=== PATIENT | female | born 1945 | race Caucasian/White ===

== ENCOUNTER 2017-12-20 17:18 | Emergency (ER) | payer OTHER, SELFPAY ==
[2017-12-20 17:28] VITALS: BP 96/78; PULSE 60; RESP 16; O2SAT 96
--- NOTE | 2017-12-20 17:34 | ED.WOUNDLAC ---
HPI - Wound/Laceration <Juliann Atkins PA-C - Last Filed: 12/20/17 21:54> General Chief Complaint: Wound/Laceration Stated Complaint: cut off tip of index finger left hand Time Seen by Provider: 12/20/17 17:34 Source: patient Mode of arrival: ambulatory Limitations: no limitations History of Present Illness HPI narrative: This 72-year-old right-handed female was chopping some herbs at home when she cut off a piece of skin and nail on her left pointer finger with a knife. She states that she does not think it is cut very deeply, and actually states a little piece of skin, but can't get it to stop bleeding. She started Pradaxa on Friday and thinks due to this. She denies any weakness or paresthesia in the finger. She denies any other injuries or complaints. She thinks at least 5 years since her last tetanus vaccine Related Data Home Medications Medication Instructions Recorded Confirmed atenolol 50 mg PO BID #0 09/28/12 12/20/17 hydrochlorothiazide 25 mg PO QDAY #0 09/28/12 12/20/17 atorvastatin 10 mg PO DAILY 12/20/17 12/20/17 calcium carbonate-vitamin D3 1,000 mg PO DAILY 12/20/17 12/20/17 dabigatran etexilate [Pradaxa] 150 mg PO BID 12/20/17 12/20/17 flecainide 100 mg PO Q12H 12/20/17 12/20/17 levothyroxine 50 mcg PO DAILY 12/20/17 12/20/17 losartan 25 mg PO DAILY 12/20/17 12/20/17 multivitamin 1 cap PO QAM 12/20/17 12/20/17 omega 4-jyk-efj-fish oil [Fish Oil] 4,000 mg PO DAILY 12/20/17 12/20/17 vitamin B complex 1 cap PO DAILY 12/20/17 12/20/17 Allergies Allergy/AdvReac Type Severity Reaction Status Date / Time vancomycin [VANCOMYCIN] Allergy Mild HIVES Verified 12/20/17 17:35 levofloxacin [From LEVAQUIN] Allergy Unknown TORN Verified 12/20/17 17:35 ACHILLES Review of Systems <Juliann Atkins PA-C - Last Filed: 12/20/17 21:54> Review of Systems All systems reviewed & are unremarkable except as noted in HPI and below Exam <BRIGETTE Cordoba Last Filed: 12/20/17 21:54> Initial Vital Signs Initial Vital Signs: Vital Signs Pulse Rate 60 12/20/17 17:28 Respiratory Rate 16 12/20/17 17:28 Blood Pressure 96/78 12/20/17 17:28 Pulse Oximetry 96 12/20/17 17:28 GENERAL APPEARANCE: Patient sitting comfortably, in no distress. LUNGS: Clear to auscultation bilaterally. HEART: Rate and rhythm regular without murmur, normal S1 and S2, no S3 or S4. DERMATOLOGIC: Left lateral border of the pointer finger there is a nail and skin avulsion. The lateral 1/4 of the nail is avulsed along with a piece of skin about 4 mm in diameter. This is freely bleeding. No deep tissue or bone visible. Skin fragment is very superficial. Surgifoam and direct pressure applied and bleeding stopped MUSCULOSKELETAL: Left pointer finger full active range of motion, strength is intact against resistance NEUROVASCULAR: Left pointer finger tip is warm and pink, sensation grossly intact <DO Myla Aguilera Last Filed: 12/21/17 00:53> Initial Vital Signs Initial Vital Signs: Vital Signs Pulse Rate 60 12/20/17 17:28 Respiratory Rate 16 12/20/17 17:28 Blood Pressure 96/78 12/20/17 17:28 Pulse Oximetry 96 12/20/17 17:28 Course <Juliann Atkins PA-C - Last Filed: 12/20/17 21:54> Hospital Course: Wound was cleaned. Bleeding was controlled with surgifoam and pressure. Bulky protective dressing applied Orders Ordered: Discontinued Medications Diphtheria/Tetanus/Acell Pertussis (Adacel) 0.5 ml IM .ONCE ONE Stop: 12/20/17 17:52 Last Admin: 12/20/17 18:07 Dose: 0.5 ml Vital Signs - 8 hr 12/20/17 17:28 12/20/17 17:35 12/20/17 19:03 Temperature 97.5 F L Pulse Rate 60 60 99 H Respiratory Rate 16 15 18 Blood Pressure 164/77 H 149/79 H Blood Pressure [Left Arm] 96/78 Pulse Oximetry 96 96 97 <Jayesh [place], DO - Last Filed: 12/21/17 00:53> Orders Ordered: Discontinued Medications Diphtheria/Tetanus/Acell Pertussis (Adacel) 0.5 ml IM .ONCE ONE Stop: 12/20/17 17:52 Last Admin: 12/20/17 18:07 Dose: 0.5 ml Vital Signs - 8 hr 12/20/17 17:28 12/20/17 17:35 12/20/17 19:03 Temperature 97.5 F L Pulse Rate 60 60 99 H Respiratory Rate 16 15 18 Blood Pressure 164/77 H 149/79 H Blood Pressure [Left Arm] 96/78 Pulse Oximetry 96 96 97 Discharge Plan Departure Patient Disposition: Home, Self-Care Clinical Impression: Avulsion of skin of finger Discharge Date/Time: 12/20/17 19:03 Interventions: ED Discharge Assessment Last Done: 12/20/17 19:03 Instructions: DI for Avulsion Laceration (Not Requiring Sutures), DI for Nail Avulsion Injury Activity Restrictions/Additional Instructions: Monitor for signs of infection and return or see your PCP if any. Keep this area protected, clean and bandaged to help keep it from bleeding and to help with pain. Take [id number] Tylenol as needed. As this wound heals, you can use a experimental box tester dressing or Band-Aid but you should protect it until the skin heals over. Prescriptions: No Action atenolol 50 MG tablet 50 mg PO BID Qty: 0 RF: 0 hydrochlorothiazide 25 MG tablet 25 mg PO QDAY Qty: 0 RF: 0 omega 0-rdq-yro-fish oil [Fish Oil] 1,000 mg (120 mg-180 mg) Capsule 4,000 mg PO DAILY RF: 0 atorvastatin 10 mg Tablet 10 mg PO DAILY RF: 0 levothyroxine 50 mcg Tablet 50 mcg PO DAILY RF: 0 flecainide 100 mg Tablet 100 mg PO Q12H RF: 0 vitamin B complex Capsule 1 cap PO DAILY RF: 0 dabigatran etexilate [Pradaxa] 150 mg Capsule 150 mg PO BID RF: 0 calcium carbonate-vitamin D3 1,000 mg(2,500 mg)-800 unit Tablet 1,000 mg PO DAILY RF: 0 losartan 25 mg Tablet 25 mg PO DAILY RF: 0 multivitamin Capsule 1 cap PO QAM RF: 0 Referrals: Sharon Lin PA-C [Primary Care Provider] - <Jayesh Hernandez DO - Last Filed: 12/21/17 00:53> Cosign ED Attending Julissaature Attestation: I was immediately available in the department for consultation. Documentation has been reviewed. I agree with assessment and plan.
[2017-12-20 17:35] VITALS: BP 164/77; PULSE 60; RESP 15; TEMP 36.4; O2SAT 96; BMI 27.1
--- NOTE | 2017-12-20 17:57 | ED_ITS ---
HPI - Wound/Laceration <Juliann Atkins PA-C - Last Filed: 12/20/17 21:54> General Chief Complaint: Wound/Laceration Stated Complaint: cut off tip of index finger left hand Time Seen by Provider: 12/20/17 17:34 Source: patient Mode of arrival: ambulatory Limitations: no limitations History of Present Illness HPI narrative: This 72-year-old right-handed female was chopping some herbs at home when she cut off a piece of skin and nail on her left pointer finger with a knife. She states that she does not think it is cut very deeply, and actually states a little piece of skin, but can't get it to stop bleeding. She started Pradaxa on Friday and thinks due to this. She denies any weakness or paresthesia in the finger. She denies any other injuries or complaints. She thinks at least 5 years since her last tetanus vaccine Related Data Home Medications Medication Instructions Recorded Confirmed atenolol 50 mg PO BID #0 09/28/12 12/20/17 hydrochlorothiazide 25 mg PO QDAY #0 09/28/12 12/20/17 atorvastatin 10 mg PO DAILY 12/20/17 12/20/17 calcium carbonate-vitamin D3 1,000 mg PO DAILY 12/20/17 12/20/17 dabigatran etexilate [Pradaxa] 150 mg PO BID 12/20/17 12/20/17 flecainide 100 mg PO Q12H 12/20/17 12/20/17 levothyroxine 50 mcg PO DAILY 12/20/17 12/20/17 losartan 25 mg PO DAILY 12/20/17 12/20/17 multivitamin 1 cap PO QAM 12/20/17 12/20/17 omega 2-ilk-xeo-fish oil [Fish Oil] 4,000 mg PO DAILY 12/20/17 12/20/17 vitamin B complex 1 cap PO DAILY 12/20/17 12/20/17 Allergies Allergy/AdvReac Type Severity Reaction Status Date / Time vancomycin [VANCOMYCIN] Allergy Mild HIVES Verified 12/20/17 17:35 levofloxacin [From LEVAQUIN] Allergy Unknown TORN Verified 12/20/17 17:35 ACHILLES Review of Systems <Juliann Atkins PA-C - Last Filed: 12/20/17 21:54> Review of Systems All systems reviewed & are unremarkable except as noted in HPI and below Exam <BRIGETTE Cordoba Last Filed: 12/20/17 21:54> Initial Vital Signs Initial Vital Signs: Vital Signs Pulse Rate 60 12/20/17 17:28 Respiratory Rate 16 12/20/17 17:28 Blood Pressure 96/78 12/20/17 17:28 Pulse Oximetry 96 12/20/17 17:28 GENERAL APPEARANCE: Patient sitting comfortably, in no distress. LUNGS: Clear to auscultation bilaterally. HEART: Rate and rhythm regular without murmur, normal S1 and S2, no S3 or S4. DERMATOLOGIC: Left lateral border of the pointer finger there is a nail and skin avulsion. The lateral 1/4 of the nail is avulsed along with a piece of skin about 4 mm in diameter. This is freely bleeding. No deep tissue or bone visible. Skin fragment is very superficial. Surgifoam and direct pressure applied and bleeding stopped MUSCULOSKELETAL: Left pointer finger full active range of motion, strength is intact against resistance NEUROVASCULAR: Left pointer finger tip is warm and pink, sensation grossly intact <DO Myla Aguilera Last Filed: 12/21/17 00:53> Initial Vital Signs Initial Vital Signs: Vital Signs Pulse Rate 60 12/20/17 17:28 Respiratory Rate 16 12/20/17 17:28 Blood Pressure 96/78 12/20/17 17:28 Pulse Oximetry 96 12/20/17 17:28 Course <Juliann Atkins PA-C - Last Filed: 12/20/17 21:54> Hospital Course: Wound was cleaned. Bleeding was controlled with surgifoam and pressure. Bulky protective dressing applied Orders Ordered: Discontinued Medications Diphtheria/Tetanus/Acell Pertussis (Adacel) 0.5 ml IM .ONCE ONE Stop: 12/20/17 17:52 Last Admin: 12/20/17 18:07 Dose: 0.5 ml Vital Signs - 8 hr 12/20/17 17:28 12/20/17 17:35 12/20/17 19:03 Temperature 97.5 F L Pulse Rate 60 60 99 H Respiratory Rate 16 15 18 Blood Pressure 164/77 H 149/79 H Blood Pressure [Left Arm] 96/78 Pulse Oximetry 96 96 97 <Jayesh [place], DO - Last Filed: 12/21/17 00:53> Orders Ordered: Discontinued Medications Diphtheria/Tetanus/Acell Pertussis (Adacel) 0.5 ml IM .ONCE ONE Stop: 12/20/17 17:52 Last Admin: 12/20/17 18:07 Dose: 0.5 ml Vital Signs - 8 hr 12/20/17 17:28 12/20/17 17:35 12/20/17 19:03 Temperature 97.5 F L Pulse Rate 60 60 99 H Respiratory Rate 16 15 18 Blood Pressure 164/77 H 149/79 H Blood Pressure [Left Arm] 96/78 Pulse Oximetry 96 96 97 Discharge Plan Departure Patient Disposition: Home, Self-Care Clinical Impression: Avulsion of skin of finger Discharge Date/Time: 12/20/17 19:03 Interventions: ED Discharge Assessment Last Done: 12/20/17 19:03 Instructions: DI for Avulsion Laceration (Not Requiring Sutures), DI for Nail Avulsion Injury Activity Restrictions/Additional Instructions: Monitor for signs of infection and return or see your PCP if any. Keep this area protected, clean and bandaged to help keep it from bleeding and to help with pain. Take [id number] Tylenol as needed. As this wound heals, you can use a vending machine technician dressing or Band-Aid but you should protect it until the skin heals over. Prescriptions: No Action atenolol 50 MG tablet 50 mg PO BID Qty: 0 RF: 0 hydrochlorothiazide 25 MG tablet 25 mg PO QDAY Qty: 0 RF: 0 omega 2-eug-mwr-fish oil [Fish Oil] 1,000 mg (120 mg-180 mg) Capsule 4,000 mg PO DAILY RF: 0 atorvastatin 10 mg Tablet 10 mg PO DAILY RF: 0 levothyroxine 50 mcg Tablet 50 mcg PO DAILY RF: 0 flecainide 100 mg Tablet 100 mg PO Q12H RF: 0 vitamin B complex Capsule 1 cap PO DAILY RF: 0 dabigatran etexilate [Pradaxa] 150 mg Capsule 150 mg PO BID RF: 0 calcium carbonate-vitamin D3 1,000 mg(2,500 mg)-800 unit Tablet 1,000 mg PO DAILY RF: 0 losartan 25 mg Tablet 25 mg PO DAILY RF: 0 multivitamin Capsule 1 cap PO QAM RF: 0 Referrals: Sharon Lin PA-C [Primary Care Provider] - <Jayesh Hernandez DO - Last Filed: 12/21/17 00:53> Cosign ED Attending Julissaature Attestation: I was immediately available in the department for consultation. Documentation has been reviewed. I agree with assessment and plan.
[2017-12-20] MEDS: TET,DIPH,PERTUSS(ACELL),VAC/PF 0.5 ML SYRINGE IM (18:07)
[2017-12-20 19:03] VITALS: BP 149/79; PULSE 99; RESP 18; O2SAT 97
== END 2017-12-20 19:03 | disposition home or self-care (01) ==
PROVIDERS: Emergency Provider Internal Medicine; Family Provider Physician Assistant; PCP Physician Assistant
DX: S68.121A Partial traumatic metacarpophalangeal amputation of left index finger, initial encounter (principal); W26.0XXA Contact with knife, initial encounter
CPT/HCPCS: 90471; 99283; 90715

== ENCOUNTER 2018-01-16 03:22 | Emergency (ER) | payer OTHER, SELFPAY ==
[2018-01-16] VITALS (13 sets, daily range): BP systolic 109–129; BP diastolic 49–84; PULSE 59–61; RESP 12–20; TEMP 37–37.2; O2SAT 91–97; BMI 27.1
--- NOTE | 2018-01-16 04:00 | DI.CT.S_ITS ---
PROCEDURE: CT ANGIO CHEST PE PROTOCOL INDICATIONS: Chest pain radiating to back, hypoxia. Recent cardiac ablation TECHNIQUE: After the administration of intravenous contrast, 2 mm thick sections acquired from the pulmonary apices to the posterior costophrenic angles. 3-dimensional maximum intensity projection (MIP) coronal and sagittal reformats were then acquired through the thorax. For radiation dose reduction, the following was used: automated exposure control, adjustment of mA and/or kV according to patient size. COMPARISON: [facility], CT, CT ANGIO CHEST, 01/07/2018, 9:58. FINDINGS: Image quality: Excellent. Pulmonary arteries: Pulmonary arteries are normal in size, and demonstrate no intraluminal filling defects to suggest central pulmonary embolism. Lungs and pleura: Lungs are clear. Small lung nodules are unchanged. No pleural effusions or pneumothorax. Central and peripheral airways are patent. Mediastinum: Heart size is normal, without pericardial effusion. No mediastinal or hilar adenopathy. Thoracic aorta is normal in caliber and enhancement. Mild concentric thickening of the distal esophagus. Bones and chest wall: No suspicious bony lesions. Ribs and thoracic spine appear intact throughout. There is a 1.6 cm low-density nodule in the right thyroid. No axillary or supraclavicular adenopathy. Abdomen: Visualized upper abdominal solid organs appear normal in the early arterial phase of enhancement. IMPRESSION: 1. No evidence for central pulmonary embolism. Prominence of the pulmonary outflow tract could be secondary to pulmonary hypertension. 2. Mild concentric thickening of the distal esophagus may be secondary to gastroesophageal reflux. 3. Low density nodule in the right thyroid lobe. 4. Small lung nodules are unchanged. No significant discrepancy with the case therapist radiology preliminary report. Dictated by: Selina Bland M.D. on 01/16/2018 at 7:27 Approved by: Selina Bland M.D. on 01/16/2018 at 7:32
[2018-01-16 04:12] LABS: Add Manual Diff / Slide Review NO; Basophils Percent Auto 0.2 % (0-2); Eosinophils Percent Auto 0.3 % (2-4); Hematocrit 37.3 % (36-46); Hemoglobin 12.7 g/dL (12.0-16.0); Lymphocytes Percent Auto 10.6 % (25-40); Mean Corpuscular Hemoglobin 31.4 PG (26-34); Mean Corpuscular Volume 92.5 fL (80-100); Monocytes Percent Auto 11.7 % (3-14); Neutrophils Absolute Auto 5800 /uL (3000-5900); Neutrophils Percent Auto 77.2 % (50-75); Platelet Count 130 X10^3/uL (150-400); Red Blood Cell Count 4.04 X10^6/uL (4.0-5.2); White Blood Cell Count 7.5 X10^3/uL (4.5-11.0)
--- NOTE | 2018-01-16 04:12 | ED.CHESTPAIN ---
HPI - Chest Pain <Jayesh HernandezDO federico - Last Filed: 01/16/18 19:17> General Chief Complaint: Chest Pain Stated Complaint: CHEST PAIN,WORRIED ABOUT BLOOD CLOT Time Seen by Provider: 01/16/18 03:26 Source: patient and family Mode of arrival: ambulatory Limitations: no limitations History of Present Illness HPI narrative: Patient presents to the emergency department with her and a chief complaint of anterior chest pain with radiation to her back that started yesterday afternoon and has progressively worsened. She has associated shortness of breath. She states her pain is reproducible with a deep breath. She denies any difficulty swallowing. She is not dizzy nor weak or lightheaded and denies fever or chills. She was just discharged from [facility] yesterday after having an ablation and switching at the hardware of her pacemaker. The wires were left in place but the generator was changed. Patient called the [place] nursing hotline and was encouraged to present to the emergency department for evaluation. She has been on Pradaxa for the past month MD complaint: chest pain Onset (ago): hour(s) Duration: constant Onset: during rest Pain location: substernal Severity: moderate Quality: sharp Pain radiation: back Relieving factors: nothing Exacerbating factors: inspiration and movement Context: recent surgery Associated symptoms: dyspnea Treatments prior to arrival chest pain: none Related Data Home Medications Medication Instructions Recorded Confirmed atenolol 50 mg PO BID #0 09/28/12 01/16/18 hydrochlorothiazide 25 mg PO QDAY #0 09/28/12 01/16/18 atorvastatin 10 mg PO DAILY 12/20/17 01/16/18 calcium carbonate-vitamin D3 1,000 mg PO DAILY 12/20/17 01/16/18 dabigatran etexilate [Pradaxa] 150 mg PO BID 12/20/17 01/16/18 flecainide 100 mg PO Q12H 12/20/17 01/16/18 levothyroxine 50 mcg PO DAILY 12/20/17 01/16/18 losartan 25 mg PO DAILY 12/20/17 01/16/18 multivitamin 1 cap PO QAM 12/20/17 01/16/18 omega 5-azv-sdk-fish oil [Fish Oil] 4,000 mg PO DAILY 12/20/17 01/16/18 vitamin B complex 1 cap PO DAILY 12/20/17 01/16/18 Allergies Allergy/AdvReac Type Severity Reaction Status Date / Time vancomycin [VANCOMYCIN] Allergy Mild HIVES Verified 01/16/18 03:35 levofloxacin [From LEVAQUIN] Allergy Unknown TORN Verified 01/16/18 03:35 ACHILLES Review of Systems <Jayesh Hernandez DO - Last Filed: 01/16/18 19:17> Review of Systems All systems reviewed & are unremarkable except as noted in HPI and below Constitutional Denies chills, Denies fever(s), Denies lethargy and Denies weakness Eyes Denies change in vision, Denies eye discharge, Denies irritation and Denies loss of vision ENT Ears, Nose, Mouth, and Throat: Denies change in voice, Denies neck pain and Denies sore throat Cardiovascular Reports chest pain, Denies irregular heart rhythm, Denies lightheadedness, Denies palpitations, Reports dyspnea, Denies dyspnea on exertion and Denies orthopnea Respiratory Denies cough, Reports dyspnea, Denies dyspnea on exertion and Denies wheezing Gastrointestinal Gastrointestinal: Denies abdominal pain, Denies change in bowel habits, Denies diarrhea, Denies nausea and Denies vomiting Genitourinary Denies hematuria, Denies flank pain, Denies urinary incontinence and Denies urinary urgency Musculoskeletal Denies neck pain Integumentary/Breasts Denies pruritus, Denies erythema, Denies rash and Denies wounds Neurologic Denies confusion, Denies loss of vision and Denies weakness Psychiatric Denies anxiety, Denies confusion, Denies depression, Denies homicidal ideation and Denies suicidal ideation Endocrine Denies palpitations Hematologic/Lymphatic Denies easy bruising Allergic/Immunologic Denies wheezing Exam <Jayesh Hernandez DO - Last Filed: 01/16/18 19:17> Narrative Exam Narrative: Pleasant 72-year-old female in mild distress, although resting comfortably Initial Vital Signs Initial Vital Signs: Vital Signs Temperature 99 F 01/16/18 03:30 Pulse Rate 61 01/16/18 03:30 Respiratory Rate 15 01/16/18 03:30 Blood Pressure 129/62 H 01/16/18 03:30 Pulse Oximetry 93 01/16/18 03:30 Const General: cooperative, well developed and in distress Nutritional Appearance: well nourished Orientation: alert, awake, oriented x3 and not confused HENFL Head: normocephalic and atraumatic Ears: external ears normal and TM's normal bilaterally Nose: external nose normal and No nasal discharge Face and sinus: sinuses nontender, face symmetric, no sinus tenderness and No dry mucous membranes Mouth: oral mucosae normal and moist mucous membranes Teeth and gingiva: dentition normal Throat: tonsils normal and uvula midline Eyes General: appearance normal, both eyes and all related structures Eyelids: eyelids normal Conjunctivae: conjunctivae normal Sclera: sclerae normal Pupils: PERRL EOM: EOM intact bilaterally Chest Other: Pacemaker pocket appears to be healing well, incision clean, dry and intact Resp Effort & Inspection: normal respiratory effort, able to speak in complete sentences, no respiratory distress and no use of accessory muscles Auscultation: clear to auscultation bilaterally, no rales, no rhonchi and no wheezes Cardio Rate: regular rate Rhythm: regular rhythm Heart Sounds: no click, no gallops, no murmurs and no rubs Pulses: normal peripheral pulses Back/Spine/Pelvis Back: No CVA tenderness Cervical Spine: cervical ROM normal and No pain with cervical ROM Thoracic/Lumbar Spine: thoracic and lumbar spine normal to inspection Skin General: no rashes or lesions noted, No jaundice and No petechiae Neuro General: alert, oriented x3, gait normal and no focal motor deficits Speech: speech normal <Erma Kwok DO - Last Filed: 01/16/18 15:34> Initial Vital Signs Initial Vital Signs: Vital Signs Temperature 99 F 01/16/18 03:30 Pulse Rate 61 01/16/18 03:30 Respiratory Rate 15 01/16/18 03:30 Blood Pressure 129/62 H 01/16/18 03:30 Pulse Oximetry 93 01/16/18 03:30 Course <DO Myla Aguilera Last Filed: 01/16/18 19:17> Orders Ordered: Discontinued Medications Sodium Chloride (Normal Saline 0.9%) 1,000 mls @ 150 mls/hr IV CONT PAM Last Infusion: 01/16/18 13:12 Dose: 0 mls/hr Admin: 01/16/18 04:39 Dose: 150 mls/hr Methylprednisolone (Solu-Medrol 125 Mg Vial) 125 mg IV NOW ONE Stop: 01/16/18 08:31 Last Admin: 06/29/18 08:49 Dose: 125 mg Pantoprazole Sodium (Protonix) 40 mg IV NOW ONE Stop: 01/16/18 08:31 Last Admin: 01/16/18 08:50 Dose: 40 mg Consultations Consultation #1: call to senior professional services consultant cardiology, Dr. Quintero, whom requests patient be transferred to [facility] for observation and stabilization. Admission to Hospitalist, cardiology to consult Time: 05:14 Consultation #2: No beds at [facility]. Call back to Dr. Quintero whom suggests we keep patient in ED and attempt to contact Dr. Ochoa once he comes on shift this morning at 7-8. Time: 05:34 Vital Signs - 8 hr 01/16/18 11:39 01/16/18 12:37 01/16/18 14:23 Temperature Pulse Rate 60 60 60 Respiratory Rate 14 18 16 Blood Pressure [Right Arm] 113/54 L 110/51 L 112/52 L Pulse Oximetry 91 92 92 01/16/18 14:28 01/16/18 15:08 Temperature 98.6 F Pulse Rate 60 Respiratory Rate 17 Blood Pressure [Right Arm] 109/52 L Pulse Oximetry 94 <Erma Kowk DO - Last Filed: 01/16/18 15:34> Orders Ordered: Discontinued Medications Sodium Chloride (Normal Saline 0.9%) 1,000 mls @ 150 mls/hr IV CONT PAM Last Infusion: 01/16/18 13:12 Dose: 0 mls/hr Admin: 01/16/18 04:39 Dose: 150 mls/hr Methylprednisolone (Solu-Medrol 125 Mg Vial) 125 mg IV NOW ONE Stop: 01/16/18 08:31 Last Admin: 01/16/18 08:49 Dose: 125 mg Pantoprazole Sodium (Protonix) 40 mg IV NOW ONE Stop: 01/16/18 08:31 Last Admin: 01/16/18 08:50 Dose: 40 mg Reevaluation(s) Reevaluation #2: Dr. Ochoa has been updated on patient's symptoms and test results. Concern for potential esophageal injury. Agrees with transferring for monitoring along with PPIs and steroids Time: 08:18 Consultations Consultation #1: Dr. Romero hospitalist at [facility] has happily accepted patient Vital Signs - 8 hr 01/16/18 11:39 01/16/18 12:37 01/16/18 14:23 Temperature Pulse Rate 60 60 60 Respiratory Rate 14 18 16 Blood Pressure [Right Arm] 113/54 L 110/51 L 112/52 L Pulse Oximetry 91 92 92 01/16/18 14:28 01/16/18 15:08 Temperature 98.6 F Pulse Rate 60 Respiratory Rate 17 Blood Pressure [Right Arm] 109/52 L Pulse Oximetry 94 MDM - Chest Pain <Jayesh Hernandez DO - Last Filed: 01/16/18 19:17> Differential Diagnosis Likely pneumothorax, stable angina, unstable angina pectoris, atypical chest pain, st elevation myocardial infarction, costochondritis and chest pain Medical Records Data Attestation: I reviewed the patient's medical records. Lab Data Result diagrams: 01/16/18 03:50 01/16/18 03:50 Lab Results 01/16/18 01/16/18 Range/Units 03:50 03:50 WBC 7.5 (4.5-11.0) X10^3/uL RBC 4.04 (4.0-5.2) X10^6/uL Hgb 12.7 (12.0-16.0) g/dL Hct 37.3 (36-46) % MCV 92.5 (80-100) fL MCH 31.4 (26-34) PG MCHC 34.0 (30-36) % RDW 13.0 (11.6-14.8) % Plt Count 130 L (150-400) X10^3/uL Neut % (Auto) 77.2 H (50-75) % Lymph % (Auto) 10.6 L (25-40) % [place] % (Auto) 11.7 (3-14) % Eos % (Auto) 0.3 L (2-4) % Baso % (Auto) 0.2 (0-2) % Neut # (Auto) 5800 (0348-7061) /uL Sodium 138 (137-145) mmol/L Potassium 4.2 (3.4-5.1) mmol/L Chloride 100 (98-107) mmol/L Carbon Dioxide 31 (22-32) mmol/L BUN 16 (7-17) mg/dL Creatinine 0.80 (0.52-1.04) mg/dL Estimated GFR > 60.0 (>60) mL/min BUN/Creatinine Ratio 20.0 (6-22) Glucose 123 H (80-110) mg/dL Calcium 9.0 (8.4-10.2) mg/dL Total Bilirubin 1.6 H (0.2-1.3) mg/dL AST 32 (14-36) IU/L ALT 21 (9-52) IU/L Alkaline Phosphatase 47 (38-126) U/L Total Creatine Kinase 105 (30-135) U/L Troponin I 0.345 H* (0.01-0.034) ng/mL Total Protein 6.6 (6.3-8.2) g/dL Albumin 3.6 (3.5-5.0) g/dL Globulin 3.0 (1.7-4.1) g/dL Albumin/Globulin Ratio 1.2 (1.0-2.8) Lipase 128 (23-300) U/L ECG Data Attestation: I personally reviewed and interpreted this ECG as follows: Prior ECG tracings: not available for review Interpretation: Paced rhythm at 60, no signs of ectopy or ischemia Pacemaker function: normal pacer function <Erma Kwok DO - Last Filed: 01/16/18 15:34> Lab Data Lab Results 01/16/18 01/16/18 Range/Units 03:50 03:50 WBC 7.5 (4.5-11.0) X10^3/uL RBC 4.04 (4.0-5.2) X10^6/uL Hgb 12.7 (12.0-16.0) g/dL Hct 37.3 (36-46) % MCV 92.5 (80-100) fL MCH 31.4 (26-34) PG MCHC 34.0 (30-36) % RDW 13.0 (11.6-14.8) % Plt Count 130 L (150-400) X10^3/uL Neut % (Auto) 77.2 H (50-75) % Lymph % (Auto) 10.6 L (25-40) % [place] % (Auto) 11.7 (3-14) % Eos % (Auto) 0.3 L (2-4) % Baso % (Auto) 0.2 (0-2) % Neut # (Auto) 5800 (3771-1536) /uL Sodium 138 (137-145) mmol/L Potassium 4.2 (3.4-5.1) mmol/L Chloride 100 (98-107) mmol/L Carbon Dioxide 31 (22-32) mmol/L BUN 16 (7-17) mg/dL Creatinine 0.80 (0.52-1.04) mg/dL Estimated GFR > 60.0 (>60) mL/min BUN/Creatinine Ratio 20.0 (6-22) Glucose 123 H (80-110) mg/dL Calcium 9.0 (8.4-10.2) mg/dL Total Bilirubin 1.6 H (0.2-1.3) mg/dL AST 32 (14-36) IU/L ALT 21 (9-52) IU/L Alkaline Phosphatase 47 (38-126) U/L Total Creatine Kinase 105 (30-135) U/L Troponin I 0.345 H* (0.01-0.034) ng/mL Total Protein 6.6 (6.3-8.2) g/dL Albumin 3.6 (3.5-5.0) g/dL Globulin 3.0 (1.7-4.1) g/dL Albumin/Globulin Ratio 1.2 (1.0-2.8) Lipase 128 (23-300) U/L Discharge Plan Departure Patient Disposition: [facility] Clinical Impression: Pericardial pain, Chest pain Discharge Date/Time: 01/16/18 15:45 Interventions: ED Discharge Assessment Last Done: 01/16/18 14:52 Prescriptions: No Action atenolol 50 MG tablet 50 mg PO BID Qty: 0 RF: 0 hydrochlorothiazide 25 MG tablet 25 mg PO QDAY Qty: 0 RF: 0 omega 7-gre-oef-fish oil [Fish Oil] 1,000 mg (120 mg-180 mg) Capsule 4,000 mg PO DAILY RF: 0 atorvastatin 10 mg Tablet 10 mg PO DAILY RF: 0 levothyroxine 50 mcg Tablet 50 mcg PO DAILY RF: 0 flecainide 100 mg Tablet 100 mg PO Q12H RF: 0 vitamin B complex Capsule 1 cap PO DAILY RF: 0 dabigatran etexilate [Pradaxa] 150 mg Capsule 150 mg PO BID RF: 0 calcium carbonate-vitamin D3 1,000 mg(2,500 mg)-800 unit Tablet 1,000 mg PO DAILY RF: 0 losartan 25 mg Tablet 25 mg PO DAILY RF: 0 multivitamin Capsule 1 cap PO QAM RF: 0 <Erma Kwok, DO - Last Filed: 01/16/18 15:34> Sign Out Provider Sign Out Attestation: Patient signed out to me by Dr. Hernandez at shift change. Awaiting cardiology need to talk with Dr. Ochoa. [facility] has no beds at this time but still recommend transferring [facility]. I have seen evaluated patient myself she is resting comfortably does not need anything for pain. I have gone over CT result and blood work with her.
[2018-01-16 04:14] LABS: Alanine Aminotransferase 21 IU/L (9-52); Albumin 3.6 g/dL (3.5-5.0); Albumin Globulin Ratio 1.2 (1.0-2.8); Alkaline Phosphatase 47 U/L (38-126); Aspartate Aminotransferase 32 IU/L (14-36); Bilirubin Total 1.6 mg/dL (0.2-1.3); Blood Urea Nitrogen 16 mg/dL (7-17); Carbon Dioxide 31 mmol/L (22-32); Chloride 100 mmol/L (98-107); Creatine Kinase 105 U/L (30-135); Estimated Glomerular Filt Rate > 60.0 mL/min (>60); Glucose 123 mg/dL (80-110); HEMOLYSIS < 15 (0-50); Lipase 128 U/L (23-300); Potassium 4.2 mmol/L (3.4-5.1); Sodium 138 mmol/L (137-145); Total Protein 6.6 g/dL (6.3-8.2)
--- NOTE | 2018-01-16 04:17 | ED_ITS ---
HPI - Chest Pain <Jayesh HernandezDO federico - Last Filed: 01/16/18 19:17> General Chief Complaint: Chest Pain Stated Complaint: CHEST PAIN,WORRIED ABOUT BLOOD CLOT Time Seen by Provider: 01/16/18 03:26 Source: patient and family Mode of arrival: ambulatory Limitations: no limitations History of Present Illness HPI narrative: Patient presents to the emergency department with her and a chief complaint of anterior chest pain with radiation to her back that started yesterday afternoon and has progressively worsened. She has associated shortness of breath. She states her pain is reproducible with a deep breath. She denies any difficulty swallowing. She is not dizzy nor weak or lightheaded and denies fever or chills. She was just discharged from [facility] yesterday after having an ablation and switching at the hardware of her pacemaker. The wires were left in place but the generator was changed. Patient called the [place] nursing hotline and was encouraged to present to the emergency department for evaluation. She has been on Pradaxa for the past month MD complaint: chest pain Onset (ago): hour(s) Duration: constant Onset: during rest Pain location: substernal Severity: moderate Quality: sharp Pain radiation: back Relieving factors: nothing Exacerbating factors: inspiration and movement Context: recent surgery Associated symptoms: dyspnea Treatments prior to arrival chest pain: none Related Data Home Medications Medication Instructions Recorded Confirmed atenolol 50 mg PO BID #0 09/28/12 01/16/18 hydrochlorothiazide 25 mg PO QDAY #0 09/28/12 01/16/18 atorvastatin 10 mg PO DAILY 12/20/17 01/16/18 calcium carbonate-vitamin D3 1,000 mg PO DAILY 12/20/17 01/16/18 dabigatran etexilate [Pradaxa] 150 mg PO BID 12/20/17 01/16/18 flecainide 100 mg PO Q12H 12/20/17 01/16/18 levothyroxine 50 mcg PO DAILY 12/20/17 01/16/18 losartan 25 mg PO DAILY 12/20/17 01/16/18 multivitamin 1 cap PO QAM 12/20/17 01/16/18 omega 1-thw-req-fish oil [Fish Oil] 4,000 mg PO DAILY 12/20/17 01/16/18 vitamin B complex 1 cap PO DAILY 12/20/17 01/16/18 Allergies Allergy/AdvReac Type Severity Reaction Status Date / Time vancomycin [VANCOMYCIN] Allergy Mild HIVES Verified 01/16/18 03:35 levofloxacin [From LEVAQUIN] Allergy Unknown TORN Verified 01/16/18 03:35 ACHILLES Review of Systems <Jayesh Hernandez DO - Last Filed: 01/16/18 19:17> Review of Systems All systems reviewed & are unremarkable except as noted in HPI and below Constitutional Denies chills, Denies fever(s), Denies lethargy and Denies weakness Eyes Denies change in vision, Denies eye discharge, Denies irritation and Denies loss of vision ENT Ears, Nose, Mouth, and Throat: Denies change in voice, Denies neck pain and Denies sore throat Cardiovascular Reports chest pain, Denies irregular heart rhythm, Denies lightheadedness, Denies palpitations, Reports dyspnea, Denies dyspnea on exertion and Denies orthopnea Respiratory Denies cough, Reports dyspnea, Denies dyspnea on exertion and Denies wheezing Gastrointestinal Gastrointestinal: Denies abdominal pain, Denies change in bowel habits, Denies diarrhea, Denies nausea and Denies vomiting Genitourinary Denies hematuria, Denies flank pain, Denies urinary incontinence and Denies urinary urgency Musculoskeletal Denies neck pain Integumentary/Breasts Denies pruritus, Denies erythema, Denies rash and Denies wounds Neurologic Denies confusion, Denies loss of vision and Denies weakness Psychiatric Denies anxiety, Denies confusion, Denies depression, Denies homicidal ideation and Denies suicidal ideation Endocrine Denies palpitations Hematologic/Lymphatic Denies easy bruising Allergic/Immunologic Denies wheezing Exam <Jayesh Hernandez DO - Last Filed: 01/16/18 19:17> Narrative Exam Narrative: Pleasant 72-year-old female in mild distress, although resting comfortably Initial Vital Signs Initial Vital Signs: Vital Signs Temperature 99 F 01/16/18 03:30 Pulse Rate 61 01/16/18 03:30 Respiratory Rate 15 01/16/18 03:30 Blood Pressure 129/62 H 01/16/18 03:30 Pulse Oximetry 93 01/16/18 03:30 Const General: cooperative, well developed and in distress Nutritional Appearance: well nourished Orientation: alert, awake, oriented x3 and not confused HENLA Head: normocephalic and atraumatic Ears: external ears normal and TM's normal bilaterally Nose: external nose normal and No nasal discharge Face and sinus: sinuses nontender, face symmetric, no sinus tenderness and No dry mucous membranes Mouth: oral mucosae normal and moist mucous membranes Teeth and gingiva: dentition normal Throat: tonsils normal and uvula midline Eyes General: appearance normal, both eyes and all related structures Eyelids: eyelids normal Conjunctivae: conjunctivae normal Sclera: sclerae normal Pupils: PERRL EOM: EOM intact bilaterally Chest Other: Pacemaker pocket appears to be healing well, incision clean, dry and intact Resp Effort & Inspection: normal respiratory effort, able to speak in complete sentences, no respiratory distress and no use of accessory muscles Auscultation: clear to auscultation bilaterally, no rales, no rhonchi and no wheezes Cardio Rate: regular rate Rhythm: regular rhythm Heart Sounds: no click, no gallops, no murmurs and no rubs Pulses: normal peripheral pulses Back/Spine/Pelvis Back: No CVA tenderness Cervical Spine: cervical ROM normal and No pain with cervical ROM Thoracic/Lumbar Spine: thoracic and lumbar spine normal to inspection Skin General: no rashes or lesions noted, No jaundice and No petechiae Neuro General: alert, oriented x3, gait normal and no focal motor deficits Speech: speech normal <Erma Kwok DO - Last Filed: 01/16/18 15:34> Initial Vital Signs Initial Vital Signs: Vital Signs Temperature 99 F 01/16/18 03:30 Pulse Rate 61 01/16/18 03:30 Respiratory Rate 15 01/16/18 03:30 Blood Pressure 129/62 H 01/16/18 03:30 Pulse Oximetry 93 01/16/18 03:30 Course <DO Myla Aguilera Last Filed: 01/16/18 19:17> Orders Ordered: Discontinued Medications Sodium Chloride (Normal Saline 0.9%) 1,000 mls @ 150 mls/hr IV CONT PAM Last Infusion: 01/16/18 13:12 Dose: 0 mls/hr Admin: 01/16/18 04:39 Dose: 150 mls/hr Methylprednisolone (Solu-Medrol 125 Mg Vial) 125 mg IV NOW ONE Stop: 01/16/18 08:31 Last Admin: 06/29/18 08:49 Dose: 125 mg Pantoprazole Sodium (Protonix) 40 mg IV NOW ONE Stop: 01/16/18 08:31 Last Admin: 01/16/18 08:50 Dose: 40 mg Consultations Consultation #1: call to health communications specialist cardiology, Dr. Quintero, whom requests patient be transferred to [facility] for observation and stabilization. Admission to Hospitalist, cardiology to consult Time: 05:14 Consultation #2: No beds at [facility]. Call back to Dr. Quintero whom suggests we keep patient in ED and attempt to contact Dr. Ochoa once he comes on shift this morning at 7-8. Time: 05:34 Vital Signs - 8 hr 01/16/18 11:39 01/16/18 12:37 01/16/18 14:23 Temperature Pulse Rate 60 60 60 Respiratory Rate 14 18 16 Blood Pressure [Right Arm] 113/54 L 110/51 L 112/52 L Pulse Oximetry 91 92 92 01/16/18 14:28 01/16/18 15:08 Temperature 98.6 F Pulse Rate 60 Respiratory Rate 17 Blood Pressure [Right Arm] 109/52 L Pulse Oximetry 94 <Erma Kwok DO - Last Filed: 01/16/18 15:34> Orders Ordered: Discontinued Medications Sodium Chloride (Normal Saline 0.9%) 1,000 mls @ 150 mls/hr IV CONT PAM Last Infusion: 01/16/18 13:12 Dose: 0 mls/hr Admin: 01/16/18 04:39 Dose: 150 mls/hr Methylprednisolone (Solu-Medrol 125 Mg Vial) 125 mg IV NOW ONE Stop: 01/16/18 08:31 Last Admin: 01/16/18 08:49 Dose: 125 mg Pantoprazole Sodium (Protonix) 40 mg IV NOW ONE Stop: 01/16/18 08:31 Last Admin: 01/16/18 08:50 Dose: 40 mg Reevaluation(s) Reevaluation #2: Dr. Ochoa has been updated on patient's symptoms and test results. Concern for potential esophageal injury. Agrees with transferring for monitoring along with PPIs and steroids Time: 08:18 Consultations Consultation #1: Dr. Romero hospitalist at [facility] has happily accepted patient Vital Signs - 8 hr 01/16/18 11:39 01/16/18 12:37 01/16/18 14:23 Temperature Pulse Rate 60 60 60 Respiratory Rate 14 18 16 Blood Pressure [Right Arm] 113/54 L 110/51 L 112/52 L Pulse Oximetry 91 92 92 01/16/18 14:28 01/16/18 15:08 Temperature 98.6 F Pulse Rate 60 Respiratory Rate 17 Blood Pressure [Right Arm] 109/52 L Pulse Oximetry 94 MDM - Chest Pain <Jayesh Hernandez DO - Last Filed: 01/16/18 19:17> Differential Diagnosis Likely pneumothorax, stable angina, unstable angina pectoris, atypical chest pain, st elevation myocardial infarction, costochondritis and chest pain Medical Records Data Attestation: I reviewed the patient's medical records. Lab Data Result diagrams: 01/16/18 03:50 01/16/18 03:50 Lab Results 01/16/18 01/16/18 Range/Units 03:50 03:50 WBC 7.5 (4.5-11.0) X10^3/uL RBC 4.04 (4.0-5.2) X10^6/uL Hgb 12.7 (12.0-16.0) g/dL Hct 37.3 (36-46) % MCV 92.5 (80-100) fL MCH 31.4 (26-34) PG MCHC 34.0 (30-36) % RDW 13.0 (11.6-14.8) % Plt Count 130 L (150-400) X10^3/uL Neut % (Auto) 77.2 H (50-75) % Lymph % (Auto) 10.6 L (25-40) % Lander % (Auto) 11.7 (3-14) % Eos % (Auto) 0.3 L (2-4) % Baso % (Auto) 0.2 (0-2) % Neut # (Auto) 5800 (1042-9523) /uL Sodium 138 (137-145) mmol/L Potassium 4.2 (3.4-5.1) mmol/L Chloride 100 (98-107) mmol/L Carbon Dioxide 31 (22-32) mmol/L BUN 16 (7-17) mg/dL Creatinine 0.80 (0.52-1.04) mg/dL Estimated GFR > 60.0 (>60) mL/min BUN/Creatinine Ratio 20.0 (6-22) Glucose 123 H (80-110) mg/dL Calcium 9.0 (8.4-10.2) mg/dL Total Bilirubin 1.6 H (0.2-1.3) mg/dL AST 32 (14-36) IU/L ALT 21 (9-52) IU/L Alkaline Phosphatase 47 (38-126) U/L Total Creatine Kinase 105 (30-135) U/L Troponin I 0.345 H* (0.01-0.034) ng/mL Total Protein 6.6 (6.3-8.2) g/dL Albumin 3.6 (3.5-5.0) g/dL Globulin 3.0 (1.7-4.1) g/dL Albumin/Globulin Ratio 1.2 (1.0-2.8) Lipase 128 (23-300) U/L ECG Data Attestation: I personally reviewed and interpreted this ECG as follows: Prior ECG tracings: not available for review Interpretation: Paced rhythm at 60, no signs of ectopy or ischemia Pacemaker function: normal pacer function <Erma Kwok DO - Last Filed: 01/16/18 15:34> Lab Data Lab Results 01/16/18 01/16/18 Range/Units 03:50 03:50 WBC 7.5 (4.5-11.0) X10^3/uL RBC 4.04 (4.0-5.2) X10^6/uL Hgb 12.7 (12.0-16.0) g/dL Hct 37.3 (36-46) % MCV 92.5 (80-100) fL MCH 31.4 (26-34) PG MCHC 34.0 (30-36) % RDW 13.0 (11.6-14.8) % Plt Count 130 L (150-400) X10^3/uL Neut % (Auto) 77.2 H (50-75) % Lymph % (Auto) 10.6 L (25-40) % Lander % (Auto) 11.7 (3-14) % Eos % (Auto) 0.3 L (2-4) % Baso % (Auto) 0.2 (0-2) % Neut # (Auto) 5800 (7050-9459) /uL Sodium 138 (137-145) mmol/L Potassium 4.2 (3.4-5.1) mmol/L Chloride 100 (98-107) mmol/L Carbon Dioxide 31 (22-32) mmol/L BUN 16 (7-17) mg/dL Creatinine 0.80 (0.52-1.04) mg/dL Estimated GFR > 60.0 (>60) mL/min BUN/Creatinine Ratio 20.0 (6-22) Glucose 123 H (80-110) mg/dL Calcium 9.0 (8.4-10.2) mg/dL Total Bilirubin 1.6 H (0.2-1.3) mg/dL AST 32 (14-36) IU/L ALT 21 (9-52) IU/L Alkaline Phosphatase 47 (38-126) U/L Total Creatine Kinase 105 (30-135) U/L Troponin I 0.345 H* (0.01-0.034) ng/mL Total Protein 6.6 (6.3-8.2) g/dL Albumin 3.6 (3.5-5.0) g/dL Globulin 3.0 (1.7-4.1) g/dL Albumin/Globulin Ratio 1.2 (1.0-2.8) Lipase 128 (23-300) U/L Discharge Plan Departure Patient Disposition: [facility] Clinical Impression: Pericardial pain, Chest pain Discharge Date/Time: 01/16/18 15:45 Interventions: ED Discharge Assessment Last Done: 01/16/18 14:52 Prescriptions: No Action atenolol 50 MG tablet 50 mg PO BID Qty: 0 RF: 0 hydrochlorothiazide 25 MG tablet 25 mg PO QDAY Qty: 0 RF: 0 omega 1-oov-blc-fish oil [Fish Oil] 1,000 mg (120 mg-180 mg) Capsule 4,000 mg PO DAILY RF: 0 atorvastatin 10 mg Tablet 10 mg PO DAILY RF: 0 levothyroxine 50 mcg Tablet 50 mcg PO DAILY RF: 0 flecainide 100 mg Tablet 100 mg PO Q12H RF: 0 vitamin B complex Capsule 1 cap PO DAILY RF: 0 dabigatran etexilate [Pradaxa] 150 mg Capsule 150 mg PO BID RF: 0 calcium carbonate-vitamin D3 1,000 mg(2,500 mg)-800 unit Tablet 1,000 mg PO DAILY RF: 0 losartan 25 mg Tablet 25 mg PO DAILY RF: 0 multivitamin Capsule 1 cap PO QAM RF: 0 <Erma Kwok, DO - Last Filed: 01/16/18 15:34> Sign Out Provider Sign Out Attestation: Patient signed out to me by Dr. Hernandez at shift change. Awaiting cardiology need to talk with Dr. Ochoa. [facility] has no beds at this time but still recommend transferring [facility]. I have seen evaluated patient myself she is resting comfortably does not need anything for pain. I have gone over CT result and blood work with her.
[2018-01-16] MEDS: SODIUM CHLORIDE 0.9% 1,000 ML 150 ML IV (04:39)
[2018-01-16 04:47] LABS: Troponin I 0.345 ng/mL (0.01-0.034)
[2018-01-16] MEDS: methylPREDNISolone 125 MG/2 ML VIAL IV (08:49)
[2018-01-16] MEDS: PANTOPRAZOLE 40 MG VIAL IV (08:50)
== END 2018-01-16 15:45 | disposition short-term general hospital (02) ==
PROVIDERS: Emergency Medicine; Emergency Provider Emergency Medicine; Family Provider Physician Assistant; PCP Physician Assistant
DX: R07.89 Other chest pain (principal)
CPT/HCPCS: 36591; 71275; 80053; 81003; 82550; 82553; 83690; 84484; 85025; 93005; 96361; 96374; 96375; 99285; C9113; J2930; Q9967

== ENCOUNTER → 2018-01-19 08:08 | Outpatient (CLI) | payer OTHER, SELFPAY ==
--- NOTE | 2018-01-19 | DI.US.S_ITS ---
PROCEDURE: US THYROID INDICATIONS: DISORDER TECHNIQUE: Real-time scanning was performed of the thyroid gland, with image documentation. COMPARISON: None. FINDINGS: Right: A large thyroid nodule occupies much of the right thyroid lobe which overall measures 1.8 x 2.1 x 6.2 cm, with the nodule measuring 1.7 x 2.1 x 2.9 cm. Left: Overall the gland measures 1.2 x 0.8 x 3.9 cm, and as was seen on the right the thyroid glandular tissue is heterogeneous bilaterally. Isthmus: 2.0 mm thickness. IMPRESSION: Moderately heterogeneous thyroid glandular echotexture bilaterally, with superimposed on the right thyroid nodule measuring up to 2.9 x 2.1 x 1.7 cm. Dictated by: Jamey Andres M.D. on 01/19/2018 at 11:14 Approved by: Jamey Andres M.D. on 01/19/2018 at 11:16
== END ==
PROVIDERS: Family Provider Physician Assistant; PCP Physician Assistant; Visit Provider Physician Assistant
DX: E04.1 Nontoxic single thyroid nodule (principal)
CPT/HCPCS: 76536

== ENCOUNTER → 2018-01-29 12:07 | Outpatient (CLI) | payer OTHER, SELFPAY ==
--- NOTE | 2018-01-29 | DI.US.S_ITS ---
PROCEDURE: US FINE NEEDLE ASPIRATION INDICATIONS: RIGHT THYROID NODULE TECHNIQUE: The indications, alternatives, benefits, risks, and complications of the procedure were explained to the patient. Written informed consent was obtained and placed in the chart. The area of interest was examined sonographically and a site was chosen for ultrasound guided percutaneous sampling. The skin was prepared and draped in the usual fashion, and anesthetized with 1% lidocaine infiltrated from the skin down to the lesion. Multiple passes were then performed, with contents emptied into an appropriate pathology specimen container. A bandage was applied to the area of access at completion of the study. COMPARISON: None. FINDINGS: Location(s) of lesion(s) sampled: Large nodule right lobe of thyroid [place]: 25 gauge hypodermic needles. Number of passes: 6 with 25 gauge initially thus syringe aspiration with a 22 gauge needle; repeat FNA with 5 of the 25 gauge needles and one 22 gauge Medications: 1% lidocaine for local anaesthesia. Complications: None. IMPRESSION: Successful ultrasound-guided right lobe of thyroid nodule fine needle aspiration, with cytology results pending. Dictated by: Douglas Valerio M.D. on 01/29/2018 at 14:17 Approved by: Douglas Valerio M.D. on 01/29/2018 at 14:20
--- NOTE | 2018-01-29 | PATH_ITS ---
Note [facility] Accession Number: [id number] TESTS RESULT FLAG UNITS REF RANGE LAB Clinician Provided Cytology Information No. of containers..01 ThinPrep Vial No. of containers..02 Previously Prepared Cytology Slide RIGHT THYROID NODULE DIAGNOSIS: 02 RIGHT THYROID NODULE NEGATIVE FOR MALIGNANT CELLS. SPECIMEN CONSISTS OF BENIGN FOLLICULAR CELLS, COLLOID, AND BLOOD. THIS PATTERN IS CONSISTENT WITH A BENIGN FOLLICULAR NODULE. Pathologist ICD10: 02 E04.1 02 Leda Fuentes MD, Pathologist NPI- [id number] Rikki Olivas, Sales Designer ([facility]) 01 30 CC, PINK, CLEAR RECEIVED: 11 ALCOHOL FIXED AND 11 QUICK STAINED SLIDES. /VDU FLAG LEGEND: L-Low Normal,H-High Normal,LL-Alert Low,HH-Alert High <-Panic Low,>-Panic High,A-Abnormal,AA-Critical Abnormal Performed at: 01 =Z [facility] [address], [place] [address] Dominik Ho MD, 02 [facility] [address] [place] [id number] Noé Rivera MD, A duplicate report has been generated due to demographic updates. Performed at: 01 [facility] [address], [place], [place] [id number] MD Dominik Ho MD Phone: [phone]
== END ==
PROVIDERS: Family Provider Physician Assistant; PCP Physician Assistant; Visit Provider Physician Assistant
DX: E04.1 Nontoxic single thyroid nodule (principal)
CPT/HCPCS: 10022; 76942

== ENCOUNTER 2018-05-13 07:59 | Day surgery (SDC) | payer OTHER, SELFPAY ==
--- NOTE | 2018-05-13 | PATH_ITS ---
[facility] Accession Number: [id number] . 01 Material submitted: . ANTRAL BIOPSY . 02 Diagnosis: Antrum, Biopsy: Gastric oxyntic mucosa with no diagnostic abnormality. No evidence of Helicobacter organisms on H/E stain. Negative for intestinal metaplasia, dysplasia or malignancy. MRV/05/14/2018 . 02 Electronically signed: . Colton Oshea MD, PhD, Pathologist NPI- [id number] . 01 Gross description: . Received one formalin-filled container labeled with the patient's name and labeled antral. The specimen consists of a 0.2 cm portion of tissue, entirely submitted in one cassette. ([id number]) /FRR . 02 Pathologist provided ICD-10: R10.13 . 02 CPT . 661653 Performed at: 01 [facility] [address] [id number] MD Dominik Ho MD Phone: [phone] Performed at: 02 [facility] [address] [place] [id number] MD Noé Rivera MD Phone: [phone]
[2018-05-13 08:20] VITALS: BP 164/95; PULSE 79; RESP 16; TEMP 36.2; O2SAT 95; BMI 27.8
[2018-05-13] MEDS: SODIUM CHLORIDE 0.9% 1,000 ML 42 ML IV (08:31)
--- NOTE | 2018-05-13 08:44 | PM.HP.1 ---
History of Present Illness Date Patient Seen: 05/13/18 Time Patient Seen: 08:44 Chief complaint: [id number] Narrative: Abnormal CT showing possible thickened distal esophagus. No other symptoms Patient History Family & Social History Social History: household members spouse Tobacco & Substance use: Smoking Status Never smoker alcohol intake frequency 0-2 drinks per day Substance Use Type does not use Meds Home Medications Medication Instructions Recorded Confirmed Type atenolol 75 mg PO BID #0 09/28/12 05/13/18 History hydrochlorothiazide 25 mg PO QDAY #0 09/28/12 05/13/18 History atorvastatin 10 mg PO DAILY 12/20/17 05/13/18 History calcium carbonate-vitamin D3 1,000 mg PO DAILY 12/20/17 01/16/18 History flecainide 100 mg PO Q12H 12/20/17 05/13/18 History levothyroxine 50 mcg PO DAILY 12/20/17 05/13/18 History losartan 25 mg PO DAILY 12/20/17 05/13/18 History multivitamin 1 cap PO QAM 12/20/17 01/16/18 History omega 9-fuc-hti-fish oil [Fish Oil] 4,000 mg PO DAILY 12/20/17 01/16/18 History vitamin B complex 1 cap PO DAILY 12/20/17 01/16/18 History Allergies Allergy/AdvReac Type Severity Reaction Status Date / Time vancomycin [VANCOMYCIN] Allergy Mild HIVES Verified 05/13/18 08:32 levofloxacin [From LEVAQUIN] Allergy Unknown weakness Verified 05/13/18 08:32 in achilles Exam Vital Signs (past 8 hours): - 05/13/18 08:20 Temperature 97.2 F L Pulse Rate 79 Respiratory Rate 16 Blood Pressure 164/95 H Pulse Oximetry 95 Oxygen Delivery Method Room Air Narrative Exam Narrative: Oropharynx free of lesions Chest clear to auscultation percussion Cardiac exam reveals no S3 or murmur Assessment & Plan Plan: Assessment/Plan Narrative: Assessment: Abnormal distal esophagus on CT scan rule out neoplasia. Plan: EGD to rule out abnormality.
[2018-05-13] MEDS: MIDAZOLAM 5 MG/5 ML VIAL IV (09:39)
[2018-05-13] MEDS: fentaNYL 250 MCG/5 ML INJ IV (09:40)
[2018-05-13 09:41] VITALS: BP 121/75; PULSE 62; RESP 11; TEMP 36.6; O2SAT 94
[2018-05-13 09:46] VITALS: BP 119/78; PULSE 61; RESP 13; O2SAT 94
[2018-05-13 09:49] VITALS: BP 123/78; PULSE 60; RESP 12; TEMP 36.6; O2SAT 95
--- NOTE | 2018-05-13 09:49 | PM.OP.ENDO ---
Operative Date/Time/Diagnoses Date of procedure: 05/13/18 Time of procedure: 09:50 Pre-op diagnosis: See indication and findings Post-op diagnosis: same Procedure & Clinicians Study performed: EGD Same procedure as scheduled: Yes Indications: CT scan done for other reason showing possible thickening in the distal esophagus. Rule out neoplasia Surgeon: Petra Gillette Procedure Notes Procedure in detail: After informed consent was obtained the patient was placed in left lateral decubitus position. The video upper scope was placed into the oropharynx. With the patient's help it was swallowed into the esophagus. The esophagus, stomach, duodenum were carefully examined. On withdrawal retroflexed view the GE junction was performed. The scope was removed. The patient tolerated the procedure well. Blood loss none Complications none Sedation: Fentanyl 100 mcg, Versed 3 mg IV titration Total sedation time 8 min Findings 1. Completely normal esophagus with photographs taken the distal esophagus. No evidence of inflammation or neoplasia. This included a retroflexed view of the GE junction 2. Moderately severe antral and pre-pyloric gastritis with some adherent blood congestion and erythema in a few erosions. Biopsies taken to rule out Helicobacter 3. Normal duodenal bulb and sweep Patient will be no follow-up for her falsely positive CT scan. I would only treat her gastric findings if she has symptoms.
[2018-05-13 10:18] VITALS: BP 134/83; PULSE 64; RESP 16; TEMP 36.8; O2SAT 95
== END 2018-05-13 10:21 | disposition home or self-care (01) ==
PROVIDERS: Family Provider Physician Assistant; PCP Physician Assistant; Visit Provider Internal Medicine Gastroenterology
PROC: 0DJ08ZZ Inspection of Upper Intestinal Tract, Via Natural or Artificial Opening Endoscopic (ICD-10-PCS; CPT 43235; principal; 2018-05-13 09:00)
DX: K29.70 Gastritis, unspecified, without bleeding (principal); I48.91 Unspecified atrial fibrillation; Z95.0 Presence of cardiac pacemaker; E78.5 Hyperlipidemia, unspecified; I10 Essential (primary) hypertension
CPT/HCPCS: 43239; J2250; J3010

== ENCOUNTER → 2018-08-12 11:37 | Outpatient (CLI) | payer OTHER, SELFPAY | PROVIDERS: Family Provider Physician Assistant; PCP Physician Assistant; Visit Provider Physician Assistant | DX: Z12.31 Encounter for screening mammogram for malignant neoplasm of breast (principal); Z53.9 Procedure and treatment not carried out, unspecified reason ==

== ENCOUNTER → 2018-09-22 11:02 | Outpatient (CLI) | payer OTHER, SELFPAY ==
--- NOTE | 2018-09-22 | DI.MG.S_ITS ---
BILATERAL DIGITAL SCREENING MAMMOGRAM 3D/2D WITH CAD: 09/22/2018 CLINICAL: Routine screening. Family history of breast cancer. Comparison is made to exams dated: 06/23/2017 mammogram, 06/10/2016 mammogram, and 05/10/2015 mammogram - [facility]ed [facility]. The tissue of both breasts is heterogeneously dense. This may lower the sensitivity of mammography. Current study was also evaluated with a Computer Aided Detection (CAD) system. There are benign vascular calcifications in both breasts. Radiopaque metallic leads project over the left axilla, most consistent with pacemaker leads that obscure underlying axillary anatomy. No significant masses, calcifications, or other findings are seen in either breast. There has been no significant interval change. IMPRESSION: There is no mammographic evidence of malignancy. A 1 year screening mammogram is recommended. This exam was interpreted at Station ID: [id number]. NOTE: For mammograms, a report in lay terms will be sent to the patient. Approximately 15% of breast malignancies will not be visualized mammographically. In the management of a palpable breast mass, a negative mammogram must not discourage biopsy of a clinically suspicious lesion. Electronically Signed By: Javier Shaikh M.D. ecl/:09/22/2018 17:50:52 letter sent: Normal Exam ACR BI-RADS Category 2: Benign Finding(s) 3342F
== END ==
PROVIDERS: Family Provider Physician Assistant; PCP Physician Assistant; Visit Provider Physician Assistant
DX: Z12.31 Encounter for screening mammogram for malignant neoplasm of breast (principal); Z80.3 Family history of malignant neoplasm of breast
CPT/HCPCS: 77063; 77067

== ENCOUNTER → 2018-11-30 16:42 | Outpatient (CLI) | payer OTHER, SELFPAY ==
[2018-11-30 17:41] LABS: Add Manual Diff / Slide Review NO; Basophils Absolute Auto 0 /uL (0-100); Basophils Percent Auto 0.8 % (0-2); Eosinophils Absolute Auto 100 /uL (0-450); Eosinophils Percent Auto 1.1 % (2-4); Hematocrit 40.3 % (36-46); Hemoglobin 13.3 g/dL (12.0-16.0); Lymphocytes Absolute Auto 1600 /uL (1100-4500); Lymphocytes Percent Auto 34.4 % (25-40); Mean Corpuscular HGB Conc 33.1 % (30-36); Mean Corpuscular Hemoglobin 30.6 PG (26-34); Mean Corpuscular Volume 92.3 fL (80-100); Monocytes Absolute Auto 400 /uL (0-900); Monocytes Percent Auto 9.2 % (3-14); Neutrophils Absolute Auto 2600 /uL (1500-7000); Neutrophils Percent Auto 54.5 % (50-75); Platelet Count 144 X10^3/uL (150-400); Red Blood Cell Count 4.37 X10^6/uL (4.0-5.2); Red Cell Distribution Width 13.3 % (11.6-14.8); White Blood Cell Count 4.7 X10^3/uL (4.5-11.0)
[2018-11-30 17:54] LABS: Alanine Aminotransferase 22 IU/L (9-52); Albumin 4.2 g/dL (3.5-5.0); Albumin Globulin Ratio 1.6 (1.0-2.8); Alkaline Phosphatase 69 U/L (38-126); Aspartate Aminotransferase 30 IU/L (14-36); BUN Creatinine Ratio 25.6 (6-22); Blood Urea Nitrogen 23 mg/dL (7-17); Calcium 9.7 mg/dL (8.4-10.2); Carbon Dioxide 30 mmol/L (22-32); Chloride 97 mmol/L (98-107); Estimated Glomerular Filt Rate > 60.0 mL/min (>60); Globulin 2.7 g/dL (1.7-4.1); Glucose 86 mg/dL (80-110); HEMOLYSIS < 15 (0-50); Potassium 4.8 mmol/L (3.4-5.1); Sodium 137 mmol/L (137-145); Total Protein 6.9 g/dL (6.3-8.2)
[2018-11-30 18:23] LABS: Thyroid Stimulating Hormone 2.92 uIU/mL (0.47-4.68)
== END ==
PROVIDERS: Family Provider Physician Assistant; PCP Physician Assistant; Visit Provider Physician Assistant
DX: E78.2 Mixed hyperlipidemia (principal); E03.9 Hypothyroidism, unspecified; I10 Essential (primary) hypertension
CPT/HCPCS: 36415; 80053; 84443; 85025

== ENCOUNTER → 2018-12-10 10:06 | Outpatient (CLI) | payer OTHER, SELFPAY ==
--- NOTE | 2018-12-10 | DI.US.S_ITS ---
PROCEDURE: US THYROID INDICATIONS: NONTOXIC SINGLE THYROID NODULE TECHNIQUE: Real-time scanning was performed of the thyroid gland, with image documentation. COMPARISON: [facility], [place], US FINE NEEDLE ASPIRATION, 01/29/2018, 12:57. [facility], US, US THYROID, 01/19/2018, 8:14. FINDINGS: Right: Thyroid lobe measures 5.4 x 2.2 x 2.2 cm, and is homogeneous in echotexture. Left: Thyroid lobe measures 3.6 x 1.2 x 1.1 cm, and is homogenous in echotexture. Isthmus: 3.4 mm thick. Nodule number: 1 Location: Right mid Size: Similar to minimally increased in size at 3.1 x 2.0 x 2.5 cm. Composition: Predominantly solid Echogenicity: Isoechoic Shape: wider than tall. Margins: Smooth Echogenic foci: None Total points: 3 ACR TI-RADS category: Mildly suspicious IMPRESSION: 1. Dominant right thyroid nodule appears similar to slightly increased in size compared to the prior study although this may be due to differences in technique. Recommend continued sonographic followup in 6 months or consider a repeat fine needle aspiration if clinically indicated. ACR TI-RADS definitions and recommendations: TI-RADS 1 (benign): 0 points. FNA not needed. TI-RADS 2 (not suspicious): 2 points. FNA not needed. TI-RADS 3 (mildly suspicious): 3 points. * FNA if 2.5 cm or larger, follow up if 1.5 cm or larger (at 1, 3, and 5 years). TI-RADS 4 (moderately suspicious): 4-6 points. * FNA if 1.5 cm or larger, follow up if 1 cm or larger (at 1, 2, 3, and 5 years). TI-RADS 5 (highly suspicious): 7 points or more. * FNA if 1 cm or larger, follow up if 0.5 cm or larger (every year for 5 years). Dictated by: Josue Copeland [facility] Interpreted: Dominik Muse MD on 12/10/2018 at 11:00 Approved by: Dominik Muse M.D. on 12/11/2018 at 15:11
== END ==
PROVIDERS: Family Provider Physician Assistant; PCP Physician Assistant; Visit Provider Student in an Organized Health Care Education/Training Program
DX: E04.1 Nontoxic single thyroid nodule (principal)
CPT/HCPCS: 76536

== ENCOUNTER 2018-12-24 08:31 | Day surgery (SDC) | payer OTHER, SELFPAY ==
[2018-12-24] MEDS: PROPARACAINE 0.5% OPHTH SOL 2 DROPS EYE-OP (09:03)
[2018-12-24 09:04] VITALS: BP 128/80; PULSE 84; RESP 16; TEMP 36.8; O2SAT 95; BMI 27.3
[2018-12-24] MEDS: CATARACT EYE COMPOUND (10 DROPS/SYRINGE) 3 DROPS EYE-OP (09:05)
--- NOTE | 2018-12-24 09:30 | PM.PREOP ---
Pre-operative Note Interval Note History & Physical reviewed/Exam performed by Physician: Yes Changes to H&P: No
[2018-12-24] MEDS: CHONDROIDTIN/SOD HYALURONATE 1.05 ML SYRINGE INTRAOCULA (10:06)
[2018-12-24] MEDS: BALANCED SALT IRRIG SOLN NO.2 15 ML IRR (10:06)
[2018-12-24] MEDS: MOXIFLOXACIN OPHTH DROPS 3 ML BOTTLE 2 DROPS INJ (10:07)
[2018-12-24] MEDS: TETRACAINE 0.5% OPHTH DROPS 4 ML 2 DROPS EYE-OP (10:07)
[2018-12-24] MEDS: PHENYLEPHRINE/LIDOCAINE VIAL (OR) 0.2 ML EYE-OP (10:07)
[2018-12-24] MEDS: BALANCED SALT IRRIG SOLN NO.2 500 ML, EPINEPHrine 1 MG IRR (10:08)
[2018-12-24] MEDS: LIDOCAINE 2% INJ SDV 0.5 ML TOP (10:09)
--- NOTE | 2018-12-24 10:27 | P.OP_ITS ---
Procedure & Clinicians Procedure: Cataract extraction with intraocular lens implant, right Same procedure as scheduled: Yes Indications: Visually significant age related nuclear sclerosis, right Surgeon: Michael Tobias Click Yes if Unassisted: Yes Anesthesia Type: MAC +/- Operative Notes Procedure in detail: The patient was brought to the operating suite. The correct patient, surgical site and lens were confirmed. 0.5 % tetracaine drops were placed in the right eye. The patient was prepped and draped in the typical st erile manner. A lid speculum was placed in the eye. 2% lidocaine was placed on the eye. A paracentesis port was created with a side-port blade. 0.1 mL of 1% preservative free lidocaine with phenylephrine was injected into the anterior chamber. Viscoelastic was injected into the anterior chamber. A 2.6mm keratome was used to create a clear corneal temporal incision. Cystotome and Utrata forceps were used to create a continuous curvilinear capsulorrhexis. Balanced salt solution was used to hydrodissect the nucleus. Phacoemulsification was used to remove the lens. The capsular bag was inflated with viscoelastic. A Suarez ZBOO +11.5D lens was inserted into the capsule. Viscoelastic was removed and the wound hydrated. The wound was found to be leak free and the eye was assessed to be at normal physiologic pressure. 0.1mL Vigamox was injected into the anterior chamber. The lid speculum was removed and the patient left the operating room in excellent condition. Complications: none Condition: stable Disposition: same day surgery
[2018-12-24 10:31] VITALS: BP 132/76; PULSE 59; RESP 15; TEMP 36.3; O2SAT 98
== END 2018-12-24 10:55 ==
LOC: OR 08:35
PROVIDERS: PCP Physician Assistant; Visit Provider Ophthalmology
PROC: (CPT 66984; principal; 2018-12-24 09:45)
DX: H25.11 Age-related nuclear cataract, right eye (principal); Z95.0 Presence of cardiac pacemaker; I10 Essential (primary) hypertension
CPT/HCPCS: 66984; J0171; J2250; J3010

== ENCOUNTER 2019-01-07 12:15 | Day surgery (SDC) | payer OTHER, SELFPAY ==
[2019-01-07 13:10] VITALS: BP 139/78; PULSE 79; RESP 15; TEMP 36.6; O2SAT 98
[2019-01-07 13:29] VITALS: BMI 27.3
--- NOTE | 2019-01-07 13:41 | PM.PREOP ---
Pre-operative Note Interval Note History & Physical reviewed/Exam performed by Physician: Yes Changes to H&P: No
[2019-01-07] MEDS: PROPARACAINE 0.5% OPHTH SOL 2 DROPS EYE-OP (13:46)
[2019-01-07] MEDS: CATARACT EYE COMPOUND (10 DROPS/SYRINGE) 3 DROPS EYE-OP (13:47)
[2019-01-07] MEDS: CHONDROIDTIN/SOD HYALURONATE 1.05 ML SYRINGE INTRAOCULA (14:31)
[2019-01-07] MEDS: PHENYLEPHRINE/LIDOCAINE VIAL (OR) 0.2 ML EYE-OP (14:31)
[2019-01-07] MEDS: MOXIFLOXACIN OPHTH DROPS 3 ML BOTTLE 2 DROPS INJ (14:31)
[2019-01-07] MEDS: BALANCED SALT IRRIG SOLN NO.2 15 ML IRR (14:31)
[2019-01-07] MEDS: TETRACAINE 0.5% OPHTH DROPS 4 ML 2 DROPS EYE-OP (14:32)
[2019-01-07] MEDS: BALANCED SALT IRRIG SOLN NO.2 500 ML, EPINEPHrine 1 MG IRR (14:32)
--- NOTE | 2019-01-07 14:47 | PM.OP.1 ---
Operative Date/Time/Diagnoses Pre-op diagnosis: Cataract left eye Post-op diagnosis: same Procedure & Clinicians Procedure: cataract extraction with intraocular lens implant, left Same procedure as scheduled: Yes Indications: Visually significant age related nuclear sclerosis, left Surgeon: Michael Tobias Click Yes if Unassisted: Yes Anesthesia Type: MAC +/- Operative Notes Procedure in detail: The patient was brought to the operating suite. The correct patient, surgical site and lens were confirmed. 0.5 % tetracaine drops were placed in the left eye. The patient was prepped and draped in the typical sterile manner. A lid speculum was placed in the eye. 2% lidocaine with phenylephrine was placed on the eye. A paracentesis port was created with a side-port blade. 0.1 mL of 1% preservative free lidocaine was injected into the anterior chamber. Viscoelastic was injected into the anterior chamber. A 2.6mm keratome was used to create a clear corneal temporal incision. Cystotome and Utrata forceps were used to create a continuous curvilinear capsulorrhexis. Balanced salt solution was used to hydrodissect the nucleus. Phacoemulsification was used to remove the lens. The capsular bag was inflated with viscoelastic. A Suarez ZBOO +12.0D lens was inserted into the capsule. Viscoelastic was removed and the wound hydrated. The wound was found to be leak free and the eye was assessed to be at normal physiologic pressure. 0.1mL Vigamox was injected into the anterior chamber. The lid speculum was removed and the patient left the operating room in excellent condition. Complications: none Condition: stable Disposition: same day surgery
[2019-01-07 14:56] VITALS: BP 131/78; PULSE 62; RESP 15; TEMP 36.1; O2SAT 99
== END 2019-01-07 15:10 ==
LOC: OR 12:17
PROVIDERS: PCP Physician Assistant; Visit Provider Ophthalmology
PROC: (CPT 66984; principal; 2019-01-07 13:30)
DX: H25.12 Age-related nuclear cataract, left eye (principal); I10 Essential (primary) hypertension; Z95.0 Presence of cardiac pacemaker
CPT/HCPCS: 66984; J0171; J2250; J3010

== ENCOUNTER → 2019-06-30 13:12 | Outpatient (CLI) | payer OTHER, SELFPAY ==
--- NOTE | 2019-06-30 | DI.US.S_ITS ---
PROCEDURE: US THYROID INDICATIONS: nontoxic single thyroid nodule TECHNIQUE: Real-time scanning was performed of the thyroid gland, with image documentation. COMPARISON: [facility], [place], US THYROID, 12/10/2018, 10:21. FINDINGS: Right: Thyroid lobe measures 5.8 x 2.0 x 2.5 cm, and is homogeneous in echotexture. Left: Thyroid lobe measures 4.0 x 1.2 x 1.0 cm, and is homogenous in echotexture. Isthmus: 2.0 mm thick. Nodule number: 1 Location: Right mid Size: Unchanged 2.1 x 1.9 x 2.6 cm. Composition: Solid Echogenicity: Isoechoic Shape: wider than tall. Margins: Smooth Echogenic foci: None Total points: 3 ACR TI-RADS category: Highly suspicious IMPRESSION: Stable right thyroid nodule. Recommend continued followup ultrasound as detailed below. ACR TI-RADS definitions and recommendations: TI-RADS 1 (benign): 0 points. FNA not needed. TI-RADS 2 (not suspicious): 2 points. FNA not needed. TI-RADS 3 (mildly suspicious): 3 points. * FNA if 2.5 cm or larger, follow up if 1.5 cm or larger (at 1, 3, and 5 years). TI-RADS 4 (moderately suspicious): 4-6 points. * FNA if 1.5 cm or larger, follow up if 1 cm or larger (at 1, 2, 3, and 5 years). TI-RADS 5 (highly suspicious): 7 points or more. * FNA if 1 cm or larger, follow up if 0.5 cm or larger (every year for 5 years). Dictated by: Josue Copeland [facility] Interpreted: Carlota Devlin MD on 06/30/2019 at 15:06 Approved by: Carlota Devlin MD, PhD on 06/30/2019 at 16:35
== END ==
PROVIDERS: PCP Physician Assistant; Visit Provider Physician Assistant
DX: E04.1 Nontoxic single thyroid nodule (principal)
CPT/HCPCS: 76536

== ENCOUNTER → 2019-07-26 14:35 | Outpatient (ROUT) | payer OTHER, SELFPAY ==
[2019-07-26 14:59] LABS: Add Manual Diff / Slide Review NO; Basophils Absolute Auto 100 /uL (0-100); Basophils Percent Auto 1.1 % (0-2); Eosinophils Absolute Auto 100 /uL (0-450); Hematocrit 41.5 % (36-46); Hemoglobin 14.1 g/dL (12.0-16.0); Lymphocytes Absolute Auto 1500 /uL (1100-4500); Mean Corpuscular HGB Conc 33.9 % (30-36); Mean Corpuscular Hemoglobin 31.1 PG (26-34); Mean Corpuscular Volume 91.6 fL (80-100); Monocytes Absolute Auto 400 /uL (0-900); Monocytes Percent Auto 7.9 % (3-14); Neutrophils Absolute Auto 3600 /uL (1500-7000); Platelet Count 162 X10^3/uL (150-400); Red Blood Cell Count 4.53 X10^6/uL (4.0-5.2); Red Cell Distribution Width 13.3 % (11.6-14.8); White Blood Cell Count 5.7 X10^3/uL (4.5-11.0)
[2019-07-26 15:25] LABS: Alanine Aminotransferase 17 IU/L (<35); Albumin 4.1 g/dL (3.5-5.0); Albumin Globulin Ratio 1.6 (1.0-2.8); Alkaline Phosphatase 64 U/L (38-126); Aspartate Aminotransferase 31 IU/L (14-36); Bilirubin Total 1.5 mg/dL (0.2-1.3); Blood Urea Nitrogen 28 mg/dL (7-17); Calcium 9.4 mg/dL (8.4-10.2); Carbon Dioxide 31 mmol/L (22-32); Chloride 100 mmol/L (98-107); Cholesterol 139 mg/dL (140-199); Estimated Glomerular Filt Rate > 60.0 mL/min (>60); Globulin 2.5 g/dL (1.7-4.1); Glucose 87 mg/dL (80-110); HDL Cholesterol 69 mg/dL (40-60); HEMOLYSIS < 15 (0-50); LDL Cholesterol Calculated 60 mg/dL (<100); Potassium 4.1 mmol/L (3.4-5.1); Sodium 138 mmol/L (137-145); Total Protein 6.6 g/dL (6.3-8.2); Triglycerides 50 mg/dL (35-150)
[2019-07-26 16:01] LABS: TSH w/ Reflex to FT4 1.47 uIU/mL (0.47-4.68)
== END ==
PROVIDERS: PCP Physician Assistant; Visit Provider Physician Assistant
DX: I10 Essential (primary) hypertension (principal); I48.91 Unspecified atrial fibrillation; E03.9 Hypothyroidism, unspecified; E04.1 Nontoxic single thyroid nodule; E78.2 Mixed hyperlipidemia
CPT/HCPCS: 80053; 80061; 83735; 84443; 85025

== ENCOUNTER → 2019-12-06 14:30 | Outpatient (CLI) | payer OTHER, SELFPAY ==
--- NOTE | 2019-12-06 | DI.MG.S_ITS ---
BILATERAL DIGITAL SCREENING MAMMOGRAM 3D/2D WITH CAD: 12/06/2019 CLINICAL: Routine screening. Family history of breast cancer. Comparison is made to exams dated: 06/23/2017 mammogram, 06/10/2016 mammogram, and 05/10/2015 mammogram - [facility]. The tissue of both breasts is heterogeneously dense. This may lower the sensitivity of mammography. Current study was also evaluated with a Computer Aided Detection (CAD) system. There are benign vascular calcifications in both breasts. No significant masses, calcifications, or other findings are seen in either breast. There has been no significant interval change. IMPRESSION: There is no mammographic evidence of malignancy. A 1 year screening mammogram is recommended. This exam was interpreted at Station ID: [id number]. NOTE: For mammograms, a report in lay terms will be sent to the patient. Approximately 15% of breast malignancies will not be visualized mammographically. In the management of a palpable breast mass, a negative mammogram must not discourage biopsy of a clinically suspicious lesion. Electronically Signed By: Bahman vuong/derrek:12/06/2019 15:13:43 letter sent: Normal Exam ACR BI-RADS Category 2: Benign Finding(s) 3342F
== END ==
PROVIDERS: PCP Physician Assistant; Referring Provider Physician Assistant; Visit Provider Physician Assistant
DX: Z12.31 Encounter for screening mammogram for malignant neoplasm of breast (principal); Z80.3 Family history of malignant neoplasm of breast
CPT/HCPCS: 77063; 77067

== ENCOUNTER → 2020-03-17 14:07 | Outpatient (CLI) | payer OTHER, SELFPAY | PROVIDERS: PCP Student in an Organized Health Care Education/Training Program; Referring Provider Student in an Organized Health Care Education/Training Program; Visit Provider Student in an Organized Health Care Education/Training Program | DX: Z13.820 Encounter for screening for osteoporosis (principal); Z78.0 Asymptomatic menopausal state; E03.9 Hypothyroidism, unspecified; Z90.722 Acquired absence of ovaries, bilateral; Z91.89 Other specified personal risk factors, not elsewhere classified | CPT/HCPCS: 77080 ==

== ENCOUNTER → 2020-04-19 10:53 | Outpatient (CLI) | payer OTHER, SELFPAY ==
[2020-04-19 12:25] LABS: Free T3, Triiodothyronine Free 3.29 pg/mL (2.77-5.27); Free T4, Direct Thyroxine 0.97 ng/dL (0.78-2.19)
[2020-04-19 12:39] LABS: Thyroid Stimulating Hormone 3.13 uIU/mL (0.47-4.68)
== END ==
PROVIDERS: PCP Student in an Organized Health Care Education/Training Program; Referring Provider Student in an Organized Health Care Education/Training Program; Visit Provider Student in an Organized Health Care Education/Training Program
DX: E03.9 Hypothyroidism, unspecified (principal)
CPT/HCPCS: 36415; 84439; 84443; 84481

== ENCOUNTER → 2020-10-20 08:29 | Outpatient (CLI) | payer OTHER, SELFPAY ==
[2020-10-20 09:04] LABS: INR 2.9 (0.9-1.3); Prothrombin Time 32.9 SECONDS (10.1-12.7)
[2020-10-20 09:45] LABS: Alanine Aminotransferase 18 IU/L (<35); Albumin Globulin Ratio 1.6 (1.0-2.8); Alkaline Phosphatase 60 U/L (38-126); Aspartate Aminotransferase 32 IU/L (14-36); BUN Creatinine Ratio 25.7 (6-22); Bilirubin Total 1.1 mg/dL (0.2-1.3); Blood Urea Nitrogen 19 mg/dL (7-17); Calcium 9.5 mg/dL (8.4-10.2); Carbon Dioxide 35 mmol/L (22-32); Chloride 99 mmol/L (98-107); Estimated Glomerular Filt Rate > 60.0 mL/min (>60); Globulin 2.5 g/dL (1.7-4.1); Glucose 88 mg/dL (80-110); HEMOLYSIS < 15 (0-50); Potassium 4.7 mmol/L (3.4-5.1); Sodium 136 mmol/L (137-145); Total Protein 6.5 g/dL (6.3-8.2)
== END ==
PROVIDERS: PCP Student in an Organized Health Care Education/Training Program; Referring Provider Internal Medicine Cardiovascular Disease; Visit Provider Internal Medicine Cardiovascular Disease
DX: I48.0 Paroxysmal atrial fibrillation (principal); I48.91 Unspecified atrial fibrillation
CPT/HCPCS: 36415; 80053; 85610

== ENCOUNTER → 2020-10-30 13:38 | Outpatient (CLI) | payer OTHER, SELFPAY ==
--- NOTE | 2020-10-30 13:39 | DI.RAD.S_ITS ---
PROCEDURE: XR HIP W PEL IF DONE RT 2V INDICATIONS: Right hip pain TECHNIQUE: AP pelvis with lateral view(s) of the right hip(s). COMPARISON: [facility], CR, XR PELVIS W LATERAL HIP LT, 11/24/2015, 17:12. FINDINGS: Bones: No fracture. Moderate bilateral hip joint degeneration, which appears progressed bilaterally since 11/24/15. Scattered degenerative subchondral sclerosis and spurring. Bilateral sacroiliac joint spurring and sclerosis. Soft tissues: Dystrophic calcifications seen at both greater trochanters in keeping with calcific tendinitis. IMPRESSION: Interval progression in bilateral hip joint degeneration Lumbar spondylosis and facet arthropathy Dictated by: Karan Cobos M.D. on 10/30/2020 at 14:26 Approved by: Karan Cobos M.D. on 10/30/2020 at 14:29
== END ==
PROVIDERS: PCP Student in an Organized Health Care Education/Training Program; Referring Provider Student in an Organized Health Care Education/Training Program; Visit Provider Student in an Organized Health Care Education/Training Program
DX: M25.551 Pain in right hip (principal); M16.0 Bilateral primary osteoarthritis of hip; M47.816 Spondylosis without myelopathy or radiculopathy, lumbar region; G89.29 Other chronic pain
CPT/HCPCS: 73502

== ENCOUNTER → 2020-12-08 11:32 | Outpatient (CLI) | payer OTHER, SELFPAY ==
--- NOTE | 2020-12-08 | DI.MG.S_ITS ---
BILATERAL DIGITAL SCREENING MAMMOGRAM 3D/2D WITH CAD: 12/08/2020 CLINICAL: Routine screening. Family history of breast cancer. Comparison is made to exams dated: 12/06/2019 mammogram, 09/22/2018 mammogram, and 06/23/2017 mammogram - [facility]. The tissue of both breasts is heterogeneously dense. This may lower the sensitivity of mammography. Current study was also evaluated with a Computer Aided Detection (CAD) system. There are benign vascular calcifications in both breasts. No significant masses, calcifications, or other findings are seen in either breast. There has been no significant interval change. IMPRESSION: BENIGN There is no mammographic evidence of malignancy. A 1 year screening mammogram is recommended. This exam was interpreted at Station ID: [id number]. NOTE: For mammograms, a report in lay terms will be sent to the patient. Approximately 15% of breast malignancies will not be visualized mammographically. In the management of a palpable breast mass, a negative mammogram must not discourage biopsy of a clinically suspicious lesion. Electronically Signed By: Nayan Lambert acr/penrad:12/08/2020 14:39:46 letter sent: Normal Exam ACR BI-RADS Category 2: Benign Finding(s) 3342F
== END ==
PROVIDERS: Family Provider Student in an Organized Health Care Education/Training Program; PCP Student in an Organized Health Care Education/Training Program; Referring Provider Student in an Organized Health Care Education/Training Program; Visit Provider Student in an Organized Health Care Education/Training Program
DX: Z12.31 Encounter for screening mammogram for malignant neoplasm of breast (principal); Z80.3 Family history of malignant neoplasm of breast
CPT/HCPCS: 77063; 77067

== ENCOUNTER 2021-01-19 08:15 | Outpatient (RCR) | payer OTHER, SELFPAY ==
--- NOTE | 2020-12-13 15:57 | PT.OIE ---
Current Diagnoses Bilateral primary osteoarthritis of hip (12/13/20) Past Medical History (Last Updated 12/05/20 @ 09:20 by Julio Lacy RN) Anticoagulated on warfarin Atrial fibrillation HTN (hypertension) Hyperlipidemia Hypothyroidism Pacemaker Past Surgical History (Last Reviewed 01/16/18 @ 04:14 by Jayesh Hernandez DO) S/P ablation of atrial fibrillation Visit Care Team Role Provider Type Kelton George MD Attending Provider Physician Family Provider Primary Care Provider Referring Provider Specialty: Internal Medicine Address: [address] [place] [address], [facility] [address], [place], [facility] Email: [email or web address] Physical Therapy Initial Evaluation PT-OP-A Visit Information Start: 12/05/20 14:30 Freq: Status: Active Protocol: Document 12/13/20 14:29 MB (Rec: 12/13/20 14:54 MB [id number]) Out-Patient Physical Therapy Visit Information Visit Information Visit Type Initial Evaluation Visit Note Medicare, [employer] [facility] Visit Start Time 14:29 Visit Stop Time 15:14 Total Visit Minutes 45 Visit Number 1 Evaluation Information Evaluation Date 12/13/20 PT-OP-B Current Condition Start: 12/05/20 14:30 Freq: Status: Active Protocol: Document 12/13/20 14:29 MB (Rec: 12/13/20 14:54 MB [id number]) Current Condition History of Current Condition Onset Date Several years Current Complaints Progressive right hip pain History of Current Condition Pt reports gradual onset of right hip pain. She reports she has a history of arthritis . In the past, about five years ago, she was told she needed a shot but they never followed up with her so she never got it. Going up stairs is a problem. Her pain is getting worse and it is in the groin. She has lumbar stenosis. Pt reports she has been caring for her daughter who has progressive MS. She just moved to a care facility. She has some grief with this move. Pt states that she has had a lot of stress d/t this situation and has not been taking care of herself as she would like. She has not been on her trike in two years. She misses cycling. She had B TKR and PT in 2009 and 2012 went very well. PMH: hay fever, HBP and on medication, a-fib and pt on medication, pacemaker, bruises easily from blood thinner ( Warfarin), she was just put on Meloxicam for arthritis and it is helpful. From the lumbar spinal stenosis, pt reports occ tingling in her right thigh. Pt has 16 steps at home and one rail. Pt has an endless pool that needs a new liner. Pt reports pain is 3/10 anterolateral right hip, 5/10 right groin pain, 4/10 right SI area. Treatment Goals Patient/Caregiver Goals To improve daily activities such as coming down the steps Get back on her trike PT-OP-C Subjective Start: 12/05/20 14:30 Freq: Status: Active Protocol: Document 12/13/20 14:29 MB (Rec: 12/13/20 15:47 MB [id number]) OP-PT Subjective Patient Comments Patient Comments See history of current condition Patient Reported Progress Worse PT-OP-G Mobility & Gait Start: 12/05/20 14:30 Freq: Status: Active Protocol: Document 12/13/20 14:29 MB (Rec: 12/13/20 15:57 MB [id number]) OP Gait Assessment Gait Gait Assistance Required: Independent Distance (Feet) 30 Able to Maintain Weight Bearing Status Yes During Gait Assistive Devices Assistive Device None Orthotic/Prosthetic Devices or Brace: No Gait Deviations General Gait Pattern Antalgic,Decreased Stride Length,Flexed Trunk,Lateral Trunk Lean,Wide Based Gait Factors Limiting Gait Function Factors Limiting Gait Function Decreased Activity Tolerance, Decreased Strength,Limited Range of Motion,Pain,Poor Balance Comments Gait Comments Gait with shoes donned: increased Trendelenburg gait, increased left arm swing, decreased step-length and foot clearance, wide CARMELITA, slow and increased effort with gait PT-OP-J Posture/Palpation/Skin Start: 12/05/20 14:30 Freq: Status: Active Protocol: Document 12/13/20 14:29 MB (Rec: 12/13/20 15:57 MB [id number]) Posture Evaluation Comments Posture Comments Without shoes donned: Dowager' s hump, decreased thoracic kyphosis and lumbar lordosis, right shoulder is elevated and rounded compared to the left, left sternum protruded, right iliac crest higher than the left, valgus B knees with thigh approximation, overpronation left foot. PT-OP-K Range of Motion Start: 12/05/20 14:30 Freq: Status: Active Protocol: Document 12/13/20 14:29 MB (Rec: 12/13/20 15:57 MB [id number]) Hip Goniometric Range of Motion Hip ROM Limitations Comments PROM B hips: right hip neutral IR, left hip neutral IR, ER 20 deg left, ER 30 deg right Positive B Scour, more pain on the right PT-OP-M Strength Start: 12/05/20 14:30 Freq: Status: Active Protocol: Document 12/13/20 14:29 MB (Rec: 12/13/20 15:57 MB [id number]) Hip Strength Hip Manual Muscle Testing Leg Flexion (L2) 3+ Fair+ Abduction 3- Fair- Adduction 3+ Fair+ Right Abduction 2 Poor Adduction 2+ Poor+ Comments Hip flexion not MMT d/t pain with lifting leg Knee Strength Knee Manual Muscle Testing Left Flexion (S2) 4 Good Extension (L3) 5 Normal Right Flexion (S2) 4 Good Extension (L3) 4 Good Ankle/Foot Strength Ankle and Foot Manual Muscle Testing Left Dorsiflexion (L4) 5 Normal Right Dorsiflexion (L4) 5 Normal Toe Strength Toe Manual Muscle Testing Left Great Toe Extension 5 Normal Right Great Toe Extension 5 Normal PT-OP-Q Treatments Start: 12/05/20 14:30 Freq: Status: Active Protocol: Document 12/13/20 14:29 MB (Rec: 12/13/20 15:47 MB [id number]) Self-Care/Home Management Treatment Education Other Education Heavy encouragement for pt to get her endless pool back in operation, ed that stair training will not be a good strengthening exercise going forward given degeneration and pain, ed in PT concerns about recumbent positioning of her trike given hip impingement position in setting of degenerative hip changes PT-OP-T Assessment and Plan Start: 12/05/20 14:30 Freq: Status: Active Protocol: Document 12/13/20 14:29 MB (Rec: 12/13/20 15:41 MB [id number]) Physical Therapy Assessment Rehab Potential Rehabilitation Potential Fair Evaluation Complexity Number of Personal Factors/Comorbidities 1-2 Number of Body Systems Impaired 1-2 Clinical Presentation at Evaluation Evolving Impairments Impairments Activity Tolerance,Balance, Functional Activities, Functional Mobility,Gait,Pain, Posture,ROM,Sensation,Soft Tissue Mobility,Strength, Transfers Other Impairments Personal factors include grief of daughter with MS just moved to care facility d/t LOC requirements, with progressive ankylosing spondylitis, pt's own multijoint degenerative changes. Body systems affected include musculoskeletal and neuromuscular. Her clinical presentation is evolving. Other Concerns Fall Risk Yes Goals 4 Slip Operator Goal (LTG) Pt will perform WNLs on a standardized balance test to decrease fall risk by 02/12/21. LTG Duration 8 weeks 3 Chcf Goal (LTG) Pt will present with improved B hip flexion and abduction strength to at least 4/5 to improve transfers and gait by 02/12/21. LTG Duration 8 weeks 2 Slip Operator Goal (LTG) Pt will perform progressive HEP with I including flexibility, strengthening, pool execises and balance exercises to improve strength and pain by 02/12/21. LTG Duration 8 weeks 1 Impairment LEF score 43/80, 57.99% impairment Slip Operator Goal (LTG) Pt will present with an improved LEF score to reflect no more than 40% impairment to improve quality of life and mobility by 02/12/21. LTG Duration 8 weeks Assessment Summary Assessment Pt is a 75 y/o female presenting with antalgic gait, postural changes, pelvic obliquities, hip and knee weakness, positive B Scour Test with more pain on the right and decreased passive ER and IR B hips in setting of progressive degenerative changes of her spine and hips. Pt states that the doctor told her that PT may buy her several months before THR. She will benefit from PT to improve flexibility, core strength, balance, and LE strengthening as tolerated. She has an endless pool that is not currently working and PT encourages her to look into getting this going again. Her progressive degenerative spinal and hip changes and pain are barriers. Physical Therapy Plan Frequency and Duration Frequency of Treatment 2x/wk and adjust Duration of Treatment 8 weeks Plan of Care Start Date 12/13/20 Plan of Care End Date 02/12/21 Therapeutic Interventions Therapeutic Interventions Aquatic Therapy,Balance Training,Canalithic Repositioning,Coordination Training,Gait Training,Home Exercise Program,Joint Mobilizations,Manual Therapy, Neuromuscular Re-education, Orthotic/Prosthetic Management ,Patient/Caregiver Education, Self-Care/Home Management, Sensory Integration,Soft Tissue Mobilization,Taping, Therapeutic Exercises Modalities Cold Pack/Ice Massage,Hot Packs Next Visit Focus/Plan Next Note Type Treatment Note Next Visit Plan Initiate upright bike vs recumbent to ed pt on posture, initiate flexibility exercises, pelvic realignment exercises, abdominal drawing in
--- NOTE | 2020-12-13 15:57 | PT.OPPOC ---
Physical, Occupational & Speech Therapy At [facility] Current Diagnoses Bilateral primary osteoarthritis of hip (12/13/20) Visit Care Team Role Provider Type Kelton George MD Attending Provider Physician Family Provider Primary Care Provider Referring Provider Specialty: Internal Medicine Address: [address] [place] [address], [address], [address] Email: [email or web address] Plan Of Care PT-OP-T Assessment and Plan Start: 12/05/20 14:30 Freq: Status: Active Protocol: Document 12/13/20 14:29 MB (Rec: 12/13/20 15:41 MB [id number]) Physical Therapy Assessment Rehab Potential Rehabilitation Potential Fair Evaluation Complexity Number of Personal Factors/Comorbidities 1-2 Number of Body Systems Impaired 1-2 Clinical Presentation at Evaluation Evolving Impairments Impairments Activity Tolerance,Balance, Functional Activities, Functional Mobility,Gait,Pain, Posture,ROM,Sensation,Soft Tissue Mobility,Strength, Transfers Other Impairments Personal factors include grief of daughter with MS just moved to care facility d/t LOC requirements, with progressive ankylosing spondylitis, pt's own multijoint degenerative changes. Body systems affected include musculoskeletal and neuromuscular. Her clinical presentation is evolving. Other Concerns Fall Risk Yes Goals 4 Stone Driller Helper Goal (LTG) Pt will perform WNLs on a standardized balance test to decrease fall risk by 02/12/21. LTG Duration 8 weeks 3 Stone Driller Helper Goal (LTG) Pt will present with improved B hip flexion and abduction strength to at least 4/5 to improve transfers and gait by 02/12/21. LTG Duration 8 weeks 2 Care Home Goal (LTG) Pt will perform progressive HEP with I including flexibility, strengthening, pool execises and balance exercises to improve strength and pain by 02/12/21. LTG Duration 8 weeks 1 Impairment LEF score 43/80, 57.99% impairment Stone Driller Helper Goal (LTG) Pt will present with an improved LEF score to reflect no more than 40% impairment to improve quality of life and mobility by 02/12/21. LTG Duration 8 weeks Assessment Summary Assessment Pt is a 75 y/o female presenting with antalgic gait, postural changes, pelvic obliquities, hip and knee weakness, positive B Scour Test with more pain on the right and decreased passive ER and IR B hips in setting of progressive degenerative changes of her spine and hips. Pt states that the doctor told her that PT may buy her several months before THR. She will benefit from PT to improve flexibility, core strength, balance, and LE strengthening as tolerated. She has an endless pool that is not currently working and PT encourages her to look into getting this going again. Her progressive degenerative spinal and hip changes and pain are barriers. Physical Therapy Plan Frequency and Duration Frequency of Treatment 2x/wk and adjust Duration of Treatment 8 weeks Plan of Care Start Date 12/13/20 Plan of Care End Date 02/12/21 Therapeutic Interventions Therapeutic Interventions Aquatic Therapy,Balance Training,Canalithic Repositioning,Coordination Training,Gait Training,Home Exercise Program,Joint Mobilizations,Manual Therapy, Neuromuscular Re-education, Orthotic/Prosthetic Management ,Patient/Caregiver Education, Self-Care/Home Management, Sensory Integration,Soft Tissue Mobilization,Taping, Therapeutic Exercises Modalities Cold Pack/Ice Massage,Hot Packs Next Visit Focus/Plan Next Note Type Treatment Note Next Visit Plan Initiate upright bike vs recumbent to ed pt on posture, initiate flexibility exercises, pelvic realignment exercises, abdominal drawing in Plan of Care Dates Plan of Care Start Date 12/13/20 Plan of Care End Date 02/12/21 Electronically Signed by: Carmen Ferreira PT 12/13/20 [id number] Please Sign and Return: I have reviewed this Plan of Care and certify that the skilled therapy services above are required to meet the patient?s needs. Physician Signature Date Printed Name and Credentials Clinical Instructor Signature Printed Name and Credentials
--- NOTE | 2020-12-15 13:43 | PT.OTN ---
Current Diagnoses Bilateral primary osteoarthritis of hip (12/15/20) Physical Therapy Treatment Note PT-OP-A Visit Information Start: 12/05/20 14:30 Freq: Status: Active Protocol: Document 12/15/20 13:00 MB (Rec: 12/15/20 13:43 MB [id number]) Out-Patient Physical Therapy Visit Information Visit Information Visit Type Treatment Note Visit Note [facility] Start Time 13:00 Visit Stop Time 13:40 Total Visit Minutes 40 Visit Number 2 PT-OP-B Current Condition Start: 12/05/20 14:30 Freq: Status: Active Protocol: Document 12/13/20 14:29 MB (Rec: 12/13/20 14:54 MB [id number]) Current Condition History of Current Condition Onset Date Several years Current Complaints Progressive right hip pain History of Current Condition Pt reports gradual onset of right hip pain. She reports she has a history of arthritis . In the past, about five years ago, she was told she needed a shot but they never followed up with her so she never got it. Going up stairs is a problem. Her pain is getting worse and it is in the groin. She has lumbar stenosis. Pt reports she has been caring for her daughter who has progressive MS. She just moved to a care facility. She has some grief with this move. Pt states that she has had a lot of stress d/t this situation and has not been taking care of herself as she would like. She has not been on her trike in two years. She misses cycling. She had B TKR and PT in 2009 and 2012 went very well. PMH: hay fever, HBP and on medication, a-fib and pt on medication, pacemaker, bruises easily from blood thinner ( Warfarin), she was just put on Meloxicam for arthritis and it is helpful. From the lumbar spinal stenosis, pt reports occ tingling in her right thigh. Pt has 16 steps at home and one rail. Pt has an endless pool that needs a new liner. Pt reports pain is 3/10 anterolateral right hip, 5/10 right groin pain, 4/10 right SI area. Treatment Goals Patient/Caregiver Goals To improve daily activities such as coming down the steps Get back on her trike PT-OP-C Subjective Start: 12/05/20 14:30 Freq: Status: Active Protocol: Document 12/15/20 13:00 MB (Rec: 12/15/20 13:43 MB [id number]) OP-PT Subjective Patient Comments Patient Comments Pt states that she does not think that she felt sore after evaluation. PT-OP-G Mobility & Gait Start: 12/05/20 14:30 Freq: Status: Active Protocol: Document 12/13/20 14:29 MB (Rec: 12/13/20 15:57 MB [id number]) OP Gait Assessment Gait Gait Assistance Required: Independent Distance (Feet) 30 Able to Maintain Weight Bearing Status Yes During Gait Assistive Devices Assistive Device None Orthotic/Prosthetic Devices or Brace: No Gait Deviations General Gait Pattern Antalgic,Decreased Stride Length,Flexed Trunk,Lateral Trunk Lean,Wide Based Gait Factors Limiting Gait Function Factors Limiting Gait Function Decreased Activity Tolerance, Decreased Strength,Limited Range of Motion,Pain,Poor Balance Comments Gait Comments Gait with shoes donned: increased Trendelenburg gait, increased left arm swing, decreased step-length and foot clearance, wide CARMELITA, slow and increased effort with gait PT-OP-J Posture/Palpation/Skin Start: 12/05/20 14:30 Freq: Status: Active Protocol: Document 12/13/20 14:29 MB (Rec: 12/13/20 15:57 MB [id number]) Posture Evaluation Comments Posture Comments Without shoes donned: Dowager' s hump, decreased thoracic kyphosis and lumbar lordosis, right shoulder is elevated and rounded compared to the left, left sternum protruded, right iliac crest higher than the left, valgus B knees with thigh approximation, overpronation left foot. PT-OP-K Range of Motion Start: 12/05/20 14:30 Freq: Status: Active Protocol: Document 12/13/20 14:29 MB (Rec: 12/13/20 15:57 MB [id number]) Hip Goniometric Range of Motion Hip ROM Limitations Comments PROM B hips: right hip neutral IR, left hip neutral IR, ER 20 deg left, ER 30 deg right Positive B Scour, more pain on the right PT-OP-M Strength Start: 12/05/20 14:30 Freq: Status: Active Protocol: Document 12/13/20 14:29 MB (Rec: 12/13/20 15:57 MB [id number]) Hip Strength Hip Manual Muscle Testing Leg Flexion (L2) 3+ Fair+ Abduction 3- Fair- Adduction 3+ Fair+ Right Abduction 2 Poor Adduction 2+ Poor+ Comments Hip flexion not MMT d/t pain with lifting leg Knee Strength Knee Manual Muscle Testing Left Flexion (S2) 4 Good Extension (L3) 5 Normal Right Flexion (S2) 4 Good Extension (L3) 4 Good Ankle/Foot Strength Ankle and Foot Manual Muscle Testing Left Dorsiflexion (L4) 5 Normal Right Dorsiflexion (L4) 5 Normal Toe Strength Toe Manual Muscle Testing Left Great Toe Extension 5 Normal Right Great Toe Extension 5 Normal PT-OP-Q Treatments Start: 12/05/20 14:30 Freq: Status: Active Protocol: Document 12/15/20 13:00 MB (Rec: 12/15/20 13:43 MB [id number]) Cardio Equipment Bicycle (Upright) Duration (Minutes) 5 Resistance 6 Seat Position 9 Therapeutic Exercises Supine Exercises Hamstring stretch Side bilateral Comments Opposite leg straight, straighten leg and then AP x20 sec Taiwo stretch Side bilateral Comments Abdominal drawing in and pelvic tilt first, hold 20-30 sec Abdominal drawing in Comments Pelvic tilt and flattening spine Pelvic realignment exercises Side bilateral Comments 5 rep, 3 sec hold all exercises Manual Therapy Treatment Other Other Manual Treatments Pt supine with head and legs supported: B hip flexor and rectus femoris STM and positional release PT-OP-T Assessment and Plan Start: 12/05/20 14:30 Freq: Status: Active Protocol: Document 12/15/20 13:00 MB (Rec: 12/15/20 13:43 MB [id number]) Physical Therapy Assessment Rehab Potential Rehabilitation Potential Fair Evaluation Complexity Number of Personal Factors/Comorbidities 1-2 Number of Body Systems Impaired 1-2 Clinical Presentation at Evaluation Evolving Impairments Impairments Activity Tolerance,Balance, Functional Activities, Functional Mobility,Gait,Pain, Posture,ROM,Sensation,Soft Tissue Mobility,Strength, Transfers Other Impairments Personal factors include grief of daughter with MS just moved to care facility d/t LOC requirements, with progressive ankylosing spondylitis, pt's own multijoint degenerative changes. Body systems affected include musculoskeletal and neuromuscular. Her clinical presentation is evolving. Other Concerns Fall Risk Yes Goals 4 Feeder Catcher Goal (LTG) Pt will perform WNLs on a standardized balance test to decrease fall risk by 02/12/21. LTG Duration 8 weeks 3 Feeder Catcher Goal (LTG) Pt will present with improved B hip flexion and abduction strength to at least 4/5 to improve transfers and gait by 02/12/21. LTG Duration 8 weeks 2 Feeder Catcher Goal (LTG) Pt will perform progressive HEP with I including flexibility, strengthening, pool execises and balance exercises to improve strength and pain by 02/12/21. LTG Duration 8 weeks 1 Impairment LEF score 43/80, 57.99% impairment Feeder Catcher Goal (LTG) Pt will present with an improved LEF score to reflect no more than 40% impairment to improve quality of life and mobility by 02/12/21. LTG Duration 8 weeks Assessment Summary Assessment Pt states that her pacemaker does not respond with riding on stationary bike and that it has to have vibration. She taps over her pacemaker on the bike with her left hand. She states she cannot swim because of this. Her is in favor of paying someone to help get their endless pool. Initiated flexibility training and pelvic realignment today. Con't progression. Physical Therapy Plan Frequency and Duration Frequency of Treatment 2x/wk and adjust Duration of Treatment 8 weeks Plan of Care Start Date 12/13/20 Plan of Care End Date 02/12/21 Therapeutic Interventions Therapeutic Interventions Aquatic Therapy,Balance Training,Canalithic Repositioning,Coordination Training,Gait Training,Home Exercise Program,Joint Mobilizations,Manual Therapy, Neuromuscular Re-education, Orthotic/Prosthetic Management ,Patient/Caregiver Education, Self-Care/Home Management, Sensory Integration,Soft Tissue Mobilization,Taping, Therapeutic Exercises Modalities Cold Pack/Ice Massage,Hot Packs Next Visit Focus/Plan Next Note Type Treatment Note Next Visit Plan Initiate core progression, try hip rotator stretch vs self- massage with racquet ball, hip strengthening in hook lying
--- NOTE | 2020-12-20 16:51 | PT.OTN ---
Current Diagnoses Bilateral primary osteoarthritis of hip (12/20/20) Physical Therapy Treatment Note PT-OP-A Visit Information Start: 12/05/20 14:30 Freq: Status: Active Protocol: Document 12/20/20 15:59 AW (Rec: 12/20/20 16:49 AW [id number]) Out-Patient Physical Therapy Visit Information Visit Information Visit Type Treatment Note Visit Note [facility] Medical Visit Start Time 16:00 Visit Stop Time 16:44 Total Visit Minutes 44 Visit Number 3 Evaluation Information Evaluation Date 12/13/20 PT-OP-B Current Condition Start: 12/05/20 14:30 Freq: Status: Active Protocol: Document 12/13/20 14:29 MB (Rec: 12/13/20 14:54 MB [id number]) Current Condition History of Current Condition Onset Date Several years Current Complaints Progressive right hip pain History of Current Condition Pt reports gradual onset of right hip pain. She reports she has a history of arthritis . In the past, about five years ago, she was told she needed a shot but they never followed up with her so she never got it. Going up stairs is a problem. Her pain is getting worse and it is in the groin. She has lumbar stenosis. Pt reports she has been caring for her daughter who has progressive MS. She just moved to a care facility. She has some grief with this move. Pt states that she has had a lot of stress d/t this situation and has not been taking care of herself as she would like. She has not been on her trike in two years. She misses cycling. She had B TKR and PT in 2009 and 2012 went very well. PMH: hay fever, HBP and on medication, a-fib and pt on medication, pacemaker, bruises easily from blood thinner ( Warfarin), she was just put on Meloxicam for arthritis and it is helpful. From the lumbar spinal stenosis, pt reports occ tingling in her right thigh. Pt has 16 steps at home and one rail. Pt has an endless pool that needs a new liner. Pt reports pain is 3/10 anterolateral right hip, 5/10 right groin pain, 4/10 right SI area. Treatment Goals Patient/Caregiver Goals To improve daily activities such as coming down the steps Get back on her trike PT-OP-C Subjective Start: 12/05/20 14:30 Freq: Status: Active Protocol: Document 12/20/20 15:59 AW (Rec: 12/20/20 16:49 AW [id number]) OP-PT Subjective Patient Comments Patient Comments Pt has been doing her HEP and appreciates having the pictures and description for reference. PT-OP-G Mobility & Gait Start: 12/05/20 14:30 Freq: Status: Active Protocol: Document 12/13/20 14:29 MB (Rec: 12/13/20 15:57 MB [id number]) OP Gait Assessment Gait Gait Assistance Required: Independent Distance (Feet) 30 Able to Maintain Weight Bearing Status Yes During Gait Assistive Devices Assistive Device None Orthotic/Prosthetic Devices or Brace: No Gait Deviations General Gait Pattern Antalgic,Decreased Stride Length,Flexed Trunk,Lateral Trunk Lean,Wide Based Gait Factors Limiting Gait Function Factors Limiting Gait Function Decreased Activity Tolerance, Decreased Strength,Limited Range of Motion,Pain,Poor Balance Comments Gait Comments Gait with shoes donned: increased Trendelenburg gait, increased left arm swing, decreased step-length and foot clearance, wide CARMELITA, slow and increased effort with gait PT-OP-J Posture/Palpation/Skin Start: 12/05/20 14:30 Freq: Status: Active Protocol: Document 12/13/20 14:29 MB (Rec: 12/13/20 15:57 MB [id number]) Posture Evaluation Comments Posture Comments Without shoes donned: Dowager' s hump, decreased thoracic kyphosis and lumbar lordosis, right shoulder is elevated and rounded compared to the left, left sternum protruded, right iliac crest higher than the left, valgus B knees with thigh approximation, overpronation left foot. PT-OP-K Range of Motion Start: 12/05/20 14:30 Freq: Status: Active Protocol: Document 12/13/20 14:29 MB (Rec: 12/13/20 15:57 MB [id number]) Hip Goniometric Range of Motion Hip ROM Limitations Comments PROM B hips: right hip neutral IR, left hip neutral IR, ER 20 deg left, ER 30 deg right Positive B Scour, more pain on the right PT-OP-M Strength Start: 12/05/20 14:30 Freq: Status: Active Protocol: Document 12/13/20 14:29 MB (Rec: 12/13/20 15:57 MB [id number]) Hip Strength Hip Manual Muscle Testing Leg Flexion (L2) 3+ Fair+ Abduction 3- Fair- Adduction 3+ Fair+ Right Abduction 2 Poor Adduction 2+ Poor+ Comments Hip flexion not MMT d/t pain with lifting leg Knee Strength Knee Manual Muscle Testing Left Flexion (S2) 4 Good Extension (L3) 5 Normal Right Flexion (S2) 4 Good Extension (L3) 4 Good Ankle/Foot Strength Ankle and Foot Manual Muscle Testing Left Dorsiflexion (L4) 5 Normal Right Dorsiflexion (L4) 5 Normal Toe Strength Toe Manual Muscle Testing Left Great Toe Extension 5 Normal Right Great Toe Extension 5 Normal PT-OP-Q Treatments Start: 12/05/20 14:30 Freq: Status: Active Protocol: Document 12/20/20 15:59 AW (Rec: 12/20/20 16:49 AW [id number]) Cardio Equipment Bicycle (Upright) Duration (Minutes) 5 Resistance 6 Seat Position 9 Therapeutic Exercises Supine Exercises bridge Supine Exercise Name bridge Equipment Used ball btwn knees for alignment Reps/Minutes 10 x 2 supine clamshell Supine Exercise Name supine clamshell Side bilateral Equipment Used yellow loop band Reps/Minutes 10 x 2 Hamstring stretch Side bilateral Comments Opposite leg straight, straighten leg and then AP x20 sec Taiwo stretch Side bilateral Comments Abdominal drawing in and pelvic tilt first, hold 20-30 sec Abdominal drawing in Reps/Minutes 6 min Comments progressed to supine september PT-OP-T Assessment and Plan Start: 12/05/20 14:30 Freq: Status: Active Protocol: Document 12/20/20 15:59 AW (Rec: 12/20/20 16:49 AW [id number]) Physical Therapy Assessment Rehab Potential Rehabilitation Potential Fair Evaluation Complexity Number of Personal Factors/Comorbidities 1-2 Number of Body Systems Impaired 1-2 Clinical Presentation at Evaluation Evolving Impairments Impairments Activity Tolerance,Balance, Functional Activities, Functional Mobility,Gait,Pain, Posture,ROM,Sensation,Soft Tissue Mobility,Strength, Transfers Other Impairments Personal factors include grief of daughter with MS just moved to care facility d/t LOC requirements, with progressive ankylosing spondylitis, pt's own multijoint degenerative changes. Body systems affected include musculoskeletal and neuromuscular. Her clinical presentation is evolving. Other Concerns Fall Risk Yes Goals 4 Nursing Home Goal (LTG) Pt will perform WNLs on a standardized balance test to decrease fall risk by 02/12/21. LTG Duration 8 weeks 3 Nursing Home Goal (LTG) Pt will present with improved B hip flexion and abduction strength to at least 4/5 to improve transfers and gait by 02/12/21. LTG Duration 8 weeks 2 Nursing Home Goal (LTG) Pt will perform progressive HEP with I including flexibility, strengthening, pool execises and balance exercises to improve strength and pain by 02/12/21. LTG Duration 8 weeks 1 Impairment LEF score 43/80, 57.99% impairment Centerless Grinder Tender Goal (LTG) Pt will present with an improved LEF score to reflect no more than 40% impairment to improve quality of life and mobility by 02/12/21. LTG Duration 8 weeks Assessment Summary Assessment Reviewed HEP with pt for independent performance at home. Progressed supported spine core activation and hip strengthening with pt tolerating all well. No changes to HEP this visit. Physical Therapy Plan Frequency and Duration Frequency of Treatment 2x/wk and adjust Duration of Treatment 8 weeks Plan of Care Start Date 12/13/20 Plan of Care End Date 02/12/21 Therapeutic Interventions Therapeutic Interventions Aquatic Therapy,Balance Training,Canalithic Repositioning,Coordination Training,Gait Training,Home Exercise Program,Joint Mobilizations,Manual Therapy, Neuromuscular Re-education, Orthotic/Prosthetic Management ,Patient/Caregiver Education, Self-Care/Home Management, Sensory Integration,Soft Tissue Mobilization,Taping, Therapeutic Exercises Modalities Cold Pack/Ice Massage,Hot Packs Next Visit Focus/Plan Next Note Type Treatment Note Next Visit Plan Progress core activation, try hip rotator stretch vs self- massage with racquet ball, hip strengthening in hook lying
--- NOTE | 2020-12-22 09:04 | PT.OTN ---
Current Diagnoses Bilateral primary osteoarthritis of hip (12/22/20) Physical Therapy Treatment Note PT-OP-A Visit Information Start: 12/05/20 14:30 Freq: Status: Active Protocol: Document 12/22/20 08:17 SP (Rec: 12/22/20 11:26 SP [id number]) Out-Patient Physical Therapy Visit Information Visit Information Visit Type Treatment [facility] Start Time 08:17 Visit Stop Time 09:04 Total Visit Minutes 47 Visit Number 4 Number of SEED SALES MANAGER Visits 1 Evaluation Information Evaluation Date 12/13/20 PT-OP-B Current Condition Start: 12/05/20 14:30 Freq: Status: Active Protocol: Document 12/13/20 14:29 MB (Rec: 12/13/20 14:54 MB [id number]) Current Condition History of Current Condition Onset Date Several years Current Complaints Progressive right hip pain History of Current Condition Pt reports gradual onset of right hip pain. She reports she has a history of arthritis . In the past, about five years ago, she was told she needed a shot but they never followed up with her so she never got it. Going up stairs is a problem. Her pain is getting worse and it is in the groin. She has lumbar stenosis. Pt reports she has been caring for her daughter who has progressive MS. She just moved to a care facility. She has some grief with this move. Pt states that she has had a lot of stress d/t this situation and has not been taking care of herself as she would like. She has not been on her trike in two years. She misses cycling. She had B TKR and PT in 2009 and 2012 went very well. PMH: hay fever, HBP and on medication, a-fib and pt on medication, pacemaker, bruises easily from blood thinner ( Warfarin), she was just put on Meloxicam for arthritis and it is helpful. From the lumbar spinal stenosis, pt reports occ tingling in her right thigh. Pt has 16 steps at home and one rail. Pt has an endless pool that needs a new liner. Pt reports pain is 3/10 anterolateral right hip, 5/10 right groin pain, 4/10 right SI area. Treatment Goals Patient/Caregiver Goals To improve daily activities such as coming down the steps Get back on her trike PT-OP-C Subjective Start: 12/05/20 14:30 Freq: Status: Active Protocol: Document 12/22/20 08:17 SP (Rec: 12/22/20 11:26 SP [id number]) OP-PT Subjective Patient Comments Patient Comments Pt stated pretty busy yesterday so didn't do her exercises but doing ok with them. Had a good work out and muscle tired after last tx, just weak. Pt stated had a rolling pin and tball 75 cm can use at home. PT-OP-G Mobility & Gait Start: 12/05/20 14:30 Freq: Status: Active Protocol: Document 12/13/20 14:29 MB (Rec: 12/13/20 15:57 MB [id number]) OP Gait Assessment Gait Gait Assistance Required: Independent Distance (Feet) 30 Able to Maintain Weight Bearing Status Yes During Gait Assistive Devices Assistive Device None Orthotic/Prosthetic Devices or Brace: No Gait Deviations General Gait Pattern Antalgic,Decreased Stride Length,Flexed Trunk,Lateral Trunk Lean,Wide Based Gait Factors Limiting Gait Function Factors Limiting Gait Function Decreased Activity Tolerance, Decreased Strength,Limited Range of Motion,Pain,Poor Balance Comments Gait Comments Gait with shoes donned: increased Trendelenburg gait, increased left arm swing, decreased step-length and foot clearance, wide CARMELITA, slow and increased effort with gait PT-OP-J Posture/Palpation/Skin Start: 12/05/20 14:30 Freq: Status: Active Protocol: Document 12/13/20 14:29 MB (Rec: 12/13/20 15:57 MB [id number]) Posture Evaluation Comments Posture Comments Without shoes donned: Dowager' s hump, decreased thoracic kyphosis and lumbar lordosis, right shoulder is elevated and rounded compared to the left, left sternum protruded, right iliac crest higher than the left, valgus B knees with thigh approximation, overpronation left foot. PT-OP-K Range of Motion Start: 12/05/20 14:30 Freq: Status: Active Protocol: Document 12/13/20 14:29 MB (Rec: 12/13/20 15:57 MB [id number]) Hip Goniometric Range of Motion Hip ROM Limitations Comments PROM B hips: right hip neutral IR, left hip neutral IR, ER 20 deg left, ER 30 deg right Positive B Scour, more pain on the right PT-OP-M Strength Start: 12/05/20 14:30 Freq: Status: Active Protocol: Document 12/13/20 14:29 MB (Rec: 12/13/20 15:57 MB [id number]) Hip Strength Hip Manual Muscle Testing Leg Flexion (L2) 3+ Fair+ Abduction 3- Fair- Adduction 3+ Fair+ Right Abduction 2 Poor Adduction 2+ Poor+ Comments Hip flexion not MMT d/t pain with lifting leg Knee Strength Knee Manual Muscle Testing Left Flexion (S2) 4 Good Extension (L3) 5 Normal Right Flexion (S2) 4 Good Extension (L3) 4 Good Ankle/Foot Strength Ankle and Foot Manual Muscle Testing Left Dorsiflexion (L4) 5 Normal Right Dorsiflexion (L4) 5 Normal Toe Strength Toe Manual Muscle Testing Left Great Toe Extension 5 Normal Right Great Toe Extension 5 Normal PT-OP-Q Treatments Start: 12/05/20 14:30 Freq: Status: Active Protocol: Document 12/22/20 08:17 SP (Rec: 12/22/20 11:26 SP [id number]) Cardio Equipment Bicycle (Upright) Duration (Minutes) 5 Resistance 6 Seat Position 9 Gym Equipment Therapeutic Ball stretching LEs Exercise Details HS(PT only) Ball Size/Color 75cm Body Position Sitting Reps/Duration 30 x3 B- contact chair for suppport Comments good response Trialed adductor and hip flexor but unsteady on ball to discontinued ball use for now Therapeutic Exercises Supine Exercises pirformis stretch Supine Exercise Name foot over opp LE and knee toward opp chest Side bilateral Reps/Minutes 10 each LE Comments stopped due to pinching discomfort anterior hip bridge Supine Exercise Name bridge- added to HEP Reps/Minutes 10 x 2, 2 sec hold Comments good quad, core, glut facilitation with PPT supine clamshell Supine Exercise Name supine clamshell- reviewed HEp Side bilateral Equipment Used yellow loop band Reps/Minutes 10 x 2 Comments cued TA facilitation and PPT awareness to decrease LS recruitment Hamstring stretch Supine Exercise Name Opposite leg straight grasp behind thigh, straighten leg and then AP Side bilateral Resistance reviewed HEP Reps/Minutes x20 sec Comments cued slow AP at resisted hip flex range Taiwo stretch Supine Exercise Name reviewed HEP Side bilateral Reps/Minutes x2 reps each Comments Abdominal drawing in and pelvic tilt first, hold 20-30 sec Abdominal drawing in Supine Exercise Name recheck supine september next tx ( progressed to 2 tx ago) Reps/Minutes 5 sec hold x10 Comments Pelvic tilt and flattening spine this tx Pelvic realignment exercises Supine Exercise Name recheck next tx- did not perform, states is at home Side bilateral Comments 5 rep, 3 sec hold all exercises Standing Exercises ball roll at wall Standing Exercise Name Glut, ES added to HEP Side bilateral Reps/Minutes 1 min total Comments good massage feedback more for back than gluts. quad stretch Standing Exercise Name foot propped up on raised table as performs own at home- assessed Side bilateral Equipment Used contact table balance safety Reps/Minutes 30 x2 Comments good quad stretch found to do on own Manual Therapy Treatment Soft Tissue Mobilization manual to L quad Mobilization Type Instrument Assisted,Myofascial Release,Strumming,Other Intensity/Depth Moderate Body Position Supine PT-OP-T Assessment and Plan Start: 12/05/20 14:30 Freq: Status: Active Protocol: Document 12/22/20 08:17 SP (Rec: 12/22/20 11:26 SP [id number]) Physical Therapy Assessment Goals 4 [facility] Goal (LTG) Pt will perform WNLs on a standardized balance test to decrease fall risk by 02/12/21. LTG Duration 8 weeks 3 Extension Work Instructor Goal (LTG) Pt will present with improved B hip flexion and abduction strength to at least 4/5 to improve transfers and gait by 02/12/21. LTG Duration 8 weeks 2 Extension Work Instructor Goal (LTG) Pt will perform progressive HEP with I including flexibility, strengthening, pool execises and balance exercises to improve strength and pain by 02/12/21. 12/22/20 HEP: stick roll quad/ HS/ calf, racquetball roll ES/ glut, stand quad stretch, bridge, pelvic realignement ex , TA draw, in / september, Taiwo stretch, HS stretch w/ AP, LTG Duration 8 weeks 1 Impairment LEF score 43/80, 57.99% impairment [facility] Goal (LTG) Pt will present with an improved LEF score to reflect no more than 40% impairment to improve quality of life and mobility by 02/12/21. LTG Duration 8 weeks Assessment Summary Assessment Reviewed HEP with pt for independent performance at home. Provided pt self STMs tools with rolling stick and racquetball at wall roll with good decrease tightness feedback with carryover better felt Taiwo stretch benefits post STMs. Assessed pt's reported standing good quad stretch she does on own with contact, stable, see hand out image for set up/ form scanned in. Pt has 75cm Tball upon assessment use at this time unstable and not getting stretch focus hoped so discontinued to later date. Continue to progress HEP strengthening in hooklying, has good response to ROM into hip ext directioning. Physical Therapy Plan Frequency and Duration Frequency of Treatment 2x/wk and adjust Duration of Treatment 8 weeks Plan of Care Start Date 12/13/20 Plan of Care End Date 02/12/21 Therapeutic Interventions Therapeutic Interventions Aquatic Therapy,Balance Training,Canalithic Repositioning,Coordination Training,Gait Training,Home Exercise Program,Joint Mobilizations,Manual Therapy, Neuromuscular Re-education, Orthotic/Prosthetic Management ,Patient/Caregiver Education, Self-Care/Home Management, Sensory Integration,Soft Tissue Mobilization,Taping, Therapeutic Exercises Modalities Cold Pack/Ice Massage,Hot Packs Next Visit Focus/Plan Next Note Type Treatment Note Next Visit Plan Progress core activation, try hip rotator stretch vs self- massage with racquet ball, hip strengthening in hook lying
--- NOTE | 2020-12-27 09:45 | PT.OTN ---
Current Diagnoses Bilateral primary osteoarthritis of hip (12/27/20) Physical Therapy Treatment Note PT-OP-A Visit Information Start: 12/05/20 14:30 Freq: Status: Active Protocol: Document 12/27/20 09:02 MB (Rec: 12/27/20 09:44 MB [id number]) Out-Patient Physical Therapy Visit Information Visit Information Visit Type Treatment Note Visit Note Medicare, [facility] Medical Visit Start Time 09:02 Visit Stop Time 09:45 Total Visit Minutes 43 Visit Number 5 PT-OP-B Current Condition Start: 12/05/20 14:30 Freq: Status: Active Protocol: Document 12/13/20 14:29 MB (Rec: 12/13/20 14:54 MB [id number]) Current Condition History of Current Condition Onset Date Several years Current Complaints Progressive right hip pain History of Current Condition Pt reports gradual onset of right hip pain. She reports she has a history of arthritis . In the past, about five years ago, she was told she needed a shot but they never followed up with her so she never got it. Going up stairs is a problem. Her pain is getting worse and it is in the groin. She has lumbar stenosis. Pt reports she has been caring for her daughter who has progressive MS. She just moved to a care facility. She has some grief with this move. Pt states that she has had a lot of stress d/t this situation and has not been taking care of herself as she would like. She has not been on her trike in two years. She misses cycling. She had B TKR and PT in 2009 and 2012 went very well. PMH: hay fever, HBP and on medication, a-fib and pt on medication, pacemaker, bruises easily from blood thinner ( Warfarin), she was just put on Meloxicam for arthritis and it is helpful. From the lumbar spinal stenosis, pt reports occ tingling in her right thigh. Pt has 16 steps at home and one rail. Pt has an endless pool that needs a new liner. Pt reports pain is 3/10 anterolateral right hip, 5/10 right groin pain, 4/10 right SI area. Treatment Goals Patient/Caregiver Goals To improve daily activities such as coming down the steps Get back on her trike PT-OP-C Subjective Start: 12/05/20 14:30 Freq: Status: Active Protocol: Document 12/27/20 09:02 MB (Rec: 12/27/20 09:44 MB [id number]) OP-PT Subjective Patient Comments Patient Comments Pt states that the rolling pin wasn't that helpful. The Taiwo stretch is painful. She states that they dropped the ball about the shot for my hip. The Meloxicam is helping a lot for the pain. She wonders if she should have the shot. They have not gotten the pool ready. The idea behind the shot would be to delay surgery 3-6 months. PT-OP-G Mobility & Gait Start: 12/05/20 14:30 Freq: Status: Active Protocol: Document 12/13/20 14:29 MB (Rec: 12/13/20 15:57 MB [id number]) OP Gait Assessment Gait Gait Assistance Required: Independent Distance (Feet) 30 Able to Maintain Weight Bearing Status Yes During Gait Assistive Devices Assistive Device None Orthotic/Prosthetic Devices or Brace: No Gait Deviations General Gait Pattern Antalgic,Decreased Stride Length,Flexed Trunk,Lateral Trunk Lean,Wide Based Gait Factors Limiting Gait Function Factors Limiting Gait Function Decreased Activity Tolerance, Decreased Strength,Limited Range of Motion,Pain,Poor Balance Comments Gait Comments Gait with shoes donned: increased Trendelenburg gait, increased left arm swing, decreased step-length and foot clearance, wide CARMELITA, slow and increased effort with gait PT-OP-J Posture/Palpation/Skin Start: 12/05/20 14:30 Freq: Status: Active Protocol: Document 12/13/20 14:29 MB (Rec: 12/13/20 15:57 MB [id number]) Posture Evaluation Comments Posture Comments Without shoes donned: Dowager' s hump, decreased thoracic kyphosis and lumbar lordosis, right shoulder is elevated and rounded compared to the left, left sternum protruded, right iliac crest higher than the left, valgus B knees with thigh approximation, overpronation left foot. PT-OP-K Range of Motion Start: 12/05/20 14:30 Freq: Status: Active Protocol: Document 12/13/20 14:29 MB (Rec: 12/13/20 15:57 MB [id number]) Hip Goniometric Range of Motion Hip ROM Limitations Comments PROM B hips: right hip neutral IR, left hip neutral IR, ER 20 deg left, ER 30 deg right Positive B Scour, more pain on the right PT-OP-M Strength Start: 12/05/20 14:30 Freq: Status: Active Protocol: Document 12/13/20 14:29 MB (Rec: 12/13/20 15:57 MB [id number]) Hip Strength Hip Manual Muscle Testing Leg Flexion (L2) 3+ Fair+ Abduction 3- Fair- Adduction 3+ Fair+ Right Abduction 2 Poor Adduction 2+ Poor+ Comments Hip flexion not MMT d/t pain with lifting leg Knee Strength Knee Manual Muscle Testing Left Flexion (S2) 4 Good Extension (L3) 5 Normal Right Flexion (S2) 4 Good Extension (L3) 4 Good Ankle/Foot Strength Ankle and Foot Manual Muscle Testing Left Dorsiflexion (L4) 5 Normal Right Dorsiflexion (L4) 5 Normal Toe Strength Toe Manual Muscle Testing Left Great Toe Extension 5 Normal Right Great Toe Extension 5 Normal PT-OP-Q Treatments Start: 12/05/20 14:30 Freq: Status: Active Protocol: Document 12/27/20 09:02 MB (Rec: 12/27/20 09:44 MB [id number]) Cardio Equipment Bicycle (Upright) Duration (Minutes) 10 Resistance 6 Seat Position 10 Other Seat might be better at 9 Therapeutic Exercises Supine Exercises 1 Supine Exercise Name Anterior hip stretch with leg straight Side bilateral Comments 5 reps, 3 sec hold all exercises supine clamshell Side bilateral Equipment Used Level 1 band Reps/Minutes 10 reps slowly Comments Pelvic tilt and core tight Hamstring stretch Side bilateral Comments 1 rep, 45 second hold, opposite leg straight Pelvic realignment exercises Side bilateral Comments 5 rep, 3 sec hold all exercises Other Exercises Exercise review Other Exercise Name Reviewed racquet ball massage options Comments Taiwo causes pain and anterior stretch with leg straight not helpful PT-OP-T Assessment and Plan Start: 12/05/20 14:30 Freq: Status: Active Protocol: Document 12/27/20 09:02 MB (Rec: 12/27/20 09:44 MB [id number]) Physical Therapy Assessment Rehab Potential Rehabilitation Potential Fair Evaluation Complexity Number of Personal Factors/Comorbidities 1-2 Number of Body Systems Impaired 1-2 Clinical Presentation at Evaluation Evolving Impairments Impairments Activity Tolerance,Balance, Functional Activities, Functional Mobility,Gait,Pain, Posture,ROM,Sensation,Soft Tissue Mobility,Strength, Transfers Other Impairments Personal factors include grief of daughter with MS just moved to care facility d/t LOC requirements, with progressive ankylosing spondylitis, pt's own multijoint degenerative changes. Body systems affected include musculoskeletal and neuromuscular. Her clinical presentation is evolving. Other Concerns Fall Risk Yes Goals 4 Intermediate Goal (LTG) Pt will perform WNLs on a standardized balance test to decrease fall risk by 02/12/21. LTG Duration 8 weeks 3 Intermediate Goal (LTG) Pt will present with improved B hip flexion and abduction strength to at least 4/5 to improve transfers and gait by 02/12/21. LTG Duration 8 weeks 2 Chef Manager Goal (LTG) Pt will perform progressive HEP with I including flexibility, strengthening, pool execises and balance exercises to improve strength and pain by 02/12/21. LTG Duration 8 weeks 1 Impairment LEF score 43/80, 57.99% impairment Chef Manager Goal (LTG) Pt will present with an improved LEF score to reflect no more than 40% impairment to improve quality of life and mobility by 02/12/21. LTG Duration 8 weeks Assessment Summary Assessment Reviewed exercises and added clam in supine with band for home today and provided handout. Reduced appointments to finish up in January 19. We know that pt needs to have a TATUM and she hopes to have this early fall. See plan below. Physical Therapy Plan Frequency and Duration Frequency of Treatment 2x/wk and adjust Duration of Treatment 8 weeks Plan of Care Start Date 12/13/20 Plan of Care End Date 02/12/21 Therapeutic Interventions Therapeutic Interventions Aquatic Therapy,Balance Training,Canalithic Repositioning,Coordination Training,Gait Training,Home Exercise Program,Joint Mobilizations,Manual Therapy, Neuromuscular Re-education, Orthotic/Prosthetic Management ,Patient/Caregiver Education, Self-Care/Home Management, Sensory Integration,Soft Tissue Mobilization,Taping, Therapeutic Exercises Modalities Cold Pack/Ice Massage,Hot Packs Next Visit Focus/Plan Next Note Type Treatment Note Next Visit Plan Consider bridge with band, consider trying standing hip exercises if they do not cause pain (hip abduction and extension with stepping), ongoing core progression in hook lying
--- NOTE | 2020-12-29 09:40 | PT.OTN ---
Current Diagnoses Bilateral primary osteoarthritis of hip (12/29/20) Physical Therapy Treatment Note PT-OP-A Visit Information Start: 12/05/20 14:30 Freq: Status: Active Protocol: Document 12/29/20 09:01 MB (Rec: 12/29/20 09:39 MB [id number]) Out-Patient Physical Therapy Visit Information Visit Information Visit Type Treatment Note Visit Note Medicare, [facility] Medical Visit Start Time 09:01 Visit Stop Time 09:39 Total Visit Minutes 38 Visit Number 6 PT-OP-B Current Condition Start: 12/05/20 14:30 Freq: Status: Active Protocol: Document 12/13/20 14:29 MB (Rec: 12/13/20 14:54 MB [id number]) Current Condition History of Current Condition Onset Date Several years Current Complaints Progressive right hip pain History of Current Condition Pt reports gradual onset of right hip pain. She reports she has a history of arthritis . In the past, about five years ago, she was told she needed a shot but they never followed up with her so she never got it. Going up stairs is a problem. Her pain is getting worse and it is in the groin. She has lumbar stenosis. Pt reports she has been caring for her daughter who has progressive MS. She just moved to a care facility. She has some grief with this move. Pt states that she has had a lot of stress d/t this situation and has not been taking care of herself as she would like. She has not been on her trike in two years. She misses cycling. She had B TKR and PT in 2009 and 2012 went very well. PMH: hay fever, HBP and on medication, a-fib and pt on medication, pacemaker, bruises easily from blood thinner ( Warfarin), she was just put on Meloxicam for arthritis and it is helpful. From the lumbar spinal stenosis, pt reports occ tingling in her right thigh. Pt has 16 steps at home and one rail. Pt has an endless pool that needs a new liner. Pt reports pain is 3/10 anterolateral right hip, 5/10 right groin pain, 4/10 right SI area. Treatment Goals Patient/Caregiver Goals To improve daily activities such as coming down the steps Get back on her trike PT-OP-C Subjective Start: 12/05/20 14:30 Freq: Status: Active Protocol: Document 12/29/20 09:01 MB (Rec: 12/29/20 09:39 MB [id number]) OP-PT Subjective Patient Comments Patient Comments Pt states that she is good. She gave the doctor's office a call. She is waiting for a call back. PT-OP-G Mobility & Gait Start: 12/05/20 14:30 Freq: Status: Active Protocol: Document 12/13/20 14:29 MB (Rec: 12/13/20 15:57 MB [id number]) OP Gait Assessment Gait Gait Assistance Required: Independent Distance (Feet) 30 Able to Maintain Weight Bearing Status Yes During Gait Assistive Devices Assistive Device None Orthotic/Prosthetic Devices or Brace: No Gait Deviations General Gait Pattern Antalgic,Decreased Stride Length,Flexed Trunk,Lateral Trunk Lean,Wide Based Gait Factors Limiting Gait Function Factors Limiting Gait Function Decreased Activity Tolerance, Decreased Strength,Limited Range of Motion,Pain,Poor Balance Comments Gait Comments Gait with shoes donned: increased Trendelenburg gait, increased left arm swing, decreased step-length and foot clearance, wide CARMELITA, slow and increased effort with gait PT-OP-J Posture/Palpation/Skin Start: 12/05/20 14:30 Freq: Status: Active Protocol: Document 12/13/20 14:29 MB (Rec: 12/13/20 15:57 MB [id number]) Posture Evaluation Comments Posture Comments Without shoes donned: Dowager' s hump, decreased thoracic kyphosis and lumbar lordosis, right shoulder is elevated and rounded compared to the left, left sternum protruded, right iliac crest higher than the left, valgus B knees with thigh approximation, overpronation left foot. PT-OP-K Range of Motion Start: 12/05/20 14:30 Freq: Status: Active Protocol: Document 12/13/20 14:29 MB (Rec: 12/13/20 15:57 MB [id number]) Hip Goniometric Range of Motion Hip ROM Limitations Comments PROM B hips: right hip neutral IR, left hip neutral IR, ER 20 deg left, ER 30 deg right Positive B Scour, more pain on the right PT-OP-M Strength Start: 12/05/20 14:30 Freq: Status: Active Protocol: Document 12/13/20 14:29 MB (Rec: 12/13/20 15:57 MB [id number]) Hip Strength Hip Manual Muscle Testing Leg Flexion (L2) 3+ Fair+ Abduction 3- Fair- Adduction 3+ Fair+ Right Abduction 2 Poor Adduction 2+ Poor+ Comments Hip flexion not MMT d/t pain with lifting leg Knee Strength Knee Manual Muscle Testing Left Flexion (S2) 4 Good Extension (L3) 5 Normal Right Flexion (S2) 4 Good Extension (L3) 4 Good Ankle/Foot Strength Ankle and Foot Manual Muscle Testing Left Dorsiflexion (L4) 5 Normal Right Dorsiflexion (L4) 5 Normal Toe Strength Toe Manual Muscle Testing Left Great Toe Extension 5 Normal Right Great Toe Extension 5 Normal PT-OP-Q Treatments Start: 12/05/20 14:30 Freq: Status: Active Protocol: Document 12/29/20 09:01 MB (Rec: 12/29/20 09:39 MB [id number]) Cardio Equipment Bicycle (Upright) Duration (Minutes) 10 Resistance 8 Seat Position 9 Therapeutic Exercises Supine Exercises Hip rotator stretch Side bilateral Comments Performs B today, 30 sec hold each Core progression Supine Exercise Name Abd drawing in, lumbar rotation, HS, knee fall out, mini march Side bilateral Comments 10 reps slowly bridge Equipment Used Level 1 band around knees Comments 1 rep hold as long as possible , up to 1 minute Hamstring stretch Side bilateral Comments 1 rep, 45 second hold, opposite leg straight PT-OP-T Assessment and Plan Start: 12/05/20 14:30 Freq: Status: Active Protocol: Document 12/29/20 09:01 MB (Rec: 12/29/20 09:39 MB [id number]) Physical Therapy Assessment Rehab Potential Rehabilitation Potential Fair Evaluation Complexity Number of Personal Factors/Comorbidities 1-2 Number of Body Systems Impaired 1-2 Clinical Presentation at Evaluation Evolving Impairments Impairments Activity Tolerance,Balance, Functional Activities, Functional Mobility,Gait,Pain, Posture,ROM,Sensation,Soft Tissue Mobility,Strength, Transfers Other Impairments Personal factors include grief of daughter with MS just moved to care facility d/t LOC requirements, with progressive ankylosing spondylitis, pt's own multijoint degenerative changes. Body systems affected include musculoskeletal and neuromuscular. Her clinical presentation is evolving. Other Concerns Fall Risk Yes Goals 4 Supervisor Calibration Goal (LTG) Pt will perform WNLs on a standardized balance test to decrease fall risk by 02/12/21. LTG Duration 8 weeks 3 Alf Goal (LTG) Pt will present with improved B hip flexion and abduction strength to at least 4/5 to improve transfers and gait by 02/12/21. LTG Duration 8 weeks 2 Alf Goal (LTG) Pt will perform progressive HEP with I including flexibility, strengthening, pool execises and balance exercises to improve strength and pain by 02/12/21. 12/29/20: Pt is performing hook lying hamstring stretch with AP, hook lying clam with band and bridge with band, core progression, racquet ball massage and rolling pin, standing quad stretch and pelvic realignmente exercises LTG Duration 8 weeks 1 Impairment LEF score 43/80, 57.99% impairment Supervisor Calibration Goal (LTG) Pt will present with an improved LEF score to reflect no more than 40% impairment to improve quality of life and mobility by 02/12/21. LTG Duration 8 weeks Assessment Summary Assessment Progressed bridge with band today and core progression. Will progress LE strengthening in standing and balance exercises in future treatments and monitor pain response. Lots of practice with core exercises today and pt performs well. Physical Therapy Plan Frequency and Duration Frequency of Treatment 2x/wk and adjust Duration of Treatment 8 weeks Plan of Care Start Date 12/13/20 Plan of Care End Date 02/12/21 Therapeutic Interventions Therapeutic Interventions Aquatic Therapy,Balance Training,Canalithic Repositioning,Coordination Training,Gait Training,Home Exercise Program,Joint Mobilizations,Manual Therapy, Neuromuscular Re-education, Orthotic/Prosthetic Management ,Patient/Caregiver Education, Self-Care/Home Management, Sensory Integration,Soft Tissue Mobilization,Taping, Therapeutic Exercises Modalities Cold Pack/Ice Massage,Hot Packs Next Visit Focus/Plan Next Note Type Treatment Note Next Visit Plan Consider trying standing hip exercises if they do not cause pain (hip abduction and extension with stepping), multifidi strengthening with band in door and heel raises
--- NOTE | 2021-01-04 09:00 | PT.OTN ---
Current Diagnoses Bilateral primary osteoarthritis of hip (01/04/21) Physical Therapy Treatment Note PT-OP-A Visit Information Start: 12/05/20 14:30 Freq: Status: Active Protocol: Document 01/04/21 08:20 SP (Rec: 01/04/21 12:04 SP [id number]) Out-Patient Physical Therapy Visit Information Visit Information Visit Type Treatment Note [facility] Start Time 08:20 Visit Stop Time 09:00 Total Visit Minutes 40 Visit Number 7 Number of BUSINESS UNIT DIRECTOR Visits 1 Evaluation Information Evaluation Date 12/13/20 PT-OP-B Current Condition Start: 12/05/20 14:30 Freq: Status: Active Protocol: Document 12/13/20 14:29 MB (Rec: 12/13/20 14:54 MB [id number]) Current Condition History of Current Condition Onset Date Several years Current Complaints Progressive right hip pain History of Current Condition Pt reports gradual onset of right hip pain. She reports she has a history of arthritis . In the past, about five years ago, she was told she needed a shot but they never followed up with her so she never got it. Going up stairs is a problem. Her pain is getting worse and it is in the groin. She has lumbar stenosis. Pt reports she has been caring for her daughter who has progressive MS. She just moved to a care facility. She has some grief with this move. Pt states that she has had a lot of stress d/t this situation and has not been taking care of herself as she would like. She has not been on her trike in two years. She misses cycling. She had B TKR and PT in 2009 and 2012 went very well. PMH: hay fever, HBP and on medication, a-fib and pt on medication, pacemaker, bruises easily from blood thinner ( Warfarin), she was just put on Meloxicam for arthritis and it is helpful. From the lumbar spinal stenosis, pt reports occ tingling in her right thigh. Pt has 16 steps at home and one rail. Pt has an endless pool that needs a new liner. Pt reports pain is 3/10 anterolateral right hip, 5/10 right groin pain, 4/10 right SI area. Treatment Goals Patient/Caregiver Goals To improve daily activities such as coming down the steps Get back on her trike PT-OP-C Subjective Start: 12/05/20 14:30 Freq: Status: Active Protocol: Document 01/04/21 08:20 SP (Rec: 01/04/21 12:04 SP [id number]) OP-PT Subjective Patient Comments Patient Comments Pt stated had to stop doing heel slides that was added last tx due to causing knee pain but did try couple of different times and made her feel worse. She also stated her thigh feels better with rolling stick but discontinued the stretch off the table to causing more tension discomfort. Pt stated her knees are worse on days that have higher atmospheric pressure when is rainy to nice day but not the reverse. PT-OP-G Mobility & Gait Start: 12/05/20 14:30 Freq: Status: Active Protocol: Document 12/13/20 14:29 MB (Rec: 12/13/20 15:57 MB [id number]) OP Gait Assessment Gait Gait Assistance Required: Independent Distance (Feet) 30 Able to Maintain Weight Bearing Status Yes During Gait Assistive Devices Assistive Device None Orthotic/Prosthetic Devices or Brace: No Gait Deviations General Gait Pattern Antalgic,Decreased Stride Length,Flexed Trunk,Lateral Trunk Lean,Wide Based Gait Factors Limiting Gait Function Factors Limiting Gait Function Decreased Activity Tolerance, Decreased Strength,Limited Range of Motion,Pain,Poor Balance Comments Gait Comments Gait with shoes donned: increased Trendelenburg gait, increased left arm swing, decreased step-length and foot clearance, wide CARMELITA, slow and increased effort with gait PT-OP-J Posture/Palpation/Skin Start: 12/05/20 14:30 Freq: Status: Active Protocol: Document 12/13/20 14:29 MB (Rec: 12/13/20 15:57 MB [id number]) Posture Evaluation Comments Posture Comments Without shoes donned: Dowager' s hump, decreased thoracic kyphosis and lumbar lordosis, right shoulder is elevated and rounded compared to the left, left sternum protruded, right iliac crest higher than the left, valgus B knees with thigh approximation, overpronation left foot. PT-OP-K Range of Motion Start: 12/05/20 14:30 Freq: Status: Active Protocol: Document 12/13/20 14:29 MB (Rec: 12/13/20 15:57 MB [id number]) Hip Goniometric Range of Motion Hip ROM Limitations Comments PROM B hips: right hip neutral IR, left hip neutral IR, ER 20 deg left, ER 30 deg right Positive B Scour, more pain on the right PT-OP-M Strength Start: 12/05/20 14:30 Freq: Status: Active Protocol: Document 12/13/20 14:29 MB (Rec: 12/13/20 15:57 MB [id number]) Hip Strength Hip Manual Muscle Testing Leg Flexion (L2) 3+ Fair+ Abduction 3- Fair- Adduction 3+ Fair+ Right Abduction 2 Poor Adduction 2+ Poor+ Comments Hip flexion not MMT d/t pain with lifting leg Knee Strength Knee Manual Muscle Testing Left Flexion (S2) 4 Good Extension (L3) 5 Normal Right Flexion (S2) 4 Good Extension (L3) 4 Good Ankle/Foot Strength Ankle and Foot Manual Muscle Testing Left Dorsiflexion (L4) 5 Normal Right Dorsiflexion (L4) 5 Normal Toe Strength Toe Manual Muscle Testing Left Great Toe Extension 5 Normal Right Great Toe Extension 5 Normal PT-OP-Q Treatments Start: 12/05/20 14:30 Freq: Status: Active Protocol: Document 01/04/21 08:20 SP (Rec: 01/04/21 12:04 SP [id number]) Cardio Equipment Bicycle (Upright) Duration (Minutes) 10 Resistance 8 Seat Position 9 Therapeutic Exercises Supine Exercises bridge Equipment Used Level 1 band around knees Reps/Minutes up to 1 min 40 sec at home yesterday Comments 1 reps hold as long as possible supine clamshell Side bilateral Equipment Used Level 1 band Reps/Minutes 10 reps slowly Comments Pelvic tilt and core tight Hamstring stretch Side bilateral Equipment Used strap Comments 1 rep, 45 second hold, opposite leg straight Abdominal drawing in Supine Exercise Name heel slide added last tx is causing pain so discontinuing. Standing Exercises hip abd, ext Standing Exercise Name stationary side and back step Side bilateral Reps/Minutes 5 reps- Comments Tall posture while wt shift over stance leg and opposite leg step out PT-OP-T Assessment and Plan Start: 12/05/20 14:30 Freq: Status: Active Protocol: Document 01/04/21 08:20 SP (Rec: 01/04/21 12:04 SP [id number]) Physical Therapy Assessment Goals 4 Game And Fish Protector Goal (LTG) Pt will perform WNLs on a standardized balance test to decrease fall risk by 02/12/21. LTG Duration 8 weeks 3 Care Home Goal (LTG) Pt will present with improved B hip flexion and abduction strength to at least 4/5 to improve transfers and gait by 02/12/21. LTG Duration 8 weeks 2 Care Home Goal (LTG) Pt will perform progressive HEP with I including flexibility, strengthening, pool execises and balance exercises to improve strength and pain by 02/12/21. 01/04/21: Pt is performing hook lying hamstring stretch with strap AP, hook lying clam with band and bridge with band, core progression, racquet ball massage and rolling pin, standing quad stretch and pelvic realignment exercises, side/ back stationary step outs (glut fac) LTG Duration 8 weeks 1 Impairment LEF score 43/80, 57.99% impairment Care Home Goal (LTG) Pt will present with an improved LEF score to reflect no more than 40% impairment to improve quality of life and mobility by 02/12/21. LTG Duration 8 weeks Assessment Summary Assessment Pt responded well to HEP review: increased bridge time 1 min 40 sec, resisted clamshell. Initiated standing glut facilitation stationary side better than back step today up to 5 reps, increased reps started to irritate knee pain improved with limiting reps to add to HEP. Pt understands mindful of reps and proper form with cues provided. Physical Therapy Plan Frequency and Duration Frequency of Treatment 2x/wk and adjust Duration of Treatment 8 weeks Plan of Care Start Date 12/13/20 Plan of Care End Date 02/12/21 Therapeutic Interventions Therapeutic Interventions Aquatic Therapy,Balance Training,Canalithic Repositioning,Coordination Training,Gait Training,Home Exercise Program,Joint Mobilizations,Manual Therapy, Neuromuscular Re-education, Orthotic/Prosthetic Management ,Patient/Caregiver Education, Self-Care/Home Management, Sensory Integration,Soft Tissue Mobilization,Taping, Therapeutic Exercises Modalities Cold Pack/Ice Massage,Hot Packs Next Visit Focus/Plan Next Note Type Treatment Note Next Visit Plan Assess response to initiated stationary side and back step outs in mirror 5 reps painfree (hip abduction and extension with stepping). Next tx initiate multifidi strengthening with band in door and heel raises
--- NOTE | 2021-01-08 09:10 | PT.OTN ---
Current Diagnoses Bilateral primary osteoarthritis of hip (01/08/21) Physical Therapy Treatment Note PT-OP-A Visit Information Start: 12/05/20 14:30 Freq: Status: Active Protocol: Document 01/08/21 08:17 SP (Rec: 01/08/21 09:20 SP [id number]) Out-Patient Physical Therapy Visit Information Visit Information Visit Type Treatment Note Visit Note Medicare, [employer] Pt tends to tap over L chest for vibration awareness for her pacemaker respond appropriately BP: 162/95 HR 65 bpm after side stepping (norm is 115/70 at rest)- take Losartin at night, did not take any meds yet this am. 3 min seated rest: BP 150/87 HR 62 End tx 121/81 HR 66. Visit Start Time 08:17 Visit Stop Time 09:10 Total Visit Minutes 53 Visit Number 8 Number of DESIGNER AND PATTERNMAKER Visits 2 Evaluation Information Evaluation Date 12/13/20 PT-OP-B Current Condition Start: 12/05/20 14:30 Freq: Status: Active Protocol: Document 12/13/20 14:29 MB (Rec: 12/13/20 14:54 MB [id number]) Current Condition History of Current Condition Onset Date Several years Current Complaints Progressive right hip pain History of Current Condition Pt reports gradual onset of right hip pain. She reports she has a history of arthritis . In the past, about five years ago, she was told she needed a shot but they never followed up with her so she never got it. Going up stairs is a problem. Her pain is getting worse and it is in the groin. She has lumbar stenosis. Pt reports she has been caring for her daughter who has progressive MS. She just moved to a care facility. She has some grief with this move. Pt states that she has had a lot of stress d/t this situation and has not been taking care of herself as she would like. She has not been on her trike in two years. She misses cycling. She had B TKR and PT in 2009 and 2012 went very well. PMH: hay fever, HBP and on medication, a-fib and pt on medication, pacemaker, bruises easily from blood thinner ( Warfarin), she was just put on Meloxicam for arthritis and it is helpful. From the lumbar spinal stenosis, pt reports occ tingling in her right thigh. Pt has 16 steps at home and one rail. Pt has an endless pool that needs a new liner. Pt reports pain is 3/10 anterolateral right hip, 5/10 right groin pain, 4/10 right SI area. Treatment Goals Patient/Caregiver Goals To improve daily activities such as coming down the steps Get back on her trike PT-OP-C Subjective Start: 12/05/20 14:30 Freq: Status: Active Protocol: Document 01/08/21 08:17 SP (Rec: 01/08/21 09:20 SP [id number]) OP-PT Subjective Patient Comments Patient Comments Pt stated was barely walking by the end of the day after last tx, very tired. Pt stated usually does her exercises later in the day to allow her to get things done and still work on strength. Pt states feels is waling alot straighter with better awareness with cues given. She said is compliant with HEP and able to watch herself in mirror stepping activities to continue proper form. Patient Reported Progress Improving PT-OP-G Mobility & Gait Start: 12/05/20 14:30 Freq: Status: Active Protocol: Document 12/13/20 14:29 MB (Rec: 12/13/20 15:57 MB [id number]) OP Gait Assessment Gait Gait Assistance Required: Independent Distance (Feet) 30 Able to Maintain Weight Bearing Status Yes During Gait Assistive Devices Assistive Device None Orthotic/Prosthetic Devices or Brace: No Gait Deviations General Gait Pattern Antalgic,Decreased Stride Length,Flexed Trunk,Lateral Trunk Lean,Wide Based Gait Factors Limiting Gait Function Factors Limiting Gait Function Decreased Activity Tolerance, Decreased Strength,Limited Range of Motion,Pain,Poor Balance Comments Gait Comments Gait with shoes donned: increased Trendelenburg gait, increased left arm swing, decreased step-length and foot clearance, wide CARMELITA, slow and increased effort with gait PT-OP-J Posture/Palpation/Skin Start: 12/05/20 14:30 Freq: Status: Active Protocol: Document 12/13/20 14:29 MB (Rec: 12/13/20 15:57 MB [id number]) Posture Evaluation Comments Posture Comments Without shoes donned: Dowager' s hump, decreased thoracic kyphosis and lumbar lordosis, right shoulder is elevated and rounded compared to the left, left sternum protruded, right iliac crest higher than the left, valgus B knees with thigh approximation, overpronation left foot. PT-OP-K Range of Motion Start: 12/05/20 14:30 Freq: Status: Active Protocol: Document 12/13/20 14:29 MB (Rec: 12/13/20 15:57 MB [id number]) Hip Goniometric Range of Motion Hip ROM Limitations Comments PROM B hips: right hip neutral IR, left hip neutral IR, ER 20 deg left, ER 30 deg right Positive B Scour, more pain on the right PT-OP-M Strength Start: 12/05/20 14:30 Freq: Status: Active Protocol: Document 12/13/20 14:29 MB (Rec: 12/13/20 15:57 MB [id number]) Hip Strength Hip Manual Muscle Testing Leg Flexion (L2) 3+ Fair+ Abduction 3- Fair- Adduction 3+ Fair+ Right Abduction 2 Poor Adduction 2+ Poor+ Comments Hip flexion not MMT d/t pain with lifting leg Knee Strength Knee Manual Muscle Testing Left Flexion (S2) 4 Good Extension (L3) 5 Normal Right Flexion (S2) 4 Good Extension (L3) 4 Good Ankle/Foot Strength Ankle and Foot Manual Muscle Testing Left Dorsiflexion (L4) 5 Normal Right Dorsiflexion (L4) 5 Normal Toe Strength Toe Manual Muscle Testing Left Great Toe Extension 5 Normal Right Great Toe Extension 5 Normal PT-OP-Q Treatments Start: 12/05/20 14:30 Freq: Status: Active Protocol: Document 01/08/21 08:17 SP (Rec: 01/08/21 09:20 SP [id number]) Cardio Equipment Bicycle (Upright) Duration (Minutes) 8 Resistance 8 Seat Position 9 Other 1.79 miles Therapeutic Exercises Supine Exercises bridge Equipment Used Level 2 band around knees Reps/Minutes 2 min Comments 1 reps hold as long as possible supine clamshell Side bilateral Equipment Used Level 1 band > #2 Reps/Minutes 10 reps slowly each direction Comments good core faciltation Sitting Exercises reverse clamshell Sitting Exercise Name added to HEP Side left Equipment Used pillow between knees Reps/Minutes x10 Comments slow range, trunk stabilization cues clamshell Sitting Exercise Name added to HEP Side left Equipment Used pillow between knees Reps/Minutes x10 Comments slow range, trunk stabilization cues Standing Exercises side stepping Standing Exercise Name forward, side stepping Side bilateral Resistance AROM Equipment Used rail contact Reps/Minutes 20 ft x2 laps side, 1 lap forward, Pain L hip back so DC this direction Comments cued tall posture, core and glut fac dec lat SB- better hip abd, ext Standing Exercise Name stationary side and back step Side bilateral Reps/Minutes 5 reps- each review Comments Tall posture while wt shift over stance leg and opposite leg step out PT-OP-T Assessment and Plan Start: 12/05/20 14:30 Freq: Status: Active Protocol: Document 01/08/21 08:17 SP (Rec: 01/08/21 09:20 SP [id number]) Physical Therapy Assessment Goals 4 Christmas Tree Farm Worker Goal (LTG) Pt will perform WNLs on a standardized balance test to decrease fall risk by 02/12/21. LTG Duration 8 weeks 3 [facility] Goal (LTG) Pt will present with improved B hip flexion and abduction strength to at least 4/5 to improve transfers and gait by 02/12/21. LTG Duration 8 weeks 2 [employer] Tree Farm Worker Goal (LTG) Pt will perform progressive HEP with I including flexibility, strengthening, pool execises and balance exercises to improve strength and pain by 02/12/21. 01/08/21: Pt is performing hook lying hamstring stretch with strap AP, hook lying clam with band and bridge holds w/ band , core progression, racquet ball massage and rolling pin, standing quad stretch and pelvic realignment exercises, side/ back stationary step outs (glut fac), lateral and forward travel stepping. LTG Duration 8 weeks 1 Impairment LEF score 43/80, 57.99% impairment [facility] Goal (LTG) Pt will present with an improved LEF score to reflect no more than 40% impairment to improve quality of life and mobility by 02/12/21. LTG Duration 8 weeks Assessment Summary Assessment Pt worked hard during tx, good glut and core facilitation and noted aerobic response during initiated travel stepping requiring stand rests each distance but unable travel back step due to not tolerate FWB on LLE so DC this direction for now. Pt able to complete bridge hold 2 min w/ increase Tb loop around knees with report good work out. Pt tolerated added clam and reverse clam for HEP but only on L due to untolerated laying on L side to perform R in PT (stated plinths to hard but lays on L side at home to sleep so thinks will still perform at home if tolerated). Physical Therapy Plan Frequency and Duration Frequency of Treatment 2x/wk and adjust Duration of Treatment 8 weeks Plan of Care Start Date 12/13/20 Plan of Care End Date 02/12/21 Therapeutic Interventions Therapeutic Interventions Aquatic Therapy,Balance Training,Canalithic Repositioning,Coordination Training,Gait Training,Home Exercise Program,Joint Mobilizations,Manual Therapy, Neuromuscular Re-education, Orthotic/Prosthetic Management ,Patient/Caregiver Education, Self-Care/Home Management, Sensory Integration,Soft Tissue Mobilization,Taping, Therapeutic Exercises Modalities Cold Pack/Ice Massage,Hot Packs Next Visit Focus/Plan Next Note Type Treatment Note Next Visit Plan Assess response to stationary side/ back step outs, travel side and forward stepping, supine HEP review increase Tb #2 and initiated clam/ reverse clamshell last tx. Next tx initiate multifidi strengthening with band in door and heel raises
--- NOTE | 2021-01-15 10:27 | PT.OTN ---
Current Diagnoses Bilateral primary osteoarthritis of hip (01/15/21) Physical Therapy Treatment Note PT-OP-A Visit Information Start: 12/05/20 14:30 Freq: Status: Active Protocol: Document 01/15/21 09:48 MB (Rec: 01/15/21 10:27 MB [id number]) Out-Patient Physical Therapy Visit Information Visit Information Visit Type Treatment Note [facility] Start Time 09:48 Visit Stop Time 10:26 Total Visit Minutes 38 Visit Number 9 Number of GEAR AND SPLINE GRINDER Visits 0 PT-OP-B Current Condition Start: 12/05/20 14:30 Freq: Status: Active Protocol: Document 12/13/20 14:29 MB (Rec: 12/13/20 14:54 MB [id number]) Current Condition History of Current Condition Onset Date Several years Current Complaints Progressive right hip pain History of Current Condition Pt reports gradual onset of right hip pain. She reports she has a history of arthritis . In the past, about five years ago, she was told she needed a shot but they never followed up with her so she never got it. Going up stairs is a problem. Her pain is getting worse and it is in the groin. She has lumbar stenosis. Pt reports she has been caring for her daughter who has progressive MS. She just moved to a care facility. She has some grief with this move. Pt states that she has had a lot of stress d/t this situation and has not been taking care of herself as she would like. She has not been on her trike in two years. She misses cycling. She had B TKR and PT in 2009 and 2012 went very well. PMH: hay fever, HBP and on medication, a-fib and pt on medication, pacemaker, bruises easily from blood thinner ( Warfarin), she was just put on Meloxicam for arthritis and it is helpful. From the lumbar spinal stenosis, pt reports occ tingling in her right thigh. Pt has 16 steps at home and one rail. Pt has an endless pool that needs a new liner. Pt reports pain is 3/10 anterolateral right hip, 5/10 right groin pain, 4/10 right SI area. Treatment Goals Patient/Caregiver Goals To improve daily activities such as coming down the steps Get back on her trike PT-OP-C Subjective Start: 12/05/20 14:30 Freq: Status: Active Protocol: Document 01/15/21 09:48 MB (Rec: 01/15/21 10:27 MB [id number]) OP-PT Subjective Patient Comments Patient Comments Pt states that if she thinks about it and concentrates, she can get rid of most of the waddle with her hip. She got PCP, leadership recruiter and dentist approval for right THR. She is anticipating mid-March after the [place] bike ride. PT-OP-G Mobility & Gait Start: 12/05/20 14:30 Freq: Status: Active Protocol: Document 12/13/20 14:29 MB (Rec: 12/13/20 15:57 MB [id number]) OP Gait Assessment Gait Gait Assistance Required: Independent Distance (Feet) 30 Able to Maintain Weight Bearing Status Yes During Gait Assistive Devices Assistive Device None Orthotic/Prosthetic Devices or Brace: No Gait Deviations General Gait Pattern Antalgic,Decreased Stride Length,Flexed Trunk,Lateral Trunk Lean,Wide Based Gait Factors Limiting Gait Function Factors Limiting Gait Function Decreased Activity Tolerance, Decreased Strength,Limited Range of Motion,Pain,Poor Balance Comments Gait Comments Gait with shoes donned: increased Trendelenburg gait, increased left arm swing, decreased step-length and foot clearance, wide CARMELITA, slow and increased effort with gait PT-OP-J Posture/Palpation/Skin Start: 12/05/20 14:30 Freq: Status: Active Protocol: Document 12/13/20 14:29 MB (Rec: 12/13/20 15:57 MB [id number]) Posture Evaluation Comments Posture Comments Without shoes donned: Dowager' s hump, decreased thoracic kyphosis and lumbar lordosis, right shoulder is elevated and rounded compared to the left, left sternum protruded, right iliac crest higher than the left, valgus B knees with thigh approximation, overpronation left foot. PT-OP-K Range of Motion Start: 12/05/20 14:30 Freq: Status: Active Protocol: Document 12/13/20 14:29 MB (Rec: 12/13/20 15:57 MB [id number]) Hip Goniometric Range of Motion Hip ROM Limitations Comments PROM B hips: right hip neutral IR, left hip neutral IR, ER 20 deg left, ER 30 deg right Positive B Scour, more pain on the right PT-OP-M Strength Start: 12/05/20 14:30 Freq: Status: Active Protocol: Document 12/13/20 14:29 MB (Rec: 12/13/20 15:57 MB [id number]) Hip Strength Hip Manual Muscle Testing Leg Flexion (L2) 3+ Fair+ Abduction 3- Fair- Adduction 3+ Fair+ Right Abduction 2 Poor Adduction 2+ Poor+ Comments Hip flexion not MMT d/t pain with lifting leg Knee Strength Knee Manual Muscle Testing Left Flexion (S2) 4 Good Extension (L3) 5 Normal Right Flexion (S2) 4 Good Extension (L3) 4 Good Ankle/Foot Strength Ankle and Foot Manual Muscle Testing Left Dorsiflexion (L4) 5 Normal Right Dorsiflexion (L4) 5 Normal Toe Strength Toe Manual Muscle Testing Left Great Toe Extension 5 Normal Right Great Toe Extension 5 Normal PT-OP-Q Treatments Start: 12/05/20 14:30 Freq: Status: Active Protocol: Document 01/15/21 09:48 MB (Rec: 01/15/21 10:27 MB [id number]) Cardio Equipment Bicycle (Upright) Duration (Minutes) 10 Resistance 7 Seat Position 9 Therapeutic Exercises Sitting Exercises 1 Sitting Exercise Name LAQ with resistance with AP Side bilateral Equipment Used Level 1 band around ankles Comments 5 reps, alternating, APx10 each hold Standing Exercises Multifidi engaged, heel raises Side bilateral Equipment Used Level 1 band at side Comments Engage core and multifidi and slow heel raises PT-OP-T Assessment and Plan Start: 12/05/20 14:30 Freq: Status: Active Protocol: Document 01/15/21 09:48 MB (Rec: 01/15/21 10:27 MB [id number]) Physical Therapy Assessment Goals 4 Inspector Raw Quartz Goal (LTG) Pt will perform WNLs on a standardized balance test to decrease fall risk by 02/12/21. LTG Duration 8 weeks 3 Halfway Goal (LTG) Pt will present with improved B hip flexion and abduction strength to at least 4/5 to improve transfers and gait by 02/12/21. LTG Duration 8 weeks 2 Inspector Raw Quartz Goal (LTG) Pt will perform progressive HEP with I including flexibility, strengthening, pool execises and balance exercises to improve strength and pain by 02/12/21. 01/08/21: Pt is performing hook lying hamstring stretch with strap AP, hook lying clam with band and bridge holds w/ band , core progression, racquet ball massage and rolling pin, standing quad stretch and pelvic realignment exercises, side/ back stationary step outs (glut fac), lateral and forward travel stepping. LTG Duration 8 weeks 1 Impairment LEF score 43/80, 57.99% impairment Inspector [employer]z Goal (LTG) Pt will present with an improved LEF score to reflect no more than 40% impairment to improve quality of life and mobility by 02/12/21. LTG Duration 8 weeks Assessment Summary Assessment Revised HEP today, removed some exercises and added LAQ with band and heel raises for balance. Anticipate d/c next treatment date. Physical Therapy Plan Frequency and Duration Frequency of Treatment 2x/wk and adjust Duration of Treatment 8 weeks Plan of Care Start Date 12/13/20 Plan of Care End Date 02/12/21 Therapeutic Interventions Therapeutic Interventions Aquatic Therapy,Balance Training,Canalithic Repositioning,Coordination Training,Gait Training,Home Exercise Program,Joint Mobilizations,Manual Therapy, Neuromuscular Re-education, Orthotic/Prosthetic Management ,Patient/Caregiver Education, Self-Care/Home Management, Sensory Integration,Soft Tissue Mobilization,Taping, Therapeutic Exercises Modalities Cold Pack/Ice Massage,Hot Packs Next Visit Focus/Plan Next Note Type Discharge Summary
--- NOTE | 2021-01-19 08:48 | PT.OTN ---
Current Diagnoses Bilateral primary osteoarthritis of hip (01/19/21) Physical Therapy Treatment Note PT-OP-A Visit Information Start: 12/05/20 14:30 Freq: Status: Active Protocol: Document 01/19/21 08:12 MB (Rec: 01/19/21 08:48 MB [id number]) Out-Patient Physical Therapy Visit Information Visit Information Visit Type Treatment Note Visit [facility] Start Time 08:12 Visit Stop Time 08:42 Total Visit Minutes 30 Visit Number 10 PT-OP-B Current Condition Start: 12/05/20 14:30 Freq: Status: Active Protocol: Document 12/13/20 14:29 MB (Rec: 12/13/20 14:54 MB [id number]) Current Condition History of Current Condition Onset Date Several years Current Complaints Progressive right hip pain History of Current Condition Pt reports gradual onset of right hip pain. She reports she has a history of arthritis . In the past, about five years ago, she was told she needed a shot but they never followed up with her so she never got it. Going up stairs is a problem. Her pain is getting worse and it is in the groin. She has lumbar stenosis. Pt reports she has been caring for her daughter who has progressive MS. She just moved to a care facility. She has some grief with this move. Pt states that she has had a lot of stress d/t this situation and has not been taking care of herself as she would like. She has not been on her trike in two years. She misses cycling. She had B TKR and PT in 2009 and 2012 went very well. PMH: hay fever, HBP and on medication, a-fib and pt on medication, pacemaker, bruises easily from blood thinner ( Warfarin), she was just put on Meloxicam for arthritis and it is helpful. From the lumbar spinal stenosis, pt reports occ tingling in her right thigh. Pt has 16 steps at home and one rail. Pt has an endless pool that needs a new liner. Pt reports pain is 3/10 anterolateral right hip, 5/10 right groin pain, 4/10 right SI area. Treatment Goals Patient/Caregiver Goals To improve daily activities such as coming down the steps Get back on her trike PT-OP-C Subjective Start: 12/05/20 14:30 Freq: Status: Active Protocol: Document 01/19/21 08:12 MB (Rec: 01/19/21 08:48 MB [id number]) OP-PT Subjective Patient Comments Patient Comments Pt scheduled surgery April 03. Her pre-op is in February . She feels like she got what she needed from PT. PT-OP-G Mobility & Gait Start: 12/05/20 14:30 Freq: Status: Active Protocol: Document 12/13/20 14:29 MB (Rec: 12/13/20 15:57 MB [id number]) OP Gait Assessment Gait Gait Assistance Required: Independent Distance (Feet) 30 Able to Maintain Weight Bearing Status Yes During Gait Assistive Devices Assistive Device None Orthotic/Prosthetic Devices or Brace: No Gait Deviations General Gait Pattern Antalgic,Decreased Stride Length,Flexed Trunk,Lateral Trunk Lean,Wide Based Gait Factors Limiting Gait Function Factors Limiting Gait Function Decreased Activity Tolerance, Decreased Strength,Limited Range of Motion,Pain,Poor Balance Comments Gait Comments Gait with shoes donned: increased Trendelenburg gait, increased left arm swing, decreased step-length and foot clearance, wide CARMELITA, slow and increased effort with gait PT-OP-J Posture/Palpation/Skin Start: 12/05/20 14:30 Freq: Status: Active Protocol: Document 12/13/20 14:29 MB (Rec: 12/13/20 15:57 MB [id number]) Posture Evaluation Comments Posture Comments Without shoes donned: Dowager' s hump, decreased thoracic kyphosis and lumbar lordosis, right shoulder is elevated and rounded compared to the left, left sternum protruded, right iliac crest higher than the left, valgus B knees with thigh approximation, overpronation left foot. PT-OP-K Range of Motion Start: 12/05/20 14:30 Freq: Status: Active Protocol: Document 12/13/20 14:29 MB (Rec: 12/13/20 15:57 MB [id number]) Hip Goniometric Range of Motion Hip ROM Limitations Comments PROM B hips: right hip neutral IR, left hip neutral IR, ER 20 deg left, ER 30 deg right Positive B Scour, more pain on the right PT-OP-M Strength Start: 12/05/20 14:30 Freq: Status: Active Protocol: Document 12/13/20 14:29 MB (Rec: 12/13/20 15:57 MB [id number]) Hip Strength Hip Manual Muscle Testing Leg Flexion (L2) 3+ Fair+ Abduction 3- Fair- Adduction 3+ Fair+ Right Abduction 2 Poor Adduction 2+ Poor+ Comments Hip flexion not MMT d/t pain with lifting leg Knee Strength Knee Manual Muscle Testing Left Flexion (S2) 4 Good Extension (L3) 5 Normal Right Flexion (S2) 4 Good Extension (L3) 4 Good Ankle/Foot Strength Ankle and Foot Manual Muscle Testing Left Dorsiflexion (L4) 5 Normal Right Dorsiflexion (L4) 5 Normal Toe Strength Toe Manual Muscle Testing Left Great Toe Extension 5 Normal Right Great Toe Extension 5 Normal PT-OP-Q Treatments Start: 12/05/20 14:30 Freq: Status: Active Protocol: Document 01/19/21 08:12 MB (Rec: 01/19/21 08:48 MB [id number]) Cardio Equipment Bicycle (Upright) Duration (Minutes) 15 Resistance 7 Seat Position 9 Therapeutic Exercises Other Exercises Tandem standing in corner Comments Added for HEP after pt performs twice in corner Exercise review Comments Performed this today in preparation for d/c PT-OP-T Assessment and Plan Start: 12/05/20 14:30 Freq: Status: Active Protocol: Document 01/19/21 08:12 MB (Rec: 01/19/21 08:48 MB [id number]) Physical Therapy Assessment Goals 4 Mcfp Goal (LTG) Pt will perform WNLs on a standardized balance test to decrease fall risk by 02/12/21. 01/19/21: Romberg EO at least 30 sec, Romberg EC, pt self- limits, trouble B tandem and pt has LOB and PT provides for HEP LTG Duration Progressing 3 Dot Compliance Manager Goal (LTG) Pt will present with improved B hip flexion and abduction strength to at least 4/5 to improve transfers and gait by 02/12/21. 01/19/21: Pt had discomfort after MMT on eval and since we know she needs THR, will defer MMT today LTG Duration Deferred re-testing 2 Dot Compliance Manager Goal (LTG) Pt will perform progressive HEP with I including flexibility, strengthening, pool execises and balance exercises to improve strength and pain by 02/12/21. 01/19/21: Pt is performing hook lying hamstring stretch with strap AP, hook lying clam with band and bridge holds w/ band , core progression, racquet ball massage and rolling pin, standing quad stretch and pelvic realignment exercises, heel raises with multifidi engagement, LAQ with weight, tandem standing in corner LTG Duration Met 1 Impairment LEF score 43/80, 57.99% impairment Dot Compliance Manager Goal (LTG) Pt will present with an improved LEF score to reflect no more than 40% impairment to improve quality of life and mobility by 02/12/21. 01/19/21: LEF score reflects 50% impairment in setting of hip OA and scheduled THR LTG Duration 8 weeks Assessment Summary Assessment Pt has met HEP goal since starting PT. Her LEF score has improved a small amount in setting of needing TATUM. She con't with balance impairment and added a balance exercise for home today. Deferred MMT d /t it caused her discomfort on the evaluation. Will d/c PT. Pt to have surgery in March and plan to con't PT after that time.
== END 2021-01-19 09:58 ==
LOC: PHYS 08:15
PROVIDERS: Family Provider Student in an Organized Health Care Education/Training Program; PCP Student in an Organized Health Care Education/Training Program; Referring Provider Student in an Organized Health Care Education/Training Program; Visit Provider Student in an Organized Health Care Education/Training Program
DX: M16.0 Bilateral primary osteoarthritis of hip (principal)
CPT/HCPCS: 97110; 97140; 97161; 97535

== ENCOUNTER → 2021-01-31 09:43 | Outpatient (CLI) | payer OTHER, SELFPAY ==
[2021-01-31 10:25] LABS: INR 2.8 (0.9-1.3); Prothrombin Time 32.5 SECONDS (10.1-12.7)
== END ==
PROVIDERS: Family Provider Student in an Organized Health Care Education/Training Program; PCP Student in an Organized Health Care Education/Training Program; Referring Provider Student in an Organized Health Care Education/Training Program; Visit Provider Student in an Organized Health Care Education/Training Program
DX: I48.91 Unspecified atrial fibrillation (principal)
CPT/HCPCS: 36415; 85610

== ENCOUNTER → 2021-04-11 08:11 | Outpatient (CLI) | payer OTHER, SELFPAY ==
[2021-04-11 08:49] LABS: COVID19 -Nasal RAPID POSITIVE (Negative)
== END ==
PROVIDERS: Family Provider Student in an Organized Health Care Education/Training Program; PCP Student in an Organized Health Care Education/Training Program; Visit Provider Physician Assistant
DX: U07.1 COVID-19 (principal)
CPT/HCPCS: 87635

== ENCOUNTER → 2021-04-20 08:58 | Outpatient (CLI) | payer OTHER, SELFPAY ==
[2021-04-20 10:12] LABS: INR 3.3 (0.9-1.3); Prothrombin Time 38.6 SECONDS (10.1-12.7)
[2021-04-20 10:27] LABS: BUN Creatinine Ratio 27.9 (6-22); Blood Urea Nitrogen 19 mg/dL (7-17); Carbon Dioxide 34 mmol/L (22-32); Chloride 99 mmol/L (98-107); Estimated Glomerular Filt Rate > 60.0 mL/min (>60); Glucose 88 mg/dL (80-110); HEMOLYSIS < 15 (0-50); Sodium 138 mmol/L (137-145)
== END ==
PROVIDERS: Family Provider Student in an Organized Health Care Education/Training Program; PCP Student in an Organized Health Care Education/Training Program; Referring Provider Physician Assistant; Visit Provider Physician Assistant
DX: I48.0 Paroxysmal atrial fibrillation (principal); Z79.01 Long term (current) use of anticoagulants
CPT/HCPCS: 36415; 80048; 85610

== ENCOUNTER → 2021-05-30 10:29 | Outpatient (CLI) | payer OTHER, SELFPAY ==
--- NOTE | 2021-05-30 10:30 | DI.US.S_ITS ---
PROCEDURE: US THYROID INDICATIONS: NODULE TECHNIQUE: Real-time scanning was performed of the thyroid gland, with image documentation. COMPARISON: [facility], US, US THYROID, 06/30/2019, 13:41. FINDINGS: Right: Thyroid lobe measures 6.3 x 2.5 x 2.9 cm, and is homogeneous in echotexture. Left: Thyroid lobe measures 3.9 x 1.0 x 0.8 cm, and is homogenous in echotexture. Isthmus: 2 mm thick. Nodule number: 1 Location: Right mid thyroid lobe Size: 5.7 x 2.5 x 2.9 cm. (previously 3.1 x 1.9 x 2.6 cm) Composition: Predominantly solid Echogenicity: Isoechoic Shape: wider than tall. Margins: Smooth Echogenic foci: None Total points: 3 ACR TI-RADS category: TI-RADS 3 (mildly suspicious) IMPRESSION: 1. Interval enlargement of TI-RADS 3 nodule in the mid right thyroid lobe now measuring up to 5.7 cm in size versus 3.1 cm previously. This nodule was previously sampled under fine-needle aspiration. Given its moderate increase in size, consider repeat fine-needle aspiration versus continued imaging surveillance. ACR TI-RADS definitions and recommendations: TI-RADS 1 (benign): 0 points. FNA not needed. TI-RADS 2 (not suspicious): 2 points. FNA not needed. TI-RADS 3 (mildly suspicious): 3 points. * FNA if 2.5 cm or larger, follow up if 1.5 cm or larger (at 1, 3, and 5 years). TI-RADS 4 (moderately suspicious): 4-6 points. * FNA if 1.5 cm or larger, follow up if 1 cm or larger (at 1, 2, 3, and 5 years). TI-RADS 5 (highly suspicious): 7 points or more. * FNA if 1 cm or larger, follow up if 0.5 cm or larger (every year for 5 years). Dictated by: Bahman Olivera M.D. on 05/30/2021 at 11:53 Approved by: Bahman Olivera M.D. on 05/30/2021 at 12:04
== END ==
PROVIDERS: Family Provider Student in an Organized Health Care Education/Training Program; PCP Student in an Organized Health Care Education/Training Program; Referring Provider Student in an Organized Health Care Education/Training Program; Visit Provider Student in an Organized Health Care Education/Training Program
DX: E04.1 Nontoxic single thyroid nodule
CPT/HCPCS: 76536

== ENCOUNTER 2021-06-21 12:25 | Emergency (ER) | payer OTHER, SELFPAY ==
[2021-06-21 12:28] VITALS: BP 188/81; PULSE 78; RESP 14; TEMP 36.7; O2SAT 98; BMI 26.0
--- NOTE | 2021-06-21 15:40 | ED.EXTPRO ---
HPI - Extremity Problem General Chief complaint: Extremity Problem,Nontraumatic Stated complaint: Pain in Rt Thigh, R/O DVT Time Seen by Provider: 06/21/21 15:40 Source: patient Mode of arrival: Ambulatory Limitations: no limitations History of Present Illness HPI Narrative: This is a 75-year-old female with no recent trauma that has right outer thigh pain. Patient states she was adjusting a chandelier and had cause some pain in her right posterior hip when doing this and states she has had pain on her lateral outer thigh for the past several days. She states that she is tender when she pushes on the outside it does not really hurt on the inner leg. She has not had swelling that she has seen, no redness, warmth or skin changes. She does have a history of back issues and does have intermittent tingling down her legs but has not had any new changes. The pain does not radiate all the way down her leg. No other new GI or urinary symptoms. She is on warfarin. Patient has not had any warmth or other skin changes. She did take Tylenol which was helpful. She has been alternating EEG he denies which is also been helpful. She finds it is much worse if she lies on that side or when she brings it over. And trying to bend her legs makes it more painful. Related Data Home Medications Medication Instructions Recorded Confirmed hydrochlorothiazide 25 mg tablet 25 mg PO QDAY #0 09/28/12 04/11/21 atorvastatin 10 mg tablet 10 mg PO DAILY 12/20/17 04/11/21 calcium carbonate-vitamin D3 1,000 1,000 mg PO DAILY 12/20/17 04/11/21 mg (2,500 mg)-800 unit tablet flecainide 100 mg tablet 100 mg PO Q12H 12/20/17 04/11/21 losartan 25 mg tablet 25 mg PO DAILY 12/20/17 04/11/21 multivitamin 1 cap PO QAM 12/20/17 04/11/21 omega 7-nxe-ylu-fish oil 1,000 mg 4,000 mg PO DAILY 12/20/17 04/11/21 (120 mg-180 mg) capsule (Fish Oil) vitamin B complex 1 cap PO DAILY 12/20/17 04/11/21 atenolol 50 mg tablet 50 mg PO BID #0 tab 03/07/20 04/11/21 meloxicam 7.5 mg tablet 7.5 mg PO DAILY 12/05/20 04/11/21 warfarin 4 mg tablet See Rx Instructions .ROUTE 05/29/21 06/11/21 .COMPLEX tab Allergies Allergy/AdvReac Type Severity Reaction Status Date / Time vancomycin [VANCOMYCIN] Allergy Mild HIVES Verified 06/21/21 12:33 levofloxacin [From LEVAQUIN] Allergy Unknown weakness Verified 06/21/21 12:33 in achilles Review of Systems Review of Systems ROS Unobtainable: All systems reviewed & are unremarkable except as noted in HPI and below Patient History Medical History Anticoagulated on warfarin Atrial fibrillation HTN (hypertension) Hyperlipidemia Hypothyroidism Pacemaker Surgical History S/P ablation of atrial fibrillation Social History household members: spouse Smoking Status: Never smoker Smoking Status: Never smoker alcohol intake frequency: holidays/special occasions only Substance Use Type: does not use Exam Narrative Exam Narrative: GENERAL: Alert and oriented x three, female in mild distress. HEENT: Head normocephalic, atraumatic, EOMI, pupils reactive, face symmetric, moist mucous membranes NECK: Supple, full range of motion CARDIOVASCULAR: Regular rate and rhythm without murmurs, rubs or gallops. RESPIRATORY: Breath sounds equal bilaterally, no wheezes rales or rhonchi. ABDOMEN: Soft, nontender. Normoactive bowel sounds all 4 quadrants. No guarding or rebound, rigidity, no mass BACK: No cervical, thoracic or lumbar vertebral point tenderness. Muscle strength is 5/5 in lower extremities, DTRs are 2/4 and lower extremities. Dorsalis pedis and tibialis pulses are 2+ and lower extremities. Sensation is intact in the lower extremities. EXTREMITIES: Normal range of motion, no clubbing or edema. Neurovascularly intact. I am able to produce discomfort with palpation of the lateral thigh but there is no warmth, erythema or skin changes appreciated. She is nontender on the inner thigh. NEUROLOGICAL: Cranial nerves II through XII grossly intact. Moving all extremities SKIN: Warm, dry, no petechiae, no rashes or lesions. Initial Vital Signs Initial Vital Signs: Vital Signs Temperature 98.1 F 12/02/21 12:28 Pulse Rate 78 06/21/21 12:28 Respiratory Rate 14 06/21/21 12:28 Blood Pressure 188/81 H 06/21/21 12:28 Pulse Oximetry 98 06/21/21 12:28 Course Orders Ordered: ED Orders 06/21/21 15:49 XR hip w pel if done RT 2V Stat Vital Signs Vital signs: Vital Signs - 8 hr 06/21/21 12:28 06/21/21 17:09 Temperature 98.1 F Pulse Rate 78 68 Respiratory Rate 14 18 Blood Pressure 188/81 H 153/77 H Pulse Oximetry 98 99 MDM - Extremity (Nontraumatic) Imaging Data Extremity x-ray #1: Radiologist's Impression: Launch?Image [address] [address] XRay Report Signed Patient: Fay Rodríguez MR#: [id number] : 1945 Acct:[id number] Age/Sex: 75 / F Date of Service: 06/21/21 Loc: ED Accession Number: [id number] ?? Procedure: XR hip w pel if done RT 2V Ordering Provider: Angelita Galicia D.O. PROCEDURE:? XR HIP W PEL IF DONE RT 2V ? INDICATIONS:? right thigh/hip pain ? TECHNIQUE:? AP pelvis with lateral view(s) of the right hip(s).? ? COMPARISON:? [facility], , XR HIP W PEL IF DONE RT 2V, 10/30/2020, 13:40. ? FINDINGS:? ? Bones:? No fractures or dislocations.? Pelvic ring appears intact.? No suspicious bony lesions.? ? There is moderate to severe superior joint space narrowing seen of the right hip, with associated remodeling changes with subchondral sclerosis and osteophyte formation.? Moderate degenerative change is seen of the contralateral left hip. ? Age-appropriate lower lumbar spine degenerative changes are noted. Note is made of osteitis pubis, which is not considered to be frankly abnormal in a woman of this age.? ? Soft tissues:? The visualized bowel gas pattern is normal.? No suspicious soft tissue calcifications.? ? ? IMPRESSION:? No acute fracture is seen by plain film.? ? Moderate to severe right hip and moderate left hip degenerative change. ? Dictated by: Tommie Kraus M.D. on 06/21/2021 at 15:12 ? ? Approved by: Tommie Kraus M.D. on 06/21/2021 at 15:13?? [facility] Narrative Medical decision making narrative: This is a 75-year-old female comes in with right thigh pain. She states she was sent to rule out DVT but after discussion my suspicion for this is quite low. She has lateral outer thigh pain which was also hurting earlier in her buttock after adjusting as she had earlier earlier in the week. She has pain with movement. She does not have swelling, erythema or other changes that make me suspicious for DVT. We did x-ray her hip and pelvis and there is degenerative changes at the joint but no other clear changes. Patient does not have any signs of infection or other changes to the skin over the thigh and is localized to 1 side. This may be radiculopathy versus other cause and watchful waiting. Patient has been taking Tylenol which has been improving her pain and she may continue this. Discharge Plan Departure Patient Disposition: Home Clinical Impression: Degenerative joint disease of right hip Instructions: DI for Leg Pain Activity Restrictions/Additional Instructions: Follow-up with your physician for recheck. Your imaging today shows some degenerative hip changes but no other clear changes. You may continue with Tylenol up to 1000 mg every 8 hours as needed for pain. Please return for fevers, new or worsening pain, swelling, redness, skin changes, new numbness, tingling or weakness or other new or concerning symptoms. Prescriptions: No Action hydrochlorothiazide 25 MG tablet 25 mg PO QDAY Qty: 0 0RF atenolol 50 mg tablet 50 mg PO BID Qty: 0 0RF meloxicam 7.5 mg tablet 7.5 mg PO DAILY 0RF warfarin 4 mg tablet See Rx Instructions .ROUTE .COMPLEX 0RF Dose Instruction: TAKE 1 TABLET DAILY Rx Instructions: Take 2mg Friday, Friday and Friday and 4mg all other days, or as directed. omega 5-hva-bgl-fish oil [Fish Oil] 1,000 mg (120 mg-180 mg) Capsule 4,000 mg PO DAILY 0RF Label Comments: pt states she takes 4 per day atorvastatin 10 mg Tablet 10 mg PO DAILY 0RF flecainide 100 mg Tablet 100 mg PO Q12H 0RF Label Comments: 100mg in AM and 150mg PM vitamin B complex Capsule 1 cap PO DAILY 0RF calcium carbonate-vitamin D3 1,000 mg(2,500 mg)-800 unit Tablet 1,000 mg PO DAILY 0RF losartan 25 mg Tablet 25 mg PO DAILY 0RF multivitamin Capsule 1 cap PO QAM 0RF Referrals: Kelton George MD [Primary Care Provider] -
--- NOTE | 2021-06-21 15:49 | DI.RAD.S_ITS ---
PROCEDURE: XR HIP W PEL IF DONE RT 2V INDICATIONS: right thigh/hip pain TECHNIQUE: AP pelvis with lateral view(s) of the right hip(s). COMPARISON: [facility], , XR HIP W PEL IF DONE RT 2V, 10/30/2020, 13:40. FINDINGS: Bones: No fractures or dislocations. Pelvic ring appears intact. No suspicious bony lesions. There is moderate to severe superior joint space narrowing seen of the right hip, with associated remodeling changes with subchondral sclerosis and osteophyte formation. Moderate degenerative change is seen of the contralateral left hip. Age-appropriate lower lumbar spine degenerative changes are noted. Note is made of osteitis pubis, which is not considered to be frankly abnormal in a woman of this age. Soft tissues: The visualized bowel gas pattern is normal. No suspicious soft tissue calcifications. IMPRESSION: No acute fracture is seen by plain film. Moderate to severe right hip and moderate left hip degenerative change. Dictated by: Tommie Kraus M.D. on 06/21/2021 at 15:12 Approved by: Tommie Kraus M.D. on 06/21/2021 at 15:13
[2021-06-21 17:09] VITALS: BP 153/77; PULSE 68; RESP 18; O2SAT 99
== END 2021-06-21 17:09 | disposition home or self-care (01) ==
PROVIDERS: Emergency Provider Emergency Medicine; Family Provider Student in an Organized Health Care Education/Training Program; PCP Student in an Organized Health Care Education/Training Program
DX: M16.11 Unilateral primary osteoarthritis, right hip (principal); Z79.01 Long term (current) use of anticoagulants
CPT/HCPCS: 73502; 99283

== ENCOUNTER → 2021-06-28 15:36 | Outpatient (CLI) | payer OTHER, SELFPAY ==
--- NOTE | 2021-06-28 15:37 | DI.CT.S_ITS ---
PROCEDURE: CT LE RT WO CON INDICATIONS: Thigh pain, expanding hematoma TECHNIQUE: Noncontrast 3 mm axial sections acquired of the right thigh, with coronal and sagittal reformats. COMPARISON: [facility], CR, XR HIP W PEL IF DONE RT 2V, 06/21/2021, 15:44. FINDINGS: Image quality: Excellent. Bones: Moderate right hip joint osteoarthritis is seen. No hip fracture or dislocation. No evidence of avascular necrosis of femoral head. Osteoarthritic changes also seen in symphysis pubis. No fracture or dislocation is seen in right femur. Patient is status post right total knee arthroplasty. No evidence of gross hardware loosening or failure. No suspicious intraosseous lesion. Soft tissues: There is small to moderate right hip joint effusion, no calcified intra-articular loose body. Nonspecific subcutaneous fat stranding in posterior medial right upper thigh soft tissue is seen without discrete soft tissue mass or drainable fluid collection. A few scattered calcifications are noted in this region. Nonspecific mild subcutaneous fat stranding along lateral aspect of right hip and right thigh soft tissue is seen with ill-defined elongated fluid collection involving superficial portion of right vastus lateralis muscle and measures up to 1.5 x 2.5 x 13 cm in largest transverse, AP and craniocaudal dimensions series 7, image 70 and series 3, image 86. No other abnormal density is seen in right thigh muscle or soft tissue. IMPRESSION: 1. Elongated fluid collection involving/along lateral periphery of right vastus lateralis muscle and measures up to 1.5 x 2.6 x 13 cm in size concerning for deep soft tissue/intramuscular hematoma collection involving right vastus lateralis muscle. No other soft tissue mass or fluid collection is identified. 2. Nonspecific fat stranding involving subcutaneous soft tissue along lateral aspect of right thigh. Nonspecific fat stranding and fibrotic changes involving posterior medial right upper thigh near right perineum with multiple calcifications and likely represent prior soft tissue injury/infection. No discrete drainable abscess collection is noted. 3. Moderate right hip joint osteoarthritis. No fracture or dislocation. No evidence of avascular necrosis of femoral head. No suspicious bony lesion. Prior right total knee arthroplasty. Dictated by: Markus Mead M.D. on 06/28/2021 at 16:39 Approved by: Markus Mead M.D. on 06/28/2021 at 16:48
== END ==
PROVIDERS: Family Provider Student in an Organized Health Care Education/Training Program; PCP Student in an Organized Health Care Education/Training Program; Referring Provider Student in an Organized Health Care Education/Training Program; Visit Provider Student in an Organized Health Care Education/Training Program
DX: M16.11 Unilateral primary osteoarthritis, right hip (principal); M79.651 Pain in right thigh; S70.11XA Contusion of right thigh, initial encounter; W19.XXXA Unspecified fall, initial encounter; Z96.651 Presence of right artificial knee joint
CPT/HCPCS: 73700

== ENCOUNTER → 2021-06-29 14:42 | Outpatient (CLI) | payer OTHER, SELFPAY ==
[2021-06-29 15:10] LABS: INR 2.5 (0.9-1.3); Prothrombin Time 28.9 SECONDS (10.1-12.7)
== END ==
PROVIDERS: Internal Medicine; Family Provider Student in an Organized Health Care Education/Training Program; PCP Student in an Organized Health Care Education/Training Program; Referring Provider Student in an Organized Health Care Education/Training Program; Visit Provider Student in an Organized Health Care Education/Training Program
DX: Z79.01 Long term (current) use of anticoagulants (principal)
CPT/HCPCS: 36415; 85610

== ENCOUNTER → 2021-07-02 09:41 | Outpatient (CLI) | payer OTHER, SELFPAY ==
--- NOTE | 2021-07-02 | PATH_ITS ---
Note [facility] Accession Number: [id number] TESTS RESULT FLAG UNITS REF RANGE LAB Clinician Provided Cytology Information No. of containers..01 Other (Miscellaneous) No. of containers..08 Previously Prepared Cytology Slide Source: RIGHT THYROID NODULE DIAGNOSIS: RIGHT THYROID NODULE NEGATIVE FOR MALIGNANT CELLS. BETHESDA CATEGORY II - BENIGN. SPECIMEN CONSISTS OF BENIGN FOLLICULAR CELLS, HEMOSIDERIN-LADEN MACROPHAGES, COLLOID, AND BLOOD. THIS PATTERN IS CONSISTENT WITH A BENIGN FOLLICULAR NODULE. Pathologist ICD10: 02 E04.1 Signed out by: Colton Oshea MD, PhD, Pathologist NPI- [id number] Performed by: Rikki Olivas, Medication Assistant ([facility]) Gross description: 30 CC, BROWN, CLOUDY RECIEVED: IN CYTOLYT WITH 9 ALCOHOL FIXED AND 9 QUICK STAINED SLIDES ALSO 1 RNA VIAL WAS RECEIVED FOR FURTHER TESTING. /[facility] 07/03/2021 0739 Local FLAG LEGEND: L-Low Normal,H-High Normal,LL-Alert Low,HH-Alert High <-Panic Low,>-Panic High,A-Abnormal,AA-Critical Abnormal Performed at: 01 =Z [facility] [address] [place] [address], [place] [address] Dominik Ho MD, 02 [facility] [address] [place] [id number] Darlin Cunningham MD, Performed at: 01 [facility] [address], [place], [place] [id number] MD Dominik Ho MD Phone: [phone]
--- NOTE | 2021-07-02 09:41 | DI.US.S_ITS ---
PROCEDURE: US FINE NEEDLE ASPIRATION INDICATIONS: Thyroid Nodule has increased in size TECHNIQUE: The indications, alternatives, benefits, risks, and complications of the procedure were explained to the patient. Written informed consent was obtained and placed in the chart. The thyroid region was examined sonographically and a site was chosen for ultrasound guided percutaneous sampling. The skin was prepared and draped in the usual fashion, and anesthetized with 1% lidocaine infiltrated from the skin down to the thyroid gland. Multiple passes were then performed, with contents emptied into an appropriate pathology specimen container. A bandage was applied to the area of access at completion of the study. COMPARISON: [facility], US, US THYROID, 05/30/2021, 10:37. FINDINGS: Location(s) of lesion(s) sampled: Right thyroid nodule [place]: 25 gauge hypodermic needles. Number of passes: 8 Medications: 1% lidocaine for local anaesthesia. Complications: None. IMPRESSION: Successful ultrasound-guided thyroid nodule fine needle aspiration, with cytology results pending. Please see chart below for management recommendations based on cytology results. [facility] ReportingRecommendationsNon-diagnostic* Repeat US-guided FNA, with on-site cytology evaluation if possible. * Repeated non-diagnostic nodules without high suspicion US features: close observation vs surgical consult. * Consider surgery if nodule has high suspicion US features, grows >20% in 2 dimensions on followup, or patient has clinical risk factors for malignancy. Benign* If nodule has high suspicion US features: repeat US and FNA within 12 months. * If nodule has low to intermediate suspicion US features: repeat US at 12-24 months. If nodule grows (20% increase in at least 2 dimensions, with minimal increase of 2 mm or >50% change in volume), or development of new suspicious US features, then repeat FNA or continue followup. * If nodule has very low suspicion US features: followup US at >24 months. Atypia of undetermined significance, follicular lesion of undetermined significanceRepeat FNA, molecular testing, followup US, or surgical consult.Follicular neoplasm, suspicious for follicular neoplasmSurgical consult; also consider molecular testing. Suspicious for malignancySurgical consult.MalignantSurgical consult. Dictated by: Carlota Devlin MD, PhD on 07/02/2021 at 12:05 Approved by: Carlota Devlin MD, PhD on 07/02/2021 at 12:05
== END ==
PROVIDERS: Family Provider Student in an Organized Health Care Education/Training Program; PCP Student in an Organized Health Care Education/Training Program; Referring Provider Student in an Organized Health Care Education/Training Program; Visit Provider Student in an Organized Health Care Education/Training Program
DX: E04.1 Nontoxic single thyroid nodule (principal); E03.9 Hypothyroidism, unspecified
CPT/HCPCS: 10005

== ENCOUNTER → 2021-07-12 08:44 | Outpatient (CLI) | payer OTHER, SELFPAY ==
[2021-07-12 11:12] LABS: INR 2.4 (0.9-1.3)
== END ==
PROVIDERS: Family Provider Student in an Organized Health Care Education/Training Program; PCP Student in an Organized Health Care Education/Training Program; Referring Provider Family Medicine; Visit Provider Family Medicine
DX: Z79.01 Long term (current) use of anticoagulants (principal)
CPT/HCPCS: 36415; 85610

== ENCOUNTER → 2021-09-18 15:26 | Outpatient (CLI) | payer OTHER, SELFPAY ==
[2021-09-18 17:36] LABS: Add Manual Diff / Slide Review NO; Basophils Absolute Auto 100 /uL (0-100); Eosinophils Absolute Auto 100 /uL (0-450); Eosinophils Percent Auto 2.4 % (2-4); Hematocrit 37.6 % (36-46); Hemoglobin 12.6 g/dL (12.0-16.0); Lymphocytes Absolute Auto 900 /uL (1100-4500); Lymphocytes Percent Auto 17.9 % (25-40); Mean Corpuscular HGB Conc 33.4 % (30-36); Mean Corpuscular Hemoglobin 30.2 PG (26-34); Mean Corpuscular Volume 90.3 fL (80-100); Monocytes Absolute Auto 600 /uL (0-900); Monocytes Percent Auto 12.2 % (3-14); Neutrophils Absolute Auto 3300 /uL (1500-7000); Neutrophils Percent Auto 66.5 % (50-75); Platelet Count 184 X10^3/uL (150-400); Red Blood Cell Count 4.16 X10^6/uL (4.0-5.2); Red Cell Distribution Width 13.5 % (11.6-14.8)
[2021-09-19 11:23] LABS: Clostridium Difficile Tox PCR Negative for C. diff (Negative)
[2021-09-25 20:43] LABS: Calprotectin, Stool 55 ug/g (0-120)
== END ==
PROVIDERS: Family Provider Student in an Organized Health Care Education/Training Program; PCP Student in an Organized Health Care Education/Training Program; Referring Provider Surgery; Visit Provider Surgery
DX: R19.7 Diarrhea, unspecified (principal); E04.1 Nontoxic single thyroid nodule
CPT/HCPCS: 36415; 83993; 84443; 85025; 87045; 87177; 87493; 87899

== ENCOUNTER → 2021-10-30 09:01 | Outpatient (CLI) | payer OTHER, SELFPAY ==
[2021-10-30 09:25] LABS: COVID19 -Nasal RAPID Negative (Negative)
== END ==
PROVIDERS: Family Provider Student in an Organized Health Care Education/Training Program; PCP Student in an Organized Health Care Education/Training Program; Visit Provider Surgery
DX: Z01.812 Encounter for preprocedural laboratory examination (principal); Z20.822 Contact with and (suspected) exposure to COVID-19
CPT/HCPCS: 87635; C9803

== ENCOUNTER 2021-10-31 06:23 | Day surgery (SDC) | payer OTHER, SELFPAY ==
[2021-10-29 10:50] VITALS: BMI 25.7
[2021-10-31] VITALS (11 sets, daily range): BP systolic 112–158; BP diastolic 59–90; PULSE 69–76; RESP 9–21; TEMP 35.8–36.9; O2SAT 90–99; BMI 25.7
--- NOTE | 2021-10-31 | PATH_ITS ---
[facility] Accession Number: [id number] . 01 Material submitted: . thyroid gland - RIGHT THYROID LOBE . 02 Diagnosis: Right Thyroid Lobe, Right Hemithyroidectomy: Follicular adenoma, 1.3 cm. Neoplasm approximates the anterior and posterior margins. No evidence of malignancy. [facility] 11/05/2021 1420 Local . 02 Comment: As part of routine quality control head, Dr. 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 . 02 Electronically signed: . Colton Oshea MD, PhD, Pathologist NPI- [id number] . 01 Gross description: . The specimen is received in formalin, labeled right thyroid lobe, and consists of a single thyroid lobe measuring 4.8 x 2.5 x 2.2 cm, and a ragged red-brown tissue fragment measuring 1.7 x 1.0 x 0.7 cm. The thyroid lobe is received without orientation, and inked as follows: anterior surface is inked green, posterior surface is inked black, and separate tissue fragment is entirely inked blue. The superior and inferior poles are arbitrarily assigned. There is a white-montemayor ill-defined lesion measuring 1.0 x 0.7 x 0.5 cm, involving the superior pole of the thyroid lobe. The lesion is 0.3 cm from the posterior and anterior margins. There is a cyst involving the inferior thyroid lobe, measuring 0.5 cm in its greatest dimension, with hemorrhagic contents and a smooth inner lining. The remaining cut surfaces of the thyroid are pale montemayor to hemorrhagic and friable. Sectioning the separate tissue fragment reveals a single nodule measuring 1.3 x 0.5 x 0.4 cm, which grossly abuts the external surface. the nodule consists of red-brown rubbery material. The specimen is representatively submitted as follows: . A1-A2: Ill-define lesion, entirely submitted. A3: Cyst involving inferior thyroid lobe, entirely submitted. A4: Rep of mid portion. A5: Separate tissue fragment, serially sectioned and entirely submitted. ([id number]) /[facility] 11/02/2021 1854 Local . 02 Pathologist provided ICD-10: E04.1, D34 . 02 CPT . 733462 Specimen Comment: A courtesy copy of this report has been sent to [phone] Performed at: 01 [facility] [address] [place] [id number] MD Dominik Ho MD Phone: [phone] Performed at: 02 [facility] [address] [place] [id number] MD Darlin Cunningham MD Phone: [phone]
[2021-10-31] MEDS: LACTATED RINGERS 1,000 ML 100 ML IV ×2 (07:15→09:16)
--- NOTE | 2021-10-31 07:18 | SUR.PREOP ---
10/31/21 -Patient has pacemaker, rep here at bedside to reprogram.
--- NOTE | 2021-10-31 08:06 | PM.PREOP ---
Pre-operative Note Interval Note History & Physical reviewed/Exam performed by Physician: Yes Changes to H&P: No
[2021-10-31] MEDS: CEFAZOLIN 2 GM/20 ML SYRINGE IV (08:30)
--- NOTE | 2021-10-31 08:44 | SUR.OPER ---
Supine on padded OR bed, head on pillow, arms padded and tucked at sides, legs uncrossed, safety belt at thigh, tape over blanket over lower legs .
[2021-10-31] MEDS: BUPIVACAINE 0.25% (PF) VIAL 30 ML INJ (08:52)
--- NOTE | 2021-10-31 10:37 | PM.OP.1 ---
Operative Date/Time/Diagnoses Date of procedure: 10/31/21 Time of procedure: 10:37 Pre-op diagnosis: Right thyroid nodule Post-op diagnosis: same Procedure & Clinicians Procedure: Right thyroid lobectomy Same procedure as scheduled: Yes Indications: 76-year-old woman with an enlarging right thyroid nodule. Biopsy demonstrates benign pathology however the nodule has significantly increased in size over time interval and patient requests surgical excision Surgeon: Dylan Dolan Anesthesia Type: General Operative Notes Findings: Enlarged right thyroid nodule. Superior and inferior right parathyroids identified and the right recurrent largyngeal nerve. Specimen(s): other (right thryoid ) Estimated Blood Loss (mL): 20 Procedure in detail: Patient was brought to the operating room and placed supine on the table. Bilateral lower extremity compression devices were applied. General anesthesia was induced and she was intubated with an endotracheal tube. 2 g of Ancef were infused prior to skin incision. A shoulder roll was placed to extend the neck. She was prepped and draped in sterile fashion. Time-out was performed. A 4 cm collar incision 2 fingerbreadths above the sternal notch was made in the natural skin crease of the neck. The subcutaneous tissue was divided as well as the platysma using electrocautery. Subplatysmal flaps were developed in all directions. The midline raphe between the strap muscles was opened vertically along the direction of its fibers. The right thyroid lobe was very prominent. The superior pole of the thyroid was approached first. The superior pole vessels were divided between silk suture doublely ligated on the stay side. Next the inferior pole was approached and the strap muscles were carefully dissected away from the thyroid using bipolar electrocautery.. The thyroid was then mobilized medial this provided exposure of the recurrent laryngeal nerve running in the tracheoesophageal groove. The superior and inferior parathyroid glands were identified and protected. The middle thyroid vein was ligated and divided. The thyroid lobe was then dissected off of the trachea in its entirety and passed off the field as specimen. The field was copiously irrigated with water and hemostasis was achieved. A Valsalva was provided and there was no evidence of hemorrhage. The right thyroid bed was then dressed with Surgicel. Strap muscles were reapproximated using 3 0 Vicryl and the platysma with 4 0 vicryl. The skin was closed with a running 4-0 Monocryl suture followed by the application of Dermabond and Steri-Strips. Patient tolerated the procedure well. She emerged from anesthesia was extubated and transferred to the postoperative care unit in stable condition. Complications: none Post-operative Condition: stable Disposition: same day surgery
[2021-10-31] MEDS: OXYCODONE/ACETAMINOPHEN 5/325 TABLET 1 TAB PO ×2 (10:42→11:41)
--- NOTE | 2021-10-31 11:12 | SUR.PHASEII ---
Assumed care of pt, neck incision c/d/i. VSS. call berger in reach. Pt's stated pain just tolerable, will check back when time for additional meds. Speech clear, strong, swallow intact.
--- NOTE | 2021-10-31 11:52 | SUR.PHASEII ---
Pt medicate with percocet, refused off of food, taking sips of water, denied nausea.
--- NOTE | 2021-10-31 12:16 | SUR.PHASEII ---
d/c instructions discussed with pt and over the phone, both voiced an understanding. Pt pain improving, states 10/28.
--- NOTE | 2021-10-31 13:21 | SUR.PHASEII ---
1310 pacemaker rep arrived, pacemaker reprogrammed, pt assisted to dress, ride called.
--- NOTE | 2021-10-31 13:31 | SUR.PHASEII ---
Pt left in stable condition.
== END 2021-10-31 13:21 | disposition home or self-care (01) ==
LOC: OR 06:26 → AC 06:27
PROVIDERS: Family Provider Student in an Organized Health Care Education/Training Program; PCP Student in an Organized Health Care Education/Training Program; Referring Provider Surgery; Visit Provider Surgery
PROC: (CPT 60220; principal; 2021-10-31 07:45)
DX: D34 Benign neoplasm of thyroid gland (principal); Z95.0 Presence of cardiac pacemaker; Z79.01 Long term (current) use of anticoagulants
CPT/HCPCS: 60220; 85610; J0690; J1100; J2250; J2405; J2704; J3010

== ENCOUNTER → 2021-12-10 13:11 | Outpatient (CLI) | payer OTHER, SELFPAY ==
--- NOTE | 2021-12-10 | DI.MG.S_ITS ---
BILATERAL DIGITAL SCREENING MAMMOGRAM 3D/2D WITH CAD: 12/10/2021 CLINICAL: Routine screening. Family history of breast cancer. Comparison is made to exams dated: 12/08/2020 mammogram, 12/06/2019 mammogram, and 09/22/2018 mammogram - [facility]. The tissue of both breasts is heterogeneously dense. This may lower the sensitivity of mammography. Current study was also evaluated with a Computer Aided Detection (CAD) system. There are benign vascular calcifications in both breasts. No significant masses, calcifications, or other findings are seen in either breast. There has been no significant interval change. IMPRESSION: BENIGN There is no mammographic evidence of malignancy. A 1 year screening mammogram is recommended. This exam was interpreted at Station ID: [id number]. NOTE: For mammograms, a report in lay terms will be sent to the patient. Approximately 15% of breast malignancies will not be visualized mammographically. In the management of a palpable breast mass, a negative mammogram must not discourage biopsy of a clinically suspicious lesion. Electronically Signed By: Maria Elena meneses/[email or web address]:12/10/2021 14:56:21 letter sent: Normal Exam ACR BI-RADS Category 2: Benign Finding(s) 3342F
== END ==
PROVIDERS: Family Provider Student in an Organized Health Care Education/Training Program; PCP Student in an Organized Health Care Education/Training Program; Referring Provider Student in an Organized Health Care Education/Training Program; Visit Provider Student in an Organized Health Care Education/Training Program
DX: Z12.31 Encounter for screening mammogram for malignant neoplasm of breast (principal); Z80.3 Family history of malignant neoplasm of breast
CPT/HCPCS: 77063; 77067

== ENCOUNTER → 2021-12-24 08:11 | Outpatient (CLI) | payer OTHER, SELFPAY ==
[2021-12-24 10:49] LABS: Free T4, Direct Thyroxine 1.12 ng/dL (0.78-2.19)
[2021-12-24 11:03] LABS: Thyroid Stimulating Hormone 8.23 uIU/mL (0.47-4.68)
== END ==
PROVIDERS: Family Provider Student in an Organized Health Care Education/Training Program; PCP Student in an Organized Health Care Education/Training Program; Referring Provider Student in an Organized Health Care Education/Training Program; Visit Provider Student in an Organized Health Care Education/Training Program
DX: E03.9 Hypothyroidism, unspecified (principal); E04.1 Nontoxic single thyroid nodule
CPT/HCPCS: 36415; 84439; 84443; 84481

== ENCOUNTER → 2022-03-08 07:44 | Outpatient (CLI) | payer OTHER, SELFPAY ==
[2022-03-08 08:15] LABS: Add Manual Diff / Slide Review NO; Basophils Absolute Auto 0 /uL (0-100); Basophils Percent Auto 1.1 % (0-2); Eosinophils Absolute Auto 100 /uL (0-450); Eosinophils Percent Auto 1.8 % (2-4); Hematocrit 40.3 % (36-46); Hemoglobin 13.8 g/dL (12.0-16.0); Lymphocytes Absolute Auto 1100 /uL (1100-4500); Lymphocytes Percent Auto 32.4 % (25-40); Mean Corpuscular HGB Conc 34.2 % (30-36); Mean Corpuscular Hemoglobin 31.4 PG (26-34); Mean Corpuscular Volume 91.7 fL (80-100); Monocytes Absolute Auto 300 /uL (0-900); Monocytes Percent Auto 10.1 % (3-14); Neutrophils Absolute Auto 1900 /uL (1500-7000); Neutrophils Percent Auto 54.6 % (50-75); Platelet Count 162 X10^3/uL (150-400); Red Blood Cell Count 4.39 X10^6/uL (4.0-5.2); Red Cell Distribution Width 13.9 % (11.6-14.8); White Blood Cell Count 3.4 X10^3/uL (4.5-11.0)
[2022-03-08 08:26] LABS: INR 2.4 (0.9-1.3); Prothrombin Time 27.4 SECONDS (10.1-12.7)
[2022-03-08 08:29] LABS: PTT Partial Thromboplastin Tim 48 SECONDS (26-36)
[2022-03-08 08:37] LABS: Appearance Urine UA CLEAR; Bilirubin Urine UA NEGATIVE (NEGATIVE); Color Urine UA YELLOW; Glucose Urine UA NEGATIVE (Negative); Ketones Urine UA NEGATIVE (NEGATIVE); Leukocyte Esterase Urine UA 1+ (NEGATIVE); Nitrite Urine UA NEGATIVE (Negative); Occult Blood Urine UA TRACE-LYSED (Negative); Protein Urine UA NEGATIVE (Negative); Urobilinogen Urine UA 0.2 E.U./dL (0.2)
[2022-03-08 08:40] LABS: pH Urine UA 7.5 (4.5-8.0)
[2022-03-08 08:44] LABS: Hemoglobin A1C% w Est Avg Glu 5.5 % (4.0-6.0)
[2022-03-08 09:33] LABS: Bacteria Urine Occasional (0-1); Culture Indicated Urine Cult Not Indicated; RBC Urine 0-1/HPF (0-5/HPF); Squamous Epithelial Cell Urine 0-1 /HPF (0-5/HPF); WBC Urine 0-1/HPF (0-5/HPF)
[2022-03-08 09:49] LABS: BUN Creatinine Ratio 23.5 (6-22); Blood Urea Nitrogen 20 mg/dL (7-17); Calcium 8.9 mg/dL (8.4-10.2); Carbon Dioxide 34 mmol/L (22-32); Chloride 99 mmol/L (98-107); Estimated Glomerular Filt Rate > 60 mL/min (>60); Glucose 82 mg/dL (80-110); HEMOLYSIS < 15 (0-50); Potassium 4.1 mmol/L (3.4-5.1); Sodium 137 mmol/L (137-145)
== END ==
PROVIDERS: Family Provider Student in an Organized Health Care Education/Training Program; PCP Student in an Organized Health Care Education/Training Program; Referring Provider Orthopaedic Surgery; Visit Provider Orthopaedic Surgery
DX: R73.9 Hyperglycemia, unspecified (principal); Z51.81 Encounter for therapeutic drug level monitoring; Z01.812 Encounter for preprocedural laboratory examination; N39.0 Urinary tract infection, site not specified
CPT/HCPCS: 36415; 80048; 81001; 83036; 85025; 85610; 85730

== ENCOUNTER → 2022-03-14 09:47 | Outpatient (CLI) | payer OTHER, SELFPAY | PROVIDERS: Family Provider Student in an Organized Health Care Education/Training Program; PCP Student in an Organized Health Care Education/Training Program; Referring Provider Student in an Organized Health Care Education/Training Program; Visit Provider Student in an Organized Health Care Education/Training Program | DX: Z13.820 Encounter for screening for osteoporosis; Z78.0 Asymptomatic menopausal state; Z92.23 Personal history of estrogen therapy; Z90.710 Acquired absence of both cervix and uterus | CPT/HCPCS: 77080 ==

== ENCOUNTER → 2022-04-08 10:00 | Outpatient (CLI) | payer OTHER, SELFPAY ==
[2022-04-08 11:44] LABS: COVID19 -Nasal RAPID Negative (Negative)
== END ==
PROVIDERS: Family Provider Student in an Organized Health Care Education/Training Program; PCP Student in an Organized Health Care Education/Training Program; Referring Provider Orthopaedic Surgery; Visit Provider Orthopaedic Surgery
DX: Z20.822 Contact with and (suspected) exposure to COVID-19 (principal)
CPT/HCPCS: 87635; C9803

== ENCOUNTER 2022-04-09 06:22 | Day surgery (SDC) | payer OTHER, SELFPAY ==
[2022-04-03 07:24] VITALS: BMI 24.5
[2022-04-09] VITALS (13 sets, daily range): BP systolic 104–160; BP diastolic 73–89; PULSE 60–126; RESP 11–25; TEMP 35.1–37.1; O2SAT 93–99; BMI 24.5
[2022-04-09] MEDS: LACTATED RINGERS 1,000 ML 42 ML IV ×2 (07:15→10:08)
[2022-04-09] MEDS: PREGABALIN 75 MG CAPSULE PO (07:20)
[2022-04-09] MEDS: CELECOXIB 200 MG CAPSULE PO (07:20)
[2022-04-09] MEDS: ACETAMINOPHEN 325 MG TABLET 975 MG PO (07:20)
--- NOTE | 2022-04-09 07:40 | PM.PREOP ---
Pre-operative Note COVID-19 COVID-19 status: Negative Interval Note History & Physical reviewed/Exam performed by Physician: Yes Changes to H&P: No
--- NOTE | 2022-04-09 07:41 | P.OP_ITS ---
Operative Date/Time/Diagnoses Date of procedure: 04/09/22 Time of procedure: 08:00 Pre-op diagnosis: right hip OA Post-op diagnosis: same Procedure & Clinicians Procedure: Right total hip arthroplasty anterior approach Same procedure as scheduled: Yes Indications: The patient has had progressively worsening right hip pain with radiographic c hanges consistent with arthritis. Non-operative management has failed and the patient has requested total hip replacement. The risks, benefits and alternatives to surgery were discussed with the patient prior to proceeding. Risks discussed included, but were not limited to, failure to relieve pain, leg length discrepancy, dislocation, stiffness, infection, nerve damage, deep venous thrombosis, pulmonary embolism, stroke, coma, heart attack, permanent paralysis and , as well as the potential need for eventual revision of the prosthetic. Surgeon: Jaimie Morales Intellectual Property Legal Assistant: Isidro Mandel Anesthesia Type: General and Spinal Operative Notes Findings: Severe right hip osteoarthritis, acceptable alignment, acceptable stability, soft acetabular Closure Type: primary Specimen(s): none sent Prosthetic devices, grafts, tissues, transplants, or devices: Morales and nephew redapt size 52 cup, neutral poly liner, two 6.5 mm screws, size 5 standard offset anthology, 36 x -3 Oxinium head Estimated Blood Loss (mL): 250 Blood products transfused: none Procedure in detail: The patient was brought to the operating room. Patient was carefully positioned in the supine position. Time-out was performed and antibiotics were given. Anesthesia was induced. She was positioned in the on the table in order to allow hyperextension of the hip. The right lower extremity was prepped and draped in a standard sterile fashion. An anterior right hip incision was made 1 f ingerbreadth lateral to the anterior superior iliac spine and extended distally towards the greater trochanter. Dissection was carried out through skin and subcutaneous tissues. Superficial hemostasis was achieved. The fascia over the tensor fascia mary was defined and incised with a knife. Two Allis clamps were used to grasp the fascia. Tensor fascia mary was retracted laterally. A gelpi retractor was placed. Dissection was carried out down along the neck. The circumflex vessels were carefully identified and cauterized with the Aqua Mantis. There was good visualization of the femoral neck. A Cobra was placed superior to the neck and the gluteus fibers were carefully stripped from that superior aspect of the capsule. A 2nd retractor was placed along the inferior aspect of the neck. The rectus insertion along the capsule was partially released. A 3rd retractor that was then gently placed over the rim of the acetabulum under the rectus. Capsule was carefully incised and released from the intertrochanteric line circumferentially superior to the mid sagittal line and inferiorly to the mid sagittal line until the lesser trochanter was palpable. A tag stitch was placed both in the superior and inferior limb of the capsular insertion. Along the acetabulum capsule was also released up to the mid sagittal 12:00 position. A portion of the labrum was resected. A saw was used to perform an osteotomy at the level of the intertrochanteric line and the junction of the superior femoral neck leaving approximately 1 finger breath of residual inferior neck above the lesser trochanter. A 2nd cut was made along the femoral neck at the base of the head and a napkin ring of neck was removed. Corkscrew was placed in the femoral head and the head was removed without difficulty. Retractors were then repositioned around the acetabulum. Residual labrum was resected and additional osteophytes were removed. A reamer that was 4 mm below the templated size was placed by hand in the acetabulum and it was reamed to centralize the acetabulum. It was then reamed up to 2 under the templated size and fluoroscopy was brought in to confirm the position of the reaming and depth of reaming. I reamed 1 under the anticipated size. A trial cup was placed and noted that it was appropriately sized and fluoroscopy confirmed position and depth. The component was open and inserted without di fficulty fluoroscopic imaging was used to confirm that the cup had been adequately seated and was well positioned. It was just a little over anteverted but it was felt to be acceptable. I stabilized it with a single screw and recheck the position with fluoroscopy. Neutral poly trial liner was placed. The cup was tested and noted to be stable. Attention was then directed to the femur. The femur was gently hyperextended additional capsular release was performed as needed in order to allow adequate visualization of the proximal femur with elevation of the femur. Patient was placed in a hyperextended slightly adducted position with maximum external rotation. Box osteotome was used to check for any residual neck as well as sclerotic bone along the trochanter. [place] pepper was placed in the femur. Additional broaching was performed. Canal finder was used to determine the alignment of the canal and position. Size 1 broach was placed. The canal was then appropriately broached up to the templated size as long as there was adequate stability of the broach and serial advancement of the broach without excessive impingement. Specific attention was directed at avoiding varus attempting to direct the distal aspect of the broach more anteriorly and avoiding excessive anteversion. Trial reduction showed acceptable range of motion, good stability, no posterior impingement, sabianist of leg length and appropriate lateral shuck. I also hyperflexed the hip and checked that there was no impingement anteriorly and there was good stability with flexion, adduction and internal rotation. I specifically checked extension and hyper extension as well as hyper extension in adduction. There was no evidence of impingement posteriorly. Cup was further stabilized with a 2nd screw. Final neutral poly was placed without difficulty. Marcaine and Exparel were injected. The stem was placed without difficulty. Repeat trial reduction and x-ray showed acceptable overall position, length, and no evidence of the femoral fracture. Final head was placed. Wound was meticulously irrigated with normal saline. The hip was reduced and additional Exparel and Marcaine were injected. The capsule was closed with interrupted nonabsorbable sutures. The fascia of the tensor was closed with interrupted and running Vicryl. No drain was placed. Any tensor fascia mary muscle that appeared to be contused or injured which was a minimal amount was carefully resected. Capsule around the tensor was injected with Exparel and Marcaine. The skin was closed with barbed stitches for the subcutaneous tissue and skin. We also used surgical glue. The wound was dressed sterilely. Brief Betadine soak was also used and was meticulously irrigated with normal saline. Patient was transferred to recovery room in satisfactory condition. Complications: none Post-operative Condition: stable Disposition: Acute Care Plan for aftercare: The patient will be maintained on a standard total hip replacement protocol with weight bearing as tolerated and anterior hip precautions. The patient will receive warfarin and sequential compression devices for DVT prophylaxis. The patient will be discharged home when safe for the home environment.
[2022-04-09] MEDS: CEFAZOLIN 2 GM/100 ML PREMIX 100 ML IV ×2 (08:00→16:35)
[2022-04-09] MEDS: TRANEXAMIC ACID 1,000 MG VIAL 1000 MG INJ ×2 (08:09→10:29)
--- NOTE | 2022-04-09 08:28 | SUR.OPER ---
Supine on padded [place] table with bilateral legs secured in padded positioning boots and suspended in positioning spars, operative leg in traction per surgeon. Head on one pillow. Arm on non-operative side secured on padded armboard <90 degrees abduction. Arm on operative side padded and resting across chest then secured with tape over sheet. Padded perineal post in place per surgeon.
[2022-04-09] MEDS: BUPIVACAINE 0.25% (PF) 60 ML, EPINEPHrine 0.3 MG INJ (08:35)
[2022-04-09] MEDS: BUPIVACAINE LIPOSOME 266 MG/20 ML VIAL INJ (08:36)
--- NOTE | 2022-04-09 10:42 | DI.RAD.S_ITS ---
PROCEDURE: XR HIP W PEL IF DONE RT 2V INDICATIONS: RIGHT ANTERIOR TOTAL INNER OP TECHNIQUE: 2 view(s) of the hip acquired. COMPARISON: [facility], , XR HIP W PEL IF DONE RT 2V, 06/21/2021, 15:44. FINDINGS: Four fluoroscopic images of the right hip demonstrate expected appearance of right total hip arthroplasty. IMPRESSION: Expected appearance of right total hip arthroplasty. Dictated by: Dejuan Rogers M.D. on 04/09/2022 at 11:01 Approved by: Dejuan Rogers M.D. on 04/09/2022 at 11:02
--- NOTE | 2022-04-09 11:13 | SUR.PHASEI ---
Patient to recovery s/p right hip repair in stable condition; drowsy but arousable; vss; xray taken; patient denies pain at this time.
[2022-04-09] MEDS: OXYCODONE IR 5 MG TABLET PO ×2 (11:20→12:31)
[2022-04-09] MEDS: ONDANSETRON 4 MG/2 ML INJ IV (11:21)
--- NOTE | 2022-04-09 11:30 | DI.RAD.S_ITS ---
PROCEDURE: XR HIP W PEL IF DONE RT 2V INDICATIONS: HIP ANTERIOR TOTAL TECHNIQUE: 2 views of the hip were acquired. COMPARISON: [facility], [place], XR HIP W PEL IF DONE RT 2V, 04/09/2022, 9:24. [facility], [place], XR HIP W PEL IF DONE RT 2V, 06/21/2021, 15:44. FINDINGS: Bones: Right hip arthroplasty appears to be in appropriate position. Moderate degenerative changes of the left hip. Soft tissues: Postoperative changes are present around the right hip. IMPRESSION: Postoperative appearance status post right hip arthroplasty. Dictated by: Ryan Merchant M.D. on 04/09/2022 at 11:54 Approved by: Ryan Merchant M.D. on 04/09/2022 at 11:55
--- NOTE | 2022-04-09 12:18 | PC.NURSE ---
Addendum entered by Lisa Figueroa R.N. 04/09/22 19:09: Pt is on tele. she is a paced. Addendum entered by Lisa Figueroa R.N. 04/09/22 12:50: Patient just given oxycodone and tylenol for complaints of discomfort. Original Note: Assess- Patient is alert and oriented x4, she had total hip anterior approach surgery. Dressing is aquacel and cdi. Patient had a spinal and has feeling to her r.leg but is unable to move it up. She is resting comfortably now.
[2022-04-09] MEDS: LACTATED RINGERS 1,000 ML 125 ML IV (12:30)
[2022-04-09] MEDS: ACETAMINOPHEN 325 MG TABLET 650 MG PO ×2 (12:31→17:25)
[2022-04-09 13:05] LABS: INR 1.1 (0.9-1.3); Prothrombin Time 12.9 SECONDS (10.1-12.7)
--- NOTE | 2022-04-09 14:10 | PT.IIE ---
Current Diagnoses Unilateral primary osteoarthritis, right hip (04/09/22) Surgery Performed Operation Date: 04/09/22 07:45 Actual Procedures p Total Hip Arthroplasty/Anterior Approach(Right) - Jaimie Morales MD Surgical History (Last Updated 04/01/22 @ 09:11 by Julita Naik, RN) History of hysterectomy (1975) History of knee replacement History of lobectomy of thyroid (10/31/21) History of surgery (1975) History of surgery (~1997) Hx of oophorectomy (2003) S/P ablation of atrial fibrillation Medical History (Last Updated 04/01/22 @ 09:14 by Julita Naik RN) Anesthesia complication Anticoagulated on warfarin Arthritis Atrial fibrillation COVID-19 (04/09/21) Easy bruisability Former smoker History of Mohs micrographic surgery for skin cancer (~07/2021) HTN (hypertension) Hyperlipidemia Hypothyroidism Pacemaker Physical Therapy Inpatient Evaluation/Re-Eval M1 PT/OT-IP Prior Functional Status Start: 04/09/22 15:19 Freq: NEEDED Status: Active Protocol: Document 04/09/22 14:10 AB (Rec: 04/09/22 15:31 AB [id number]) Medical Review Prior Functional Status Medical History Reviewed Yes Communication able to make needs known Mobility and Gait pt stated that she is independent with all mobilities and ambulation without AD Social History Household Members spouse Living Arrangements House Number of Floors (Floors) 3 or More Floors Number of Stairs To Enter/Railing? pt stays on main level of the house has 2 platform steps with L rail ascending Home Environment Standard Height Toilet,Walk in Shower Home Equipment Front Wheel Walker,Bedside Commode,Shower Seat with Backrest,Hand Held Shower,Grab Bars Near Toilet,Grab Bars In Shower Additional Social History Comment spouse Javier will assist pt at home pt has an adjustable bed at home M2 PT-IP Current Condition Start: 04/09/22 15:19 Freq: NEEDED Status: Active Protocol: Document 04/09/22 14:10 AB (Rec: 04/09/22 15:31 AB [id number]) Physical Therapy Current Condition Current Condition Evaluation Date 04/09/22 Treatment Diagnosis s/p R TATUM anterior approach; difficulty in walking Onset Date 04/09/22 M3 PT-IP Subjective Start: 04/09/22 15:19 Freq: NEEDED Status: Active Protocol: Document 04/09/22 14:10 AB (Rec: 04/09/22 15:31 AB [id number]) Subjective Physical Therapy Visit Type Type Initial Evaluation Visit Start Time 14:10 Visit Stop Time 15:10 Total Visit Minutes 60 Number of MIXING MACHINE TENDER CORK GASKET Visits 0 Physical Therapy Visit Comments Patient Comments agreeable to do PT Therapy Pain Assessment Pain When Pain Assessed At Rest Location Right Hip Intensity 3 Scale Used Numeric (0 - 10) Pain Management Techniques Apply Cold,Distraction, Modification of Treatment,Re- positioning,Timing of Activity with Medications M4 PT-IP Mobility and Gait Start: 04/09/22 15:19 Freq: NEEDED Status: Active Protocol: Document 04/09/22 14:10 AB (Rec: 04/09/22 15:31 [id number]) PT-Bed Mobility Assessment Supine to Sit Supine to Sit Standby Assistance Sit to Supine Sit to Supine Minimal Assistance,1 Person Assistance,Head of Bed Elevated PT-Transfer Assessment Sit to and From Stand Sit to and from Stand Minimal Assistance,1 Person Assistance,Use of Upper Extremities Equipment Transfer Assistive Device Gait Belt,Front Wheeled Walker Orthotic/Prosthetic Devices or Brace: No Comments Mobility Comments BP i supine: 118/79. spouse in room with pt. pt completed supine to sit SBA . able to sit on EOB SBA. Pt c/o buttock numbness. completed sit to stand min A and cues. ambulated in room using FWW ~ 20 ft min A. c/o dizziness towards the ends of ambulation and instructed to sit down on EOB. BP checked: 68/42. nurse made aware. assisted pt back to bed min A for sit to supine for RLE elevation to bed. BP in supine: 83/61. positioned pt in bed. BP checked after a few minutes: 111/66. call light and table placed within reach. informed pt and spouse regarding caregiver training and scheduled for tomorrow at 9 am. Gait Assessment Gait Gait Assistance Required: Minimum Assistance Distance (Feet) 20 Able to Maintain Weight Bearing Status Yes During Gait Assistive Devices Assistive Device Gait Belt,Front Wheeled Walker Orthotic/Prosthetic Devices or Brace: No Gait Deviations General Gait Pattern Antalgic,Decreased Stride Length,Decreased Feet Clearance Factors Limiting Gait Function Factors Limiting Gait Function Decreased Activity Tolerance, Decreased Strength,Limited Range of Motion,Pain,Poor Balance,Poor Safety Awareness PT-Balance Assessment Sitting Balance and Reactions Static Sitting Balance Ability Good Dynamic Sitting Balance Ability Fair Standing Balance and Reactions Static Standing Balance Ability Fair Dynamic Standing Balance Ability Fair Device Used FWW M5 PT-IP Objective Assessments Start: 04/09/22 15:19 Freq: NEEDED Status: Active Protocol: Document 04/09/22 14:10 AB (Rec: 04/09/22 15:31 AB [id number]) Orientation Orientation/Cognition Level of Alertness Alert Orientation Name,Place,Situation Safety Awareness Decreased Safety Awareness Memory Description Short Term Impaired Gross Range of Motion Lower Extremity ROM Assessment Within Functional Limits Strength Lower Extremity Strength Assessment Right Impaired Hip 3-/5 Knee 4-/5 Sensation Assessment Sensation Gross Sensation Right LE Impaired Sensation Description Numbness Comments Sensation Comments numbness on buttocks Muscle Tone Muscle Tone WNL Yes M6 PT-IP Treatment Start: 04/09/22 15:19 Freq: NEEDED Status: Active Protocol: Document 04/09/22 14:10 AB (Rec: 04/09/22 15:31 AB [id number]) Physical Therapy Treatment Education Education Provided Precautions,Weight Bearing Status,Post-Op Packet,Safety M7 PT-IP Assessment and Plan Start: 04/09/22 15:19 Freq: NEEDED Status: Active Protocol: Document 04/09/22 14:10 AB (Rec: 04/09/22 15:31 AB [id number]) PT Summary Assessment and Plan Potential Rehabilitation Potential Fair Status of Condition at Evaluation Evolving Summary Impairments Pain,ROM,Strength,Balance, Coordination,Sensation,Tone, Cognition,Bed Mobility, Transfers,Gait,Activity Tolerance Assessment Summary pt requiring min A with mobiltiy but unable to tolerate much activity with c/ o dizziness during ambulation and BP decreased to: 68/42. caregiver training set up for tomorrow at 9 am with spouse. will continue to assess progress. Goals Bed Mobility Goal Independent Transfer Goal Independent,Front Wheeled Walker Gait Goal Independent,Front Wheel Walker Gait Distance 250 Other Goals up/down 2 platform steps using FWW SBA Days to Meet Goals 5 Frequency of Treatment Frequency Of Treatment Twice a Day Treatment Plan Physical Therapy Treatment Plan Bed Mobility Training,Transfer Training,Gait Training, Therapeutic Exercise,Balance Retraining,Post Op Education, Discharge Planning,Hot or Cold Pack,Neuromuscular Re-ed, Coordination Retraining,Manual Therapy Other Recommendations and Next Treatment caregiver trainin04/10/22 @ [facility] 9 am Precautions Anterior Hip Precautions No Hip Extension,No Hip External Rotation Weight Bearing Status Weight Bearing Status Weight Bear as Tolerated Allowed Weight Bearing Amount (enter % RLE WBAT or #) (%) Recommendations To Nursing Amount of Assist Needed 1 Person Assist Discharge Recommendations PT Discharge Recommendations Home with Assistance, Outpatient PT Transportation Needs at Discharge Private Vehicle
--- NOTE | 2022-04-09 16:04 | PC.NURSE ---
Addendum entered by Julio Gotti R.N. 04/09/22 16:50: Dr. Morales returned phone call, this nurse spoke to her regarding what Rep. informed this nurse of. Dr. Morales is aware that per the [employer] Rep. patient requires no interventions at this time. Addendum entered by Julio Gotti R.N. 04/09/22 16:38: Call placed to Dr. Morales, no answer. Generic message to have her call back for update on patient. Also informed that Lisa RN will be here to 1900 and can take call if this nurse is unable too. Addendum entered by Julio Gotti R.N. 04/09/22 16:25: Andrew called hospitalist for a consult. Per hospitalist start/cont. tele monitoring and give Atenolol and Flecainide now. Original Note: Patient up working with PT, blood pressure dropped 68/42 heart rate elevated: 124. Dr. Morales doing rounds in room. This nurse discussed her vs fluctuations. Patient verbalizes concerns regarding pacemaker. Per Dr. Morales's verbal orders, this nurse is to call [employer] rep. and talked to them regarding if she needs it interrogated. Call placed to surgery regarding contact info for rep. Rep: Ramon Goddard phone: [phone]. This nurse called Ramon (the rep) discussed patient's current vs and what if a Interrogation is nec. Per the Rep. Ramon Interrogation is not necessary at this time. Mallorie's HR of 124 is her current heartrate, if ken's hear rate drops below base rate (set at 60), then at that time her pacer will activate to start pacing patient.
[2022-04-09] MEDS: atenoloL 50 MG TABLET PO (16:34)
[2022-04-09] MEDS: FLECAINIDE 100 MG TABLET 150 MG PO (16:34)
[2022-04-09] MEDS: WARFARIN 2 MG TABLET 4 MG PO (17:25)
[2022-04-09] MEDS: DOCUSATE 100 MG CAPSULE PO (21:06)
[2022-04-09] MEDS: FISH OIL 1,000 MG CAPSULE 1000 MG PO (21:06)
[2022-04-09] MEDS: MELATONIN 3 MG TABLET 6 MG PO (21:07)
[2022-04-09] MEDS: VALSARTAN 80 MG TABLET 40 MG PO (21:07)
[2022-04-09] MEDS: ATORVASTATIN 20 MG TABLET 10 MG PO (21:08)
--- NOTE | 2022-04-09 22:02 | P.CONS_ITS ---
History of Present Illness Consult details Date Patient Seen: 04/09/22 Time Patient Seen: 21:15 Chief complaint: right total hip Arthroplasty Reason for consult: Atrial fibrillation on a pacemaker Requesting provider: Jaimie Morales Narrative: Fay Rodríguez is a 76-year-old female with atrial fibrillation, tachycardia, paced and anticoagulated on warfarin is POD#1 right total hip arthroplasty by Dr. Morales. She has requested consultation with the hospitalist service for management of tachycardia and atrial fibrillation. Approximately 3 weeks ago she developed several runs of arrhythmias over 3 day. The 1st set included 2 runs lasting about 4 hours and then the following day she had another episode of atrial fibrillation that lasted for 2 hours. She saw Mika Henley p.a.-C working with Dr. Ochoa her applications instructor. At that time she was taking flecainide and had gotten down to taking 100 mg twice daily. She stated that she had been on as much as 300 mg a day and was symptomatic. She actually states that it sometimes made her atrial fibrillation worse. They increased her to 150 mg b.i.d. and then she had intermittent bouts of arrhythmia dizziness and fatigue and now currently only takes 100 mg in the morning and 150 mg at night. She states she has a normal resting heart rate of 60 had an ablation in 2018 and a thyroidectomy in October of this year. Her pacemaker was initially placed in 2015 and then replaced in 2018 when she had the ablation. She denies feeling lightheaded, shortness of breath, chest pain, dizziness, nausea vomiting, abdominal pain, dysuria diarrhea or constipation, or peripheral polyneuropathy. FH: Mother at age 80 of CHF and multiple myeloma. Father at age 86 of pulmonary interstitial fibrosis. She has a daughter with multiple sclerosis. Meds Home Medications and Allergies Home Medications Medication Instructions Recorded Confirmed Type calcium carbonate 1,000 mg-vitamin 1,000 mg PO DAILY 12/20/17 04/09/22 History D3 20 mcg (800 unit) tablet flecainide 100 mg tablet 150 mg PO BID 12/20/17 04/01/22 History multivitamin 1 cap PO QAM 12/20/17 04/09/22 History omega 1-ubl-xci-fish oil 1,000 mg 1,000 mg PO BID 12/20/17 04/01/22 History (120 mg-180 mg) capsule (Fish Oil) vitamin B complex 1 cap PO DAILY 12/20/17 04/09/22 History atenolol 50 mg tablet 50 mg PO BID #180 tabs 07/24/21 04/01/22 Rx atorvastatin 10 mg tablet 10 mg PO DAILY #90 tabs 07/24/21 04/09/22 Rx hydrochlorothiazide 25 mg tablet 25 mg PO QDAY #90 tabs 07/24/21 04/09/22 Rx warfarin 4 mg tablet See Rx Instructions .Route 10/24/21 04/09/22 Rx .COMPLEX #90 tabs acetaminophen 325 mg capsule 650 mg PO QID PRN pain #60 caps 10/31/21 04/01/22 Rx (Tylenol) melatonin 5 mg tablet 5 mg PO BEDTIME ##0 10/31/21 04/09/22 History valsartan 40 mg tablet 40 mg PO BEDTIME 10/31/21 04/01/22 History Allergies Allergy/AdvReac Type Severity Reaction Status Date / Time vancomycin [VANCOMYCIN] Allergy Mild HIVES Verified 04/09/22 06:41 levofloxacin [From LEVAQUIN] Allergy Unknown weakness, Verified 04/09/22 06:41 tearing in achilles Review of Systems Review of Systems ROS: Yes All systems reviewed with the patient and are negative except as otherwise documented Exam Vital Signs (past 8 hours): - 04/09/22 14:50 04/09/22 20:30 Temperature 95.6 F L 97.2 F L Pulse Rate 114 H 106 H Respiratory Rate 17 18 Blood Pressure 115/74 119/77 Pulse Oximetry 98 97 Oxygen Flow Rate 0 2 Oxygen Delivery Method Room Air Oxygen Flow Rate 2 Narrative Exam Narrative: Gen: Alert, oriented, well-developed 76 y.o. female, NAD, appears to be recovering well HEENT: normocephalic, atraumatic, conjunctiva clear, sclera non-icteric, oral mucosa pink and moist Neck: supple, full ROM, no JVD, trachea is midline Resp: Lungs CTA, non-labored breathing CV: Tachy, irregularly irregular, no murmur or rubs Abd: soft, non-tender, normoactive BTs Skin: no lesions or rashes, dry and intact Neuro: Alert and oriented X 4 w/no focal deficits. Speech clear and coherent. Extremities: moves all 4 extremities, is ambulatory, negative Rhonda?s sign Psyche: normal mood and affect. Objective Labs Labs: Laboratory Results - last 24 hr 04/09/22 12:30 PT 12.9 H INR 1.1 [facility] Medical History Anesthesia complication Anticoagulated on warfarin Arthritis Atrial fibrillation COVID-19 (04/09/21) Easy bruisability Former smoker History of Mohs micrographic surgery for skin cancer (~07/2021) HTN (hypertension) Hyperlipidemia Hypothyroidism Pacemaker Surgical History History of hysterectomy (1975) History of knee replacement History of lobectomy of thyroid (10/31/21) History of surgery (1975) History of surgery (~1997) Hx of oophorectomy (2003) S/P ablation of atrial fibrillation Family History Mother Congestive heart failure Multiple myeloma Father Pulmonary interstitial fibrosis Daughter Multiple sclerosis Social History household members: spouse Tobacco & Substance Use Smoking Status: Former smoker alcohol intake: current (1-2 drinks/month) Assessment & Plan Assessment & Plan narrative: Fay Rodríguez will be followed by the hospitalist service for further evaluation and management of atrial fibrillation with RVR. Atrial fibrillation with RVR in the setting of paced * Currently takes atenolol 50 mg p.o. b.i.d. and 1 consider switching over to metoprolol 50 mg p.o. b.i.d. for better rate control * Cardiac monitoring * She is written for flecainide 150 mg p.o. b.i.d. however she may only wish to take 100 mg in the morning * Recommend follow-up with her applications instructor when she is discharged * She may also be reacting to the effects of the longer-acting intra operative pain control which includes epinephrine and Bupivacaine Anticoagulation on warfarin, chronic * Her INR was 1.1 however it was purposely lowered in anticipation of surgery * Will need to discuss with Dr. Morales as to when she can resume warfarin Dyslipidemia, chronic * Continue home dose of atorvastatin 10 mg p.o. daily Essential hypertension, chronic * She is currently mildly hypotensive and we will hold her losartan and hydrochlorothiazide FEN: IV fluids: LR at 125 ml/hour, diet: heart healthy, labs: CBC, C/BMP, liver enzymes, Mag, PT/INR Code status: Full code as discussed with the patient who identifies her Javier as her surrogate and POA. [X] I have utilized all available immediate resources to obtain, update, or review of the patient's current medications VTE Deep Vein Thrombosis/Pulmonary Embolism Present on Admission: No MIPS - Admit I confirm the patient?s Advance Care Plan is present, Code status is documented, Surrogate decision maker is in patient?s record: Yes MIPS - DC The patient has current or prior documentation of left ventricular ejection fraction (LVEF) less than 40%, or moderate or severely depressed left susan tricular systolic function.: No COVID-19 COVID-19 status: Negative Result date/Date tested (Pos, Neg/Pending): 04/08/22 Time Spent With Patient Critical Care time: I spent a total of [] minutes of critical care time on this patient's care today; this time is exclusive of procedural time.
[2022-04-10] MEDS: CEFAZOLIN 2 GM/100 ML PREMIX 100 ML IV (00:09)
[2022-04-10] MEDS: ACETAMINOPHEN 325 MG TABLET 650 MG PO ×2 (00:09→05:49)
[2022-04-10 01:00] VITALS: BP 99/55; PULSE 67; RESP 18; TEMP 36.3; O2SAT 95
[2022-04-10 04:18] VITALS: BP 103/56; PULSE 62; RESP 18; TEMP 36.6; O2SAT 96
[2022-04-10 06:31] LABS: INR 1.1 (0.9-1.3); Prothrombin Time 12.5 SECONDS (10.1-12.7)
[2022-04-10 06:37] LABS: Add Manual Diff / Slide Review NO; Basophils Absolute Auto 0 /uL (0-100); Basophils Percent Auto 0.7 % (0-2); Eosinophils Absolute Auto 200 /uL (0-450); Eosinophils Percent Auto 2.7 % (2-4); Hematocrit 37.3 % (36-46); Hemoglobin 12.6 g/dL (12.0-16.0); Lymphocytes Absolute Auto 1400 /uL (1100-4500); Lymphocytes Percent Auto 24.5 % (25-40); Mean Corpuscular HGB Conc 33.7 % (30-36); Mean Corpuscular Hemoglobin 31.2 PG (26-34); Mean Corpuscular Volume 92.5 fL (80-100); Monocytes Absolute Auto 600 /uL (0-900); Monocytes Percent Auto 11.2 % (3-14); Neutrophils Absolute Auto 3400 /uL (1500-7000); Neutrophils Percent Auto 60.9 % (50-75); Platelet Count 150 X10^3/uL (150-400); Red Blood Cell Count 4.03 X10^6/uL (4.0-5.2); Red Cell Distribution Width 13.8 % (11.6-14.8); White Blood Cell Count 5.6 X10^3/uL (4.5-11.0)
[2022-04-10 06:46] LABS: BUN Creatinine Ratio 22.4 (6-22); Blood Urea Nitrogen 17 mg/dL (7-17); Calcium 8.2 mg/dL (8.4-10.2); Carbon Dioxide 30 mmol/L (22-32); Chloride 98 mmol/L (98-107); Estimated Glomerular Filt Rate > 60 mL/min (>60); Glucose 94 mg/dL (80-110); HEMOLYSIS < 15 (0-50); Magnesium 1.9 mg/dL (1.6-2.3); Potassium 4.3 mmol/L (3.4-5.1); Sodium 133 mmol/L (137-145)
[2022-04-10 07:45] VITALS: BP 108/61; PULSE 60; RESP 16; TEMP 36.4; O2SAT 96
--- NOTE | 2022-04-10 07:50 | P.DS_ITS ---
History of Present Illness History of Present Illness Date Patient Seen: 04/10/22 Time Patient Seen: 07:50 Chief complaint: Hip pain Narrative: Patient states her right hip pain is mild. Denies fever or chills. No nausea or vomiting. Patient states she worked with physical therapy walking in room she was a little lightheaded and rested the remainder of the night. She denies dizziness this morning. No shortness of breath or chest pain. Discharge Providers Provider Discharge Date: 04/10/22 Primary care physician: Kelton George MD Consults: 04/01/22 11:01 Consult to Anesthesiology Routine Comment: Consulting Provider: Anesthesiologist Reason for consultation: Surgeon requested re: Cardiac history 04/09/22 06:41 Consult to Anesthesiology Routine Comment: Consulting Provider: Anesthesiologist Reason for consultation: Regional block for post operative pain control 04/09/22 11:03 Consult to Discharge Planning Routine Comment: Consult to Physical Therapy Evaluate & Treat Comment: Physician Instructions: post op TATUM protocol Consult to Respiratory Therapy Evaluate & Treat Comment: Physician Instructions: Evaluate and treat 04/09/22 16:27 Consult to Hospitalist Service Routine Comment: Consulting Provider: Esvin Jennings Reason for consultation: Monitoring cardiac output. Pt pacing above pace maker. Discharge provider: Isidro Mandel PA-C Summary Hospital Course Discharge Diagnosis: Right hip osteoarthritis Atrial fibrillation with RVR in the setting of paced Anticoagulation on warfarin, chronic Dyslipidemia, chronic Essential hypertension, chronic Hospital Course: Right total hip arthroplasty anterior approach Same procedure as scheduled: Yes Indications: The patient has had progressively worsening right hip pain with radiographic changes consistent with arthritis. Non-operative management has failed and the patient has requested total hip replacement. The risks, benefits and alternatives to surgery were discussed with the patient prior to proceeding. Risks discussed included, but were not limited to, failure to relieve pain, leg length discrepancy, dislocation, stiffness, infection, nerve damage, deep venous thrombosis, pulmonary embolism, stroke, coma, heart attack, permanent paralysis and , as well as the potential need for eventual revision of the prosthetic. Surgeon: Jaimie Morales Boilermaker'S Assistant: Isidro Mandel Anesthesia Type: General and Spinal Operative Notes Findings: Severe right hip osteoarthritis, acceptable alignment, acceptable stability, soft acetabular Closure Type: primary Specimen(s): none sent Prosthetic devices, grafts, tissues, transplants, or devices: Morales and nephew redapt size 52 cup, neutral poly liner, two 6.5 mm screws, size 5 standard offset anthology, 36 x -3 Oxinium head Estimated Blood Loss (mL): 250 Blood products transfused: none Patient was admitted to the hospital for right total hip arthroplasty, anterior approach. Patient consented to the same. Patient taken to the operating room on April 09, 2022. Patient underwent right total hip arthroplasty, anterior approach. Dr. Cobos was asked to consult on 68-year-old female with atrial fibrillation, tachycardia, paste and anticoagulated on warfarin status post right total hip arthroplasty for management of tachycardia and A.Fib. Per Dr. Cobos 04/09/22: Atrial fibrillation with RVR in the setting of paced * Currently takes atenolol 50 mg p.o. b.i.d. and 1 consider switching over to metoprolol 50 mg p.o. b.i.d. for better rate control * Cardiac monitoring * She is written for flecainide 150 mg p.o. b.i.d. however she may only wish to take 100 mg in the morning * Recommend follow-up with her grain grader when she is discharged * She may also be reacting to the effects of the longer-acting intra operative pain control which includes epinephrine and Bupivacaine Patient is also hypotensive and her losartan and hydrochlorothiazide were held. Patient to mobilize with physical therapy this morning. Anterior hip precautions. Multimodal pain management. Patient will be discharged home after physical therapy this morning if safe for home environment. Patient is to follow-up with her grain grader as soon as possible once discharged for further management. Patient's is home to assist her. Exam Vital Signs (past 8 hours): - 04/10/22 01:00 04/10/22 04:18 Temperature 97.3 F L 97.8 F Pulse Rate 67 62 Respiratory Rate 18 18 Blood Pressure 99/55 L 103/56 L Pulse Oximetry 95 96 Oxygen Flow Rate 2 2 Oxygen Delivery Method Nasal Cannula Oxygen Flow Rate 2 Narrative Exam Narrative: 68-year-old female resting comfortably in bed no apparent distress. Right hip dressing is clean, dry and intact. Motor functions intact bilateral lower extremities. Sensation is intact bilateral lower extremities. Const General: cooperative and comfortable Nutritional Appearance: average body habitus HENHI Head: normal to inspection Chest Chest: normal inspection of the chest Resp Effort & Inspection: normal respiratory effort and able to speak in complete sentences Objective Labs Result Diagrams: 04/10/22 05:59 04/10/22 05:59 Labs: Laboratory Results - last 24 hr 04/09/22 04/10/22 04/10/22 12:30 05:59 05:59 WBC 5.6 RBC 4.03 Hgb 12.6 Hct 37.3 MCV 92.5 MCH 31.2 MCHC 33.7 RDW 13.8 Plt Count 150 Neut % (Auto) 60.9 Lymph % (Auto) 24.5 L Preston % (Auto) 11.2 Eos % (Auto) 2.7 Baso % (Auto) 0.7 Neut # (Auto) 3400 Lymph # (Auto) 1400 Preston # (Auto) 600 Eos # (Auto) 200 Baso # (Auto) 0 PT 12.9 H 12.5 INR 1.1 1.1 Sodium Potassium Chloride Carbon Dioxide BUN Creatinine Estimated GFR BUN/Creatinine Ratio Glucose Calcium Magnesium 04/10/22 05:59 WBC RBC Hgb Hct MCV MCH MCHC RDW Plt Count Neut % (Auto) Lymph % (Auto) Preston % (Auto) Eos % (Auto) Baso % (Auto) Neut # (Auto) Lymph # (Auto) Preston # (Auto) Eos # (Auto) Baso # (Auto) PT INR Sodium 133 L Potassium 4.3 Chloride 98 Carbon Dioxide 30 BUN 17 Creatinine 0.76 Estimated GFR > 60 BUN/Creatinine Ratio 22.4 H Glucose 94 Calcium 8.2 L Magnesium 1.9 PFSH Medical History Anesthesia complication Anticoagulated on warfarin Arthritis Atrial fibrillation COVID-19 (04/09/21) Easy bruisability Former smoker History of Mohs micrographic surgery for skin cancer (~07/2021) HTN (hypertension) Hyperlipidemia Hypothyroidism Pacemaker Surgical History History of hysterectomy (1975) History of knee replacement History of lobectomy of thyroid (10/31/21) History of surgery (1975) History of surgery (~1997) Hx of oophorectomy (2003) S/P ablation of atrial fibrillation Family History Mother Congestive heart failure Multiple myeloma Father Pulmonary interstitial fibrosis Daughter Multiple sclerosis Social History household members: spouse Smoking Status: Former smoker alcohol intake: current (1-2 drinks/month) Discharge Assessment & Plan Assessment and Plan Assessment: Stable status post right total hip arthroplasty, anterior approach, atrial fibrillation managed by internal medicine Plan of Treatment: Mobilize with physical therapy, weight-bearing as tolerated, anterior hip precautions Multimodal pain management Hospitalist recommended flecainide 150 mg p.o. b.i.d. however she may only wish to take her mg in the morning Follow-up with grain grader upon discharge Plan is to discharge home today after physical therapy if safe for home environment. Discharge Plan Discharge Plan Patient Disposition: Home Discharge orders & Medications Discharge Orders: Discharge (Order); Ordered 04/10/22 Ordered By: Isidro Mandel Prescriptions: New acetaminophen 325 mg Tablet 650 mg PO Q6HR Qty: 60 0RF warfarin 2 mg Tablet 4 mg PO SuTuTh@1700 Qty: 30 0RF warfarin 2 mg Tablet 2 mg PO MoWeFrSa@1700 Qty: 30 0RF docusate sodium 100 mg Capsule 100 mg PO BID Qty: 20 0RF oxycodone 5 mg Tablet 5 mg PO Q3HR PRN (Reason: Pain, Moderate (4-6)) Qty: 40 0RF Continued atenolol 50 mg tablet 50 mg PO BID Qty: 180 3RF atorvastatin 10 mg tablet 10 mg PO DAILY Qty: 90 3RF hydrochlorothiazide 25 mg tablet 25 mg PO QDAY Qty: 90 3RF omega 5-zya-zgp-fish oil [Fish Oil] 1,000 mg (120 mg-180 mg) Capsule 1,000 mg PO BID Label Comments: pt states she takes 4 per day flecainide 100 mg Tablet 150 mg PO BID Label Comments: 100mg in AM and 150mg PM vitamin B complex Capsule 1 cap PO DAILY calcium carbonate-vitamin D3 1,000 mg(2,500 mg)-800 unit Tablet 1,000 mg PO DAILY multivitamin Capsule 1 cap PO QAM valsartan 40 mg tablet 40 mg PO BEDTIME melatonin 5 mg Tablet 5 mg PO BEDTIME Qty: 0 Discontinued warfarin 4 mg tablet See Rx Instructions .ROUTE .COMPLEX Qty: 90 3RF Dose Instruction: TAKE 1 TABLET DAILY Rx Instructions: Take 4 mg , TH, Sun and 2 mg all other days, or as directed.INR 1.1 this a.m. acetaminophen [Tylenol] 325 mg capsule 650 mg PO QID PRN (Reason: pain) Qty: 60 0RF Follow up/Referrals: Kelton George MD [Primary Care Provider] - Mika Henley PA-C [Physician] - (RAD) Jaimie Morales MD [Physician] - (2 weeks) Diet/Activity/Treatments Diet: Diet as Tolerated Activity: Weight-bearing as tolerated, anterior hip precautions Cold/Heat Therapy: Apply ice to hip as needed Other treatments: Per Dr. Cobos 04/09/22: Atrial fibrillation with RVR in the setting of paced Currently takes atenolol 50 mg p.o. b.i.d. and 1 consider switching over to metoprolol 50 mg p.o. b.i.d. for better rate control She is written for flecainide 150 mg p.o. b.i.d. however she may only wish to take 100 mg in the morning Recommend follow-up with her grain grader when she is discharged Skin/Wound/Dressing Care Report to your healthcare provider any signs of infection, such as:: chills, fe sarah, increased pain, unusual drainage and unusual redness Dressing: Keep dressing clean and dry Visit Report/Discharge Packet Instructions: DI for Hip Replacement Stand Alone Forms: Surgery Discharge Discharge Data Primary Care Provider: Kelton George Attending Provider: Jaimie Morales
[2022-04-10] MEDS: DOCUSATE 100 MG CAPSULE PO (08:23)
[2022-04-10] MEDS: MULTIVITAMIN 1 TABLET 1 TAB PO (08:23)
[2022-04-10] MEDS: FISH OIL 1,000 MG CAPSULE 1000 MG PO (08:23)
[2022-04-10] MEDS: OXYCODONE IR 5 MG TABLET PO (08:23)
[2022-04-10] MEDS: polyethylene glycoL 3350 17 GM POWD.PACK PO (08:23)
[2022-04-10] MEDS: FLECAINIDE 100 MG TABLET 150 MG PO (08:26)
--- NOTE | 2022-04-10 08:48 | CM.DANOTE ---
Patient is a 76 yo female who was admitted on 04/09/22 for RTHA. Pt has [facility] for insurance and her PCP is Dr. Kelton George. EMR was reviewed. Per Ortho , pt tolerated procedure well and to work with PT. Per Ortho SIN, pt medically stable to d/c home later this morning and no identified barriers to discharge. Per PT, recommending safe d/c home with spouse assist and outpt PT and CG training set up for 0900 this morning with spouse prior to discharge today. Pt resides with spouse in [place] and is active and independent at baseline and DPOA is her supportive spouse Javier who plans to provide assist at d/c. Pt has been established with outpt PT and is comfortable with resuming these services after discharge. Pt and spouse do not anticipate any needs at d/c. Plan: Patient to d/c home today via spouse POV after final CG training at 0900 and outpt f/u with [facility]. DIOGENES Jimenez Discharge Planning/Care Management CM Discharge Assessment Start: 04/10/22 08:46 Freq: Status: Active Protocol: Document 04/10/22 08:47 BF (Rec: 04/10/22 08:48 BF [id number]) Discharge Planning Assessment Assigned Toe Laster DIOGENES Pfeiffer DPOA/Assigned Designee Name Spouse Javier Contact Information [phone] Advance Directives? Yes Advance Directives on File Yes History Provided By Patient,Medical Record Has Patient been admitted in last 30 No days? Prior Living Arrangements House Household Members spouse Type of transporation used prior to Drives own vehicle admit Independent with ADL's Yes Is patient alert and oriented? Yes Caregiver for Another No Community Services used prior to Physical Therapy admission: DME Already Rented / Owned FWW / Walker,Cane Patient/Family Preference OP PT Therapy Barriers to Discharge No Discharge Plan Home Community Services Physical Therapy Transportation Arrangement Spouse will be bedside at 0900 for CG training and transport Referrals Initiated None needed Review Status In Process Please Provide Date Initial DC 04/10/22 Assessment Was Performed Next Review Type Continued Stay Review Pre-Anesthesia Assessment Start: 04/01/22 08:27 Freq: Status: Active Protocol: Document 04/03/22 07:24 CAB (Rec: 04/01/22 09:45 CAB [id number]) Pre-Anesthesia Assessment Patient Information Reviewed Via Phone Assessment Assessment Completed With Patient Comment Labs/ECG @ [facility], COVID screen @ [facility] 04/08/22 Primary Care Provider Kelton George Medical Clearance Received Yes Seen Specialist in Last 12 Months Yes Specialist Seen Front Desk Host,Program Proposals Coordinator, Orthopedist Primary Language [place] Chin Strap Cutter Required No Height 182.88 cm Weight 82.1 kg Body Mass Index (BMI) 24.5 Hearing Ability Normal Visual Assist Glasses Dentition Type Teeth, Natural Present,Teeth, Missing Barriers to Learning None Hx Anesthesia Reactions Yes: General anesthesia makes me nauseous, nothing serious Hx Family Anesthesia Reaction No Hx Malignant Hyperthermia No Hx Blood Transfusions No Hx Blood Transfusion Reaction No Anesthesia Review Requested Yes: Surgeon requested re: Cardiac History Technical Sales Representative No alcohol intake current alcohol intake frequency holidays/special occasions only Smoking Status Former smoker Tobacco type cigarettes how long ago did patient quit smoking Quir 1962 Substance Use Type does not use Pain Present Pain Reported Musculoskeletal Symptoms Abnormal Gait,Back Pain, Difficulty Walking,Joint Pain History of Falling (Recent or History of Yes ) Patient is completely paralyzed or No completely immobile Mental Status Oriented to own ability Is patient on oxygen? No Does patient have CHRISTY/SOB No Hx Sleep Apnea No CPAP/BIPAP use not prescribed Currently Taking a Beta Rupesh Yes: Atenolol Can You Climb a Flight of Stairs Without No SOB Hx Chest Pain No Hx SOB No Hx Syncope or Dizziness No Anti-Coagulant Therapy Yes: Warfarin-pt advised to hold 5 days prior per Jennifer/[facility]IN sahu/Dr. Morales Has a Front Desk Host Yes Front Desk Host name Dr. Ochoa Cardiac Testing No Hx Pacemaker/ICD Yes Pacemaker Rep Required? No: Pacemaker form scanned and placed in surgery folder for dos Diet Type At Home Regular dysphagia No Urinary Catheter Present No Hx Urinary Self Catheterization No Diabetes No HgbA1C 5.5 Date 03/08/22 Patient No Lactating No Hx Drug Resistant Organism No Presence of External or Internal Medical Yes: pacemaker, total knee x 2 Devices Have you had any close contact with No someone diagnosed with COVID-19? Received a COVID vaccine? Yes: booster x 1 Received all doses? Yes Marital Status Lives With spouse Prior Living Arrangements House Number of Floors (Floors) 3 or More Floors Support System Spouse Does the Patient Have Assistance After Yes Surgery Patient Discharge Plan Description Return Home Comment Pt advised possible same day length of stay per surgeon office Feels Safe in Current Environment Yes Been Physically Hurt or Threatened By a No Person in Current Environment Do you have thoughts of harming yourself None or others? Are you currently considering suicide? No Do you have a plan to hurt yourself or No Plan others? Do You Have Any Spiritual Beliefs That No May Affect Your HC Choices? Do You Have Any Cultural Practices That No May Affect Your HC Choices? Who Can We Speak to About Patient's Care Family, friends Identifying Code for Release of Patient Declines to issue Information Health Care Proxy/Next of Kin Javier () Health Care Proxy Emergency Contact Name Javier () Emergency Contact Advance Directives? Yes Advance Directives on File Yes Power of Steel Tester Yes Power of Steel Tester Name Javier Rodríguez Power of Steel Tester PAC Instructions Do not shave/clip surgical site,Durable medical equipment ,Medications to take/avoid, Nasal antibiotic,No ETOH/ petroleum product on skin DOS, NPO,Post-op transportation,Pre -surgical wash,Sensory aids, Sturdy shoes/comfortable clothes,Do not bring valuables and remove jewelry
--- NOTE | 2022-04-10 09:36 | PT.IPTN ---
Current Diagnoses Unilateral primary osteoarthritis, right hip (04/09/22) Surgery Performed Operation Date: 04/09/22 07:45 Actual Procedures p Total Hip Arthroplasty/Anterior Approach(Right) - Jaimie Morales MD Physical Therapy Treatment Note M2 PT-IP Current Condition Start: 04/09/22 15:19 Freq: NEEDED Status: Discharge Protocol: Document 04/09/22 14:10 AB (Rec: 04/09/22 15:31 AB [id number]) Physical Therapy Current Condition Current Condition Evaluation Date 04/09/22 Treatment Diagnosis s/p R TATUM anterior approach; difficulty in walking Onset Date 04/09/22 M3 PT-IP Subjective Start: 04/09/22 15:19 Freq: NEEDED Status: Discharge Protocol: Document 04/10/22 09:03 KS (Rec: 04/10/22 11:43 KS [id number]) Subjective Physical Therapy Visit Type Type Treatment Note Visit Start Time 09:03 Visit Stop Time 09:36 Total Visit Minutes 33 Notes Pts present Number of UTILITY SYSTEM OPERATOR Visits 1 Physical Therapy Visit Comments Patient Comments agreeable to do PT Therapy Pain Assessment Pain When Pain Assessed During Mobility Pain Present Pain Present Pain Reported Location Right Hip Scale Used not quantified Pain Management Techniques Re-positioning,Timing of Activity with Medications M4 PT-IP Mobility and Gait Start: 04/09/22 15:19 Freq: NEEDED Status: Discharge Protocol: Document 04/10/22 09:03 KS (Rec: 04/10/22 11:43 KS [id number]) PT-Bed Mobility Assessment Supine to Sit Supine to Sit Standby Assistance Scooting Scooting to Edge of Bed Standby Assistance PT-Transfer Assessment Sit to and From Stand Sit to and from Stand Contact Guard Assistance,1 Person Assistance,Use of Upper Extremities Equipment Transfer Assistive Device Gait Belt,Front Wheeled Walker Orthotic/Prosthetic Devices or Brace: No Transfers Transfer Destination Bed Transfer Technique Stand Step Pivot Transfer Ability Level of Assist Contact Guard Assistance Comments Mobility Comments Pt in bed upon arrival and BP 123/65. SBA for sup<>sit and scooting EOB. Pts BP 126/69 sitting EOB. CGA for sit<> stand w/ FWW (demonstrated gait belt application to pts ). Pts JENIFFER 116/54, asymptomatic. Pt ambulated ~40 ft in room and then completed 2x platform steps w/ FWW CGA and cues for sequencing, she then ambulated additional 30 ft and remained standing for additional BP reading which was 108/43. Pt denied symptoms of low BP, left in bed w/ all needs in reach. RN aware of decreased BP. Gait Assessment Gait Gait Assistance Required: Standby Assistance,1 Person Assist Distance (Feet) 40 Able to Maintain Weight Bearing Status Yes During Gait Assistive Devices Assistive Device Gait Belt,Front Wheeled Walker Orthotic/Prosthetic Devices or Brace: No Gait Deviations General Gait Pattern Antalgic,Decreased Stride Length,Decreased Feet Clearance Factors Limiting Gait Function Factors Limiting Gait Function Decreased Activity Tolerance, Decreased Strength,Limited Range of Motion,Pain,Poor Balance,Poor Safety Awareness Comments Gait Comments Good use of FWW and able to maintain hip precautions. Stair Climbing Assessment Evaluation Level of Assist On Stairs Contact Guard Assistance,1 Person Assistance Devices Stair Climbing Assistive Devices Front Wheel Walker Technique/Endurance Stair Climbing Direction Ascend and Descend Stair Climbing Technique Step to Step Number of Steps Climbed 1 Stair Climbing Set # Repetitions (reps) 2 Comments Stair Climbing Comments Pt able to ascend/descend platform step w/ FWW CGA w/ cues for sequencing w/ step to pattern. Pt confirms she feels safe to perform at home. PT-Balance Assessment Sitting Balance and Reactions Static Sitting Balance Ability Good Dynamic Sitting Balance Ability Good Standing Balance and Reactions Static Standing Balance Ability Good Dynamic Standing Balance Ability Fair Device Used FWW M5 PT-IP Objective Assessments Start: 04/09/22 15:19 Freq: NEEDED Status: Discharge Protocol: Document 04/09/22 14:10 AB (Rec: 04/09/22 15:31 AB [id number]) Orientation Orientation/Cognition Level of Alertness Alert Orientation Name,Place,Situation Safety Awareness Decreased Safety Awareness Memory Description Short Term Impaired Gross Range of Motion Lower Extremity ROM Assessment Within Functional Limits Strength Lower Extremity Strength Assessment Right Impaired Hip 3-/5 Knee 4-/5 Sensation Assessment Sensation Gross Sensation Right LE Impaired Sensation Description Numbness Comments Sensation Comments numbness on buttocks Muscle Tone Muscle Tone WNL Yes M6 PT-IP Treatment Start: 04/09/22 15:19 Freq: NEEDED Status: Discharge Protocol: Document 04/10/22 09:03 KS (Rec: 04/10/22 11:43 KS [id number]) Physical Therapy Treatment Education Education Provided Precautions,Weight Bearing Status,Post-Op Packet,Safety M7 PT-IP Assessment and Plan Start: 04/09/22 15:19 Freq: NEEDED Status: Discharge Protocol: Document 04/10/22 09:03 KS (Rec: 04/10/22 11:43 KS [id number]) PT Summary Assessment and Plan Potential Rehabilitation Potential Good Summary Impairments Pain,ROM,Strength,Balance, Coordination,Sensation,Tone, Cognition,Bed Mobility, Transfers,Gait,Activity Tolerance Assessment Summary Pt SBA to CGA throughout treatment today. Able to perform bed mobility, transfers, ambulation, and stair training w/ FWW. Feels safe and capable of going home w/ assisting. BP still low, but pt asymptomatic , RN aware. Pt will benefit from OPPT to improve strength and stability. Goals Bed Mobility Goal Independent Transfer Goal Independent,Front Wheeled Walker Gait Goal Independent,Front Wheel Walker Gait Distance 250 Other Goals up/down 2 platform steps using FWW SBA Days to Meet Goals 5 Frequency of Treatment Frequency Of Treatment Twice a Day Treatment Plan Physical Therapy Treatment Plan Bed Mobility Training,Transfer Training,Gait Training, Therapeutic Exercise,Balance Retraining,Post Op Education, Discharge Planning,Hot or Cold Pack,Neuromuscular Re-ed, Coordination Retraining,Manual Therapy Precautions Anterior Hip Precautions No Hip Extension,No Hip External Rotation Weight Bearing Status Weight Bearing Status Weight Bear as Tolerated Allowed Weight Bearing Amount (enter % RLE WBAT or #) (%) Recommendations To Nursing Amount of Assist Needed 1 Person Assist Discharge Recommendations PT Discharge Recommendations Home with Assistance, Outpatient PT Transportation Needs at Discharge Private Vehicle
== END 2022-04-10 10:45 | disposition home or self-care (01) ==
LOC: OR 06:24 → AC 06:25
PROVIDERS: Anesthesiology; Nurse Practitioner Family; Family Provider Student in an Organized Health Care Education/Training Program; PCP Student in an Organized Health Care Education/Training Program; Referring Provider Orthopaedic Surgery; Visit Provider Orthopaedic Surgery
PROC: (CPT 27130; principal; 2022-04-09 07:45)
DX: M16.11 Unilateral primary osteoarthritis, right hip (principal); R00.0 Tachycardia, unspecified; I48.91 Unspecified atrial fibrillation; I10 Essential (primary) hypertension; E78.5 Hyperlipidemia, unspecified; Z95.0 Presence of cardiac pacemaker; Z79.01 Long term (current) use of anticoagulants
CPT/HCPCS: 27130; 36415; 73502; 76000; 80048; 83735; 85025; 85610; 93005; 93010; 97116; 97162; 97530; C1776; A9270; C9290; J0171; J0690; J1100; J2250; J2405; J2704; J3010

== ENCOUNTER → 2022-05-25 09:54 | Outpatient (CLI) | payer OTHER, SELFPAY ==
[2022-04-09 13:18] VITALS: BMI 24.5
[2022-05-25 11:15] LABS: Appearance Urine UA CLOUDY; Bilirubin Urine UA NEGATIVE (NEGATIVE); Color Urine UA YELLOW; Glucose Urine UA NEGATIVE (Negative); Ketones Urine UA NEGATIVE (NEGATIVE); Leukocyte Esterase Urine UA 2+ (NEGATIVE); Nitrite Urine UA POSITIVE (Negative); Occult Blood Urine UA 1+ (Negative); Protein Urine UA 1+ (Negative); Specific Gravity Urine UA 1.015 (1.000-1.035); Urobilinogen Urine UA 0.2 E.U./dL (0.2)
[2022-05-25 11:17] LABS: pH Urine UA 7.5 (4.5-8.0)
[2022-05-25 11:22] LABS: Bacteria Urine Many (>30); Culture Indicated Urine Specimen Cultured; RBC Urine 0-1/HPF (0-5/HPF); WBC Urine 30-100/HPF (0-5/HPF)
== END ==
PROVIDERS: Family Provider Student in an Organized Health Care Education/Training Program; PCP Student in an Organized Health Care Education/Training Program; Referring Provider Student in an Organized Health Care Education/Training Program; Visit Provider Student in an Organized Health Care Education/Training Program
DX: R30.0 Dysuria (principal)
CPT/HCPCS: 81001; 87077; 87086; 87186

== ENCOUNTER 2022-06-28 11:15 | Outpatient (RCR) | payer OTHER, SELFPAY ==
--- NOTE | 2022-03-29 18:38 | PT.OIE ---
Current Diagnoses Unilateral primary osteoarthritis, right hip (03/29/22) Past Medical History (Last Reviewed 10/31/21 @ 06:52 by Vesta Weinberg RN) Anesthesia complication Anticoagulated on warfarin Arthritis Atrial fibrillation COVID-19 (04/09/21) Easy bruisability Former smoker HTN (hypertension) Hyperlipidemia Hypothyroidism Pacemaker Past Surgical History (Last Reviewed 10/31/21 @ 06:52 by Vesta Weinberg RN) History of hysterectomy (1975) History of knee replacement History of surgery (1975) History of surgery (~1997) Hx of oophorectomy (2003) S/P ablation of atrial fibrillation Visit Care Team Role Provider Type Jennifer Braun PA-C Advanced Airport Operations Manager Specialty: Orthopedics Orthopedic Surgery Address: [address] [place] [address], [id number] Email: [email or web address] Kelton George MD Family Provider Physician Primary Care Provider Specialty: Internal Medicine Address: [address] [place] [address], [address], [place], [facility] Email: [email or web address] Jaimie Morales MD Attending Provider Physician Referring Provider Specialty: Orthopedics Orthopedic Surgery Address: [address] [place] [address], [id number] Email: [email or web address] Physical Therapy Initial Evaluation PT-OP-A Visit Information Start: 03/28/22 20:58 Freq: Status: Active Protocol: Document 03/29/22 09:46 LRN (Rec: 03/29/22 13:45 LRN [id number]) Out-Patient Physical Therapy Visit Information Visit Information Visit Type Initial Evaluation Visit Start Time 09:46 Visit Stop Time 10:28 Total Visit Minutes 42 Visit Number 1 Evaluation Information Evaluation Date 03/29/22 Precautions Precautions R anterior TATUM surgery-04/09/22 . 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 PT-OP-B Current Condition Start: 03/28/22 20:58 Freq: Status: Active Protocol: Document 03/29/22 09:46 LRN (Rec: 03/29/22 13:45 LRN [id number]) Current Condition History of Current Condition Onset Date 2 yrs ago Current Complaints R sided anterior hip/groin pain, sometimes on side & side w/standing. LBP History of Current Condition R hip pain has progressively worsened. Did PT last year and started using Meloxicam, went off Meloxicam and pain worsened. Pt did not bring her surgery packet of handouts from the referring physician' s office. Pt is scheduled to have an anterior R TATUM surgery 04/09/22. Gets into bed on L side. Prior Treatments and Tests Physical therapy in 2020 for R hip pain. Future Testing and Treatments Planned R Anterior TATUM surgery - @ . Treatment Goals Patient/Caregiver Goals Pt goal today prepare for surgery. Post surgery: walk without an aid with a normal gait, get in/out of car with mild pain ( 2/10), pt able to tolerate stationary ex bike activity. Learn postiions of comfort in bed. Prior Functional Status Baseline Function- ADL's Independent Baseline Function- Mobility Independent Baseline Function- Gait Independent gait without AD with a limp, excessive trunk sway. Baseline Function- Other Lives w/spouse who is able to help her. Sleeps in bed and turns in bed . Current Functional Impairments (Reported) Functional Limitations- ADL's R hip pain with gait. Personal Factors Other Personal Factors That May Effect Pt is 6' tall. Therapy/Recovery PT-OP-C Subjective Start: 03/28/22 20:58 Freq: Status: Active Protocol: Document 03/29/22 09:46 LRN (Rec: 03/29/22 13:45 LRN [id number]) Patient Questionnaires Lower Extremity Functional Scale LEFS Score 39 LEFS Impairment 40 to 59% Impaired (Score 32- 47) OP-PT Pain Assessment Pain Assessment Grid Paper Pain Assessment Grid Completed Yes Location Low back Pain Location Details Low back Intensity 3 Scale Used Numeric (0 - 10) Description Aching Description- Other On waking in morning usually Other Pain Aggravating Factors Standing too long Pain Alleviating Factors Medication Other Pain Alleviating Factors Med 1x/week R lateral Pain Location Details R lateral hip Intensity 4 Scale Used Numeric (0 - 10) Description Aching Description- Other Pain with walking or standing too long. Frequency Occasional Pain Aggravating Factors Activity Pain Alleviating Factors Medication Other Pain Alleviating Factors Med 1x/week R anterior hip Pain Location Details Anterior R hip/groin pain Intensity 4 Scale Used Numeric (0 - 10) Description Sharp,Shooting Description- Other Aches constant, sharp/shooting when turning or moving wrong. Frequency Constant Pain Alleviating Factors Medication Other Pain Alleviating Factors Med 1x/week PT-OP-G Mobility & Gait Start: 03/28/22 20:58 Freq: Status: Active Protocol: Document 03/29/22 09:46 LRN (Rec: 03/29/22 17:31 LRN [id number]) OP Mobility Evaluation Bed Mobility Rolling Independent Supine to and from Sit Independent Transfers Sit to Stand Independent OP Gait Assessment Gait Gait Assistance Required: Independent Distance (Feet) 50 Able to Maintain Weight Bearing Status Yes During Gait Assistive Devices Assistive Device None Gait Deviations General Gait Pattern Lateral Trunk Lean Factors Limiting Gait Function Factors Limiting Gait Function Pain Comments Gait Comments Pt brings in her seated FWW for fit, but did not require use of walker to ambulate. Pt 's FWW was not able to be adjusted for her height (too short). PT-OP-J Posture/Palpation/Skin Start: 03/28/22 20:58 Freq: Status: Active Protocol: Document 03/29/22 09:46 LRN (Rec: 03/29/22 13:45 LRN [id number]) Posture Evaluation Position Standing Head/C-Spine Posture Forward Head Shoulder Posture Neutral Arm Posture (L) Neutral,(R) Neutral Pelvis Posture Anteriorly Tilted Weight Distribution Balanced Hip Posture (L) Flexed,(R) Flexed PT-OP-K Range of Motion Start: 03/28/22 20:58 Freq: Status: Active Protocol: Document 03/29/22 09:46 LRN (Rec: 03/29/22 13:45 LRN [id number]) Hip Goniometric Range of Motion Hip Right Passive Hip ROM WFL No Testing Position Supine Flexion w/Knee Flexed 108 Straight Leg Raise 115 Abduction 18 Internal Rotation 15 External Rotation 30 Left Passive Testing Position Supine Flexion w/Knee Flexed 120 Straight Leg Raise 100 Abduction 25 Internal Rotation 10 External Rotation 60 PT-OP-M Strength Start: 03/28/22 20:58 Freq: Status: Active Protocol: Document 03/29/22 09:46 LRN (Rec: 03/29/22 13:45 LRN [id number]) Hip Strength Hip Manual Muscle Testing Right Flexion (L2) 1 Trace Abduction 2 Poor Left Flexion (L2) 2+ Poor+ Abduction 3+ Fair+ Knee Strength Knee Manual Muscle Testing Right Comments Generally 5/5 Left Comments Generally 5/5 PT-OP-Q Treatments Start: 03/28/22 20:58 Freq: Status: Active Protocol: Document 03/29/22 09:46 LRN (Rec: 03/29/22 13:45 LRN [id number]) Therapeutic Exercises Supine Exercises Sup<>Sit Supine Exercise Name Reviewed Sup<>Sit transfer from either direction, focus on precautions Heel slides Supine Exercise Name Heel slides - verbal review for HEP Side right Reps/Minutes performed throughout therapy QS/GS Supine Exercise Name Verbal Review of QS/GS for HEP Side right Ankle pumps Supine Exercise Name Ankle pump Side right Bridge' Supine Exercise Name Bridge Reps/Minutes x2 Hip AB Supine Exercise Name Active hip AB Side bilateral Reps/Minutes 2-5x Assitsted SLR Supine Exercise Name Assisted SLR Side right Equipment Used GB around R foot Reps/Minutes 2x Gait Training Gait Activity Stairs Description Verbal review of proper gait pattern on stairs post-op. Device Used Railing Treatment Focus RLE post-op Comments Post-op appropriate gait mechanics education for stair ambulation. Pt able to recall proper mechanics for stair ambulation (up with non-op side, down with op side) Gait with FWW Description Gait training w/FWW Device Used FWW Treatment Focus Posture Comments Pt was instructed to obtain a regular tall FWW that could be adjusted for proper height and more appropriate for gait training. Pt educated in proper set up for ambulatory assistive devices with I/S to adjust handle hgt to hip level vs wrist level. Post-op education of appropriate gait mechanics for level surfaces. Self-Care/Home Management Treatment Education Patient Education Joint Protection Other Education Educated & discussed anterior TATUM precautions, appropriate post-op transfers, pre-op strengthening exercises and handouts for post-op ex's and self care issued. PT-OP-T Assessment and Plan Start: 03/28/22 20:58 Freq: Status: Active Protocol: Document 03/29/22 09:46 LRN (Rec: 03/29/22 13:45 LRN [id number]) Physical Therapy Assessment Rehab Potential Rehabilitation Potential Good Evaluation Complexity Number of Personal Factors/Comorbidities 1-2 Number of Body Systems Impaired 4 or More Clinical Presentation at Evaluation Stable Impairments Impairments Activity Tolerance,Functional Mobility,Gait,Pain,ROM, Strength Goals Four Impairment Lacks appropriate self care HEP. Short Term Goal (STG) Pt will be educated with review of TATUM precautions and learn positions of comfort in bed. STG Duration 05/15/22 [employer] Goal (LTG) Pt will be independent with a self care HEP to progress R hip strengthening and functional ROM. LTG Duration 06/27/22 Three Impairment Decreased R hip strength and function Impairment R hip strength: Flex 1/5, AB 2/5; L hip strength: Flex 2+ /5, AB 3+/5. LEFS score 39, 40-59% impaired (score 32-47) Short Term Goal (STG) Pt will be able to walk without an assistive aid and a normal gait STG Duration 05/15/22 Custodial Goal (LTG) Pt will be able to tolerate stationary ex bike activity and improve function per LEFS score 63-79 (1-19% impaired). LTG Duration 06/27/22 Two Impairment Decreased R hip mobility Impairment Supine R hip PROM (in degs): Flex 108, AB 18, IR 15, ER 30 Supine L hip PROM (in deg's): Flex 120, AB 25, IR 10, ER 60 Short Term Goal (STG) Pt will be able to move independently in/out of bed. STG Duration 05/15/22 [employer] Goal (LTG) Pt will be able to get in/out of car with mild pain (2/10). LTG Duration 06/27/22 One Impairment Pt lacks knowledge of pre- and post-op R anterior TATUM care Short Term Goal (STG) Pt will be educated in anterior TATUM precautions, appropriate post-op transfers, proper set up for ambulatory assistive device, appropriate gait on level and stairs, pre- op strengthening exercises and handouts for post-op ex's and self care. 03/29/22: Pt educated in all areas as indicated above. STG Duration 03/29/22: MET GOAL. Assessment Summary Assessment Pt presents for a pre-op assessment for her R anterior TATUM surgery scheduled for 04/09; and training for post-op care. Pt comes without her care packet; therefore most of pt appointment was spent on pt education and training for post-op care. Pt did demonstrate the ability to ambulate independently with increase trunk sway and was independent in functional mobility for transfers. The pt was very receptive to information and training given . The FWW that she brought in for adjustment was not appropriate for her height; therefore the pt was instructed to obtain a simple FWW for tall height individuals. She was I/S in pre-op strengthening ex's and appeared to have a good understanding of post-op mvmt precautions and exercise. The pt demonstrated limited R hip mobility and very limited strength in her hips (R>L). Pt would greatly benefit from continued skilled outpatient PT upon d/c home with from hospital when deemed safe. Physical Therapy Plan Frequency and Duration Frequency of Treatment 2x/Week Plan of Care Start Date 03/29/22 Plan of Care End Date 06/27/22 Therapeutic Interventions Therapeutic Interventions Gait Training,Home Exercise Program,Manual Therapy, Neuromuscular Re-education, Patient/Caregiver Education, Self-Care/Home Management,Soft Tissue Mobilization,Taping, Therapeutic Activities, Therapeutic Exercises Modalities Cold Pack/Ice Massage,Electric Stimulation,Hot Packs Next Visit Focus/Plan Next Note Type Treatment Note Next Visit Plan R anterior TATUM rehabilitation. Pt to be Re-Evaluated post-op R anterior TATUM, and goals modified as needed.
--- NOTE | 2022-03-29 18:38 | PT.OPPOC ---
Physical, Occupational & Speech Therapy At [facility] Current Diagnoses Unilateral primary osteoarthritis, right hip (03/29/22) Visit Care Team Role Provider Type Jennifer Braun PA-C Advanced Heavy Equipment Technician Specialty: Orthopedics Orthopedic Surgery Address: [address] [place] [address], [address] Email: [email or web address] Kelton George MD Family Provider Physician Primary Care Provider Specialty: Internal Medicine Address: [address] [place] [address], [address], [place], [address] Email: [email or web address] Jaimie Morales MD Attending Provider Physician Referring Provider Specialty: Orthopedics Orthopedic Surgery Address: [address] [place] [address], [address] Email: [email or web address] Plan Of Care PT-OP-T Assessment and Plan Start: 03/28/22 20:58 Freq: Status: Active Protocol: Document 03/29/22 09:46 LRN (Rec: 03/29/22 13:45 LRN [id number]) Physical Therapy Assessment Rehab Potential Rehabilitation Potential Good Evaluation Complexity Number of Personal Factors/Comorbidities 1-2 Number of Body Systems Impaired 4 or More Clinical Presentation at Evaluation Stable Impairments Impairments Activity Tolerance,Functional Mobility,Gait,Pain,ROM, Strength Goals Four Impairment Lacks appropriate self care HEP. Short Term Goal (STG) Pt will be educated with review of TATUM precautions and learn positions of comfort in bed. STG Duration 05/15/22 [employer]urling Machine Operator Goal (LTG) Pt will be independent with a self care HEP to progress R hip strengthening and functional ROM. LTG Duration 06/27/22 Three Impairment Decreased R hip strength and function Impairment R hip strength: Flex 1/5, AB 2/5; L hip strength: Flex 2+ /5, AB 3+/5. LEFS score 39, 40-59% impaired (score 32-47) Short Term Goal (STG) Pt will be able to walk without an assistive aid and a normal gait STG Duration 05/15/22 Knurling Machine Operator Goal (LTG) Pt will be able to tolerate stationary ex bike activity and improve function per LEFS score 63-79 (1-19% impaired). LTG Duration 06/27/22 Two Impairment Decreased R hip mobility Impairment Supine R hip PROM (in degs): Flex 108, AB 18, IR 15, ER 30 Supine L hip PROM (in deg's): Flex 120, AB 25, IR 10, ER 60 Short Term Goal (STG) Pt will be able to move independently in/out of bed. STG Duration 05/15/22 Knurling Machine Operator Goal (LTG) Pt will be able to get in/out of car with mild pain (2/10). LTG Duration 06/27/22 One Impairment Pt lacks knowledge of pre- and post-op R anterior TATUM care Short Term Goal (STG) Pt will be educated in anterior TATUM precautions, appropriate post-op transfers, proper set up for ambulatory assistive device, appropriate gait on level and stairs, pre- op strengthening exercises and handouts for post-op ex's and self care. 03/29/22: Pt educated in all areas as indicated above. STG Duration 03/29/22: MET GOAL. Assessment Summary Assessment Pt presents for a pre-op assessment for her R anterior TATUM surgery scheduled for 04/09; and training for post-op care. Pt comes without her care packet; therefore most of pt appointment was spent on pt education and training for post-op care. Pt did demonstrate the ability to ambulate independently with increase trunk sway and was independent in functional mobility for transfers. The pt was very receptive to information and training given . The FWW that she brought in for adjustment was not appropriate for her height; therefore the pt was instructed to obtain a simple FWW for tall height individuals. She was I/S in pre-op strengthening ex's and appeared to have a good understanding of post-op mvmt precautions and exercise. The pt demonstrated limited R hip mobility and very limited strength in her hips (R>L). Pt would greatly benefit from continued skilled outpatient PT upon d/c home with from hospital when deemed safe. Physical Therapy Plan Frequency and Duration Frequency of Treatment 2x/Week Plan of Care Start Date 03/29/22 Plan of Care End Date 06/27/22 Therapeutic Interventions Therapeutic Interventions Gait Training,Home Exercise Program,Manual Therapy, Neuromuscular Re-education, Patient/Caregiver Education, Self-Care/Home Management,Soft Tissue Mobilization,Taping, Therapeutic Activities, Therapeutic Exercises Modalities Cold Pack/Ice Massage,Electric Stimulation,Hot Packs Next Visit Focus/Plan Next Note Type Treatment Note Next Visit Plan R anterior TATUM rehabilitation. Pt to be Re-Evaluated post-op R anterior TATUM, and goals modified as needed. Plan of Care Dates Plan of Care Start Date 03/29/22 Plan of Care End Date 06/27/22 Electronically Signed by: Thelma Pelletier, PT 03/29/22 3085 If you are in agreement with this Plan of Care, please return a signed and dated copy. I have reviewed this Plan of Care and certify that the skilled therapy services above are required to meet the patient?s needs. Physician Signature Date Printed Name and Credentials Clinical Instructor Signature Printed Name and Credentials
--- NOTE | 2022-04-25 11:18 | PT.OTN ---
Current Diagnoses Unilateral primary osteoarthritis, right hip (04/25/22) Muscle weakness (generalized) (04/25/22) Unsteadiness on feet (04/25/22) Other abnormalities of gait and mobility (04/25/22) Physical Therapy Treatment Note PT-OP-A Visit Information Start: 03/28/22 20:58 Freq: Status: Active Protocol: Document 04/25/22 10:37 SP (Rec: 04/25/22 11:33 SP [id number]) Out-Patient Physical Therapy Visit Information Visit Information Visit Type Treatment Note Visit Start Time 10:37 Visit Stop Time 11:18 Total Visit Minutes 41 Visit Number 3 Number of CORPORATE TRAVEL COUNSELOR Visits 1 Evaluation Information Evaluation Date 03/29/22 Precautions Precautions R anterior TATUM surgery-04/09/22 . 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 PT-OP-B Current Condition Start: 03/28/22 20:58 Freq: Status: Active Protocol: Document 04/22/22 13:51 LRN (Rec: 04/22/22 17:04 LRN [id number]) Current Condition History of Current Condition Onset Date 04/09/22 Current Complaints R hip pain s/p R anterior TATUM History of Current Condition Pt is 13 days S/P R Anterior TATUM. She reports spending one night in the hospital due to A. Fib and arrythmia problems. States she has had no cardiac problems since discharge to home. She has had occasional burning pain in the anterior quad and pain in lateral RLE that has mostly gone away (1-2x/day). States she saw the physician bilingual medical assistant 4 days ago and was told she had 2 precautions, not to hyperextend R leg and No falling. The pt attends with s/p packet with anterior TATUM precautions (no hip ext, AB, ER) and exercises. Prior Treatments and Tests Physical therapy in 2020 for R hip pain. Treatment Goals Patient/Caregiver Goals Post surgery goals: walk without an aid with a normal gait, get in/out of car with mild pain (2/10), pt able to tolerate stationary ex bike activity, learn positions of comfort in bed, be able to ambulate stairs in her home with use of railing. Prior Functional Status Baseline Function- ADL's Independent Baseline Function- Mobility Independent Baseline Function- Gait Independent gait without AD with a limp, excessive trunk sway. Baseline Function- Other Lives w/spouse who is able to help her. Sleeps in bed and turns in bed . Current Functional Impairments (Reported) Functional Limitations- ADL's R hip pain with gait, requires FWW. Functional Limitations- Mobility/Gait Step to gait Functional Limitations- Other Spouse assists when pt needs help. Personal Factors Other Personal Factors That May Effect Pt is 6' tall. Therapy/Recovery PT-OP-C Subjective Start: 03/28/22 20:58 Freq: Status: Active Protocol: Document 04/25/22 10:37 SP (Rec: 04/25/22 11:33 SP [id number]) OP-PT Subjective Patient Comments Patient Comments Pt reports is doing well with, not needing oxycodone. Compliant with post-op HEP. She performs her HEP 2x/day and only taking ibuprofen. PT-OP-G Mobility & Gait Start: 03/28/22 20:58 Freq: Status: Active Protocol: Document 04/22/22 13:51 LRN (Rec: 04/22/22 14:44 LRN [id number]) OP Mobility Evaluation Bed Mobility Supine to and from Sit Independent with use of strap OP Gait Assessment Gait Gait Assistance Required: Independent Distance (Feet) 100 Able to Maintain Weight Bearing Status Yes During Gait Assistive Devices Assistive Device Front Wheeled Walker Gait Deviations General Gait Pattern Antalgic,Step-to Gait Factors Limiting Gait Function Factors Limiting Gait Function Decreased Strength,Limited Range of Motion,Pain,Poor Balance Stair Climbing Evaluation Comments Stair Climbing Comments 2 steps in/out of house ( landing area at each step). Stairs inside home that she doesn't use. Lift chair going up stairs. Pt reports correct manner of going up/down stairs. PT-OP-J Posture/Palpation/Skin Start: 03/28/22 20:58 Freq: Status: Active Protocol: Document 04/22/22 13:51 LRN (Rec: 04/22/22 14:44 LRN [id number]) Palpation Assessment Location R hip Palpation Location R hip Palpation Findings Edema,Tenderness Palpation Details Bandage covering incision that the pt states is to be removed today. PT-OP-K Range of Motion Start: 03/28/22 20:58 Freq: Status: Active Protocol: Document 04/22/22 13:51 LRN (Rec: 04/22/22 14:44 LRN [id number]) Hip Goniometric Range of Motion Hip Left Active Hip ROM WFL Yes Testing Position Supine Flexion w/Knee Flexed 68 Right Active Hip ROM WFL No Testing Position Supine Flexion w/Knee Flexed 52 Knee Goniometric Range of Motion Knee Left Flexion Active (degrees) 132 Extension Active (degrees) 0 Right Flexion Active (degrees) 114 Extension Active (degrees) 0 PT-OP-M Strength Start: 03/28/22 20:58 Freq: Status: Active Protocol: Document 04/22/22 13:51 LRN (Rec: 04/22/22 14:44 LRN [id number]) Hip Strength Hip Manual Muscle Testing Right Flexion (L2) 2- Poor- Abduction 1 Trace Adduction 1 Trace External Rotation 1 Trace Internal Rotation 2- Poor- PT-OP-Q Treatments Start: 03/28/22 20:58 Freq: Status: Active Protocol: Document 04/25/22 10:37 SP (Rec: 04/25/22 11:33 SP [id number]) Therapeutic Exercises Supine Exercises Heel slides Supine Exercise Name Heel slides - good recall without HO Side right Reps/Minutes 10x 2 reps with rest between sets Comments cued slow pacing QS/GS Supine Exercise Name Verbal Review of QS/GS for HEP Side right Reps/Minutes 10 SH x 10 Ankle pumps Supine Exercise Name Ankle ABCs Side right Reps/Minutes 15x 2 Sitting Exercises LAQ Sitting Exercise Name added to HEP Side right Equipment Used mesh chair w/blue cushion Reps/Minutes 1 s pause x10 reps Comments good form, Heel slides Sitting Exercise Name Heel slides Side right Reps/Minutes 10x 3 Standing Exercises heel raises Standing Exercise Name added to HEP Resistance FWW support Reps/Minutes x10 Comments cued equal WB with support BUE on FWW needed for now, good form & painfree september Standing Exercise Name added to HEP Resistance FWW support Reps/Minutes x10 Comments cued equal WB with support BUE on FWW needed for now, good form & painfree Gait Training Gait Activity Gait with FWW Description Gait training w/ AD Device Used FWW Distance/Duration 80 ft w/ FWW, 170 ft with 4WW Treatment Focus Posture, proximity to 4WW Comments occasional cues for proximity to back legs 4WW, improved self corrections and pacing, good no R hip extension. Neuro Re-Education Treatment Balance Activities TUG Details baseline assessment 04/25 Surface carpet w/ FWW Reps/Duration 39 sec Comments good maintaining no R hip extension Self-Care/Home Management Treatment Education Patient Education Home Exercise Program Other Education Good recall to precautions and demonstration during gait fww and 4WW today. added LAQ, standing march and heel raises. PT-OP-T Assessment and Plan Start: 03/28/22 20:58 Freq: Status: Active Protocol: Document 04/25/22 10:37 SP (Rec: 04/25/22 11:33 SP [id number]) Physical Therapy Assessment Goals Five Impairment Decreased ability to ambulate stairs - able to do 2 steps Impairment Ambs 2 steps with walker. Short Term Goal (STG) Pt able to ambulate 4 steps x 2 with use of 2 railings with step to gait. STG Duration 05/21/22 Paper Novelty Maker Goal (LTG) Pt able to ambulate 4 steps x 3 with 1 railing (R side ascending, L side descending) with normal gait. LTG Duration 06/27/22 Four Impairment Lacks appropriate self care HEP. Short Term Goal (STG) Pt will be educated with review of TATUM precautions and learn positions of comfort in bed. 04/22/22: Reviewed TATUM precautions and discussed positions of comfort in bed. Pt is using adjustable bed. STG Duration 05/15/22 (04/22/22: MET GOAL) Paper Novelty Maker Goal (LTG) Pt will be independent with a self care HEP to progress R hip strengthening and functional ROM. 04/25/22: added LAQ, standing march and heel raises. LTG Duration 06/27/22 progressing 04/25/22 Three Impairment Decreased R hip strength and function Impairment R hip strength: Flex 1/5, AB 2/5; L hip strength: Flex 2+ /5, AB 3+/5. LEFS score 39, 40-59% impaired (score 32-47) Short Term Goal (STG) Pt will be able to walk without an assistive aid and a normal gait STG Duration 05/15/22 Shelter Goal (LTG) Pt will be able to tolerate stationary ex bike activity and improve function per LEFS score 63-79 (1-19% impaired). LTG Duration 06/27/22 Two Impairment Decreased R hip mobility Impairment Supine R hip PROM (in degs): Flex 108, AB 18, IR 15, ER 30 Supine L hip PROM (in deg's): Flex 120, AB 25, IR 10, ER 60 Short Term Goal (STG) Pt will be able to move independently in/out of bed. 04/22/22: Pt reports being able to move independently in/ out of bed with use of strap. STG Duration 05/15/22 (04/22/22: MET GOAL) Paper Novelty Maker Goal (LTG) Pt will be able to get in/out of car with mild pain (2/10). LTG Duration 06/27/22 One Impairment Pt lacks knowledge of pre- and post-op R anterior TATUM care Short Term Goal (STG) Pt will be educated in anterior TATUM precautions, appropriate post-op transfers, proper set up for ambulatory assistive device, appropriate gait on level and stairs, pre- op strengthening exercises and handouts for post-op ex's and self care. 03/29/22: Pt educated in all areas as indicated above. STG Duration 03/29/22: MET GOAL. Paper Novelty Maker Goal (LTG) Pt will be able to recall 3/3 R anterior TATUM precautions. 04/25/22: GOAL MET: pt good recall and demonstration to precautions anterior hip: no hip extension or ER. LTG Duration 04/26/22 GOAL MET 04/25/22 Progress Towards Goals Progress Towards Goals Progressing Toward Goals Progress Comments MET LT GOAL #1 recall 2/2 precautions for R anterior hip Assessment Summary Assessment Pt good recall and performance and able increase reps to post op ex 10 reps. Occasional cues proximity to 4WW during gait to allow use at home community was going to start, good maintaining no hip ext RLE. Good response to added LAQ, standing march and heel raises to HEP.
--- NOTE | 2022-04-30 16:47 | PT.OTN ---
Current Diagnoses Unilateral primary osteoarthritis, right hip (04/30/22) Muscle weakness (generalized) (04/30/22) Unsteadiness on feet (04/30/22) Other abnormalities of gait and mobility (04/30/22) Physical Therapy Treatment Note PT-OP-A Visit Information Start: 03/28/22 20:58 Freq: Status: Active Protocol: Document 04/30/22 13:48 LRN (Rec: 04/30/22 14:34 LRN [id number]) Out-Patient Physical Therapy Visit Information Visit Information Visit Type Treatment Note Visit Start Time 13:48 Visit Stop Time 14:28 Total Visit Minutes 40 Visit Number 4 Evaluation Information Evaluation Date 03/29/22 Precautions Precautions R anterior TATUM surgery-04/09/22 (no hip ext, AB, ER). 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 PT-OP-B Current Condition Start: 03/28/22 20:58 Freq: Status: Active Protocol: Document 04/22/22 13:51 LRN (Rec: 04/22/22 17:04 LRN [id number]) Current Condition History of Current Condition Onset Date 04/09/22 Current Complaints R hip pain s/p R anterior TATUM History of Current Condition Pt is 13 days S/P R Anterior TATUM. She reports spending one night in the hospital due to A. Fib and arrythmia problems. States she has had no cardiac problems since discharge to home. She has had occasional burning pain in the anterior quad and pain in lateral RLE that has mostly gone away (1-2x/day). States she saw the physician geriatric nursing assistant 4 days ago and was told she had 2 precautions, not to hyperextend R leg and No falling. The pt attends with s/p packet with anterior TATUM precautions (no hip ext, AB, ER) and exercises. Prior Treatments and Tests Physical therapy in 2020 for R hip pain. Treatment Goals Patient/Caregiver Goals Post surgery goals: walk without an aid with a normal gait, get in/out of car with mild pain (2/10), pt able to tolerate stationary ex bike activity, learn positions of comfort in bed, be able to ambulate stairs in her home with use of railing. Prior Functional Status Baseline Function- ADL's Independent Baseline Function- Mobility Independent Baseline Function- Gait Independent gait without AD with a limp, excessive trunk sway. Baseline Function- Other Lives w/spouse who is able to help her. Sleeps in bed and turns in bed . Current Functional Impairments (Reported) Functional Limitations- ADL's R hip pain with gait, requires FWW. Functional Limitations- Mobility/Gait Step to gait Functional Limitations- Other Spouse assists when pt needs help. Personal Factors Other Personal Factors That May Effect Pt is 6' tall. Therapy/Recovery PT-OP-C Subjective Start: 03/28/22 20:58 Freq: Status: Active Protocol: Document 04/30/22 13:48 LRN (Rec: 04/30/22 14:34 LRN [id number]) OP-PT Subjective Patient Comments Patient Comments Doing all the exercises. Having easier time getting in/ out of bed, not having to use leg lift strap all the time. Pain range is 0-4/10. Patient Questionnaires Lower Extremity Functional Scale LEFS Score 21 LEFS Impairment 60 to 79% Impaired (Score 17- 31) OP-PT Pain Assessment Pain Assessment Grid Paper Pain Assessment Grid Completed No Location R lateral Intensity 4 Scale Used Numeric (0 - 10) R anterior hip Intensity 4 Scale Used Numeric (0 - 10) PT-OP-G Mobility & Gait Start: 03/28/22 20:58 Freq: Status: Active Protocol: Document 04/22/22 13:51 LRN (Rec: 04/22/22 14:44 LRN [id number]) OP Mobility Evaluation Bed Mobility Supine to and from Sit Independent with use of strap OP Gait Assessment Gait Gait Assistance Required: Independent Distance (Feet) 100 Able to Maintain Weight Bearing Status Yes During Gait Assistive Devices Assistive Device Front Wheeled Walker Gait Deviations General Gait Pattern Antalgic,Step-to Gait Factors Limiting Gait Function Factors Limiting Gait Function Decreased Strength,Limited Range of Motion,Pain,Poor Balance Stair Climbing Evaluation Comments Stair Climbing Comments 2 steps in/out of house ( landing area at each step). Stairs inside home that she doesn't use. Lift chair going up stairs. Pt reports correct manner of going up/down stairs. PT-OP-J Posture/Palpation/Skin Start: 03/28/22 20:58 Freq: Status: Active Protocol: Document 04/22/22 13:51 LRN (Rec: 04/22/22 14:44 LRN [id number]) Palpation Assessment Location R hip Palpation Location R hip Palpation Findings Edema,Tenderness Palpation Details Bandage covering incision that the pt states is to be removed today. PT-OP-K Range of Motion Start: 03/28/22 20:58 Freq: Status: Active Protocol: Document 04/22/22 13:51 LRN (Rec: 04/22/22 14:44 LRN [id number]) Hip Goniometric Range of Motion Hip Left Active Hip ROM WFL Yes Testing Position Supine Flexion w/Knee Flexed 68 Right Active Hip ROM WFL No Testing Position Supine Flexion w/Knee Flexed 52 Knee Goniometric Range of Motion Knee Left Flexion Active (degrees) 132 Extension Active (degrees) 0 Right Flexion Active (degrees) 114 Extension Active (degrees) 0 PT-OP-M Strength Start: 03/28/22 20:58 Freq: Status: Active Protocol: Document 04/22/22 13:51 LRN (Rec: 04/22/22 14:44 LRN [id number]) Hip Strength Hip Manual Muscle Testing Right Flexion (L2) 2- Poor- Abduction 1 Trace Adduction 1 Trace External Rotation 1 Trace Internal Rotation 2- Poor- PT-OP-Q Treatments Start: 03/28/22 20:58 Freq: Status: Active Protocol: Document 04/30/22 13:48 LRN (Rec: 04/30/22 14:34 LRN [id number]) Therapeutic Exercises Supine Exercises Heel slides Supine Exercise Name Heel slides - good recall without HO Side right Reps/Minutes 10x 2 reps with rest between sets Comments cued slow pacing QS/GS Supine Exercise Name Verbal Review of QS/GS for HEP Side right Reps/Minutes 10 SH x 15 Hip AB Supine Exercise Name Assisted hip AB Side right Reps/Minutes 15x Sitting Exercises LAQ Sitting Exercise Name LAQ Side right Equipment Used mesh chair w/blue cushion Reps/Minutes 1 s pause x15 reps Comments good form Standing Exercises heel raises Standing Exercise Name added to HEP Resistance FWW support Reps/Minutes x20 Comments cued equal WB with support BUE on FWW needed for now, good form & painfree september Standing Exercise Name September correcting LE alignment Resistance FWW support Reps/Minutes x10 Comments cued equal WB with support BUE on FWW needed for now, good form & painfree Gait Training Gait Activity Stairs Description Stair ascend/descend Device Used 2 Railings Distance/Duration 4 steps x 3 Treatment Focus Step to gait Comments Pt reports 90% WBing RLE descending, 75-89% ascending. Gait with FWW Description Gait training w/ AD Device Used FWW Distance/Duration 100 ft x 2 w/ FWW Treatment Focus Posture, proximity to 4WW, WBing on RLE Comments occasional cues for proximity to back legs 4WW, improved self corrections and pacing, good no R hip extension. PT-OP-T Assessment and Plan Start: 03/28/22 20:58 Freq: Status: Active Protocol: Document 04/30/22 13:48 LRN (Rec: 04/30/22 14:34 LRN [id number]) Physical Therapy Assessment Goals Five Impairment Decreased ability to ambulate stairs - able to do 2 steps Impairment Ambs 2 steps with walker. Short Term Goal (STG) Pt able to ambulate 4 steps x 2 with use of 2 railings with step to gait. STG Duration 05/21/22 (04/30/22: MET GOAL) Visiting Housekeeper Goal (LTG) Pt able to ambulate 4 steps x 3 with 1 railing (R side ascending, L side descending) with normal gait. LTG Duration 06/27/22 Four Impairment Lacks appropriate self care HEP. Short Term Goal (STG) Pt will be educated with review of TATUM precautions and learn positions of comfort in bed. 04/22/22: Reviewed TATUM precautions and discussed positions of comfort in bed. Pt is using adjustable bed. STG Duration 05/15/22 (04/22/22: MET GOAL) Visiting Housekeeper Goal (LTG) Pt will be independent with a self care HEP to progress R hip strengthening and functional ROM. 04/25/22: added LAQ, standing march and heel raises. LTG Duration 06/27/22 progressing 04/25/22 Three Impairment Decreased R hip strength and function Impairment R hip strength: Flex 1/5, AB 2/5; L hip strength: Flex 2+ /5, AB 3+/5. LEFS score 39, 40-59% impaired (score 32-47) Short Term Goal (STG) Pt will be able to walk without an assistive aid and a normal gait STG Duration 05/15/22 Visiting Housekeeper Goal (LTG) Pt will be able to tolerate stationary ex bike activity and improve function per LEFS score 63-79 (1-19% impaired). LTG Duration 06/27/22 Two Impairment Decreased R hip mobility Impairment Supine R hip PROM (in degs): Flex 108, AB 18, IR 15, ER 30 Supine L hip PROM (in deg's): Flex 120, AB 25, IR 10, ER 60 Short Term Goal (STG) Pt will be able to move independently in/out of bed. 04/22/22: Pt reports being able to move independently in/ out of bed with use of strap. STG Duration 05/15/22 (04/22/22: MET GOAL) Visiting Housekeeper Goal (LTG) Pt will be able to get in/out of car with mild pain (2/10). LTG Duration 06/27/22 One Impairment Pt lacks knowledge of pre- and post-op R anterior TATUM care Short Term Goal (STG) Pt will be educated in anterior TATUM precautions, appropriate post-op transfers, proper set up for ambulatory assistive device, appropriate gait on level and stairs, pre- op strengthening exercises and handouts for post-op ex's and self care. 03/29/22: Pt educated in all areas as indicated above. STG Duration 03/29/22: MET GOAL. Visiting Housekeeper Goal (LTG) Pt will be able to recall 3/3 R anterior TATUM precautions. 04/25/22: GOAL MET: pt good recall and demonstration to precautions anterior hip: no hip extension or ER. LTG Duration 04/26/22 GOAL MET 04/25/22 Assessment Summary Assessment Pt improving in tolerance to gait. She is WBing in RLE ~75 -80% with gait and on stairs. LEFS is 21/80 indicating (60- 79% impaired). With gait she tends to hold her RLE in mild ER and she is not able to march with good alignment of R hip/knee/ankle complex. Pt is slowly progressing in her strength. Pt is limited in strengthening due to anterior TATUM precautions. Physical Therapy Plan Frequency and Duration Frequency of Treatment 2x/Week Plan of Care Start Date 03/29/22 Plan of Care End Date 06/27/22 Next Visit Focus/Plan Next Note Type Treatment Note Next Visit Plan POC: R anterior TATUM rehabilitation (see precautions). R hip strengthening, gait training with small steps to greatly limit hip extension. Aerobic conditioning when appropriate: Scifit or upright bike for R LE ROM.
--- NOTE | 2022-04-30 16:53 | PT-OP ANOTE ---
Per phone via Zora, triage nurse, requested pt be able to perform slight hip AB strengthening and softening of hip restrictions for therapy. Zora will leave a message for Dr. Jaimie Morales with written orders of any changes to her precautions.
--- NOTE | 2022-05-03 10:31 | PT.OTN ---
Current Diagnoses Unilateral primary osteoarthritis, right hip (05/03/22) Muscle weakness (generalized) (05/03/22) Unsteadiness on feet (05/03/22) Other abnormalities of gait and mobility (05/03/22) Physical Therapy Treatment Note PT-OP-A Visit Information Start: 03/28/22 20:58 Freq: Status: Active Protocol: Document 05/03/22 09:48 LRN (Rec: 05/03/22 10:30 LRN [id number]) Out-Patient Physical Therapy Visit Information Visit Information Visit Type Treatment Note Visit Note V.O. received from referring physician to allow gentle hip AB strengthening. Visit Start Time 09:48 Visit Stop Time 10:27 Total Visit Minutes 39 Visit Number 5 Evaluation Information Evaluation Date 03/29/22 Precautions Precautions R anterior TATUM surgery-04/09/22 (no hip ext, AB, ER). 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 PT-OP-B Current Condition Start: 03/28/22 20:58 Freq: Status: Active Protocol: Document 04/22/22 13:51 LRN (Rec: 04/22/22 17:04 LRN [id number]) Current Condition History of Current Condition Onset Date 04/09/22 Current Complaints R hip pain s/p R anterior TATUM History of Current Condition Pt is 13 days S/P R Anterior TATUM. She reports spending one night in the hospital due to A. Fib and arrythmia problems. States she has had no cardiac problems since discharge to home. She has had occasional burning pain in the anterior quad and pain in lateral RLE that has mostly gone away (1-2x/day). States she saw the physician sociology research assistant 4 days ago and was told she had 2 precautions, not to hyperextend R leg and No falling. The pt attends with s/p packet with anterior TATUM precautions (no hip ext, AB, ER) and exercises. Prior Treatments and Tests Physical therapy in 2020 for R hip pain. Treatment Goals Patient/Caregiver Goals Post surgery goals: walk without an aid with a normal gait, get in/out of car with mild pain (2/10), pt able to tolerate stationary ex bike activity, learn positions of comfort in bed, be able to ambulate stairs in her home with use of railing. Prior Functional Status Baseline Function- ADL's Independent Baseline Function- Mobility Independent Baseline Function- Gait Independent gait without AD with a limp, excessive trunk sway. Baseline Function- Other Lives w/spouse who is able to help her. Sleeps in bed and turns in bed . Current Functional Impairments (Reported) Functional Limitations- ADL's R hip pain with gait, requires FWW. Functional Limitations- Mobility/Gait Step to gait Functional Limitations- Other Spouse assists when pt needs help. Personal Factors Other Personal Factors That May Effect Pt is 6' tall. Therapy/Recovery PT-OP-C Subjective Start: 03/28/22 20:58 Freq: Status: Active Protocol: Document 05/03/22 09:48 LRN (Rec: 05/03/22 10:30 LRN [id number]) OP-PT Subjective Patient Comments Patient Comments A little sore because vacuuming and dusting. Last few nights has not been using the strap to get her RLE into bed (keeps knee bent). PT-OP-G Mobility & Gait Start: 03/28/22 20:58 Freq: Status: Active Protocol: Document 04/22/22 13:51 LRN (Rec: 04/22/22 14:44 LRN [id number]) OP Mobility Evaluation Bed Mobility Supine to and from Sit Independent with use of strap OP Gait Assessment Gait Gait Assistance Required: Independent Distance (Feet) 100 Able to Maintain Weight Bearing Status Yes During Gait Assistive Devices Assistive Device Front Wheeled Walker Gait Deviations General Gait Pattern Antalgic,Step-to Gait Factors Limiting Gait Function Factors Limiting Gait Function Decreased Strength,Limited Range of Motion,Pain,Poor Balance Stair Climbing Evaluation Comments Stair Climbing Comments 2 steps in/out of house ( landing area at each step). Stairs inside home that she doesn't use. Lift chair going up stairs. Pt reports correct manner of going up/down stairs. PT-OP-J Posture/Palpation/Skin Start: 03/28/22 20:58 Freq: Status: Active Protocol: Document 04/22/22 13:51 LRN (Rec: 04/22/22 14:44 LRN [id number]) Palpation Assessment Location R hip Palpation Location R hip Palpation Findings Edema,Tenderness Palpation Details Bandage covering incision that the pt states is to be removed today. PT-OP-K Range of Motion Start: 03/28/22 20:58 Freq: Status: Active Protocol: Document 04/22/22 13:51 LRN (Rec: 04/22/22 14:44 LRN [id number]) Hip Goniometric Range of Motion Hip Left Active Hip ROM WFL Yes Testing Position Supine Flexion w/Knee Flexed 68 Right Active Hip ROM WFL No Testing Position Supine Flexion w/Knee Flexed 52 Knee Goniometric Range of Motion Knee Left Flexion Active (degrees) 132 Extension Active (degrees) 0 Right Flexion Active (degrees) 114 Extension Active (degrees) 0 PT-OP-M Strength Start: 03/28/22 20:58 Freq: Status: Active Protocol: Document 04/22/22 13:51 LRN (Rec: 04/22/22 14:44 LRN [id number]) Hip Strength Hip Manual Muscle Testing Right Flexion (L2) 2- Poor- Abduction 1 Trace Adduction 1 Trace External Rotation 1 Trace Internal Rotation 2- Poor- PT-OP-Q Treatments Start: 03/28/22 20:58 Freq: Status: Active Protocol: Document 05/03/22 09:48 LRN (Rec: 05/03/22 10:30 LRN [id number]) Therapeutic Exercises Supine Exercises SAQ Supine Exercise Name SAQ over green bolster Side right Reps/Minutes 15x Heel slides Supine Exercise Name Heel slides - good recall without HO Side right Reps/Minutes 10x, 9x with rest between sets Comments cued slow pacing QS/GS Supine Exercise Name Verbal Review of QS/GS for HEP Side right Reps/Minutes 10 SH, 10x 2 alternating with hip AB Hip AB Supine Exercise Name Assisted hip AB Side right Reps/Minutes 10x 2 alternating with QS Comments Cuing to prevent pelvis from rotating. Sitting Exercises Knee flex Sitting Exercise Name Active knee flexion strengthening Side right Reps/Minutes 1 S pause, 10x 2, & 5x reps LAQ Sitting Exercise Name LAQ Side right Equipment Used mesh chair w/blue cushion Reps/Minutes 1 s pause, 10 x 2,& 5x reps Comments good form Standing Exercises Shallow squats Standing Exercise Name Very shallow squats in // bars Side bilateral Reps/Minutes 10x Comments Pt c/o Lateral RLE pain with squats; therefore limited reps . heel raises Standing Exercise Name added to HEP Resistance FWW support Reps/Minutes 30x Comments cued equal WB with support BUE on FWW needed for now, good form & painfree Gait Training Gait Activity Gait in // bars Description Gait in // bars Device Used // bars Level of Assistance v cuing Surface Level Distance/Duration 8' Treatment Focus No trunk lean, use of WBin LUE , gait without pain. PT-OP-T Assessment and Plan Start: 03/28/22 20:58 Freq: Status: Active Protocol: Document 05/03/22 09:48 LRN (Rec: 05/03/22 10:30 LRN [id number]) Physical Therapy Assessment Goals Five Impairment Decreased ability to ambulate stairs - able to do 2 steps Impairment Ambs 2 steps with walker. Short Term Goal (STG) Pt able to ambulate 4 steps x 2 with use of 2 railings with step to gait. STG Duration 05/21/22 (04/30/22: MET GOAL) Cobbler Mckay Goal (LTG) Pt able to ambulate 4 steps x 3 with 1 railing (R side ascending, L side descending) with normal gait. LTG Duration 06/27/22 Four Impairment Lacks appropriate self care HEP. Short Term Goal (STG) Pt will be educated with review of TATUM precautions and learn positions of comfort in bed. 04/22/22: Reviewed TATUM precautions and discussed positions of comfort in bed. Pt is using adjustable bed. STG Duration 05/15/22 (04/22/22: MET GOAL) Halfway Goal (LTG) Pt will be independent with a self care HEP to progress R hip strengthening and functional ROM. 04/25/22: added LAQ, standing march and heel raises. LTG Duration 06/27/22 progressing 04/25/22 Three Impairment Decreased R hip strength and function Impairment R hip strength: Flex 1/5, AB 2/5; L hip strength: Flex 2+ /5, AB 3+/5. LEFS score 39, 40-59% impaired (score 32-47) Short Term Goal (STG) Pt will be able to walk without an assistive aid and a normal gait STG Duration 05/15/22 Cobbler Mckay Goal (LTG) Pt will be able to tolerate stationary ex bike activity and improve function per LEFS score 63-79 (1-19% impaired). LTG Duration 06/27/22 Two Impairment Decreased R hip mobility Impairment Supine R hip PROM (in degs): Flex 108, AB 18, IR 15, ER 30 Supine L hip PROM (in deg's): Flex 120, AB 25, IR 10, ER 60 Short Term Goal (STG) Pt will be able to move independently in/out of bed. 04/22/22: Pt reports being able to move independently in/ out of bed with use of strap. STG Duration 05/15/22 (04/22/22: MET GOAL) Cobbler Mckay Goal (LTG) Pt will be able to get in/out of car with mild pain (2/10). LTG Duration 06/27/22 Assessment Summary Assessment V.O.'s allowing gentle hip AB strengthening RLE. Pt advancing well with ex's without complaints of pain. Pt able to move her RLE in/ out of bed without use of strap for most of the time, but has caused some inner thigh pain that was not palpable today. Physical Therapy Plan Frequency and Duration Frequency of Treatment 2x/Week Plan of Care Start Date 03/29/22 Plan of Care End Date 06/27/22 Next Visit Focus/Plan Next Note Type Treatment Note Next Visit Plan POC: R anterior TATUM rehabilitation (see precautions). R hip strengthening, gait training with small steps to greatly limit hip extension. Gait training. Aerobic conditioning when cleared: Scifit or upright bike for R LE ROM.
--- NOTE | 2022-05-07 10:30 | PT.OTN ---
Current Diagnoses Unilateral primary osteoarthritis, right hip (05/07/22) Muscle weakness (generalized) (05/07/22) Unsteadiness on feet (05/07/22) Other abnormalities of gait and mobility (05/07/22) Physical Therapy Treatment Note PT-OP-A Visit Information Start: 03/28/22 20:58 Freq: Status: Active Protocol: Document 05/07/22 09:50 SP (Rec: 05/07/22 10:32 SP [id number]) Out-Patient Physical Therapy Visit Information Visit Information Visit Type Treatment Note Visit Note V.O. received from referring physician to allow gentle hip AB strengthening. Visit Start Time 09:50 Visit Stop Time 10:30 Total Visit Minutes 40 Visit Number 6 Number of TELE MARKETING EXECUTIVE Visits 1 Evaluation Information Evaluation Date 03/29/22 Precautions Precautions R anterior TATUM surgery-04/09/22 (no hip ext, AB, ER). 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 PT-OP-B Current Condition Start: 03/28/22 20:58 Freq: Status: Active Protocol: Document 04/22/22 13:51 LRN (Rec: 04/22/22 17:04 LRN [id number]) Current Condition History of Current Condition Onset Date 04/09/22 Current Complaints R hip pain s/p R anterior TATUM History of Current Condition Pt is 13 days S/P R Anterior TATUM. She reports spending one night in the hospital due to A. Fib and arrythmia problems. States she has had no cardiac problems since discharge to home. She has had occasional burning pain in the anterior quad and pain in lateral RLE that has mostly gone away (1-2x/day). States she saw the physician retail loan originator assistant 4 days ago and was told she had 2 precautions, not to hyperextend R leg and No falling. The pt attends with s/p packet with anterior TATUM precautions (no hip ext, AB, ER) and exercises. Prior Treatments and Tests Physical therapy in 2020 for R hip pain. Treatment Goals Patient/Caregiver Goals Post surgery goals: walk without an aid with a normal gait, get in/out of car with mild pain (2/10), pt able to tolerate stationary ex bike activity, learn positions of comfort in bed, be able to ambulate stairs in her home with use of railing. Prior Functional Status Baseline Function- ADL's Independent Baseline Function- Mobility Independent Baseline Function- Gait Independent gait without AD with a limp, excessive trunk sway. Baseline Function- Other Lives w/spouse who is able to help her. Sleeps in bed and turns in bed . Current Functional Impairments (Reported) Functional Limitations- ADL's R hip pain with gait, requires FWW. Functional Limitations- Mobility/Gait Step to gait Functional Limitations- Other Spouse assists when pt needs help. Personal Factors Other Personal Factors That May Effect Pt is 6' tall. Therapy/Recovery PT-OP-C Subjective Start: 03/28/22 20:58 Freq: Status: Active Protocol: Document 05/07/22 09:50 SP (Rec: 05/07/22 10:32 SP [id number]) OP-PT Subjective Patient Comments Patient Comments Pt reported had trouble doing SAQ due to no foam roller, wanted suggestions how can do at home. PT-OP-G Mobility & Gait Start: 03/28/22 20:58 Freq: Status: Active Protocol: Document 04/22/22 13:51 LRN (Rec: 04/22/22 14:44 LRN [id number]) OP Mobility Evaluation Bed Mobility Supine to and from Sit Independent with use of strap OP Gait Assessment Gait Gait Assistance Required: Independent Distance (Feet) 100 Able to Maintain Weight Bearing Status Yes During Gait Assistive Devices Assistive Device Front Wheeled Walker Gait Deviations General Gait Pattern Antalgic,Step-to Gait Factors Limiting Gait Function Factors Limiting Gait Function Decreased Strength,Limited Range of Motion,Pain,Poor Balance Stair Climbing Evaluation Comments Stair Climbing Comments 2 steps in/out of house ( landing area at each step). Stairs inside home that she doesn't use. Lift chair going up stairs. Pt reports correct manner of going up/down stairs. PT-OP-J Posture/Palpation/Skin Start: 03/28/22 20:58 Freq: Status: Active Protocol: Document 04/22/22 13:51 LRN (Rec: 04/22/22 14:44 LRN [id number]) Palpation Assessment Location R hip Palpation Location R hip Palpation Findings Edema,Tenderness Palpation Details Bandage covering incision that the pt states is to be removed today. PT-OP-K Range of Motion Start: 03/28/22 20:58 Freq: Status: Active Protocol: Document 04/22/22 13:51 LRN (Rec: 04/22/22 14:44 LRN [id number]) Hip Goniometric Range of Motion Hip Left Active Hip ROM WFL Yes Testing Position Supine Flexion w/Knee Flexed 68 Right Active Hip ROM WFL No Testing Position Supine Flexion w/Knee Flexed 52 Knee Goniometric Range of Motion Knee Left Flexion Active (degrees) 132 Extension Active (degrees) 0 Right Flexion Active (degrees) 114 Extension Active (degrees) 0 PT-OP-M Strength Start: 03/28/22 20:58 Freq: Status: Active Protocol: Document 04/22/22 13:51 LRN (Rec: 04/22/22 14:44 LRN [id number]) Hip Strength Hip Manual Muscle Testing Right Flexion (L2) 2- Poor- Abduction 1 Trace Adduction 1 Trace External Rotation 1 Trace Internal Rotation 2- Poor- PT-OP-Q Treatments Start: 03/28/22 20:58 Freq: Status: Active Protocol: Document 05/07/22 09:50 SP (Rec: 05/07/22 10:32 SP [id number]) Gym Equipment Shuttle Recovery bilateral squat Details cued knees // alignment Resistance 50# really easy, 62# Shuttle Recovery Platform Stable Reps/Time 2x10 Therapeutic Exercises Supine Exercises SAQ Supine Exercise Name SAQ over blue foam roller Side right Reps/Minutes 5 sec hold x15 Comments good form, and TA stable pelvis Heel slides Supine Exercise Name Heel slides - good recall without HO Side right Reps/Minutes 10 x 3 with rest between sets Comments cued slow pacing Hip AB Supine Exercise Name Assisted hip AB Side right Reps/Minutes 10x 2 alternating with QS Comments good pelvic alignment. Sitting Exercises Knee flex Sitting Exercise Name Active knee flexion strengthening Side right Reps/Minutes 5 s hold x10 reps Comments good form post update change LAQ Sitting Exercise Name LAQ Side right Equipment Used black table 22 Reps/Minutes 5 s hold x10 reps Comments good form post update change Standing Exercises side stepping Standing Exercise Name added to HEP Resistance AROM Equipment Used rail Reps/Minutes 15 ft x3 laps Comments cued level pelvis, core, alignment over stance LE heel raises Standing Exercise Name reviewed HEP Resistance hands hover rail Equipment Used cued core fac for stability Reps/Minutes 30x Comments cued equal WB with support BUE on FWW needed for now, good form & painfree september Standing Exercise Name September correcting LE alignment Resistance FWW support (70-75% UE WB) Reps/Minutes x10 Comments cued equal WB with support BUE on FWW needed for now, good form & painfree Self-Care/Home Management Treatment Education Patient Education Home Exercise Program Other Education added side step rail support to HEP PT-OP-T Assessment and Plan Start: 03/28/22 20:58 Freq: Status: Active Protocol: Document 05/07/22 09:50 SP (Rec: 05/07/22 10:32 SP [id number]) Physical Therapy Assessment Goals Five Impairment Decreased ability to ambulate stairs - able to do 2 steps Impairment Ambs 2 steps with walker. Short Term Goal (STG) Pt able to ambulate 4 steps x 2 with use of 2 railings with step to gait. STG Duration 05/21/22 (04/30/22: MET GOAL) Lining Printer Goal (LTG) Pt able to ambulate 4 steps x 3 with 1 railing (R side ascending, L side descending) with normal gait. LTG Duration 06/27/22 Four Impairment Lacks appropriate self care HEP. Short Term Goal (STG) Pt will be educated with review of TATUM precautions and learn positions of comfort in bed. 04/22/22: Reviewed TATUM precautions and discussed positions of comfort in bed. Pt is using adjustable bed. STG Duration 05/15/22 (04/22/22: MET GOAL) Lining Printer Goal (LTG) Pt will be independent with a self care HEP to progress R hip strengthening and functional ROM. 04/25/22: added LAQ, standing march and heel raises. LTG Duration 06/27/22 progressing 04/25/22 Three Impairment Decreased R hip strength and function Impairment R hip strength: Flex 1/5, AB 2/5; L hip strength: Flex 2+ /5, AB 3+/5. LEFS score 39, 40-59% impaired (score 32-47) Short Term Goal (STG) Pt will be able to walk without an assistive aid and a normal gait STG Duration 05/15/22 Half-Way Goal (LTG) Pt will be able to tolerate stationary ex bike activity and improve function per LEFS score 63-79 (1-19% impaired). LTG Duration 06/27/22 Two Impairment Decreased R hip mobility Impairment Supine R hip PROM (in degs): Flex 108, AB 18, IR 15, ER 30 Supine L hip PROM (in deg's): Flex 120, AB 25, IR 10, ER 60 Short Term Goal (STG) Pt will be able to move independently in/out of bed. 04/22/22: Pt reports being able to move independently in/ out of bed with use of strap. STG Duration 05/15/22 (04/22/22: MET GOAL) Half-Way Goal (LTG) Pt will be able to get in/out of car with mild pain (2/10). LTG Duration 06/27/22 Assessment Summary Assessment Pt improved able to hold contraction during SAQ and LAQ today AROM. Improved core and hip abd facilitation with side stepping rail support, and heel raises without UE support few reps so added for HEP. Physical Therapy Plan Frequency and Duration Frequency of Treatment 2x/Week Plan of Care Start Date 03/29/22 Plan of Care End Date 06/27/22 Therapeutic Interventions Therapeutic Interventions Aquatic Therapy,Balance Training,Gait Training,Home Exercise Program,Manual Therapy,Neuromuscular Re- education,Patient/Caregiver Education,Self-Care/Home Management,Soft Tissue Mobilization,Taping, Therapeutic Activities, Therapeutic Exercises Modalities Cold Pack/Ice Massage,Hot Packs Next Visit Focus/Plan Next Note Type Treatment Note Next Visit Plan Recheck side step rail support . POC: R anterior TATUM rehabilitation (see precautions). R hip strengthening, gait training with small steps to greatly limit hip extension. Gait training. Aerobic conditioning when cleared: Scifit or upright bike for R LE ROM.
--- NOTE | 2022-05-13 10:40 | PT.OTN ---
Current Diagnoses Unilateral primary osteoarthritis, right hip (05/13/22) Muscle weakness (generalized) (05/13/22) Unsteadiness on feet (05/13/22) Other abnormalities of gait and mobility (05/13/22) Physical Therapy Treatment Note PT-OP-A Visit Information Start: 03/28/22 20:58 Freq: Status: Active Protocol: Document 05/13/22 09:45 NBM (Rec: 05/13/22 22:20 NBM [id number]) Out-Patient Physical Therapy Visit Information Visit Information Visit Type Treatment Note Visit Note V.O. received from referring physician to allow gentle hip AB strengthening. Visit Start Time 09:45 Visit Stop Time 10:30 Total Visit Minutes 45 Visit Number 7 Number of GAMING SURVEILLANCE OBSERVER Visits 2 Evaluation Information Evaluation Date 03/29/22 Precautions Precautions R anterior TATUM surgery-04/09/22 (no hip ext, AB, ER). PACEMAKER-2005 & replacement , atrial ablation 2017, [place] knee replacements (2009 & 2012), R ankle repair - 1975, controlled HBP w/meds. 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 PT-OP-B Current Condition Start: 03/28/22 20:58 Freq: Status: Active Protocol: Document 04/22/22 13:51 LRN (Rec: 04/22/22 17:04 LRN [id number]) Current Condition History of Current Condition Onset Date 04/09/22 Current Complaints R hip pain s/p R anterior TATUM History of Current Condition Pt is 13 days S/P R Anterior TATUM. She reports spending one night in the hospital due to A. Fib and arrythmia problems. States she has had no cardiac problems since discharge to home. She has had occasional burning pain in the anterior quad and pain in lateral RLE that has mostly gone away (1-2x/day). States she saw the physician sociology research assistant 4 days ago and was told she had 2 precautions, not to hyperextend R leg and No falling. The pt attends with s/p packet with anterior TATUM precautions (no hip ext, AB, ER) and exercises. Prior Treatments and Tests Physical therapy in 2020 for R hip pain. Treatment Goals Patient/Caregiver Goals Post surgery goals: walk without an aid with a normal gait, get in/out of car with mild pain (2/10), pt able to tolerate stationary ex bike activity, learn positions of comfort in bed, be able to ambulate stairs in her home with use of railing. Prior Functional Status Baseline Function- ADL's Independent Baseline Function- Mobility Independent Baseline Function- Gait Independent gait without AD with a limp, excessive trunk sway. Baseline Function- Other Lives w/spouse who is able to help her. Sleeps in bed and turns in bed . Current Functional Impairments (Reported) Functional Limitations- ADL's R hip pain with gait, requires FWW. Functional Limitations- Mobility/Gait Step to gait Functional Limitations- Other Spouse assists when pt needs help. Personal Factors Other Personal Factors That May Effect Pt is 6' tall. Therapy/Recovery PT-OP-C Subjective Start: 03/28/22 20:58 Freq: Status: Active Protocol: Document 05/13/22 09:45 NBM (Rec: 05/13/22 10:34 NBM [id number]) OP-PT Subjective Patient Comments Patient Comments Pt reports she thought her R hip discomfort would be less at this stage. She reports today - did not take pain medication today. She ices regularly at home. PT-OP-G Mobility & Gait Start: 03/28/22 20:58 Freq: Status: Active Protocol: Document 04/22/22 13:51 LRN (Rec: 04/22/22 14:44 LRN [id number]) OP Mobility Evaluation Bed Mobility Supine to and from Sit Independent with use of strap OP Gait Assessment Gait Gait Assistance Required: Independent Distance (Feet) 100 Able to Maintain Weight Bearing Status Yes During Gait Assistive Devices Assistive Device Front Wheeled Walker Gait Deviations General Gait Pattern Antalgic,Step-to Gait Factors Limiting Gait Function Factors Limiting Gait Function Decreased Strength,Limited Range of Motion,Pain,Poor Balance Stair Climbing Evaluation Comments Stair Climbing Comments 2 steps in/out of house ( landing area at each step). Stairs inside home that she doesn't use. Lift chair going up stairs. Pt reports correct manner of going up/down stairs. PT-OP-J Posture/Palpation/Skin Start: 03/28/22 20:58 Freq: Status: Active Protocol: Document 04/22/22 13:51 LRN (Rec: 04/22/22 14:44 LRN [id number]) Palpation Assessment Location R hip Palpation Location R hip Palpation Findings Edema,Tenderness Palpation Details Bandage covering incision that the pt states is to be removed today. PT-OP-K Range of Motion Start: 03/28/22 20:58 Freq: Status: Active Protocol: Document 04/22/22 13:51 LRN (Rec: 04/22/22 14:44 LRN [id number]) Hip Goniometric Range of Motion Hip Left Active Hip ROM WFL Yes Testing Position Supine Flexion w/Knee Flexed 68 Right Active Hip ROM WFL No Testing Position Supine Flexion w/Knee Flexed 52 Knee Goniometric Range of Motion Knee Left Flexion Active (degrees) 132 Extension Active (degrees) 0 Right Flexion Active (degrees) 114 Extension Active (degrees) 0 PT-OP-M Strength Start: 03/28/22 20:58 Freq: Status: Active Protocol: Document 04/22/22 13:51 LRN (Rec: 04/22/22 14:44 LRN [id number]) Hip Strength Hip Manual Muscle Testing Right Flexion (L2) 2- Poor- Abduction 1 Trace Adduction 1 Trace External Rotation 1 Trace Internal Rotation 2- Poor- PT-OP-Q Treatments Start: 03/28/22 20:58 Freq: Status: Active Protocol: Document 05/13/22 09:45 NBM (Rec: 05/13/22 10:34 NBM [id number]) Gym Equipment Shuttle Recovery unilater squat Details 37#>25# Reps/Time 2x10 ea, vc knee alignment bilateral squat Details cued knees // alignment Resistance 62#>50#>62# Shuttle Recovery Platform Stable Reps/Time 1x10 50#, 1x10 62#, vc knee alignment Therapeutic Exercises Supine Exercises Hip AB Supine Exercise Name Discussed - not performed today d/t time Sitting Exercises 4-way ankle Sitting Exercise Name PF/DF, EV/IV - added to HEP Side right Equipment Used Lvl2 Tb Comments pt self-corrected R hip ER x 1 Standing Exercises side stepping Side bilateral Resistance AROM Equipment Used rail Reps/Minutes 15 ft x3 laps Comments cued level pelvis, core, alignment over stance LE heel raises Resistance hands hover rail Equipment Used cued core fac for stability Reps/Minutes 2x15 Comments cued equal WB with support BUE on FWW needed for now, good form & painfree september Standing Exercise Name September correcting LE alignment Resistance FWW support (70-75% UE WB) Reps/Minutes x10 Comments cued equal WB with support BUE on FWW needed for now, good form & painfree Self-Care/Home Management Treatment Education Patient Education Home Exercise Program Other Education Added 4-way ankle strengthening to HEP - HO given. PT-OP-T Assessment and Plan Start: 03/28/22 20:58 Freq: Status: Active Protocol: Document 05/13/22 09:45 NB (Rec: 05/13/22 10:34 NB [id number]) Physical Therapy Assessment Rehab Potential Rehabilitation Potential Good Evaluation Complexity Number of Personal Factors/Comorbidities 1-2 Number of Body Systems Impaired 4 or More Clinical Presentation at Evaluation Evolving Impairments Impairments Activity Tolerance,Balance, Functional Mobility,Gait,Pain, ROM,Soft Tissue Mobility, Strength Goals Five Impairment Decreased ability to ambulate stairs - able to do 2 steps Impairment Ambs 2 steps with walker. Short Term Goal (STG) Pt able to ambulate 4 steps x 2 with use of 2 railings with step to gait. STG Duration 05/21/22 (04/30/22: MET GOAL) Bureau Director Goal (LTG) Pt able to ambulate 4 steps x 3 with 1 railing (R side ascending, L side descending) with normal gait. LTG Duration 06/27/22 Four Impairment Lacks appropriate self care HEP. Short Term Goal (STG) Pt will be educated with review of TATUM precautions and learn positions of comfort in bed. 04/22/22: Reviewed TATUM precautions and discussed positions of comfort in bed. Pt is using adjustable bed. STG Duration 05/15/22 (04/22/22: MET GOAL) Assisted Goal (LTG) Pt will be independent with a self care HEP to progress R hip strengthening and functional ROM. 04/25/22: added LAQ, standing march and heel raises. LTG Duration 06/27/22 progressing 04/25/22 Three Impairment Decreased R hip strength and function Impairment R hip strength: Flex 1/5, AB 2/5; L hip strength: Flex 2+ /5, AB 3+/5. LEFS score 39, 40-59% impaired (score 32-47) Short Term Goal (STG) Pt will be able to walk without an assistive aid and a normal gait STG Duration 05/15/22 Assisted Goal (LTG) Pt will be able to tolerate stationary ex bike activity and improve function per LEFS score 63-79 (1-19% impaired). LTG Duration 06/27/22 Two Impairment Decreased R hip mobility Impairment Supine R hip PROM (in degs): Flex 108, AB 18, IR 15, ER 30 Supine L hip PROM (in deg's): Flex 120, AB 25, IR 10, ER 60 Short Term Goal (STG) Pt will be able to move independently in/out of bed. 04/22/22: Pt reports being able to move independently in/ out of bed with use of strap. STG Duration 05/15/22 (04/22/22: MET GOAL) Bureau Director Goal (LTG) Pt will be able to get in/out of car with mild pain (2/10). LTG Duration 06/27/22 Progress Towards Goals Progress Towards Goals Progressing Toward Goals Progress Comments MET LT GOAL #1 recall 2/2 precautions for R anterior hip Assessment Summary Assessment Pt requires cues for knee alignment but self-awareness improves with repetition and cueing. Added 4-way ankle strengthening to HEP - HO given. Pt will ice at home and is encouraged to take pain medication prior to PT. Physical Therapy Plan Frequency and Duration Frequency of Treatment 2x/Week Plan of Care Start Date 03/29/22 Plan of Care End Date 06/27/22 Therapeutic Interventions Therapeutic Interventions Aquatic Therapy,Balance Training,Gait Training,Home Exercise Program,Manual Therapy,Neuromuscular Re- education,Patient/Caregiver Education,Self-Care/Home Management,Soft Tissue Mobilization,Taping, Therapeutic Activities, Therapeutic Exercises Modalities Cold Pack/Ice Massage,Hot Packs Next Visit Focus/Plan Next Note Type Treatment Note Next Visit Plan Review 4-way paul POC: R anterior TATUM rehabilitation (see precautions). R hip strengthening, gait training with small steps to greatly limit hip extension. Gait training. Aerobic conditioning when cleared: Scifit or upright bike for R LE ROM.
--- NOTE | 2022-05-16 17:11 | PT.OTN ---
Current Diagnoses Unilateral primary osteoarthritis, right hip (05/16/22) Muscle weakness (generalized) (05/16/22) Unsteadiness on feet (05/16/22) Other abnormalities of gait and mobility (05/16/22) Physical Therapy Treatment Note PT-OP-A Visit Information Start: 03/28/22 20:58 Freq: Status: Active Protocol: Document 05/16/22 09:55 LRN (Rec: 05/16/22 10:37 LRN [id number]) Out-Patient Physical Therapy Visit Information Visit Information Visit Type Treatment Note Visit Note Per pt MD cleared for walking w/o walker. Visit Start Time 09:55 Visit Stop Time 10:36 Total Visit Minutes 40 Visit Number 8 Evaluation Information Evaluation Date 03/29/22 Precautions Precautions R anterior TATUM surgery-04/09/22 (no hip ext, AB, ER). 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 PT-OP-B Current Condition Start: 03/28/22 20:58 Freq: Status: Active Protocol: Document 04/22/22 13:51 LRN (Rec: 04/22/22 17:04 LRN [id number]) Current Condition History of Current Condition Onset Date 04/09/22 Current Complaints R hip pain s/p R anterior TATUM History of Current Condition Pt is 13 days S/P R Anterior TATUM. She reports spending one night in the hospital due to A. Fib and arrythmia problems. States she has had no cardiac problems since discharge to home. She has had occasional burning pain in the anterior quad and pain in lateral RLE that has mostly gone away (1-2x/day). States she saw the physician internal medicine physician assistant 4 days ago and was told she had 2 precautions, not to hyperextend R leg and No falling. The pt attends with s/p packet with anterior TATUM precautions (no hip ext, AB, ER) and exercises. Prior Treatments and Tests Physical therapy in 2020 for R hip pain. Treatment Goals Patient/Caregiver Goals Post surgery goals: walk without an aid with a normal gait, get in/out of car with mild pain (2/10), pt able to tolerate stationary ex bike activity, learn positions of comfort in bed, be able to ambulate stairs in her home with use of railing. Prior Functional Status Baseline Function- ADL's Independent Baseline Function- Mobility Independent Baseline Function- Gait Independent gait without AD with a limp, excessive trunk sway. Baseline Function- Other Lives w/spouse who is able to help her. Sleeps in bed and turns in bed . Current Functional Impairments (Reported) Functional Limitations- ADL's R hip pain with gait, requires FWW. Functional Limitations- Mobility/Gait Step to gait Functional Limitations- Other Spouse assists when pt needs help. Personal Factors Other Personal Factors That May Effect Pt is 6' tall. Therapy/Recovery PT-OP-C Subjective Start: 03/28/22 20:58 Freq: Status: Active Protocol: Document 05/16/22 09:55 LRN (Rec: 05/16/22 10:37 LRN [id number]) OP-PT Subjective Patient Comments Patient Comments States she saw referring physician and was told she did not need to use walker, but to use cane. Has questions regarding last issued exercises and requests review. Achy R hip when putting weight on R LE, but took TONG before coming. PT-OP-G Mobility & Gait Start: 03/28/22 20:58 Freq: Status: Active Protocol: Document 04/22/22 13:51 LRN (Rec: 04/22/22 14:44 LRN [id number]) OP Mobility Evaluation Bed Mobility Supine to and from Sit Independent with use of strap OP Gait Assessment Gait Gait Assistance Required: Independent Distance (Feet) 100 Able to Maintain Weight Bearing Status Yes During Gait Assistive Devices Assistive Device Front Wheeled Walker Gait Deviations General Gait Pattern Antalgic,Step-to Gait Factors Limiting Gait Function Factors Limiting Gait Function Decreased Strength,Limited Range of Motion,Pain,Poor Balance Stair Climbing Evaluation Comments Stair Climbing Comments 2 steps in/out of house ( landing area at each step). Stairs inside home that she doesn't use. Lift chair going up stairs. Pt reports correct manner of going up/down stairs. PT-OP-J Posture/Palpation/Skin Start: 03/28/22 20:58 Freq: Status: Active Protocol: Document 04/22/22 13:51 LRN (Rec: 04/22/22 14:44 LRN [id number]) Palpation Assessment Location R hip Palpation Location R hip Palpation Findings Edema,Tenderness Palpation Details Bandage covering incision that the pt states is to be removed today. PT-OP-K Range of Motion Start: 03/28/22 20:58 Freq: Status: Active Protocol: Document 04/22/22 13:51 LRN (Rec: 04/22/22 14:44 LRN [id number]) Hip Goniometric Range of Motion Hip Left Active Hip ROM WFL Yes Testing Position Supine Flexion w/Knee Flexed 68 Right Active Hip ROM WFL No Testing Position Supine Flexion w/Knee Flexed 52 Knee Goniometric Range of Motion Knee Left Flexion Active (degrees) 132 Extension Active (degrees) 0 Right Flexion Active (degrees) 114 Extension Active (degrees) 0 PT-OP-M Strength Start: 03/28/22 20:58 Freq: Status: Active Protocol: Document 04/22/22 13:51 LRN (Rec: 04/22/22 14:44 LRN [id number]) Hip Strength Hip Manual Muscle Testing Right Flexion (L2) 2- Poor- Abduction 1 Trace Adduction 1 Trace External Rotation 1 Trace Internal Rotation 2- Poor- PT-OP-Q Treatments Start: 03/28/22 20:58 Freq: Status: Active Protocol: Document 05/16/22 09:55 LRN (Rec: 05/16/22 10:37 LRN [id number]) Therapeutic Exercises Supine Exercises Heel slides Supine Exercise Name Heel slide lifting leg Side right Equipment Used Assist given Reps/Minutes 10x Hip AB Supine Exercise Name Assisted hip AB Side bilateral Reps/Minutes 10x 2 alternating with QS Comments Cued slow mvmt for full tolerable range Assitsted SLR Supine Exercise Name Assisted SLR Side right Reps/Minutes 5x 4 Sitting Exercises Sit<>Stands Sitting Exercise Name Sit <> Stand Reps/Minutes 10x 4-way ankle Sitting Exercise Name PF/DF, EV/IV - added to HEP Side right Equipment Used Lv 2 TB Comments pt self-corrected R hip ER LAQ Sitting Exercise Name LAQ Side bilateral Equipment Used black table 22 Reps/Minutes 5 s hold x30 reps Comments good form post update change Standing Exercises side stepping Side bilateral Resistance AROM Equipment Used rail Reps/Minutes 15 ft x3 laps Comments cued level pelvis, core, alignment over stance LE Self-Care/Home Management Treatment Education Patient Education Home Exercise Program Activities Self-Care/Home Management Activities Issued HEP: TB 4 way ankle ex 's. Issue Lev 2 TB for HEP. PT-OP-T Assessment and Plan Start: 03/28/22 20:58 Freq: Status: Active Protocol: Document 05/16/22 09:55 LRN (Rec: 05/16/22 10:37 LRN [id number]) Physical Therapy Assessment Goals Five Impairment Decreased ability to ambulate stairs - able to do 2 steps Impairment Ambs 2 steps with walker. Short Term Goal (STG) Pt able to ambulate 4 steps x 2 with use of 2 railings with step to gait. STG Duration 05/21/22 (04/30/22: MET GOAL) Fpc Goal (LTG) Pt able to ambulate 4 steps x 3 with 1 railing (R side ascending, L side descending) with normal gait. LTG Duration 06/27/22 Four Impairment Lacks appropriate self care HEP. Short Term Goal (STG) Pt will be educated with review of TATUM precautions and learn positions of comfort in bed. 04/22/22: Reviewed TATUM precautions and discussed positions of comfort in bed. Pt is using adjustable bed. STG Duration 05/15/22 (04/22/22: MET GOAL) Button Sewer Goal (LTG) Pt will be independent with a self care HEP to progress R hip strengthening and functional ROM. 04/25/22: added LAQ, standing march and heel raises. LTG Duration 06/27/22 progressing 04/25/22 Three Impairment Decreased R hip strength and function Impairment R hip strength: Flex 1/5, AB 2/5; L hip strength: Flex 2+ /5, AB 3+/5. LEFS score 39, 40-59% impaired (score 32-47) Short Term Goal (STG) Pt will be able to walk without an assistive aid and a normal gait STG Duration 05/15/22 Button Sewer Goal (LTG) Pt will be able to tolerate stationary ex bike activity and improve function per LEFS score 63-79 (1-19% impaired). LTG Duration 06/27/22 Two Impairment Decreased R hip mobility Impairment Supine R hip PROM (in degs): Flex 108, AB 18, IR 15, ER 30 Supine L hip PROM (in deg's): Flex 120, AB 25, IR 10, ER 60 Short Term Goal (STG) Pt will be able to move independently in/out of bed. 04/22/22: Pt reports being able to move independently in/ out of bed with use of strap. STG Duration 05/15/22 (04/22/22: MET GOAL) Button Sewer Goal (LTG) Pt will be able to get in/out of car with mild pain (2/10). LTG Duration 06/27/22 Assessment Summary Assessment Pt did not recall ankle ex's but had better understanding after review, but further review needed. Pt is 5.5 weeks s/p anterior TATUM of R hip. Pt is slowly progressing. Poor abiity to lift RLE independently. Pt walking with long step lengths with use of walker and no complaints of pain. Physical Therapy Plan Frequency and Duration Frequency of Treatment 2x/Week Plan of Care Start Date 03/29/22 Plan of Care End Date 06/27/22 Next Visit Focus/Plan Next Note Type Treatment Note Next Visit Plan Review 4-way ankle ex's. POC: R anterior TATUM rehabilitation (see precautions). R hip strengthening, gait & stair strengthening/training. Gait training. Aerobic conditioning when cleared: Scifit or upright bike for R LE ROM.
--- NOTE | 2022-05-21 16:34 | PT.OTN ---
Current Diagnoses Unilateral primary osteoarthritis, right hip (05/21/22) Muscle weakness (generalized) (05/21/22) Unsteadiness on feet (05/21/22) Other abnormalities of gait and mobility (05/21/22) Physical Therapy Treatment Note PT-OP-A Visit Information Start: 03/28/22 20:58 Freq: Status: Active Protocol: Document 05/21/22 09:02 LRN (Rec: 05/21/22 09:49 LRN [id number]) Out-Patient Physical Therapy Visit Information Visit Information Visit Type Treatment Note Visit Start Time 09:03 Visit Stop Time 09:46 Total Visit Minutes 43 Visit Number 9 Evaluation Information Evaluation Date 03/29/22 Precautions Precautions R anterior TATUM surgery-04/09/22 (no hip ext, AB, ER). 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 PT-OP-B Current Condition Start: 03/28/22 20:58 Freq: Status: Active Protocol: Document 04/22/22 13:51 LRN (Rec: 04/22/22 17:04 LRN [id number]) Current Condition History of Current Condition Onset Date 04/09/22 Current Complaints R hip pain s/p R anterior TATUM History of Current Condition Pt is 13 days S/P R Anterior TATUM. She reports spending one night in the hospital due to A. Fib and arrythmia problems. States she has had no cardiac problems since discharge to home. She has had occasional burning pain in the anterior quad and pain in lateral RLE that has mostly gone away (1-2x/day). States she saw the physician assistant center manager 4 days ago and was told she had 2 precautions, not to hyperextend R leg and No falling. The pt attends with s/p packet with anterior TATUM precautions (no hip ext, AB, ER) and exercises. Prior Treatments and Tests Physical therapy in 2020 for R hip pain. Treatment Goals Patient/Caregiver Goals Post surgery goals: walk without an aid with a normal gait, get in/out of car with mild pain (2/10), pt able to tolerate stationary ex bike activity, learn positions of comfort in bed, be able to ambulate stairs in her home with use of railing. Prior Functional Status Baseline Function- ADL's Independent Baseline Function- Mobility Independent Baseline Function- Gait Independent gait without AD with a limp, excessive trunk sway. Baseline Function- Other Lives w/spouse who is able to help her. Sleeps in bed and turns in bed . Current Functional Impairments (Reported) Functional Limitations- ADL's R hip pain with gait, requires FWW. Functional Limitations- Mobility/Gait Step to gait Functional Limitations- Other Spouse assists when pt needs help. Personal Factors Other Personal Factors That May Effect Pt is 6' tall. Therapy/Recovery PT-OP-C Subjective Start: 03/28/22 20:58 Freq: Status: Active Protocol: Document 05/21/22 09:02 LRN (Rec: 05/21/22 09:49 LRN [id number]) OP-PT Subjective Patient Comments Patient Comments Doing 60' of sidestepping, and all ex's. Request review of HEP handouts. PT-OP-G Mobility & Gait Start: 03/28/22 20:58 Freq: Status: Active Protocol: Document 04/22/22 13:51 LRN (Rec: 04/22/22 14:44 LRN [id number]) OP Mobility Evaluation Bed Mobility Supine to and from Sit Independent with use of strap OP Gait Assessment Gait Gait Assistance Required: Independent Distance (Feet) 100 Able to Maintain Weight Bearing Status Yes During Gait Assistive Devices Assistive Device Front Wheeled Walker Gait Deviations General Gait Pattern Antalgic,Step-to Gait Factors Limiting Gait Function Factors Limiting Gait Function Decreased Strength,Limited Range of Motion,Pain,Poor Balance Stair Climbing Evaluation Comments Stair Climbing Comments 2 steps in/out of house ( landing area at each step). Stairs inside home that she doesn't use. Lift chair going up stairs. Pt reports correct manner of going up/down stairs. PT-OP-J Posture/Palpation/Skin Start: 03/28/22 20:58 Freq: Status: Active Protocol: Document 04/22/22 13:51 LRN (Rec: 04/22/22 14:44 LRN [id number]) Palpation Assessment Location R hip Palpation Location R hip Palpation Findings Edema,Tenderness Palpation Details Bandage covering incision that the pt states is to be removed today. PT-OP-K Range of Motion Start: 03/28/22 20:58 Freq: Status: Active Protocol: Document 04/22/22 13:51 LRN (Rec: 04/22/22 14:44 LRN [id number]) Hip Goniometric Range of Motion Hip Left Active Hip ROM WFL Yes Testing Position Supine Flexion w/Knee Flexed 68 Right Active Hip ROM WFL No Testing Position Supine Flexion w/Knee Flexed 52 Knee Goniometric Range of Motion Knee Left Flexion Active (degrees) 132 Extension Active (degrees) 0 Right Flexion Active (degrees) 114 Extension Active (degrees) 0 PT-OP-M Strength Start: 03/28/22 20:58 Freq: Status: Active Protocol: Document 04/22/22 13:51 LRN (Rec: 04/22/22 14:44 LRN [id number]) Hip Strength Hip Manual Muscle Testing Right Flexion (L2) 2- Poor- Abduction 1 Trace Adduction 1 Trace External Rotation 1 Trace Internal Rotation 2- Poor- PT-OP-Q Treatments Start: 03/28/22 20:58 Freq: Status: Active Protocol: Document 05/21/22 09:02 LRN (Rec: 05/21/22 09:49 LRN [id number]) Therapeutic Exercises Supine Exercises SAQ Supine Exercise Name SAQ Side right Equipment Used 1# Reps/Minutes 10x 3 Heel slides Supine Exercise Name Heel slide lifting leg Side right Reps/Minutes 10x 3 Hip AB Supine Exercise Name Assisted hip AB Side bilateral Reps/Minutes 10x 2 Comments Cued slow mvmt for full tolerable range Assitsted SLR Supine Exercise Name Assisted SLR Side right Reps/Minutes 10x Comments Discussed how pt could progress reps of ex at home Sitting Exercises Sit<>Stands Sitting Exercise Name Sit <> Stand Reps/Minutes 10x 4-way ankle Sitting Exercise Name PF/DF, EV/IV - HEP Side right Equipment Used Lv 2 TB Reps/Minutes 30x Comments pt self-corrected R hip ER for ankle EV Knee flex Sitting Exercise Name Active knee flexion strengthening Side right Reps/Minutes 5 s hold x10 reps Comments good form post update change Standing Exercises Shallow squats Standing Exercise Name Very shallow squats in // bars Side bilateral Reps/Minutes 20x Comments Cuing to keep from leaning back on R side and knee fwd heel raises Resistance hands hover rail Equipment Used cued core fac for stability Reps/Minutes 2x15 Comments cued equal WB with support BUE on FWW needed for now, good form & painfree september Standing Exercise Name September correcting LE alignment Resistance FWW support (70-75% UE WB) Reps/Minutes 30x Comments cued equal WB with support BUE on FWW needed for now, good form & painfree Self-Care/Home Management Treatment Education Patient Education Home Exercise Program Other Education Reviewed verbally all home ex' s and handouts. Activities Self-Care/Home Management Activities Pt noted on her current HEP to add: SLR and Sit<>Stands to program. PT-OP-T Assessment and Plan Start: 03/28/22 20:58 Freq: Status: Active Protocol: Document 05/21/22 09:02 LRN (Rec: 05/21/22 09:49 LRN [id number]) Physical Therapy Assessment Goals Five Impairment Decreased ability to ambulate stairs - able to do 2 steps Impairment Ambs 2 steps with walker. Short Term Goal (STG) Pt able to ambulate 4 steps x 2 with use of 2 railings with step to gait. STG Duration 05/21/22 (04/30/22: MET GOAL) Color Printer Operator Goal (LTG) Pt able to ambulate 4 steps x 3 with 1 railing (R side ascending, L side descending) with normal gait. LTG Duration 06/27/22 Four Impairment Lacks appropriate self care HEP. Short Term Goal (STG) Pt will be educated with review of TATUM precautions and learn positions of comfort in bed. 04/22/22: Reviewed TATUM precautions and discussed positions of comfort in bed. Pt is using adjustable bed. STG Duration 05/15/22 (04/22/22: MET GOAL) Half-Way Goal (LTG) Pt will be independent with a self care HEP to progress R hip strengthening and functional ROM. 04/25/22: added LAQ, standing march and heel raises. 05/21/22: HEP: Sit<>stands and SLR LTG Duration 06/27/22 progressing 04/25/22 Three Impairment Decreased R hip strength and function Impairment R hip strength: Flex 1/5, AB 2/5; L hip strength: Flex 2+ /5, AB 3+/5. LEFS score 39, 40-59% impaired (score 32-47) Short Term Goal (STG) Pt will be able to walk without an assistive aid and a normal gait STG Duration 05/15/22 Half-Way Goal (LTG) Pt will be able to tolerate stationary ex bike activity and improve function per LEFS score 63-79 (1-19% impaired). LTG Duration 06/27/22 Two Impairment Decreased R hip mobility Impairment Supine R hip PROM (in degs): Flex 108, AB 18, IR 15, ER 30 Supine L hip PROM (in deg's): Flex 120, AB 25, IR 10, ER 60 Short Term Goal (STG) Pt will be able to move independently in/out of bed. 04/22/22: Pt reports being able to move independently in/ out of bed with use of strap. STG Duration 05/15/22 (04/22/22: MET GOAL) Color Printer Operator Goal (LTG) Pt will be able to get in/out of car with mild pain (2/10). 05/21/22: Pt moves RLE independently in/out of car with discomfort. LTG Duration 06/27/22 (05/21/22: Progressing) Assessment Summary Assessment Quads weak, reqs use of hands for sit<>stand. Pt moves quickly and needs cuing to slow down mvmt with exercises. Pt shows good understanding of ankle ex's with minimal cuing needed. Marching, pt is not stable enough to do without UE support and posture changes occur due to hip weakness (leans back w/hip flex). Physical Therapy Plan Frequency and Duration Frequency of Treatment 2x/Week Plan of Care Start Date 03/29/22 Plan of Care End Date 06/27/22 Next Visit Focus/Plan Next Note Type Progress Note Next Visit Plan POC: R anterior TATUM rehabilitation (see precautions). R hip strengthening, gait & stair strengthening/training, add Shuttle recovery. Gait training, assess step lengths. Aerobic conditioning when cleared: Scifit or upright bike for R LE ROM/ strengthening.
--- NOTE | 2022-05-23 16:33 | PT.OTN ---
Current Diagnoses Unilateral primary osteoarthritis, right hip (05/23/22) Muscle weakness (generalized) (05/23/22) Unsteadiness on feet (05/23/22) Other abnormalities of gait and mobility (05/23/22) Physical Therapy Treatment Note PT-OP-A Visit Information Start: 03/28/22 20:58 Freq: Status: Active Protocol: Document 05/23/22 09:51 LRN (Rec: 05/23/22 10:35 LRN [id number]) Out-Patient Physical Therapy Visit Information Visit Information Visit Type Progress Note Visit Start Time 09:51 Visit Stop Time 10:33 Total Visit Minutes 43 Visit Number 10 Evaluation Information Evaluation Date 03/29/22 Precautions Precautions R anterior TATUM surgery-04/09/22 (no hip ext, AB, ER). 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 PT-OP-B Current Condition Start: 03/28/22 20:58 Freq: Status: Active Protocol: Document 04/22/22 13:51 LRN (Rec: 04/22/22 17:04 LRN [id number]) Current Condition History of Current Condition Onset Date 04/09/22 Current Complaints R hip pain s/p R anterior TATUM History of Current Condition Pt is 13 days S/P R Anterior TATUM. She reports spending one night in the hospital due to A. Fib and arrythmia problems. States she has had no cardiac problems since discharge to home. She has had occasional burning pain in the anterior quad and pain in lateral RLE that has mostly gone away (1-2x/day). States she saw the physician account assistant 4 days ago and was told she had 2 precautions, not to hyperextend R leg and No falling. The pt attends with s/p packet with anterior TATUM precautions (no hip ext, AB, ER) and exercises. Prior Treatments and Tests Physical therapy in 2020 for R hip pain. Treatment Goals Patient/Caregiver Goals Post surgery goals: walk without an aid with a normal gait, get in/out of car with mild pain (2/10), pt able to tolerate stationary ex bike activity, learn positions of comfort in bed, be able to ambulate stairs in her home with use of railing. Prior Functional Status Baseline Function- ADL's Independent Baseline Function- Mobility Independent Baseline Function- Gait Independent gait without AD with a limp, excessive trunk sway. Baseline Function- Other Lives w/spouse who is able to help her. Sleeps in bed and turns in bed . Current Functional Impairments (Reported) Functional Limitations- ADL's R hip pain with gait, requires FWW. Functional Limitations- Mobility/Gait Step to gait Functional Limitations- Other Spouse assists when pt needs help. Personal Factors Other Personal Factors That May Effect Pt is 6' tall. Therapy/Recovery PT-OP-C Subjective Start: 03/28/22 20:58 Freq: Status: Active Protocol: Document 05/23/22 09:51 LRN (Rec: 05/23/22 10:35 LRN [id number]) OP-PT Subjective Patient Comments Patient Comments Achy pain with use of Scifit that she states is achy like walking. Pt states she hasn't been able to do her ex's because she was helping her DA into her assisted living situation. PT-OP-G Mobility & Gait Start: 03/28/22 20:58 Freq: Status: Active Protocol: Document 04/22/22 13:51 LRN (Rec: 04/22/22 14:44 LRN [id number]) OP Mobility Evaluation Bed Mobility Supine to and from Sit Independent with use of strap OP Gait Assessment Gait Gait Assistance Required: Independent Distance (Feet) 100 Able to Maintain Weight Bearing Status Yes During Gait Assistive Devices Assistive Device Front Wheeled Walker Gait Deviations General Gait Pattern Antalgic,Step-to Gait Factors Limiting Gait Function Factors Limiting Gait Function Decreased Strength,Limited Range of Motion,Pain,Poor Balance Stair Climbing Evaluation Comments Stair Climbing Comments 2 steps in/out of house ( landing area at each step). Stairs inside home that she doesn't use. Lift chair going up stairs. Pt reports correct manner of going up/down stairs. PT-OP-J Posture/Palpation/Skin Start: 03/28/22 20:58 Freq: Status: Active Protocol: Document 04/22/22 13:51 LRN (Rec: 04/22/22 14:44 LRN [id number]) Palpation Assessment Location R hip Palpation Location R hip Palpation Findings Edema,Tenderness Palpation Details Bandage covering incision that the pt states is to be removed today. PT-OP-K Range of Motion Start: 03/28/22 20:58 Freq: Status: Active Protocol: Document 05/23/22 09:51 LRN (Rec: 05/23/22 10:35 LRN [id number]) Hip Goniometric Range of Motion Hip Left Active Hip ROM WFL Yes Testing Position Supine Flexion w/Knee Flexed 68 Straight Leg Raise 50 Abduction 15 Right Active Hip ROM WFL No Testing Position Supine Flexion w/Knee Flexed 104 Straight Leg Raise 33 Abduction 9 Right Passive Hip ROM WFL No Testing Position Supine Flexion w/Knee Flexed 114 Straight Leg Raise 95 Abduction 15 Internal Rotation 25 External Rotation 50 Left Passive Testing Position Supine Flexion w/Knee Flexed 120 Straight Leg Raise 100 Abduction 25 Internal Rotation 10 External Rotation 60 PT-OP-M Strength Start: 03/28/22 20:58 Freq: Status: Active Protocol: Document 04/22/22 13:51 LRN (Rec: 04/22/22 14:44 LRN [id number]) Hip Strength Hip Manual Muscle Testing Right Flexion (L2) 2- Poor- Abduction 1 Trace Adduction 1 Trace External Rotation 1 Trace Internal Rotation 2- Poor- PT-OP-Q Treatments Start: 03/28/22 20:58 Freq: Status: Active Protocol: Document 05/23/22 09:51 LRN (Rec: 05/23/22 10:35 LRN [id number]) Therapeutic Exercises Supine Exercises Hip ROM Supine Exercise Name AROM/PROM Side bilateral Comments AROM & PROM taken Sitting Exercises Knee flex Sitting Exercise Name Active knee flexion strengthening Side right Equipment Used lev 2 TB Reps/Minutes 10x 3 Comments cuing toes fwd Standing Exercises Step ups Standing Exercise Name Step ups Side bilateral Equipment Used 6 step, 2 railings Reps/Minutes 10x each side september Standing Exercise Name September correcting upper body alignment Resistance railing for UE support Reps/Minutes 30x Comments cued equal WB with support BUE , good form & painfree Gait Training Gait Activity Gait w/SPC Description Correction of L trunk lean w/ wgt shift onto LLE Device Used SPC, Mirrors Level of Assistance Much v cuing Surface Level Distance/Duration 23' Treatment Focus Proper Upper body positioning Comments Much visual and v feed back needed with pt slowing gait to correct. PT-OP-T Assessment and Plan Start: 03/28/22 20:58 Freq: Status: Active Protocol: Document 05/23/22 09:51 LRN (Rec: 05/23/22 10:35 LRN [id number]) Physical Therapy Assessment Rehab Potential Rehabilitation Potential Good Evaluation Complexity Number of Personal Factors/Comorbidities 1-2 Number of Body Systems Impaired 4 or More Clinical Presentation at Evaluation Evolving Impairments Impairments Activity Tolerance,Balance, Functional Mobility,Gait,Pain, ROM,Soft Tissue Mobility, Strength Goals Five Impairment Decreased ability to ambulate stairs - able to do 2 steps Impairment Ambs 2 steps with walker. Short Term Goal (STG) Pt able to ambulate 4 steps x 2 with use of 2 railings with step to gait. STG Duration 05/21/22 (04/30/22: MET GOAL) Longterm Goal (LTG) Pt able to ambulate 4 steps x 3 with 1 railing (R side ascending, L side descending) with normal gait. 05/23/22: Pt ascends/descends stairs x 1, with step over step gait using 2 railings for UE assist. LTG Duration 06/27/22 progresssing . Four Impairment Lacks appropriate self care HEP. Short Term Goal (STG) Pt will be educated with review of TATUM precautions and learn positions of comfort in bed. 04/22/22: Reviewed TATUM precautions and discussed positions of comfort in bed. Pt is using adjustable bed. STG Duration 05/15/22 (04/22/22: MET GOAL) Home Theater Installer Goal (LTG) Pt will be independent with a self care HEP to progress R hip strengthening and functional ROM. 04/25/22: added LAQ, standing march and heel raises. 05/21/22: HEP: Sit<>stands and SLR LTG Duration 06/27/22 progressing 04/25/22 Three Impairment Decreased R hip strength and function Impairment R hip strength: Flex 1/5, AB 2/5; L hip strength: Flex 2+ /5, AB 3+/5. LEFS score 39, 40-59% impaired (score 32-47) Short Term Goal (STG) Pt will be able to walk without an assistive aid and a normal gait. 05/23/22: Gait training with pt able to demonstrate a normal gait while concentrating on correcting gait. STG Duration 05/15/22 progressing . Longterm Goal (LTG) Pt will be able to tolerate stationary ex bike activity and improve function per LEFS score 63-79 (1-19% impaired). 05/23/22: Pt tolerated 4' on recumbent stepper. LTG Duration 06/27/22 progressing Two Impairment Decreased R hip mobility Impairment Supine R hip PROM (in degs): Flex 108, AB 18, IR 15, ER 30 Supine L hip PROM (in deg's): Flex 120, AB 25, IR 10, ER 60 Short Term Goal (STG) Pt will be able to move independently in/out of bed. 04/22/22: Pt reports being able to move independently in/ out of bed with use of strap. STG Duration 05/15/22 (04/22/22: MET GOAL) Home Theater Installer Goal (LTG) Pt will be able to get in/out of car with mild pain (2/10). 05/21/22: Pt moves RLE independently in/out of car with discomfort. LTG Duration 06/27/22 (05/21/22: Progressing) Assessment Summary Assessment Pt is 6 weeks s/p anterior R TATUM. Pt is improving in ROM mobility as demonstrated by increased active and passive R hip mobility (except in hip precaution movements). She is slowly progressing in her strength and is able to lift her leg into bed independently but has difficulty performing SLR. Overall she has weakness of her hip muscles that has been limited due to pain. After gait training she demonstrated much improved gait mechanics with a SPC, but without concentration went back to her habitual trunk sidebending gait. The pt will benefit from continue skilled physical therapy to work towards achieving the above stated goals. Physical Therapy Plan Frequency and Duration Frequency of Treatment 2x/Week Plan of Care Start Date 03/29/22 Plan of Care End Date 06/27/22 Therapeutic Interventions Therapeutic Interventions Aquatic Therapy,Balance Training,Gait Training,Home Exercise Program,Manual Therapy,Neuromuscular Re- education,Patient/Caregiver Education,Self-Care/Home Management,Soft Tissue Mobilization,Taping, Therapeutic Activities, Therapeutic Exercises Modalities Cold Pack/Ice Massage,Hot Packs Next Visit Focus/Plan Next Note Type Treatment Note Next Visit Plan POC: R anterior TATUM rehabilitation (see precautions). Add Shuttle recovery. R hip strengthening for normal gait without AD, gait & stair strengthening/training for normal gait. Gait training: assess step lengths. Aerobic conditioning when cleared: Scifit or upright bike for R LE ROM/ strengthening.
--- NOTE | 2022-05-28 10:30 | PT.OTN ---
Current Diagnoses Unilateral primary osteoarthritis, right hip (05/28/22) Muscle weakness (generalized) (05/28/22) Unsteadiness on feet (05/28/22) Other abnormalities of gait and mobility (05/28/22) Physical Therapy Treatment Note PT-OP-A Visit Information Start: 03/28/22 20:58 Freq: Status: Active Protocol: Document 05/28/22 09:48 SP (Rec: 05/28/22 10:32 SP [id number]) Out-Patient Physical Therapy Visit Information Visit Information Visit Type Treatment Note Visit Start Time 09:48 Visit Stop Time 10:30 Total Visit Minutes 42 Visit Number 11 Number of MOTORMAN/WOMAN Visits 1 Evaluation Information Evaluation Date 03/29/22 Precautions Precautions R anterior TATUM surgery-04/09/22 (no hip ext, AB, ER). 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 PT-OP-B Current Condition Start: 03/28/22 20:58 Freq: Status: Active Protocol: Document 04/22/22 13:51 LRN (Rec: 04/22/22 17:04 LRN [id number]) Current Condition History of Current Condition Onset Date 04/09/22 Current Complaints R hip pain s/p R anterior TATUM History of Current Condition Pt is 13 days S/P R Anterior TATUM. She reports spending one night in the hospital due to A. Fib and arrythmia problems. States she has had no cardiac problems since discharge to home. She has had occasional burning pain in the anterior quad and pain in lateral RLE that has mostly gone away (1-2x/day). States she saw the physician assistant research scientist 4 days ago and was told she had 2 precautions, not to hyperextend R leg and No falling. The pt attends with s/p packet with anterior TATUM precautions (no hip ext, AB, ER) and exercises. Prior Treatments and Tests Physical therapy in 2020 for R hip pain. Treatment Goals Patient/Caregiver Goals Post surgery goals: walk without an aid with a normal gait, get in/out of car with mild pain (2/10), pt able to tolerate stationary ex bike activity, learn positions of comfort in bed, be able to ambulate stairs in her home with use of railing. Prior Functional Status Baseline Function- ADL's Independent Baseline Function- Mobility Independent Baseline Function- Gait Independent gait without AD with a limp, excessive trunk sway. Baseline Function- Other Lives w/spouse who is able to help her. Sleeps in bed and turns in bed . Current Functional Impairments (Reported) Functional Limitations- ADL's R hip pain with gait, requires FWW. Functional Limitations- Mobility/Gait Step to gait Functional Limitations- Other Spouse assists when pt needs help. Personal Factors Other Personal Factors That May Effect Pt is 6' tall. Therapy/Recovery PT-OP-C Subjective Start: 03/28/22 20:58 Freq: Status: Active Protocol: Document 05/28/22 09:48 SP (Rec: 05/28/22 10:32 SP [id number]) OP-PT Subjective Patient Comments Patient Comments Pt is 7 weeks R s/p anterior TATUM today. Pt states saw ortho 2 weeks ago and please with progress making and suggested DC walker and has weaned off but still uses for long distancess. She has follow up end of Nov. Pt reports tired but feels good work effort with PT. Pt reported had pain R hip with step ups at home so hasn't done much on own. PT-OP-G Mobility & Gait Start: 03/28/22 20:58 Freq: Status: Active Protocol: Document 04/22/22 13:51 LRN (Rec: 04/22/22 14:44 LRN [id number]) OP Mobility Evaluation Bed Mobility Supine to and from Sit Independent with use of strap OP Gait Assessment Gait Gait Assistance Required: Independent Distance (Feet) 100 Able to Maintain Weight Bearing Status Yes During Gait Assistive Devices Assistive Device Front Wheeled Walker Gait Deviations General Gait Pattern Antalgic,Step-to Gait Factors Limiting Gait Function Factors Limiting Gait Function Decreased Strength,Limited Range of Motion,Pain,Poor Balance Stair Climbing Evaluation Comments Stair Climbing Comments 2 steps in/out of house ( landing area at each step). Stairs inside home that she doesn't use. Lift chair going up stairs. Pt reports correct manner of going up/down stairs. PT-OP-J Posture/Palpation/Skin Start: 03/28/22 20:58 Freq: Status: Active Protocol: Document 04/22/22 13:51 LRN (Rec: 04/22/22 14:44 LRN [id number]) Palpation Assessment Location R hip Palpation Location R hip Palpation Findings Edema,Tenderness Palpation Details Bandage covering incision that the pt states is to be removed today. PT-OP-K Range of Motion Start: 03/28/22 20:58 Freq: Status: Active Protocol: Document 05/23/22 09:51 LRN (Rec: 05/23/22 10:35 LRN [id number]) Hip Goniometric Range of Motion Hip Left Active Hip ROM WFL Yes Testing Position Supine Flexion w/Knee Flexed 68 Straight Leg Raise 50 Abduction 15 Right Active Hip ROM WFL No Testing Position Supine Flexion w/Knee Flexed 104 Straight Leg Raise 33 Abduction 9 Right Passive Hip ROM WFL No Testing Position Supine Flexion w/Knee Flexed 114 Straight Leg Raise 95 Abduction 15 Internal Rotation 25 External Rotation 50 Left Passive Testing Position Supine Flexion w/Knee Flexed 120 Straight Leg Raise 100 Abduction 25 Internal Rotation 10 External Rotation 60 PT-OP-M Strength Start: 03/28/22 20:58 Freq: Status: Active Protocol: Document 04/22/22 13:51 LRN (Rec: 04/22/22 14:44 LRN [id number]) Hip Strength Hip Manual Muscle Testing Right Flexion (L2) 2- Poor- Abduction 1 Trace Adduction 1 Trace External Rotation 1 Trace Internal Rotation 2- Poor- PT-OP-Q Treatments Start: 03/28/22 20:58 Freq: Status: Active Protocol: Document 05/28/22 09:48 SP (Rec: 05/28/22 10:32 SP [id number]) Cardio Equipment Recumbent Bicycle Duration (Minutes) 8 Resistance 5>4 last minute due to tiring Seat Position 13 Other 58 RPMs, 2.65 miles, increase breath rate with mask Therapeutic Exercises Sitting Exercises self STMs Sitting Exercise Name added for home Side bilateral Resistance R>L Equipment Used rolling pin to quad, ITB Reps/Minutes 3 min total Comments good feedback HS stretch Sitting Exercise Name post recumbent bike home recovery before stair mgt Side bilateral Reps/Minutes 20 sec Comments cued scoot front seat, hip hinge 90-110 deg, cautious no stress R hip Gait Training Gait Activity Stairs Description Stair ascend/descend Device Used R HR and LUE using SPC, single RHR Level of Assistance SBA Distance/Duration 28 stairs receiprocal gait, 16 stair RHR only Treatment Focus receiprocal stepping, quad fac , stability, patterning SPC Comments Pt reports 80-90%% WBing RLE descending w/ 10-20% LUE WB on rail, 70-80 % through RUE in HR and LUE on SPC ascending vs 50% WB on RLE while using 50% RUE WB on HR. Self-Care/Home Management Treatment Education Patient Education Home Exercise Program Other Education added seated stretching/STMs quad/ HS R>L. PT-OP-T Assessment and Plan Start: 03/28/22 20:58 Freq: Status: Active Protocol: Document 05/28/22 09:48 SP (Rec: 05/28/22 10:32 SP [id number]) Physical Therapy Assessment Goals Five Impairment Decreased ability to ambulate stairs - able to do 2 steps Impairment Ambs 2 steps with walker. Short Term Goal (STG) Pt able to ambulate 4 steps x 2 with use of 2 railings with step to gait. STG Duration 05/21/22 (04/30/22: MET GOAL) Residential Goal (LTG) Pt able to ambulate 4 steps x 3 with 1 railing (R side ascending, L side descending) with normal gait. 05/23/22: Pt ascends/descends stairs x 1, with step over step gait using 2 railings for UE assist. LTG Duration 06/27/22 progresssing . Four Impairment Lacks appropriate self care HEP. Short Term Goal (STG) Pt will be educated with review of TATUM precautions and learn positions of comfort in bed. 04/22/22: Reviewed TATUM precautions and discussed positions of comfort in bed. Pt is using adjustable bed. STG Duration 05/15/22 (04/22/22: MET GOAL) Alignment Technician Goal (LTG) Pt will be independent with a self care HEP to progress R hip strengthening and functional ROM. 04/25/22: added LAQ, standing march and heel raises. 05/21/22: HEP: Sit<>stands and SLR LTG Duration 06/27/22 progressing 04/25/22 Three Impairment Decreased R hip strength and function Impairment R hip strength: Flex 1/5, AB 2/5; L hip strength: Flex 2+ /5, AB 3+/5. LEFS score 39, 40-59% impaired (score 32-47) Short Term Goal (STG) Pt will be able to walk without an assistive aid and a normal gait. 05/23/22: Gait training with pt able to demonstrate a normal gait while concentrating on correcting gait. STG Duration 05/15/22 progressing . Alignment Technician Goal (LTG) Pt will be able to tolerate stationary ex bike activity and improve function per LEFS score 63-79 (1-19% impaired). 05/23/22: Pt tolerated 4' on recumbent stepper. 05/28/22: tolerated recumbent bike 8 min at level 5 resistance min then reduced level 4 due to tiring LTG Duration 06/27/22 progressing Two Impairment Decreased R hip mobility Impairment Supine R hip PROM (in degs): Flex 108, AB 18, IR 15, ER 30 Supine L hip PROM (in deg's): Flex 120, AB 25, IR 10, ER 60 Short Term Goal (STG) Pt will be able to move independently in/out of bed. 04/22/22: Pt reports being able to move independently in/ out of bed with use of strap. STG Duration 05/15/22 (04/22/22: MET GOAL) Residential Goal (LTG) Pt will be able to get in/out of car with mild pain (2/10). 05/21/22: Pt moves RLE independently in/out of car with discomfort. 05/28/22: GOAL MET: Pt reports no pain lifting RLE in/out car with no pain. LTG Duration 06/27/22 (05/28/22: GOAL MET) Assessment Summary Assessment Pt requested tx time spent for stair mgt for safety go down to basement to use stationary recumbent bike. Pt safe use R HR and SPC in LUE able to perform receiprocal stepping this tx demonstrating more steps than has at home for allowance carryover at home. Discussed recover time after bike and before ascending stairs to first floor, suggested self stretching/STMs so added to HEP (no HOs requested/given). Pt stated can't do supine HEP downstairs due to no bed/table and unableto get on floor yet and thought the stretching was helpful post aerobic/ROM R hip for self mobility this tx progression. Physical Therapy Plan Frequency and Duration Frequency of Treatment 2x/Week Plan of Care Start Date 03/29/22 Plan of Care End Date 06/27/22 Therapeutic Interventions Therapeutic Interventions Aquatic Therapy,Balance Training,Gait Training,Home Exercise Program,Manual Therapy,Neuromuscular Re- education,Patient/Caregiver Education,Self-Care/Home Management,Soft Tissue Mobilization,Taping, Therapeutic Activities, Therapeutic Exercises Modalities Cold Pack/Ice Massage,Hot Packs Next Visit Focus/Plan Next Note Type Treatment Note Next Visit Plan Continue warm up recumbent bike. add shuttle recovery POC : R anterior TATUM rehabilitation (see precautions). R hip strengthening for normal gait without AD, gait & stair strengthening/training for normal gait. Gait training: assess step lengths. Aerobic conditioning when cleared: Scifit or upright bike for R LE ROM/ strengthening.
[2022-05-30 09:46] VITALS: BP 125/85; BP 157/84; PULSE 63; PULSE 66
--- NOTE | 2022-05-30 17:04 | PT.OTN ---
Current Diagnoses Unilateral primary osteoarthritis, right hip (05/30/22) Muscle weakness (generalized) (05/30/22) Unsteadiness on feet (05/30/22) Other abnormalities of gait and mobility (05/30/22) Physical Therapy Treatment Note PT-OP-A Visit Information Start: 03/28/22 20:58 Freq: Status: Active Protocol: Document 05/30/22 09:46 LRN (Rec: 05/30/22 10:31 LRN [id number]) Out-Patient Physical Therapy Visit Information Visit Information Visit Type Treatment Note Visit Start Time 09:46 Visit Stop Time 10:26 Total Visit Minutes 40 Visit Number 12 Evaluation Information Evaluation Date 03/29/22 Precautions Precautions R anterior TATUM surgery-04/09/22 (no hip ext, AB, ER). 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 PT-OP-B Current Condition Start: 03/28/22 20:58 Freq: Status: Active Protocol: Document 04/22/22 13:51 LRN (Rec: 04/22/22 17:04 LRN [id number]) Current Condition History of Current Condition Onset Date 04/09/22 Current Complaints R hip pain s/p R anterior TATUM History of Current Condition Pt is 13 days S/P R Anterior TATUM. She reports spending one night in the hospital due to A. Fib and arrythmia problems. States she has had no cardiac problems since discharge to home. She has had occasional burning pain in the anterior quad and pain in lateral RLE that has mostly gone away (1-2x/day). States she saw the physician secretary administrative assistant 4 days ago and was told she had 2 precautions, not to hyperextend R leg and No falling. The pt attends with s/p packet with anterior TATUM precautions (no hip ext, AB, ER) and exercises. Prior Treatments and Tests Physical therapy in 2020 for R hip pain. Treatment Goals Patient/Caregiver Goals Post surgery goals: walk without an aid with a normal gait, get in/out of car with mild pain (2/10), pt able to tolerate stationary ex bike activity, learn positions of comfort in bed, be able to ambulate stairs in her home with use of railing. Prior Functional Status Baseline Function- ADL's Independent Baseline Function- Mobility Independent Baseline Function- Gait Independent gait without AD with a limp, excessive trunk sway. Baseline Function- Other Lives w/spouse who is able to help her. Sleeps in bed and turns in bed . Current Functional Impairments (Reported) Functional Limitations- ADL's R hip pain with gait, requires FWW. Functional Limitations- Mobility/Gait Step to gait Functional Limitations- Other Spouse assists when pt needs help. Personal Factors Other Personal Factors That May Effect Pt is 6' tall. Therapy/Recovery PT-OP-C Subjective Start: 03/28/22 20:58 Freq: Status: Active Protocol: Document 05/30/22 09:46 LRN (Rec: 05/30/22 10:31 LRN [id number]) OP-PT Subjective Patient Comments Patient Comments States having trouble doing hip AB and lifting RLE. On antibiotic for UTI. PT-OP-G Mobility & Gait Start: 03/28/22 20:58 Freq: Status: Active Protocol: Document 04/22/22 13:51 LRN (Rec: 04/22/22 14:44 LRN [id number]) OP Mobility Evaluation Bed Mobility Supine to and from Sit Independent with use of strap OP Gait Assessment Gait Gait Assistance Required: Independent Distance (Feet) 100 Able to Maintain Weight Bearing Status Yes During Gait Assistive Devices Assistive Device Front Wheeled Walker Gait Deviations General Gait Pattern Antalgic,Step-to Gait Factors Limiting Gait Function Factors Limiting Gait Function Decreased Strength,Limited Range of Motion,Pain,Poor Balance Stair Climbing Evaluation Comments Stair Climbing Comments 2 steps in/out of house ( landing area at each step). Stairs inside home that she doesn't use. Lift chair going up stairs. Pt reports correct manner of going up/down stairs. PT-OP-H Neuro Start: 03/28/22 20:58 Freq: Status: Active Protocol: Document 05/30/22 09:46 LRN (Rec: 05/30/22 16:58 LRN [id number]) Vital Signs Pulse Rest @ End of Therapy Pulse at Rest (bpm) 63 Short rest after Recumbent Bike Pulse With Activity (bpm) 66 Pulse Assessment Method Pulse Ox/Monitor Blood Pressure Rest @ End of Therapy Blood Pressure (90/60-120/80 mmHg) 125/85 H Blood Pressure Source Automatic Cuff Short rest after Recumbent Bike Blood Pressure (90/60-120/80 mmHg) 157/84 H Blood Pressure Source Automatic Cuff PT-OP-J Posture/Palpation/Skin Start: 03/28/22 20:58 Freq: Status: Active Protocol: Document 04/22/22 13:51 LRN (Rec: 04/22/22 14:44 LRN [id number]) Palpation Assessment Location R hip Palpation Location R hip Palpation Findings Edema,Tenderness Palpation Details Bandage covering incision that the pt states is to be removed today. PT-OP-K Range of Motion Start: 03/28/22 20:58 Freq: Status: Active Protocol: Document 05/23/22 09:51 LRN (Rec: 05/23/22 10:35 LRN [id number]) Hip Goniometric Range of Motion Hip Left Active Hip ROM WFL Yes Testing Position Supine Flexion w/Knee Flexed 68 Straight Leg Raise 50 Abduction 15 Right Active Hip ROM WFL No Testing Position Supine Flexion w/Knee Flexed 104 Straight Leg Raise 33 Abduction 9 Right Passive Hip ROM WFL No Testing Position Supine Flexion w/Knee Flexed 114 Straight Leg Raise 95 Abduction 15 Internal Rotation 25 External Rotation 50 Left Passive Testing Position Supine Flexion w/Knee Flexed 120 Straight Leg Raise 100 Abduction 25 Internal Rotation 10 External Rotation 60 PT-OP-M Strength Start: 03/28/22 20:58 Freq: Status: Active Protocol: Document 04/22/22 13:51 LRN (Rec: 04/22/22 14:44 LRN [id number]) Hip Strength Hip Manual Muscle Testing Right Flexion (L2) 2- Poor- Abduction 1 Trace Adduction 1 Trace External Rotation 1 Trace Internal Rotation 2- Poor- PT-OP-Q Treatments Start: 03/28/22 20:58 Freq: Status: Active Protocol: Document 05/30/22 09:46 LRN (Rec: 05/30/22 10:31 LRN [id number]) Cardio Equipment Recumbent Bicycle Duration (Minutes) 9 Resistance 4 Seat Position 13 Other Pt mildly SOB at end of treatment Therapeutic Exercises Sitting Exercises Heel slide>Hip Flex Sitting Exercise Name Heel slide>Hip Flex w/self asst for hip flex Side right Reps/Minutes 10x 4 Comments Rests between ex Standing Exercises march Standing Exercise Name Marching, back and forth & then on 1 side Side bilateral Resistance railing for UE support Reps/Minutes 10x 2 each type Comments Cued no trunk side sway and for ECC control of leg. Rests btn sets Gait Training Gait Activity Gait w/SPC Description Correction of L trunk lean w/ wgt shift onto LLE Device Used SPC Level of Assistance Much v cuing Surface Level Distance/Duration 20x 2' Treatment Focus Proper Upper body positioning Comments V cuing needed with pt slowing gait to correct. PT-OP-T Assessment and Plan Start: 03/28/22 20:58 Freq: Status: Active Protocol: Document 05/30/22 09:46 LRN (Rec: 05/30/22 10:31 LRN [id number]) Physical Therapy Assessment Goals Five Impairment Decreased ability to ambulate stairs - able to do 2 steps Impairment Ambs 2 steps with walker. Short Term Goal (STG) Pt able to ambulate 4 steps x 2 with use of 2 railings with step to gait. STG Duration 05/21/22 (04/30/22: MET GOAL) Assisted Goal (LTG) Pt able to ambulate 4 steps x 3 with 1 railing (R side ascending, L side descending) with normal gait. 05/23/22: Pt ascends/descends stairs x 1, with step over step gait using 2 railings for UE assist. LTG Duration 06/27/22 progresssing . Four Impairment Lacks appropriate self care HEP. Short Term Goal (STG) Pt will be educated with review of TATUM precautions and learn positions of comfort in bed. 04/22/22: Reviewed TATUM precautions and discussed positions of comfort in bed. Pt is using adjustable bed. STG Duration 05/15/22 (04/22/22: MET GOAL) Assisted Goal (LTG) Pt will be independent with a self care HEP to progress R hip strengthening and functional ROM. 04/25/22: added LAQ, standing march and heel raises. 05/21/22: HEP: Sit<>stands and SLR LTG Duration 06/27/22 progressing 04/25/22 Three Impairment Decreased R hip strength and function Impairment R hip strength: Flex 1/5, AB 2/5; L hip strength: Flex 2+ /5, AB 3+/5. LEFS score 39, 40-59% impaired (score 32-47) Short Term Goal (STG) Pt will be able to walk without an assistive aid and a normal gait. 05/23/22: Gait training with pt able to demonstrate a normal gait while concentrating on correcting gait. STG Duration 05/15/22 progressing . Food Selector Goal (LTG) Pt will be able to tolerate stationary ex bike activity and improve function per LEFS score 63-79 (1-19% impaired). 05/23/22: Pt tolerated 4' on recumbent stepper. 05/28/22: tolerated recumbent bike 8 min at level 5 resistance min then reduced level 4 due to tiring LTG Duration 06/27/22 progressing Two Impairment Decreased R hip mobility Impairment Supine R hip PROM (in degs): Flex 108, AB 18, IR 15, ER 30 Supine L hip PROM (in deg's): Flex 120, AB 25, IR 10, ER 60 Short Term Goal (STG) Pt will be able to move independently in/out of bed. 04/22/22: Pt reports being able to move independently in/ out of bed with use of strap. STG Duration 05/15/22 (04/22/22: MET GOAL) Food Selector Goal (LTG) Pt will be able to get in/out of car with mild pain (2/10). 05/21/22: Pt moves RLE independently in/out of car with discomfort. 05/28/22: GOAL MET: Pt reports no pain lifting RLE in/out car with no pain. LTG Duration 06/27/22 (05/28/22: GOAL MET) Assessment Summary Assessment Pt is 7 wks s/p anter R TATUM. Pt was noticeable more SOB with exer. Pt pacemaker increases when she sways with trunk. After Recumbent bike with short rest BP 157/84, HR 66. Pt was SOB throughout ex and needed many rests between ex's. Ending Vitals after short rest: BP 125/75, HR 63 . Pt was working 20 bpm above resting systolic pressure; therefore pt was noticeably more SOB with ex. Pt needs cuing to work within PES of 11 -12. Physical Therapy Plan Frequency and Duration Frequency of Treatment 2x/Week Plan of Care Start Date 03/29/22 Plan of Care End Date 06/27/22 Next Visit Focus/Plan Next Note Type Treatment Note Next Visit Plan Monitor vitals if SOB to begin or with exercise. Continue warm up recumbent bike. add shuttle recovery POC: R anterior TATUM rehabilitation ( see precautions). R hip strengthening for normal gait without AD, gait & stair strengthening/training for normal gait. Gait training: assess step lengths. Aerobic conditioning when cleared: Scifit or upright bike for R LE ROM/ strengthening.
--- NOTE | 2022-06-07 12:39 | PT.OTN ---
Current Diagnoses Unilateral primary osteoarthritis, right hip (06/07/22) Muscle weakness (generalized) (06/07/22) Unsteadiness on feet (06/07/22) Other abnormalities of gait and mobility (06/07/22) Physical Therapy Treatment Note PT-OP-A Visit Information Start: 03/28/22 20:58 Freq: Status: Active Protocol: Document 06/07/22 09:04 LRN (Rec: 06/07/22 09:48 LRN [id number]) Out-Patient Physical Therapy Visit Information Visit Information Visit Type Treatment Note Visit Start Time 09:04 Visit Stop Time 09:43 Total Visit Minutes 39 Visit Number 13 Evaluation Information Evaluation Date 03/29/22 Precautions Precautions R anterior TATUM surgery-04/09/22 (no hip ext, AB, ER). 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 PT-OP-B Current Condition Start: 03/28/22 20:58 Freq: Status: Active Protocol: Document 04/22/22 13:51 LRN (Rec: 04/22/22 17:04 LRN [id number]) Current Condition History of Current Condition Onset Date 04/09/22 Current Complaints R hip pain s/p R anterior TATUM History of Current Condition Pt is 13 days S/P R Anterior TATUM. She reports spending one night in the hospital due to A. Fib and arrythmia problems. States she has had no cardiac problems since discharge to home. She has had occasional burning pain in the anterior quad and pain in lateral RLE that has mostly gone away (1-2x/day). States she saw the physician bookkeeper assistant 4 days ago and was told she had 2 precautions, not to hyperextend R leg and No falling. The pt attends with s/p packet with anterior TATUM precautions (no hip ext, AB, ER) and exercises. Prior Treatments and Tests Physical therapy in 2020 for R hip pain. Treatment Goals Patient/Caregiver Goals Post surgery goals: walk without an aid with a normal gait, get in/out of car with mild pain (2/10), pt able to tolerate stationary ex bike activity, learn positions of comfort in bed, be able to ambulate stairs in her home with use of railing. Prior Functional Status Baseline Function- ADL's Independent Baseline Function- Mobility Independent Baseline Function- Gait Independent gait without AD with a limp, excessive trunk sway. Baseline Function- Other Lives w/spouse who is able to help her. Sleeps in bed and turns in bed . Current Functional Impairments (Reported) Functional Limitations- ADL's R hip pain with gait, requires FWW. Functional Limitations- Mobility/Gait Step to gait Functional Limitations- Other Spouse assists when pt needs help. Personal Factors Other Personal Factors That May Effect Pt is 6' tall. Therapy/Recovery PT-OP-C Subjective Start: 03/28/22 20:58 Freq: Status: Active Protocol: Document 06/07/22 09:04 LRN (Rec: 06/07/22 09:48 LRN [id number]) OP-PT Subjective Patient Comments Patient Comments AMbs stairs with normal gait with cane and railing. PT-OP-G Mobility & Gait Start: 03/28/22 20:58 Freq: Status: Active Protocol: Document 04/22/22 13:51 LRN (Rec: 04/22/22 14:44 LRN [id number]) OP Mobility Evaluation Bed Mobility Supine to and from Sit Independent with use of strap OP Gait Assessment Gait Gait Assistance Required: Independent Distance (Feet) 100 Able to Maintain Weight Bearing Status Yes During Gait Assistive Devices Assistive Device Front Wheeled Walker Gait Deviations General Gait Pattern Antalgic,Step-to Gait Factors Limiting Gait Function Factors Limiting Gait Function Decreased Strength,Limited Range of Motion,Pain,Poor Balance Stair Climbing Evaluation Comments Stair Climbing Comments 2 steps in/out of house ( landing area at each step). Stairs inside home that she doesn't use. Lift chair going up stairs. Pt reports correct manner of going up/down stairs. PT-OP-H Neuro Start: 03/28/22 20:58 Freq: Status: Active Protocol: Document 05/30/22 09:46 LRN (Rec: 05/30/22 16:58 LRN [id number]) Vital Signs Pulse Rest @ End of Therapy Pulse at Rest (bpm) 63 Short rest after Recumbent Bike Pulse With Activity (bpm) 66 Pulse Assessment Method Pulse Ox/Monitor Blood Pressure Rest @ End of Therapy Blood Pressure (90/60-120/80 mmHg) 125/85 H Blood Pressure Source Automatic Cuff Short rest after Recumbent Bike Blood Pressure (90/60-120/80 mmHg) 157/84 H Blood Pressure Source Automatic Cuff PT-OP-J Posture/Palpation/Skin Start: 03/28/22 20:58 Freq: Status: Active Protocol: Document 04/22/22 13:51 LRN (Rec: 04/22/22 14:44 LRN [id number]) Palpation Assessment Location R hip Palpation Location R hip Palpation Findings Edema,Tenderness Palpation Details Bandage covering incision that the pt states is to be removed today. PT-OP-K Range of Motion Start: 03/28/22 20:58 Freq: Status: Active Protocol: Document 05/23/22 09:51 LRN (Rec: 05/23/22 10:35 LRN [id number]) Hip Goniometric Range of Motion Hip Left Active Hip ROM WFL Yes Testing Position Supine Flexion w/Knee Flexed 68 Straight Leg Raise 50 Abduction 15 Right Active Hip ROM WFL No Testing Position Supine Flexion w/Knee Flexed 104 Straight Leg Raise 33 Abduction 9 Right Passive Hip ROM WFL No Testing Position Supine Flexion w/Knee Flexed 114 Straight Leg Raise 95 Abduction 15 Internal Rotation 25 External Rotation 50 Left Passive Testing Position Supine Flexion w/Knee Flexed 120 Straight Leg Raise 100 Abduction 25 Internal Rotation 10 External Rotation 60 PT-OP-M Strength Start: 03/28/22 20:58 Freq: Status: Active Protocol: Document 04/22/22 13:51 LRN (Rec: 04/22/22 14:44 LRN [id number]) Hip Strength Hip Manual Muscle Testing Right Flexion (L2) 2- Poor- Abduction 1 Trace Adduction 1 Trace External Rotation 1 Trace Internal Rotation 2- Poor- PT-OP-Q Treatments Start: 03/28/22 20:58 Freq: Status: Active Protocol: Document 06/07/22 09:04 LRN (Rec: 06/07/22 09:48 LRN [id number]) Cardio Equipment Recumbent Stepper (Sci-Fit) Duration (Minutes) 10 Resistance 1 Seat Position 18 Other Pt needed to hydrate after ex. No SOB or fatigue noted by pt or therapist. Therapeutic Exercises Standing Exercises Weight shifts Standing Exercise Name Weight shift onto RLE Side right Equipment Used railing for UE support Reps/Minutes 5' Step ups Standing Exercise Name Step ups Side bilateral Equipment Used Railing Reps/Minutes 15x each Comments Cuing for no R PPT on ascending, and control of endrange descent of LLE. side stepping Standing Exercise Name Side stepping Side bilateral Resistance AROM Equipment Used rail Reps/Minutes 15 ft x6 laps Comments cued level pelvis, core, alignment over stance LE heel raises Standing Exercise Name Heel raises Resistance hands hover rail - finger tip for balance as needed Equipment Used cued core fac for stability Reps/Minutes 2x15 Comments cued equal WB with support BUE on FWW needed for now, good form & painfree march Standing Exercise Name Marching, back and forth & then on 1 side Side bilateral Resistance railing for UE support Equipment Used Mirror for visual feedback Reps/Minutes 10x 2 each type Comments Cued no trunk side sway and PPT. Rests btn sets Gait Training Gait Activity Stairs Description 6 stair ambulation Device Used Railing and cane Distance/Duration 6' Treatment Focus No R PPT with hip flexion, control of descent of LLE PT-OP-T Assessment and Plan Start: 03/28/22 20:58 Freq: Status: Active Protocol: Document 06/07/22 09:04 LRN (Rec: 06/07/22 09:48 LRN [id number]) Physical Therapy Assessment Goals Five Impairment Decreased ability to ambulate stairs - able to do 2 steps Impairment Ambs 2 steps with walker. Short Term Goal (STG) Pt able to ambulate 4 steps x 2 with use of 2 railings with step to gait. STG Duration 05/21/22 (04/30/22: MET GOAL) Steam Flattener Goal (LTG) Pt able to ambulate 4 steps x 3 with 1 railing (R side ascending, L side descending) with normal gait. 05/23/22: Pt ascends/descends stairs x 1, with step over step gait using 2 railings for UE assist. 06/07/22: Step over step gait with railing and cane. LTG Duration 06/27/22 progresssing . Four Impairment Lacks appropriate self care HEP. Short Term Goal (STG) Pt will be educated with review of TATUM precautions and learn positions of comfort in bed. 04/22/22: Reviewed TATUM precautions and discussed positions of comfort in bed. Pt is using adjustable bed. STG Duration 05/15/22 (04/22/22: MET GOAL) Correction Goal (LTG) Pt will be independent with a self care HEP to progress R hip strengthening and functional ROM. 04/25/22: added LAQ, standing march and heel raises. 05/21/22: HEP: Sit<>stands and SLR LTG Duration 06/27/22 progressing 04/25/22 Three Impairment Decreased R hip strength and function Impairment R hip strength: Flex 1/5, AB 2/5; L hip strength: Flex 2+ /5, AB 3+/5. LEFS score 39, 40-59% impaired (score 32-47) Short Term Goal (STG) Pt will be able to walk without an assistive aid and a normal gait. 05/23/22: Gait training with pt able to demonstrate a normal gait while concentrating on correcting gait. STG Duration 05/15/22 progressing . Correction Goal (LTG) Pt will be able to tolerate stationary ex bike activity and improve function per LEFS score 63-79 (1-19% impaired). 05/23/22: Pt tolerated 4' on recumbent stepper. 05/28/22: tolerated recumbent bike 8 min at level 5 resistance min then reduced level 4 due to tiring LTG Duration 06/27/22 progressing Two Impairment Decreased R hip mobility Impairment Supine R hip PROM (in degs): Flex 108, AB 18, IR 15, ER 30 Supine L hip PROM (in deg's): Flex 120, AB 25, IR 10, ER 60 Short Term Goal (STG) Pt will be able to move independently in/out of bed. 04/22/22: Pt reports being able to move independently in/ out of bed with use of strap. STG Duration 05/15/22 (04/22/22: MET GOAL) Correction Goal (LTG) Pt will be able to get in/out of car with mild pain (2/10). 05/21/22: Pt moves RLE independently in/out of car with discomfort. 05/28/22: GOAL MET: Pt reports no pain lifting RLE in/out car with no pain. LTG Duration 06/27/22 (05/28/22: GOAL MET) One Impairment Pt lacks knowledge of pre- and post-op R anterior TATUM care Short Term Goal (STG) Pt will be educated in anterior TATUM precautions, appropriate post-op transfers, proper set up for ambulatory assistive device, appropriate gait on level and stairs, pre- op strengthening exercises and handouts for post-op ex's and self care. 03/29/22: Pt educated in all areas as indicated above. STG Duration 03/29/22: MET GOAL. Correction Goal (LTG) Pt will be able to recall 3/3 R anterior TATUM precautions. 04/25/22: GOAL MET: pt good recall and demonstration to precautions anterior hip: no hip extension or ER. LTG Duration 04/26/22 GOAL MET 04/25/22 Progress Towards Goals Progress Comments Pt able to ambulate stairs with railing and cane with step over step gait. Assessment Summary Assessment Pt showed no signs of fatigue or SOB with cardio ex; therefore vitals not taken. Pt able to ambulate stairs with step over step gait, but shows weakness on the last 30 deg's of descent of LLE because of R leg weakness. Physical Therapy Plan Frequency and Duration Frequency of Treatment 2x/Week Plan of Care Start Date 03/29/22 Plan of Care End Date 06/27/22 Next Visit Focus/Plan Next Note Type Treatment Note Next Visit Plan Warm up strengthening on recumbent bike for R LE ROM/ strengthening. Assess LEFS for progress towards LTG #3. POC: R anterior TATUM rehabilitation (see precautions). R hip strengthening for normal gait without AD, gait & stair strengthening/training for normal gait. Gait training: monitor step lengths.
--- NOTE | 2022-06-18 19:29 | PT.OPPN ---
Current Diagnoses Unilateral primary osteoarthritis, right hip (06/28/22) Muscle weakness (generalized) (06/28/22) Unsteadiness on feet (06/28/22) Other abnormalities of gait and mobility (06/28/22) Physical Therapy Progress Note PT-OP-A Visit Information Start: 03/28/22 20:58 Freq: Status: Active Protocol: Document 06/18/22 09:02 LRN (Rec: 06/18/22 12:39 LRN [id number]) Out-Patient Physical Therapy Visit Information Visit Information Visit Type Progress Note Visit Start Time 09:02 Visit Stop Time 09:45 Total Visit Minutes 43 Visit Number 14 Evaluation Information Evaluation Date 03/29/22 Precautions Precautions R anterior TATUM surgery-04/09/22 (no hip ext, AB, ER). 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 PT-OP-B Current Condition Start: 03/28/22 20:58 Freq: Status: Active Protocol: Document 04/22/22 13:51 LRN (Rec: 04/22/22 17:04 LRN [id number]) Current Condition History of Current Condition Onset Date 04/09/22 Current Complaints R hip pain s/p R anterior TATUM History of Current Condition Pt is 13 days S/P R Anterior TATUM. She reports spending one night in the hospital due to A. Fib and arrythmia problems. States she has had no cardiac problems since discharge to home. She has had occasional burning pain in the anterior quad and pain in lateral RLE that has mostly gone away (1-2x/day). States she saw the physician data control assistant 4 days ago and was told she had 2 precautions, not to hyperextend R leg and No falling. The pt attends with s/p packet with anterior TATUM precautions (no hip ext, AB, ER) and exercises. Prior Treatments and Tests Physical therapy in 2020 for R hip pain. Treatment Goals Patient/Caregiver Goals Post surgery goals: walk without an aid with a normal gait, get in/out of car with mild pain (2/10), pt able to tolerate stationary ex bike activity, learn positions of comfort in bed, be able to ambulate stairs in her home with use of railing. Prior Functional Status Baseline Function- ADL's Independent Baseline Function- Mobility Independent Baseline Function- Gait Independent gait without AD with a limp, excessive trunk sway. Baseline Function- Other Lives w/spouse who is able to help her. Sleeps in bed and turns in bed . Current Functional Impairments (Reported) Functional Limitations- ADL's R hip pain with gait, requires FWW. Functional Limitations- Mobility/Gait Step to gait Functional Limitations- Other Spouse assists when pt needs help. Personal Factors Other Personal Factors That May Effect Pt is 6' tall. Therapy/Recovery PT-OP-C Subjective Start: 03/28/22 20:58 Freq: Status: Active Protocol: Document 06/18/22 09:02 LRN (Rec: 06/18/22 12:39 LRN [id number]) OP-PT Subjective Patient Comments Patient Comments States she is still dizzy. Wants to review ex's to see what she should concentrate on . States it has been stressful week due to daughter health issues. Has done 10 stairs x 8 using chair as rail and 30 step ups and marching. Patient Questionnaires Lower Extremity Functional Scale LEFS Score 45 LEFS Impairment 20 to 39% Impaired (Score 48- 62) PT-OP-G Mobility & Gait Start: 03/28/22 20:58 Freq: Status: Active Protocol: Document 04/22/22 13:51 LRN (Rec: 04/22/22 14:44 LRN [id number]) OP Mobility Evaluation Bed Mobility Supine to and from Sit Independent with use of strap OP Gait Assessment Gait Gait Assistance Required: Independent Distance (Feet) 100 Able to Maintain Weight Bearing Status Yes During Gait Assistive Devices Assistive Device Front Wheeled Walker Gait Deviations General Gait Pattern Antalgic,Step-to Gait Factors Limiting Gait Function Factors Limiting Gait Function Decreased Strength,Limited Range of Motion,Pain,Poor Balance Stair Climbing Evaluation Comments Stair Climbing Comments 2 steps in/out of house ( landing area at each step). Stairs inside home that she doesn't use. Lift chair going up stairs. Pt reports correct manner of going up/down stairs. PT-OP-H Neuro Start: 03/28/22 20:58 Freq: Status: Active Protocol: Document 05/30/22 09:46 LRN (Rec: 05/30/22 16:58 LRN [id number]) Vital Signs Pulse Rest @ End of Therapy Pulse at Rest (bpm) 63 Short rest after Recumbent Bike Pulse With Activity (bpm) 66 Pulse Assessment Method Pulse Ox/Monitor Blood Pressure Rest @ End of Therapy Blood Pressure (90/60-120/80 mmHg) 125/85 H Blood Pressure Source Automatic Cuff Short rest after Recumbent Bike Blood Pressure (90/60-120/80 mmHg) 157/84 H Blood Pressure Source Automatic Cuff PT-OP-J Posture/Palpation/Skin Start: 03/28/22 20:58 Freq: Status: Active Protocol: Document 04/22/22 13:51 LRN (Rec: 04/22/22 14:44 LRN [id number]) Palpation Assessment Location R hip Palpation Location R hip Palpation Findings Edema,Tenderness Palpation Details Bandage covering incision that the pt states is to be removed today. PT-OP-K Range of Motion Start: 03/28/22 20:58 Freq: Status: Active Protocol: Document 05/23/22 09:51 LRN (Rec: 05/23/22 10:35 LRN [id number]) Hip Goniometric Range of Motion Hip Measured in Degrees Left Active Hip ROM WFL Yes Testing Position Supine Flexion w/Knee Flexed 68 Straight Leg Raise 50 Abduction 15 Right Active Hip ROM WFL No Testing Position Supine Flexion w/Knee Flexed 104 Straight Leg Raise 33 Abduction 9 Right Passive Hip ROM WFL No Testing Position Supine Flexion w/Knee Flexed 114 Straight Leg Raise 95 Abduction 15 Internal Rotation 25 External Rotation 50 Left Passive Testing Position Supine Flexion w/Knee Flexed 120 Straight Leg Raise 100 Abduction 25 Internal Rotation 10 External Rotation 60 PT-OP-M Strength Start: 03/28/22 20:58 Freq: Status: Active Protocol: Document 04/22/22 13:51 LRN (Rec: 04/22/22 14:44 LRN [id number]) Hip Strength Hip Manual Muscle Testing Right Flexion (L2) 2- Poor- Abduction 1 Trace Adduction 1 Trace External Rotation 1 Trace Internal Rotation 2- Poor- PT-OP-T Assessment and Plan Start: 03/28/22 20:58 Freq: Status: Active Protocol: Document 06/18/22 09:02 LRN (Rec: 06/18/22 12:39 LRN [id number]) Physical Therapy Assessment Rehab Potential Rehabilitation Potential Good Evaluation Complexity Number of Personal Factors/Comorbidities 1-2 Number of Body Systems Impaired 4 or More Clinical Presentation at Evaluation Evolving Impairments Impairments Activity Tolerance,Balance, Gait,Pain,Strength Goals Five Impairment Decreased ability to ambulate stairs - able to do 2 steps Impairment Ambs 2 steps with walker. Short Term Goal (STG) Pt able to ambulate 4 steps x 2 with use of 2 railings with step to gait. STG Duration 05/21/22 (04/30/22: MET GOAL) Group Home Goal (LTG) Pt able to ambulate 4 steps x 3 with 1 railing (R side ascending, L side descending) with normal gait. 05/23/22: Pt ascends/descends stairs x 1, with step over step gait using 2 railings for UE assist. 06/07/22: Step over step gait with railing and cane. LTG Duration 08/24/22 progresssing . Four Impairment Lacks appropriate self care HEP. Short Term Goal (STG) Pt will be educated with review of TATUM precautions and learn positions of comfort in bed. 04/22/22: Reviewed TATUM precautions and discussed positions of comfort in bed. Pt is using adjustable bed. STG Duration 05/15/22 (04/22/22: MET GOAL) Cost Clerk Goal (LTG) Pt will be independent with a self care HEP to progress R hip strengthening and functional ROM. 04/25/22: added LAQ, standing march and heel raises. 05/21/22: HEP: Sit<>stands and SLR LTG Duration 08/24/22 progressing 04/25/22 Three Impairment Decreased R hip strength and function Impairment R hip strength: Flex 1/5, AB 2/5; L hip strength: Flex 2+ /5, AB 3+/5. LEFS score 39, 40-59% impaired (score 32-47) Short Term Goal (STG) Pt will be able to walk without an assistive aid and a normal gait. 05/23/22: Gait training with pt able to demonstrate a normal gait while concentrating on correcting gait. STG Duration 07/24/22 progressing 05/23/22 . Group Home Goal (LTG) Pt will be able to tolerate stationary ex bike activity and improve function per LEFS score 63-79 (1-19% impaired). 05/23/22: Pt tolerated 4' on recumbent stepper. 05/28/22: tolerated recumbent bike 8 min at level 5 resistance min then reduced level 4 due to tiring. 06/18/22: Tolerated recumbent bike 10', lev 1. LEFS score is 45 (20-39% impaired). LTG Duration 08/24/22 progressing Two Impairment Decreased R hip mobility Impairment Supine R hip PROM (in degs): Flex 108, AB 18, IR 15, ER 30 Supine L hip PROM (in deg's): Flex 120, AB 25, IR 10, ER 60 Short Term Goal (STG) Pt will be able to move independently in/out of bed. 04/22/22: Pt reports being able to move independently in/ out of bed with use of strap. STG Duration 05/15/22 (04/22/22: MET GOAL) Cost Clerk Goal (LTG) Pt will be able to get in/out of car with mild pain (2/10). 05/21/22: Pt moves RLE independently in/out of car with discomfort. 05/28/22: GOAL MET: Pt reports no pain lifting RLE in/out car with no pain. LTG Duration 06/27/22 (05/28/22: GOAL MET) One Impairment Pt lacks knowledge of pre- and post-op R anterior TATUM care Short Term Goal (STG) Pt will be educated in anterior TATUM precautions, appropriate post-op transfers, proper set up for ambulatory assistive device, appropriate gait on level and stairs, pre- op strengthening exercises and handouts for post-op ex's and self care. 03/29/22: Pt educated in all areas as indicated above. STG Duration 03/29/22: MET GOAL. Cost Clerk Goal (LTG) Pt will be able to recall 3/3 R anterior TATUM precautions. 04/25/22: GOAL MET: pt good recall and demonstration to precautions anterior hip: no hip extension or ER. LTG Duration 04/26/22 GOAL MET 04/25/22 Assessment Summary Assessment Pt is a 76 yo female, s/p 10 wks R anterior TATUM, who presents today with improved function per LEFS score of 45, 20-39% impaired (initial was score 39, 40 to 59% Impaired). She is walking with a SPC, but due to weakness of the R hip she still requires the use of an assistive device for safety with gait. She has been lately under more stress in her personal life dealing with health issues of her daughter; therefore the pt has not alway been able to be consistent with her home program. She also has sometimes felt dizzy with sit< >stand transfers, requiring more frequent rests. Vitals to start: BP 147/77, HR 62 with no complaints of dizziness during therapy, only when she stood to enter the exercise room. The pt is planning on making an appt with her primary care physician for evaluation of her dizziness. She also feels her spinal stenosis makes it difficult for pt to do her leg strengthening. She is fearful of falling on stairs without hand held assist on each side although she reports carrying folding chairs up her stairs at home without complaints. The pt will benefit from skilled physical therapy to work towards achieving her above stated goals of nomalizing and improving safety with gait on level and stairs, and improving RLE strength. We will be reducing PT to 1x/ week at pt's request due to increased daughter's need. Physical Therapy Plan Frequency and Duration Frequency of Treatment 1x/Week Plan of Care Start Date 06/18/22 Plan of Care End Date 08/24/22 Therapeutic Interventions Therapeutic Interventions Balance Training,Gait Training ,Home Exercise Program,Manual Therapy,Neuromuscular Re- education,Patient/Caregiver Education,Self-Care/Home Management,Soft Tissue Mobilization,Therapeutic Exercises Modalities Cold Pack/Ice Massage,Hot Packs Next Visit Focus/Plan Next Note Type Treatment Note Next Visit Plan Check BP/HR for orthostatic hypotension if dizziness persists. Review issued HEP ex's. Strengthening on recumbent bike with pt using arms to keep pacemaker on beat (increase resistance). POC: R anterior TATUM rehabilitation on 04/09/22 (see precautions). Training for normal gait ( training) with & without AD and stairs ambulation: R hip strengthening & wiht gait training - monitor step lengths.
--- NOTE | 2022-06-18 19:49 | PT.OTN ---
Current Diagnoses Unilateral primary osteoarthritis, right hip (06/18/22) Muscle weakness (generalized) (06/18/22) Unsteadiness on feet (06/18/22) Other abnormalities of gait and mobility (06/18/22) Physical Therapy Treatment Note PT-OP-A Visit Information Start: 03/28/22 20:58 Freq: Status: Active Protocol: Document 06/18/22 09:02 LRN (Rec: 06/18/22 12:39 LRN [id number]) Out-Patient Physical Therapy Visit Information Visit Information Visit Type Progress Note Visit Start Time 09:02 Visit Stop Time 09:45 Total Visit Minutes 43 Visit Number 14 Evaluation Information Evaluation Date 03/29/22 Precautions Precautions R anterior TATUM surgery-04/09/22 (no hip ext, AB, ER). 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 PT-OP-B Current Condition Start: 03/28/22 20:58 Freq: Status: Active Protocol: Document 04/22/22 13:51 LRN (Rec: 04/22/22 17:04 LRN [id number]) Current Condition History of Current Condition Onset Date 04/09/22 Current Complaints R hip pain s/p R anterior TATUM History of Current Condition Pt is 13 days S/P R Anterior TATUM. She reports spending one night in the hospital due to A. Fib and arrythmia problems. States she has had no cardiac problems since discharge to home. She has had occasional burning pain in the anterior quad and pain in lateral RLE that has mostly gone away (1-2x/day). States she saw the physician executive staff assistant 4 days ago and was told she had 2 precautions, not to hyperextend R leg and No falling. The pt attends with s/p packet with anterior TATUM precautions (no hip ext, AB, ER) and exercises. Prior Treatments and Tests Physical therapy in 2020 for R hip pain. Treatment Goals Patient/Caregiver Goals Post surgery goals: walk without an aid with a normal gait, get in/out of car with mild pain (2/10), pt able to tolerate stationary ex bike activity, learn positions of comfort in bed, be able to ambulate stairs in her home with use of railing. Prior Functional Status Baseline Function- ADL's Independent Baseline Function- Mobility Independent Baseline Function- Gait Independent gait without AD with a limp, excessive trunk sway. Baseline Function- Other Lives w/spouse who is able to help her. Sleeps in bed and turns in bed . Current Functional Impairments (Reported) Functional Limitations- ADL's R hip pain with gait, requires FWW. Functional Limitations- Mobility/Gait Step to gait Functional Limitations- Other Spouse assists when pt needs help. Personal Factors Other Personal Factors That May Effect Pt is 6' tall. Therapy/Recovery PT-OP-C Subjective Start: 03/28/22 20:58 Freq: Status: Active Protocol: Document 06/18/22 09:02 LRN (Rec: 06/18/22 12:39 LRN [id number]) OP-PT Subjective Patient Comments Patient Comments States she is still dizzy. Wants to review ex's to see what she should concentrate on . States it has been stressful week due to daughter health issues. Has done 10 stairs x 8 using chair as rail and 30 step ups and marching. Patient Questionnaires Lower Extremity Functional Scale LEFS Score 45 LEFS Impairment 20 to 39% Impaired (Score 48- 62) PT-OP-G Mobility & Gait Start: 03/28/22 20:58 Freq: Status: Active Protocol: Document 04/22/22 13:51 LRN (Rec: 04/22/22 14:44 LRN [id number]) OP Mobility Evaluation Bed Mobility Supine to and from Sit Independent with use of strap OP Gait Assessment Gait Gait Assistance Required: Independent Distance (Feet) 100 Able to Maintain Weight Bearing Status Yes During Gait Assistive Devices Assistive Device Front Wheeled Walker Gait Deviations General Gait Pattern Antalgic,Step-to Gait Factors Limiting Gait Function Factors Limiting Gait Function Decreased Strength,Limited Range of Motion,Pain,Poor Balance Stair Climbing Evaluation Comments Stair Climbing Comments 2 steps in/out of house ( landing area at each step). Stairs inside home that she doesn't use. Lift chair going up stairs. Pt reports correct manner of going up/down stairs. PT-OP-H Neuro Start: 03/28/22 20:58 Freq: Status: Active Protocol: Document 05/30/22 09:46 LRN (Rec: 05/30/22 16:58 LRN [id number]) Vital Signs Pulse Rest @ End of Therapy Pulse at Rest (bpm) 63 Short rest after Recumbent Bike Pulse With Activity (bpm) 66 Pulse Assessment Method Pulse Ox/Monitor Blood Pressure Rest @ End of Therapy Blood Pressure (90/60-120/80 mmHg) 125/85 H Blood Pressure Source Automatic Cuff Short rest after Recumbent Bike Blood Pressure (90/60-120/80 mmHg) 157/84 H Blood Pressure Source Automatic Cuff PT-OP-J Posture/Palpation/Skin Start: 03/28/22 20:58 Freq: Status: Active Protocol: Document 04/22/22 13:51 LRN (Rec: 04/22/22 14:44 LRN [id number]) Palpation Assessment Location R hip Palpation Location R hip Palpation Findings Edema,Tenderness Palpation Details Bandage covering incision that the pt states is to be removed today. PT-OP-K Range of Motion Start: 03/28/22 20:58 Freq: Status: Active Protocol: Document 05/23/22 09:51 LRN (Rec: 05/23/22 10:35 LRN [id number]) Hip Goniometric Range of Motion Hip Left Active Hip ROM WFL Yes Testing Position Supine Flexion w/Knee Flexed 68 Straight Leg Raise 50 Abduction 15 Right Active Hip ROM WFL No Testing Position Supine Flexion w/Knee Flexed 104 Straight Leg Raise 33 Abduction 9 Right Passive Hip ROM WFL No Testing Position Supine Flexion w/Knee Flexed 114 Straight Leg Raise 95 Abduction 15 Internal Rotation 25 External Rotation 50 Left Passive Testing Position Supine Flexion w/Knee Flexed 120 Straight Leg Raise 100 Abduction 25 Internal Rotation 10 External Rotation 60 PT-OP-M Strength Start: 03/28/22 20:58 Freq: Status: Active Protocol: Document 04/22/22 13:51 LRN (Rec: 04/22/22 14:44 LRN [id number]) Hip Strength Hip Manual Muscle Testing Right Flexion (L2) 2- Poor- Abduction 1 Trace Adduction 1 Trace External Rotation 1 Trace Internal Rotation 2- Poor- PT-OP-Q Treatments Start: 03/28/22 20:58 Freq: Status: Active Protocol: Document 06/18/22 09:02 LRN (Rec: 06/18/22 12:39 LRN [id number]) Cardio Equipment Recumbent Stepper (Sci-Fit) Duration (Minutes) 10 Resistance 1 Seat Position 18 Other Pt uses UE's for ROM to keep pacemaker on proper beat. BP/ HR taken to start Therapeutic Exercises Sitting Exercises Sit<>Stands Sitting Exercise Name Sit<>Stands Reps/Minutes 10x Comments Extra time for pt needing sit rest. Standing Exercises Step ups Standing Exercise Name Step ups - standing/sit rests during ex's Side bilateral Equipment Used Railing L side ascending Reps/Minutes 10x 2 each with sitting rest after 20x. Comments Cuing for no R PPT on ascending, and control of endrange descent of LLE. Self-Care/Home Management Treatment Education Patient Education Home Exercise Program Activities Self-Care/Home Management Activities Reviewed pt's HEP for ex's to focus her time on at home. Issued & reviewed HEP: Clamshell, Bridging, AROM hip unilateral stance for Glut squeezes/balance. PT-OP-T Assessment and Plan Start: 03/28/22 20:58 Freq: Status: Active Protocol: Document 06/18/22 09:02 LRN (Rec: 06/18/22 12:39 LRN [id number]) Physical Therapy Assessment Rehab Potential Rehabilitation Potential Good Evaluation Complexity Number of Personal Factors/Comorbidities 1-2 Number of Body Systems Impaired 4 or More Clinical Presentation at Evaluation Evolving Impairments Impairments Activity Tolerance,Balance, Gait,Pain,Strength Goals Five Impairment Decreased ability to ambulate stairs - able to do 2 steps Impairment Ambs 2 steps with walker. Short Term Goal (STG) Pt able to ambulate 4 steps x 2 with use of 2 railings with step to gait. STG Duration 05/21/22 (04/30/22: MET GOAL) Family Psychologist Goal (LTG) Pt able to ambulate 4 steps x 3 with 1 railing (R side ascending, L side descending) with normal gait. 05/23/22: Pt ascends/descends stairs x 1, with step over step gait using 2 railings for UE assist. 06/07/22: Step over step gait with railing and cane. LTG Duration 08/24/22 progresssing . Four Impairment Lacks appropriate self care HEP. Short Term Goal (STG) Pt will be educated with review of TATUM precautions and learn positions of comfort in bed. 04/22/22: Reviewed TATUM precautions and discussed positions of comfort in bed. Pt is using adjustable bed. STG Duration 05/15/22 (04/22/22: MET GOAL) Residential Goal (LTG) Pt will be independent with a self care HEP to progress R hip strengthening and functional ROM. 04/25/22: added LAQ, standing march and heel raises. 05/21/22: HEP: Sit<>stands and SLR LTG Duration 08/24/22 progressing 04/25/22 Three Impairment Decreased R hip strength and function Impairment R hip strength: Flex 1/5, AB 2/5; L hip strength: Flex 2+ /5, AB 3+/5. LEFS score 39, 40-59% impaired (score 32-47) Short Term Goal (STG) Pt will be able to walk without an assistive aid and a normal gait. 05/23/22: Gait training with pt able to demonstrate a normal gait while concentrating on correcting gait. STG Duration 07/24/22 progressing 05/23/22 . Residential Goal (LTG) Pt will be able to tolerate stationary ex bike activity and improve function per LEFS score 63-79 (1-19% impaired). 05/23/22: Pt tolerated 4' on recumbent stepper. 05/28/22: tolerated recumbent bike 8 min at level 5 resistance min then reduced level 4 due to tiring. 06/18/22: Tolerated recumbent bike 10', lev 1. LEFS score is 45 (20-39% impaired). LTG Duration 08/24/22 progressing Two Impairment Decreased R hip mobility Impairment Supine R hip PROM (in degs): Flex 108, AB 18, IR 15, ER 30 Supine L hip PROM (in deg's): Flex 120, AB 25, IR 10, ER 60 Short Term Goal (STG) Pt will be able to move independently in/out of bed. 04/22/22: Pt reports being able to move independently in/ out of bed with use of strap. STG Duration 05/15/22 (04/22/22: MET GOAL) Residential Goal (LTG) Pt will be able to get in/out of car with mild pain (2/10). 05/21/22: Pt moves RLE independently in/out of car with discomfort. 05/28/22: GOAL MET: Pt reports no pain lifting RLE in/out car with no pain. LTG Duration 06/27/22 (05/28/22: GOAL MET) One Impairment Pt lacks knowledge of pre- and post-op R anterior TATUM care Short Term Goal (STG) Pt will be educated in anterior TATUM precautions, appropriate post-op transfers, proper set up for ambulatory assistive device, appropriate gait on level and stairs, pre- op strengthening exercises and handouts for post-op ex's and self care. 03/29/22: Pt educated in all areas as indicated above. STG Duration 03/29/22: MET GOAL. Family Psychologist Goal (LTG) Pt will be able to recall 3/3 R anterior TATUM precautions. 04/25/22: GOAL MET: pt good recall and demonstration to precautions anterior hip: no hip extension or ER. LTG Duration 04/26/22 GOAL MET 04/25/22 Assessment Summary Assessment Pt is a 76 yo female, s/p 10 wks R anterior TATUM, who presents today with improved function per LEFS score of 45, 20-39% impaired (initial was score 39, 40 to 59% Impaired). She is walking with a SPC, but due to weakness of the R hip she still requires the use of an assistive device for safety with gait. She has been lately under more stress in her personal life dealing with health issues of her daughter; therefore the pt has not alway been able to be consistent with her home program. She also has sometimes felt dizzy with sit< >stand transfers, requiring more frequent rests. Vitals to start: BP 147/77, HR 62 with no complaints of dizziness during therapy, only when she stood to enter the exercise room. The pt is planning on making an appt with her primary care physician for evaluation of her dizziness. She also feels her spinal stenosis makes it difficult for pt to do her leg strengthening. She is fearful of falling on stairs without hand held assist on each side although she reports carrying folding chairs up her stairs at home without complaints. The pt will benefit from skilled physical therapy to work towards achieving her above stated goals of nomalizing and improving safety with gait on level and stairs, and improving RLE strength. We will be reducing PT to 1x/ week at pt's request due to increased daughter's need. Physical Therapy Plan Frequency and Duration Frequency of Treatment 1x/Week Plan of Care Start Date 06/18/22 Plan of Care End Date 08/24/22 Therapeutic Interventions Therapeutic Interventions Balance Training,Gait Training ,Home Exercise Program,Manual Therapy,Neuromuscular Re- education,Patient/Caregiver Education,Self-Care/Home Management,Soft Tissue Mobilization,Therapeutic Exercises Modalities Cold Pack/Ice Massage,Hot Packs Next Visit Focus/Plan Next Note Type Treatment Note Next Visit Plan Check BP/HR for orthostatic hypotension if dizziness persists. Review issued HEP ex's. Strengthening on recumbent bike with pt using arms to keep pacemaker on beat (increase resistance). POC: R anterior TATUM rehabilitation on 04/09/22 (see precautions). Training for normal gait ( training) with & without AD and stairs ambulation: R hip strengthening & wiht gait training - monitor step lengths.
--- NOTE | 2022-06-28 12:20 | PT.OTN ---
Current Diagnoses Unilateral primary osteoarthritis, right hip (06/28/22) Muscle weakness (generalized) (06/28/22) Unsteadiness on feet (06/28/22) Other abnormalities of gait and mobility (06/28/22) Physical Therapy Treatment Note PT-OP-A Visit Information Start: 03/28/22 20:58 Freq: Status: Active Protocol: Document 06/28/22 11:16 LRN (Rec: 06/28/22 12:18 LRN [id number]) Out-Patient Physical Therapy Visit Information Visit Information Visit Type Treatment Note Visit Start Time 11:16 Visit Stop Time 12:03 Total Visit Minutes 47 Visit Number 15 Evaluation Information Evaluation Date 03/29/22 Precautions Precautions R anterior TATUM surgery-04/09/22 (no hip ext, AB, ER). 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 PT-OP-B Current Condition Start: 03/28/22 20:58 Freq: Status: Active Protocol: Document 04/22/22 13:51 LRN (Rec: 04/22/22 17:04 LRN [id number]) Current Condition History of Current Condition Onset Date 04/09/22 Current Complaints R hip pain s/p R anterior TATUM History of Current Condition Pt is 13 days S/P R Anterior TATUM. She reports spending one night in the hospital due to A. Fib and arrythmia problems. States she has had no cardiac problems since discharge to home. She has had occasional burning pain in the anterior quad and pain in lateral RLE that has mostly gone away (1-2x/day). States she saw the physician school health assistant 4 days ago and was told she had 2 precautions, not to hyperextend R leg and No falling. The pt attends with s/p packet with anterior TATUM precautions (no hip ext, AB, ER) and exercises. Prior Treatments and Tests Physical therapy in 2020 for R hip pain. Treatment Goals Patient/Caregiver Goals Post surgery goals: walk without an aid with a normal gait, get in/out of car with mild pain (2/10), pt able to tolerate stationary ex bike activity, learn positions of comfort in bed, be able to ambulate stairs in her home with use of railing. Prior Functional Status Baseline Function- ADL's Independent Baseline Function- Mobility Independent Baseline Function- Gait Independent gait without AD with a limp, excessive trunk sway. Baseline Function- Other Lives w/spouse who is able to help her. Sleeps in bed and turns in bed . Current Functional Impairments (Reported) Functional Limitations- ADL's R hip pain with gait, requires FWW. Functional Limitations- Mobility/Gait Step to gait Functional Limitations- Other Spouse assists when pt needs help. Personal Factors Other Personal Factors That May Effect Pt is 6' tall. Therapy/Recovery PT-OP-C Subjective Start: 03/28/22 20:58 Freq: Status: Active Protocol: Document 06/28/22 11:16 LRN (Rec: 06/28/22 12:18 LRN [id number]) OP-PT Subjective Patient Comments Patient Comments States increased resistance of bike at home to level 2, a little over 10 minutes. Dizziness is almost gone, even when rolling over in bed. PT-OP-G Mobility & Gait Start: 03/28/22 20:58 Freq: Status: Active Protocol: Document 04/22/22 13:51 LRN (Rec: 04/22/22 14:44 LRN [id number]) OP Mobility Evaluation Bed Mobility Supine to and from Sit Independent with use of strap OP Gait Assessment Gait Gait Assistance Required: Independent Distance (Feet) 100 Able to Maintain Weight Bearing Status Yes During Gait Assistive Devices Assistive Device Front Wheeled Walker Gait Deviations General Gait Pattern Antalgic,Step-to Gait Factors Limiting Gait Function Factors Limiting Gait Function Decreased Strength,Limited Range of Motion,Pain,Poor Balance Stair Climbing Evaluation Comments Stair Climbing Comments 2 steps in/out of house ( landing area at each step). Stairs inside home that she doesn't use. Lift chair going up stairs. Pt reports correct manner of going up/down stairs. PT-OP-H Neuro Start: 03/28/22 20:58 Freq: Status: Active Protocol: Document 05/30/22 09:46 LRN (Rec: 05/30/22 16:58 LRN [id number]) Vital Signs Pulse Rest @ End of Therapy Pulse at Rest (bpm) 63 Short rest after Recumbent Bike Pulse With Activity (bpm) 66 Pulse Assessment Method Pulse Ox/Monitor Blood Pressure Rest @ End of Therapy Blood Pressure (90/60-120/80 mmHg) 125/85 H Blood Pressure Source Automatic Cuff Short rest after Recumbent Bike Blood Pressure (90/60-120/80 mmHg) 157/84 H Blood Pressure Source Automatic Cuff PT-OP-J Posture/Palpation/Skin Start: 03/28/22 20:58 Freq: Status: Active Protocol: Document 04/22/22 13:51 LRN (Rec: 04/22/22 14:44 LRN [id number]) Palpation Assessment Location R hip Palpation Location R hip Palpation Findings Edema,Tenderness Palpation Details Bandage covering incision that the pt states is to be removed today. PT-OP-K Range of Motion Start: 03/28/22 20:58 Freq: Status: Active Protocol: Document 05/23/22 09:51 LRN (Rec: 05/23/22 10:35 LRN [id number]) Hip Goniometric Range of Motion Hip Left Active Hip ROM WFL Yes Testing Position Supine Flexion w/Knee Flexed 68 Straight Leg Raise 50 Abduction 15 Right Active Hip ROM WFL No Testing Position Supine Flexion w/Knee Flexed 104 Straight Leg Raise 33 Abduction 9 Right Passive Hip ROM WFL No Testing Position Supine Flexion w/Knee Flexed 114 Straight Leg Raise 95 Abduction 15 Internal Rotation 25 External Rotation 50 Left Passive Testing Position Supine Flexion w/Knee Flexed 120 Straight Leg Raise 100 Abduction 25 Internal Rotation 10 External Rotation 60 PT-OP-M Strength Start: 03/28/22 20:58 Freq: Status: Active Protocol: Document 04/22/22 13:51 LRN (Rec: 04/22/22 14:44 LRN [id number]) Hip Strength Hip Manual Muscle Testing Right Flexion (L2) 2- Poor- Abduction 1 Trace Adduction 1 Trace External Rotation 1 Trace Internal Rotation 2- Poor- PT-OP-Q Treatments Start: 03/28/22 20:58 Freq: Status: Active Protocol: Document 06/28/22 11:16 LRN (Rec: 06/28/22 12:18 LRN [id number]) Cardio Equipment Recumbent Stepper (Sci-Fit) Duration (Minutes) 10 Resistance 1 Seat Position 17 Other Pt uses UE's for ROM to keep pacemaker on proper beat. BP/ HR taken to start Therapeutic Exercises Sidelying Exercises Clatxhell Sidelying Exercise Name [facility] Side right Reps/Minutes 6' Standing Exercises R hip AB/ext Standing Exercise Name R hip AB/Ext (leading with heel, toes inward) Side right Reps/Minutes 5' Comments Phys assist and much v cuing needed Stairs Standing Exercise Name 6 steps Equipment Used Railing on R ascending and L descending Reps/Minutes 2 x Comments Cuing for no R PPT on ascending, and control of endrange descent of LLE. Weight shifts Standing Exercise Name Weight shift onto RLE Side right Equipment Used railing for UE support Reps/Minutes 8' Step ups Standing Exercise Name Step ups - standing rests during ex's Side bilateral Equipment Used Finger touch assist bilaterally for balance Reps/Minutes 10x 3 each with standing rest after each bouts Gait Training Gait Activity Gait w/SPC Description Correction of L trunk lean w/ wgt shift onto LLE Device Used SPC Level of Assistance v cuing Surface Level Distance/Duration 12' Treatment Focus Proper Upper body positioning Comments V cuing needed with pt slowing gait to correct. Stairs Description 6 stair ambulation Device Used Railing and cane Distance/Duration 3' Treatment Focus Moderate R PPT with hip flexion, control of descent of LLE PT-OP-T Assessment and Plan Start: 03/28/22 20:58 Freq: Status: Active Protocol: Document 06/28/22 11:16 LRN (Rec: 06/28/22 12:18 LRN [id number]) Physical Therapy Assessment Goals Five Impairment Decreased ability to ambulate stairs - able to do 2 steps Impairment Ambs 2 steps with walker. Short Term Goal (STG) Pt able to ambulate 4 steps x 2 with use of 2 railings with step to gait. STG Duration 05/21/22 (04/30/22: MET GOAL) Mcfp Goal (LTG) Pt able to ambulate 4 steps x 3 with 1 railing (R side ascending, L side descending) with normal gait. 05/23/22: Pt ascends/descends stairs x 1, with step over step gait using 2 railings for UE assist. 06/07/22: Step over step gait with railing and cane. LTG Duration 08/24/22 progresssing . Four Impairment Lacks appropriate self care HEP. Short Term Goal (STG) Pt will be educated with review of TATUM precautions and learn positions of comfort in bed. 04/22/22: Reviewed TATUM precautions and discussed positions of comfort in bed. Pt is using adjustable bed. STG Duration 05/15/22 (04/22/22: MET GOAL) Trimming Machine Operator Goal (LTG) Pt will be independent with a self care HEP to progress R hip strengthening and functional ROM. 04/25/22: added LAQ, standing march and heel raises. 05/21/22: HEP: Sit<>stands and SLR LTG Duration 08/24/22 progressing 04/25/22 Three Impairment Decreased R hip strength and function Impairment R hip strength: Flex 1/5, AB 2/5; L hip strength: Flex 2+ /5, AB 3+/5. LEFS score 39, 40-59% impaired (score 32-47) Short Term Goal (STG) Pt will be able to walk without an assistive aid and a normal gait. 05/23/22: Gait training with pt able to demonstrate a normal gait while concentrating on correcting gait. STG Duration 07/24/22 progressing 05/23/22 . Trimming Machine Operator Goal (LTG) Pt will be able to tolerate stationary ex bike activity and improve function per LEFS score 63-79 (1-19% impaired). 05/23/22: Pt tolerated 4' on recumbent stepper. 05/28/22: tolerated recumbent bike 8 min at level 5 resistance min then reduced level 4 due to tiring. 06/18/22: Tolerated recumbent bike 10', lev 1. LEFS score is 45 (20-39% impaired). LTG Duration 08/24/22 progressing Two Impairment Decreased R hip mobility Impairment Supine R hip PROM (in degs): Flex 108, AB 18, IR 15, ER 30 Supine L hip PROM (in deg's): Flex 120, AB 25, IR 10, ER 60 Short Term Goal (STG) Pt will be able to move independently in/out of bed. 04/22/22: Pt reports being able to move independently in/ out of bed with use of strap. STG Duration 05/15/22 (04/22/22: MET GOAL) Mcfp Goal (LTG) Pt will be able to get in/out of car with mild pain (2/10). 05/21/22: Pt moves RLE independently in/out of car with discomfort. 05/28/22: GOAL MET: Pt reports no pain lifting RLE in/out car with no pain. LTG Duration 06/27/22 (05/28/22: GOAL MET) One Impairment Pt lacks knowledge of pre- and post-op R anterior TATUM care Short Term Goal (STG) Pt will be educated in anterior TATUM precautions, appropriate post-op transfers, proper set up for ambulatory assistive device, appropriate gait on level and stairs, pre- op strengthening exercises and handouts for post-op ex's and self care. 03/29/22: Pt educated in all areas as indicated above. STG Duration 03/29/22: MET GOAL. Trimming Machine Operator Goal (LTG) Pt will be able to recall 3/3 R anterior TATUM precautions. 04/25/22: GOAL MET: pt good recall and demonstration to precautions anterior hip: no hip extension or ER. LTG Duration 04/26/22 GOAL MET 04/25/22 Assessment Summary Assessment 76 yo female, s/p 10 wks R anterior TATUM, hasn't been able to ex as much as she would like due to health issues with daughter. Weakness of R hip with stair ambulation and with walking causing Trendelenburg type gait. Physical Therapy Plan Frequency and Duration Frequency of Treatment 1x/Week Plan of Care Start Date 06/18/22 Plan of Care End Date 08/24/22 Next Visit Focus/Plan Next Note Type Treatment Note Next Visit Plan Pt gone on vacation 08/18/22-. Insurance changes , pt not sure of coverage; therefore pt wants hold on PT in Jul until new insurance okays PT. Check BP/HR for orthostatic hypotension if dizziness present. Review issued HEP ex 's. Strengthening on recumbent bike with pt using arms to keep pacemaker on beat (increase resistance). POC: R anterior TATUM rehabilitation on 04/09/22 (see precautions). Training for normal gait ( training) with & without AD and stairs ambulation: R hip strengthening & wiht gait training - monitor step lengths.
--- NOTE | 2023-03-06 11:15 | PT.OPDS ---
Current Diagnoses Unilateral primary osteoarthritis, right hip (06/28/22) Muscle weakness (generalized) (06/28/22) Unsteadiness on feet (06/28/22) Other abnormalities of gait and mobility (06/28/22) Visit Care Team Role Provider Type Jennifer Braun PA-C Advanced Press Leader Specialty: Orthopedics Orthopedic Surgery Address: [address] [place], [place] [id number] Email: [email or web address] Kelton George MD Family Provider Physician Primary Care Provider Specialty: Internal Medicine Address: [address] [place] [address], [address], [place], [facility] Email: [email or web address] Jaimie Morales MD Attending Provider Physician Referring Provider Specialty: Orthopedics Orthopedic Surgery Address: [address] [place] [address], [phone] Email: [email or web address] Visit Number Visit Number 15 Discharge Summary PT-OP-B Current Condition Start: 03/28/22 20:58 Freq: Status: Active Protocol: Document 04/22/22 13:51 LRN (Rec: 04/22/22 17:04 LRN [id number]) Current Condition History of Current Condition Onset Date 04/09/22 Current Complaints R hip pain s/p R anterior TATUM History of Current Condition Pt is 13 days S/P R Anterior TATUM. She reports spending one night in the hospital due to A. Fib and arrythmia problems. States she has had no cardiac problems since discharge to home. She has had occasional burning pain in the anterior quad and pain in lateral RLE that has mostly gone away (1-2x/day). States she saw the physician credit control assistant 4 days ago and was told she had 2 precautions, not to hyperextend R leg and No falling. The pt attends with s/p packet with anterior TATUM precautions (no hip ext, AB, ER) and exercises. Prior Treatments and Tests Physical therapy in 2020 for R hip pain. Treatment Goals Patient/Caregiver Goals Post surgery goals: walk without an aid with a normal gait, get in/out of car with mild pain (2/10), pt able to tolerate stationary ex bike activity, learn positions of comfort in bed, be able to ambulate stairs in her home with use of railing. Prior Functional Status Baseline Function- ADL's Independent Baseline Function- Mobility Independent Baseline Function- Gait Independent gait without AD with a limp, excessive trunk sway. Baseline Function- Other Lives w/spouse who is able to help her. Sleeps in bed and turns in bed . Current Functional Impairments (Reported) Functional Limitations- ADL's R hip pain with gait, requires FWW. Functional Limitations- Mobility/Gait Step to gait Functional Limitations- Other Spouse assists when pt needs help. Personal Factors Other Personal Factors That May Effect Pt is 6' tall. Therapy/Recovery PT-OP-C Subjective Start: 03/28/22 20:58 Freq: Status: Active Protocol: Document 06/28/22 11:16 LRN (Rec: 06/28/22 12:18 LRN [id number]) OP-PT Subjective Patient Comments Patient Comments States increased resistance of bike at home to level 2, a little over 10 minutes. Dizziness is almost gone, even when rolling over in bed. PT-OP-G Mobility & Gait Start: 03/28/22 20:58 Freq: Status: Active Protocol: Document 04/22/22 13:51 LRN (Rec: 04/22/22 14:44 LRN [id number]) OP Mobility Evaluation Bed Mobility Supine to and from Sit Independent with use of strap OP Gait Assessment Gait Gait Assistance Required: Independent Distance (Feet) 100 Able to Maintain Weight Bearing Status Yes During Gait Assistive Devices Assistive Device Front Wheeled Walker Gait Deviations General Gait Pattern Antalgic,Step-to Gait Factors Limiting Gait Function Factors Limiting Gait Function Decreased Strength,Limited Range of Motion,Pain,Poor Balance Stair Climbing Evaluation Comments Stair Climbing Comments 2 steps in/out of house ( landing area at each step). Stairs inside home that she doesn't use. Lift chair going up stairs. Pt reports correct manner of going up/down stairs. PT-OP-H Neuro Start: 03/28/22 20:58 Freq: Status: Active Protocol: Document 05/30/22 09:46 LRN (Rec: 05/30/22 16:58 LRN [id number]) Vital Signs Pulse Rest @ End of Therapy Pulse at Rest (bpm) 63 Short rest after Recumbent Bike Pulse With Activity (bpm) 66 Pulse Assessment Method Pulse Ox/Monitor Blood Pressure Rest @ End of Therapy Blood Pressure (90/60-120/80 mmHg) 125/85 H Blood Pressure Source Automatic Cuff Short rest after Recumbent Bike Blood Pressure (90/60-120/80 mmHg) 157/84 H Blood Pressure Source Automatic Cuff PT-OP-J Posture/Palpation/Skin Start: 03/28/22 20:58 Freq: Status: Active Protocol: Document 04/22/22 13:51 LRN (Rec: 04/22/22 14:44 LRN [id number]) Palpation Assessment Location R hip Palpation Location R hip Palpation Findings Edema,Tenderness Palpation Details Bandage covering incision that the pt states is to be removed today. PT-OP-K Range of Motion Start: 03/28/22 20:58 Freq: Status: Active Protocol: Document 05/23/22 09:51 LRN (Rec: 05/23/22 10:35 LRN [id number]) Hip Goniometric Range of Motion Hip Left Active Hip ROM WFL Yes Testing Position Supine Flexion w/Knee Flexed 68 Straight Leg Raise 50 Abduction 15 Right Active Hip ROM WFL No Testing Position Supine Flexion w/Knee Flexed 104 Straight Leg Raise 33 Abduction 9 Right Passive Hip ROM WFL No Testing Position Supine Flexion w/Knee Flexed 114 Straight Leg Raise 95 Abduction 15 Internal Rotation 25 External Rotation 50 Left Passive Testing Position Supine Flexion w/Knee Flexed 120 Straight Leg Raise 100 Abduction 25 Internal Rotation 10 External Rotation 60 PT-OP-M Strength Start: 03/28/22 20:58 Freq: Status: Active Protocol: Document 04/22/22 13:51 LRN (Rec: 04/22/22 14:44 LRN [id number]) Hip Strength Hip Manual Muscle Testing Right Flexion (L2) 2- Poor- Abduction 1 Trace Adduction 1 Trace External Rotation 1 Trace Internal Rotation 2- Poor- PT-OP-T Assessment and Plan Start: 03/28/22 20:58 Freq: Status: Active Protocol: Document 03/06/23 11:08 LRN (Rec: 03/06/23 11:15 LRN [id number]) Physical Therapy Assessment Goals Five Impairment Decreased ability to ambulate stairs - able to do 2 steps Impairment Ambs 2 steps with walker. Short Term Goal (STG) Pt able to ambulate 4 steps x 2 with use of 2 railings with step to gait. STG Duration 05/21/22 (04/30/22: MET GOAL) Freight Delivery Driver Goal (LTG) Pt able to ambulate 4 steps x 3 with 1 railing (R side ascending, L side descending) with normal gait. 05/23/22: Pt ascends/descends stairs x 1, with step over step gait using 2 railings for UE assist. 06/07/22: Step over step gait with railing and cane. LTG Duration 08/24/22 progresssing . Four Impairment Lacks appropriate self care HEP. Short Term Goal (STG) Pt will be educated with review of TATUM precautions and learn positions of comfort in bed. 04/22/22: Reviewed TATUM precautions and discussed positions of comfort in bed. Pt is using adjustable bed. STG Duration 05/15/22 (04/22/22: MET GOAL) Half-Way Goal (LTG) Pt will be independent with a self care HEP to progress R hip strengthening and functional ROM. 04/25/22: added LAQ, standing march and heel raises. 05/21/22: HEP: Sit<>stands and SLR LTG Duration 08/24/22 progressing 04/25/22 Three Impairment Decreased R hip strength and function Impairment R hip strength: Flex 1/5, AB 2/5; L hip strength: Flex 2+ /5, AB 3+/5. LEFS score 39, 40-59% impaired (score 32-47) Short Term Goal (STG) Pt will be able to walk without an assistive aid and a normal gait. 05/23/22: Gait training with pt able to demonstrate a normal gait while concentrating on correcting gait. STG Duration 07/24/22 progressing 05/23/22 . Half-Way Goal (LTG) Pt will be able to tolerate stationary ex bike activity and improve function per LEFS score 63-79 (1-19% impaired). 05/23/22: Pt tolerated 4' on recumbent stepper. 05/28/22: tolerated recumbent bike 8 min at level 5 resistance min then reduced level 4 due to tiring. 06/18/22: Tolerated recumbent bike 10', lev 1. LEFS score is 45 (20-39% impaired). LTG Duration 08/24/22 progressing Two Impairment Decreased R hip mobility Impairment Supine R hip PROM (in degs): Flex 108, AB 18, IR 15, ER 30 Supine L hip PROM (in deg's): Flex 120, AB 25, IR 10, ER 60 Short Term Goal (STG) Pt will be able to move independently in/out of bed. 04/22/22: Pt reports being able to move independently in/ out of bed with use of strap. STG Duration 05/15/22 (04/22/22: MET GOAL) Half-Way Goal (LTG) Pt will be able to get in/out of car with mild pain (2/10). 05/21/22: Pt moves RLE independently in/out of car with discomfort. 05/28/22: GOAL MET: Pt reports no pain lifting RLE in/out car with no pain. LTG Duration 06/27/22 (05/28/22: MET GOAL) One Impairment Pt lacks knowledge of pre- and post-op R anterior TATUM care Short Term Goal (STG) Pt will be educated in anterior TATUM precautions, appropriate post-op transfers, proper set up for ambulatory assistive device, appropriate gait on level and stairs, pre- op strengthening exercises and handouts for post-op ex's and self care. 03/29/22: Pt educated in all areas as indicated above. STG Duration 03/29/22: MET GOAL. Half-Way Goal (LTG) Pt will be able to recall 3/3 R anterior TATUM precautions. 04/25/22: GOAL MET: pt good recall and demonstration to precautions anterior hip: no hip extension or ER. LTG Duration 04/26/22 GOAL MET 04/25/22 Assessment Summary Assessment Pt was seen from 03/29/22 to 06/28/22. She made very good progress in function and was planning on seeing her to improve her ambulatory function on level and with stairs. For financial reasons the pt held PT at the start of the next year, but pt failed to call back to schedule more appointments in 2022. Her plan of care has ; therefore she will need a new referral to return to therapy of further therapy is needed. The pt will be discharged from PT at this time due to lack of attendance and expirationi of plan of care. Physical Therapy Plan Discharge Physical Therapy Discharge Reasons No Longer Attending PT Discharge Comments Thank you for your referral.
== END 2023-03-10 12:14 | disposition home or self-care (01) ==
LOC: PHYS 11:15
PROVIDERS: Absent Provider Physician Assistant; Family Provider Student in an Organized Health Care Education/Training Program; PCP Student in an Organized Health Care Education/Training Program; Referring Provider Orthopaedic Surgery; Visit Provider Orthopaedic Surgery
DX: M16.11 Unilateral primary osteoarthritis, right hip (principal); M62.81 Muscle weakness (generalized); R26.89 Other abnormalities of gait and mobility; R26.81 Unsteadiness on feet
CPT/HCPCS: 97110; 97116; 97161; 97164; 97535

== ENCOUNTER 2022-11-01 18:20 | Emergency (ER) | payer OTHER, SELFPAY ==
[2022-04-09 13:18] VITALS: BMI 24.5
[2022-11-01] VITALS (12 sets, daily range): BP systolic 133–188; BP diastolic 65–92; PULSE 60–82; RESP 11–25; TEMP 36.6; O2SAT 92–95; BMI 24.0
--- NOTE | 2022-11-01 18:35 | DI.RAD.S_ITS ---
PROCEDURE: XR CHEST 1V INDICATIONS: chest pain TECHNIQUE: One view of the chest was acquired. COMPARISON: [facility], , CHEST 2 VIEW, 08/08/2011, 13:16. FINDINGS: Surgical changes and devices: Left chest wall pacer is seen with intact leads. Lungs and pleura: Lungs are clear. No pleural effusions or pneumothorax. Mediastinum: Mediastinal contours appear normal. Heart size is normal. Bones and chest wall: No suspicious bony lesions. Overlying soft tissues appear unremarkable. IMPRESSION: No acute cardiopulmonary abnormality. Dictated by: Nayan Lambert M.D. on 11/01/2022 at 19:58 Approved by: Nayan Lambert M.D. on 11/01/2022 at 19:58
[2022-11-01 18:57] LABS: Add Manual Diff / Slide Review NO; Basophils Absolute Auto 0 /uL (0-100); Basophils Percent Auto 0.4 % (0-2); Eosinophils Absolute Auto 0 /uL (0-450); Eosinophils Percent Auto 0.2 % (2-4); Hematocrit 41.5 % (36-46); Lymphocytes Absolute Auto 1100 /uL (1100-4500); Mean Corpuscular HGB Conc 33.8 % (30-36); Mean Corpuscular Hemoglobin 30.9 PG (26-34); Mean Corpuscular Volume 91.5 fL (80-100); Monocytes Absolute Auto 800 /uL (0-900); Monocytes Percent Auto 11.7 % (3-14); Neutrophils Absolute Auto 5200 /uL (1500-7000); Neutrophils Percent Auto 72.7 % (50-75); Platelet Count 159 X10^3/uL (150-400); Red Blood Cell Count 4.54 X10^6/uL (4.0-5.2); Red Cell Distribution Width 13.9 % (11.6-14.8); White Blood Cell Count 7.1 X10^3/uL (4.5-11.0)
[2022-11-01 19:10] LABS: Prothrombin Time 34.7 SECONDS (10.1-12.7)
[2022-11-01 19:13] LABS: PTT Partial Thromboplastin Tim 49 SECONDS (26-36)
[2022-11-01 19:14] LABS: Alanine Aminotransferase 27 IU/L (<35); Albumin 4.2 g/dL (3.5-5.0); Albumin Globulin Ratio 1.2 (1.0-2.8); Alkaline Phosphatase 70 U/L (38-126); Aspartate Aminotransferase 39 IU/L (14-36); BUN Creatinine Ratio 31.7 (6-22); Bilirubin Total 1.2 mg/dL (0.2-1.3); Blood Urea Nitrogen 20 mg/dL (7-17); Calcium 9.2 mg/dL (8.4-10.2); Carbon Dioxide 32 mmol/L (22-32); Chloride 96 mmol/L (98-107); Creatine Kinase 60 U/L (30-135); Estimated Glomerular Filt Rate > 60 mL/min (>60); Globulin 3.4 g/dL (1.7-4.1); Glucose 112 mg/dL (80-110); HEMOLYSIS 19 (0-50); Lipase 139 U/L (23-300); Magnesium 1.9 mg/dL (1.6-2.3); Potassium 4.1 mmol/L (3.4-5.1); Sodium 134 mmol/L (137-145); Total Protein 7.6 g/dL (6.3-8.2)
[2022-11-01 19:26] LABS: Troponin I < 0.012 ng/mL (0.01-0.034)
--- NOTE | 2022-11-01 20:33 | ED_ITS ---
HPI - Chest Pain General Chief Complaint: Chest Pain Stated Complaint: pressure in chest, worse when breathing Time Seen by Provider: 11/01/22 19:42 Source: patient Mode of arrival: Ambulatory Limitations: no limitations History of Present Illness HPI narrative: This is a 77-year-old female with history of atrial fibrillation on warfarin, pacemaker, hypertension, dyslipidemia with complaint of chest pressure that started around 730 or 8:00 a.m. this morning it has been persistent throughout the day without any resolution but is worse with exertion. She states deep breaths make it uncomfortable. She states there was. Were sort of radiated to her back in her upper arm. She is felt a little bit more tired, slightly lightheaded but no syncope. She states the chest pain has been substernal for the most part except for the episode where it radiated. She denies nausea or vomiting. She states she is had some looser bowels today which is typical when she has atrial fib episodes but has not appreciated any palpitations or irregularity. No dysuria, urgency or frequency. No numbness, tingling or weakness. She is not had any new swelling her extremities. She is not had similar symptoms in the past. She exercises about 40 minutes most days. She is on warfarin, flecainide, atenolol, valsartan, atorvastatin and HCTZ. She has a pacemaker she is had knee surgery in 2009 in 2012, right hip in 2021 and right thyroid lobectomy for a benign cyst. Patient is allergic to vanco and Levaquin. No tobacco, 1 alcoholic drink weekly. No illicit. She states no family history of cardiac, embolic or vascular issues. 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 Dr. George is her PCP. Related Data Home Medications Medication Instructions Recorded Confirmed calcium carbonate 1,000 mg-vitamin 1,000 mg PO DAILY 12/20/17 08/06/22 D3 20 mcg (800 unit) tablet flecainide 100 mg tablet 150 mg PO BID 12/20/17 08/06/22 multivitamin 1 cap PO QAM 12/20/17 08/06/22 omega 3-nwx-wfd-fish oil 1,000 mg 1,000 mg PO BID 12/20/17 08/06/22 (120 mg-180 mg) capsule (Fish Oil) vitamin B complex 1 cap PO DAILY 12/20/17 08/06/22 melatonin 5 mg tablet 5 mg PO BEDTIME ##0 10/31/21 08/06/22 valsartan 40 mg tablet 40 mg PO BEDTIME 10/31/21 08/06/22 Previous Rx's Medication Instructions Recorded acetaminophen 325 mg tablet 650 mg PO Q6HR #60 tabs 04/10/22 atenolol 50 mg tablet 50 mg PO BID #180 tabs 09/05/22 atorvastatin 10 mg tablet 10 mg PO DAILY #90 tabs 09/05/22 hydrochlorothiazide 25 mg tablet 25 mg PO QDAY #90 tabs 09/05/22 warfarin 2 mg tablet See Rx Instructions PO DAILY #90 09/13/22 tabs Allergies Allergy/AdvReac Type Severity Reaction Status Date / Time vancomycin [VANCOMYCIN] Allergy Mild HIVES Verified 11/01/22 18:35 levofloxacin [From LEVAQUIN] Allergy Unknown weakness, Verified 11/01/22 18:35 tearing in achilles Review of Systems Review of Systems ROS Unobtainable: All systems reviewed & are unremarkable except as noted in HPI and below Patient History Medical History Anesthesia complication Anticoagulated on warfarin Arthritis Atrial fibrillation COVID-19 (04/09/21) Easy bruisability Former smoker History of Mohs micrographic surgery for skin cancer (~07/2021) HTN (hypertension) Hyperlipidemia Hypothyroidism Pacemaker Surgical History History of hysterectomy (1975) History of knee replacement History of lobectomy of thyroid (10/31/21) History of surgery (1975) History of surgery (~1997) Hx of oophorectomy (2003) S/P ablation of atrial fibrillation Family History Mother Congestive heart failure Multiple myeloma Father Pulmonary interstitial fibrosis Daughter Multiple sclerosis Social History household members: spouse Smoking Status: Former smoker alcohol intake: current (1-2 drinks/month) Smoking Status: Former smoker alcohol intake frequency: holidays/special occasions only Substance Use Type: does not use Exam Narrative Exam Narrative: GENERAL: Alert and oriented x three, well-nourished female in mild distress. HEENT: Head normocephalic, atraumatic, EOMI, pupils reactive, face symmetric, moist mucous membranes NECK: Supple, full range of motion CARDIOVASCULAR: Regular rate and rhythm without murmurs, rubs or gallops. No JVD. No swelling bilateral lower extremities. 2+ pulses bilateral upper extremities. RESPIRATORY: Breath sounds equal bilaterally, no wheezes rales or rhonchi. Normal speech. No accessory muscle use. ABDOMEN: Soft, nontender. Normoactive bowel sounds all 4 quadrants. No guarding or rebound, rigidity, no mass, no bruit or pulsatile mass. : No CVA tenderness EXTREMITIES: Normal range of motion, no clubbing or edema. Neurovascularly intact NEUROLOGICAL: Cranial nerves II through XII grossly intact. Moving all e xtremities SKIN: Warm, dry, no petechiae, no rashes or lesions. Initial Vital Signs Initial Vital Signs: Vital Signs Temperature 97.9 F 11/01/22 18:30 Pulse Rate 82 11/01/22 18:30 Respiratory Rate 18 11/01/22 18:30 Blood Pressure 188/92 H 11/01/22 18:30 Pulse Oximetry 95 11/01/22 18:30 Oxygen Delivery Method Room Air 11/01/22 18:30 Course Orders Ordered: ED Orders 11/01/22 20:59 EKG-12 Lead Stat 11/01/22 21:07 Trop I [Troponin I] Stat 11/01/22 22:15 COVID19 -Nasal RAPID Stat Discontinued Medications Diazepam (Diazepam 5 Mg Tablet) 5 mg PO NOW ONE Stop: 11/01/22 20:55 Last Admin: 11/01/22 21:05 Dose: Not Given Documented By: AURELIA Nitroglycerin (Nitroglycerin 0.4 Mg Sl Tab) 0.4 mg SL [id number] PRN PRN Reason: Chest Pain Last Admin: 11/01/22 22:04 Dose: 0.4 mg Documented By: Admin: 11/01/22 21:58 Dose: 0.4 mg Documented By: RAMOS Vital Signs Vital signs: Vital Signs - 8 hr 11/01/22 21:58 11/01/22 22:04 11/01/22 21:58 Pulse Rate 61 Respiratory Rate Blood Pressure 156/72 H 133/65 156/72 H Pulse Oximetry 11/01/22 21:58 11/01/22 22:00 11/01/22 22:01 Pulse Rate 60 60 Respiratory Rate 25 H 22 Blood Pressure 133/65 Pulse Oximetry 95 93 11/01/22 22:01 11/01/22 22:08 11/01/22 22:08 Pulse Rate 60 61 Respiratory Rate 21 16 Blood Pressure 135/70 Pulse Oximetry 94 94 11/01/22 22:30 11/01/22 23:00 11/01/22 23:30 Pulse Rate 60 60 60 Respiratory Rate 16 14 13 Blood Pressure Pulse Oximetry 93 92 92 MDM - Chest Pain Lab Data 11/01/22 18:45 11/01/22 18:45 Labs: Lab Results 11/01/22 11/01/22 11/01/22 Range/Units 18:45 18:45 18:45 WBC 7.1 (4.5-11.0) X10^3/uL RBC 4.54 (4.0-5.2) X10^6/uL Hgb 14.0 (12.0-16.0) g/dL Hct 41.5 (36-46) % MCV 91.5 (80-100) fL MCH 30.9 (26-34) PG MCHC 33.8 (30-36) % RDW 13.9 (11.6-14.8) % Plt Count 159 (150-400) X10^3/uL Neut % (Auto) 72.7 (50-75) % Lymph % (Auto) 15.0 L (25-40) % Coffey % (Auto) 11.7 (3-14) % Eos % (Auto) 0.2 L (2-4) % Baso % (Auto) 0.4 (0-2) % Neut # (Auto) 5200 (3659-1166) /uL Lymph # (Auto) 1100 (5348-8386) /uL Coffey # (Auto) 800 (0-900) /uL Eos # (Auto) 0 (0-450) /uL Baso # (Auto) 0 (0-100) /uL PT 34.7 H (10.1-12.7) SECONDS INR 3.0 H (0.9-1.3) APTT 49 H (26-36) SECONDS Sodium 134 L (137-145) mmol/L Potassium 4.1 (3.4-5.1) mmol/L Chloride 96 L (98-107) mmol/L Carbon Dioxide 32 (22-32) mmol/L BUN 20 H (7-17) mg/dL Creatinine 0.63 (0.52-1.04) mg/dL Estimated GFR > 60 (>60) mL/min BUN/Creatinine Ratio 31.7 H (6-22) Glucose 112 H (80-110) mg/dL Calcium 9.2 (8.4-10.2) mg/dL Magnesium 1.9 (1.6-2.3) mg/dL Total Bilirubin 1.2 (0.2-1.3) mg/dL AST 39 H (14-36) IU/L ALT 27 (<35) IU/L Alkaline Phosphatase 70 (38-126) U/L Total Creatine Kinase 60 (30-135) U/L CK-MB (CK-2) TNP CK-MB (CK-2) Rel Index TNP Troponin I < 0.012 (0.01-0.034) ng/mL Total Protein 7.6 (6.3-8.2) g/dL Albumin 4.2 (3.5-5.0) g/dL Globulin 3.4 (1.7-4.1) g/dL Albumin/Globulin Ratio 1.2 (1.0-2.8) Lipase 139 (23-300) U/L SARS-CoV-2 (PCR) (Negative) 11/01/22 11/01/22 Range/Units 21:07 22:15 WBC (4.5-11.0) X10^3/uL RBC (4.0-5.2) X10^6/uL Hgb (12.0-16.0) g/dL Hct (36-46) % MCV (80-100) fL MCH (26-34) PG MCHC (30-36) % RDW (11.6-14.8) % Plt Count (150-400) X10^3/uL Neut % (Auto) (50-75) % Lymph % (Auto) (25-40) % Coffey % (Auto) (3-14) % Eos % (Auto) (2-4) % Baso % (Auto) (0-2) % Neut # (Auto) (6481-3670) /uL Lymph # (Auto) (6596-0394) /uL Coffey # (Auto) (0-900) /uL Eos # (Auto) (0-450) /uL Baso # (Auto) (0-100) /uL PT (10.1-12.7) SECONDS INR (0.9-1.3) APTT (26-36) SECONDS Sodium (137-145) mmol/L Potassium (3.4-5.1) mmol/L Chloride (98-107) mmol/L Carbon Dioxide (22-32) mmol/L BUN (7-17) mg/dL Creatinine (0.52-1.04) mg/dL Estimated GFR (>60) mL/min BUN/Creatinine Ratio (6-22) Glucose (80-110) mg/dL Calcium (8.4-10.2) mg/dL Magnesium (1.6-2.3) mg/dL Total Bilirubin (0.2-1.3) mg/dL AST (14-36) IU/L ALT (<35) IU/L Alkaline Phosphatase (38-126) U/L Total Creatine Kinase (30-135) U/L CK-MB (CK-2) CK-MB (CK-2) Rel Index Troponin I < 0.012 (0.01-0.034) ng/mL Total Protein (6.3-8.2) g/dL Albumin (3.5-5.0) g/dL Globulin (1.7-4.1) g/dL Albumin/Globulin Ratio (1.0-2.8) Lipase (23-300) U/L SARS-CoV-2 (PCR) Negative (Negative) Imaging Data Chest x-ray: Radiologist's Impression: Close Chest X-Ray (Signed) Nayan Lambert - 11/01/22 Telemetry Strips 04/10/22 Hip X-Ray (Signed) Ryan Merchant - 04/09/22 Hip X-Ray (Signed) Dejuan Rogers - 04/09/22 Outside EKG 03/28/22 DEXA Result 03/14/22 Bone Densitometry 03/14/22 Mammogram Screening (Signed) Maria Elena Reese - 12/10/21 Telemetry Strips 10/31/21 Telemetry Strips 10/31/21 Needle Aspiration Ultrasound (Signed) Carlota Devlin - 07/02/[address] (Signed) Markus Mead - 06/28/21 Hip X-Ray (Signed) [place] n[place] - 06/21/21 Thyroid Ultrasound (Signed) Bahman Olivera - 05/30/21 Mammogram Screening (Signed) Nayan Lambert - 12/08/20 Hip X-Ray (Signed) PapitoKaran - 10/30/20 Bone Densitometry 03/17/20 DEXA Result 03/17/20 Mammogram Screening (Signed) Bahman Olivera - 12/06/19 Thyroid Ultrasound (Addendum) Carlota Devlin - 06/30/19 Thyroid Ultrasound (Signed) MuseDominik - 12/10/18 Mammogram Screening (Signed) Javier Shaikh - 09/22/18 Telemetry Strips 05/13/18 Needle Aspiration Ultrasound (Signed) Douglas Valerio - 01/29/18 Thyroid Ultrasound (Signed) Jamey Andres - 01/19/18 Chest CTA (Signed) Ravindra Bland - 01/16/18 Outside EKG 01/14/18 Launch?[place] [address] XRay Report Signed Patient: Fay Rodríguez MR#: [id number] : 1945 Acct:[id number] Age/Sex: 77 / F Date of Service: 11/01/22 Loc: Accession Number: [id number] ?? Procedure: XR chest 1V Ordering Provider: Angelita Galicia D.O. PROCEDURE:? XR CHEST 1V ? INDICATIONS:? chest pain ? TECHNIQUE:? One view of the chest was acquired.? ? COMPARISON:? [facility], , CHEST 2 VIEW, 08/08/2011, 13:16. ? FINDINGS:? ? Surgical changes and devices:? Left chest wall pacer is seen with intact leads. ? Lungs and pleura:? Lungs are clear.? No pleural effusions or pneumothorax.? ? Mediastinum:? Mediastinal contours appear normal.? Heart size is normal.? ? Bones and chest wall:? No suspicious bony lesions.? Overlying soft tissues appear unremarkable.? ? IMPRESSION:? No acute cardiopulmonary abnormality. ? ? Dictated by: Nayan Lambert M.D. on 11/01/2022 at 19:58 ? ? Approved by: Nayan Lambert M.D. on 11/01/2022 at 19:58?? ECG Data Attestation: I personally reviewed and interpreted this ECG as follows: Prior ECG tracings: available for review Interpretation: Atrial paced rhythm with left axis deviation. Rate of 62 CA 262, QRS 126 QTC 440. Patient has prior from 04/09/2022 this appears different but patient is tachycardic and on 01/16/2018 is a paced rhythm and appears similar to today. EKG 2. Atrial paced, rate of 61 QRS of 118, QTC 448. Patient's EKG appears similar to prior from today. MDM Narrative Medical decision making narrative: This is a 77-year-old female with history of atrial fibrillation, pacemaker, hypertension dyslipidemia anticoagulated on warfarin. Patient had chest pressure that has been lasting more than 12 hours worse with insertion has been constant did have some radiation lightheadedness but no diaphoresis, nausea vomiting or shortness of breath. Patient CBC, CMP show no acute changes INR is 3 unexpected from her warfarin. Initial troponin was negative as is repeat troponin, bilirubin, LFT lipase is were negative. Chest x-ray was clear. EKG is atrial placed with no changes on either from today. COVID swab is negative. Discussed with hospitalist, no stress testing available but could keep for observation, serial troponin with stress testing on Friday. Discussed with patient I would like to keep her for stress testing in observation. Patient very politely states that she would not stay under observation secondary to financial concerns and elects return home. We discussed that I am worried about a cardiac source of her chest pain despite 2- troponins and EKGs she does have risk factors and high risk for OK, etc. Patient expresses her understanding. She states she will return if she is recurrent episodes. Discussed she is welcome to return at any time. Discharge Plan Departure Patient Disposition: Home Clinical Impression: Chest pain Instructions: DI for Chest Pain Activity Restrictions/Additional Instructions: I am concerned that your chest pain may be cardiac in nature. It is recommended that you have stress testing as soon as possible. Please call your physician on Friday to set this up. Please return for recurrent symptoms new chest pain, shortness of breath, lightheadedness or passing out, diaphoresis or sweating, nausea, vomiting, new swelling in her extremities or other new or concerning changes. Prescriptions: No Action atenolol 50 mg tablet 50 mg PO BID Qty: 180 3RF atorvastatin 10 mg tablet 10 mg PO DAILY Qty: 90 3RF hydrochlorothiazide 25 mg tablet 25 mg PO QDAY Qty: 90 3RF warfarin 2 mg tablet See Rx Instructions PO DAILY Qty: 90 1RF Rx Instructions: orally daily; Take 4mg every Sun, Tues and Thurs, take 1/2 tab or 2mg all other days. omega 1-akq-gil-fish oil [Fish Oil] 1,000 mg (120 mg-180 mg) Capsule 1,000 mg PO BID Patient Comments: pt states she takes 4 per day flecainide 100 mg Tablet 150 mg PO BID Patient Comments: 100mg in AM and 150mg PM vitamin B complex Capsule 1 cap PO DAILY calcium carbonate-vitamin D3 1,000 mg(2,500 mg)-800 unit Tablet 1,000 mg PO DAILY multivitamin Capsule 1 cap PO QAM valsartan 40 mg tablet 40 mg PO BEDTIME melatonin 5 mg Tablet 5 mg PO BEDTIME Qty: 0 acetaminophen 325 mg Tablet 650 mg PO Q6HR Qty: 60 0RF Referrals: Kelton George MD [Primary Care Provider] - Stand Alone Forms: Patient Portal/API
[2022-11-01 21:46] LABS: Troponin I < 0.012 ng/mL (0.01-0.034)
[2022-11-01] MEDS: NITROGLYCERIN 0.4 MG SL TAB SL ×2 (21:58→22:04)
[2022-11-01 22:54] LABS: COVID19 -Nasal RAPID Negative (Negative)
== END 2022-11-01 23:55 | disposition home or self-care (01) ==
PROVIDERS: Emergency Provider Emergency Medicine; Family Provider Student in an Organized Health Care Education/Training Program; PCP Student in an Organized Health Care Education/Training Program
DX: R07.9 Chest pain, unspecified (principal); Z20.822 Contact with and (suspected) exposure to COVID-19
CPT/HCPCS: 36415; 71045; 80053; 82550; 83690; 83735; 84484; 85025; 85610; 85730; 87635; 93005; 93010; 99284; C9803

== ENCOUNTER → 2022-12-17 10:28 | Outpatient (CLI) | payer OTHER, SELFPAY ==
[2022-11-24 14:06] VITALS: BMI 24.5
--- NOTE | 2022-12-17 10:29 | DI.MG.S_ITS ---
BILATERAL DIGITAL SCREENING MAMMOGRAM 3D/2D WITH CAD: 12/17/2022 CLINICAL: Routine screening. Family history of breast cancer. Comparison is made to exams dated: 12/10/2021 mammogram, 12/08/2020 mammogram, 12/06/2019 mammogram, and 09/22/2018 mammogram - [facility]. Both breasts are heterogeneously dense, which may obscure small masses (category c / 51-75% glandular tissue). Current study was also evaluated with a Computer Aided Detection (CAD) system. There are benign vascular calcifications in both breasts. No significant masses, calcifications, or other findings are seen in either breast. There has been no significant interval change. IMPRESSION: BENIGN There is no mammographic evidence of malignancy. A 1 year screening mammogram is recommended. Based on the Tyrer Cuzick model (a risk assessment model) the patient's lifetime risk is 5.0% and her 10 year risk is 0.0%. According to the ACR, ACS, and NCCN guidelines, an annual breast MRI exam along with mammogram is recommended if the patient's lifetime risk is 20% or greater. This exam was interpreted at Station ID: [id number]. NOTE: For mammograms, a report in lay terms will be sent to the patient. Approximately 15% of breast malignancies will not be visualized mammographically. In the management of a palpable breast mass, a negative mammogram must not discourage biopsy of a clinically suspicious lesion. Electronically Signed By: Nicholas amos/derrek:12/17/2022 12:56:02 letter sent: Normal Exam ACR BI-RADS Category 2: Benign Finding(s) [id number]
== END ==
PROVIDERS: Family Provider Student in an Organized Health Care Education/Training Program; PCP Student in an Organized Health Care Education/Training Program; Referring Provider Student in an Organized Health Care Education/Training Program; Visit Provider Student in an Organized Health Care Education/Training Program
DX: Z12.31 Encounter for screening mammogram for malignant neoplasm of breast (principal)
CPT/HCPCS: 77063; 77067

== ENCOUNTER → 2022-12-18 10:10 | Outpatient (CLI) | payer OTHER, SELFPAY ==
[2022-11-24 14:06] VITALS: BMI 24.5
[2022-12-18 11:50] LABS: Alanine Aminotransferase 22 IU/L (<35); Albumin 3.8 g/dL (3.5-5.0); Albumin Globulin Ratio 1.4 (1.0-2.8); Alkaline Phosphatase 62 U/L (38-126); Aspartate Aminotransferase 31 IU/L (14-36); BUN Creatinine Ratio 30.3 (6-22); Bilirubin Total 1.4 mg/dL (0.2-1.3); Blood Urea Nitrogen 23 mg/dL (7-17); Calcium 8.7 mg/dL (8.4-10.2); Carbon Dioxide 32 mmol/L (22-32); Chloride 99 mmol/L (98-107); Estimated Glomerular Filt Rate > 60 mL/min (>60); Globulin 2.8 g/dL (1.7-4.1); HEMOLYSIS < 15 (0-50); Magnesium 1.8 mg/dL (1.6-2.3); Potassium 4.3 mmol/L (3.4-5.1); Sodium 136 mmol/L (137-145); Total Protein 6.6 g/dL (6.3-8.2)
[2022-12-18 12:01] LABS: Glucose 44 mg/dL (80-110)
== END ==
PROVIDERS: Family Provider Student in an Organized Health Care Education/Training Program; PCP Pediatrics; Referring Provider Physician Assistant Medical; Visit Provider Physician Assistant Medical
DX: I48.0 Paroxysmal atrial fibrillation (principal); I48.19 Other persistent atrial fibrillation
CPT/HCPCS: 36415; 80053; 83735

== ENCOUNTER → 2022-12-19 07:41 | Outpatient (CLI) | payer OTHER, SELFPAY ==
[2022-11-24 14:06] VITALS: BMI 24.5
[2022-12-19 08:38] LABS: NT-proBNP (BNP-Adult 18+) 1690 pg/mL (<450)
== END ==
PROVIDERS: Family Provider Student in an Organized Health Care Education/Training Program; PCP Pediatrics; Referring Provider Physician Assistant Medical; Visit Provider Physician Assistant Medical
DX: I48.19 Other persistent atrial fibrillation (principal)
CPT/HCPCS: 36415; 83880

== ENCOUNTER → 2022-12-20 08:19 | Outpatient (CLI) | payer OTHER, SELFPAY ==
[2022-11-24 14:06] VITALS: BMI 24.5
[2022-12-20 09:46] LABS: BUN Creatinine Ratio 31.1 (6-22); Blood Urea Nitrogen 23 mg/dL (7-17); Carbon Dioxide 35 mmol/L (22-32); Chloride 98 mmol/L (98-107); Estimated Glomerular Filt Rate > 60 mL/min (>60); Glucose 84 mg/dL (80-110); HEMOLYSIS < 15 (0-50); Potassium 4.4 mmol/L (3.4-5.1); Sodium 137 mmol/L (137-145)
== END ==
PROVIDERS: Family Provider Student in an Organized Health Care Education/Training Program; PCP Pediatrics; Referring Provider Physician Assistant Medical; Visit Provider Physician Assistant Medical
DX: I48.19 Other persistent atrial fibrillation (principal)
CPT/HCPCS: 36415; 80048

== ENCOUNTER → 2022-12-30 09:04 | Outpatient (CLI) | payer OTHER, SELFPAY ==
[2022-11-24 14:06] VITALS: BMI 24.5
[2022-12-30 10:44] LABS: Add Manual Diff / Slide Review NO; Basophils Absolute Auto 100 /uL (0-100); Eosinophils Absolute Auto 100 /uL (0-450); Eosinophils Percent Auto 1.1 % (2-4); Hematocrit 42.3 % (36-46); Hemoglobin 14.2 g/dL (12.0-16.0); Lymphocytes Absolute Auto 1200 /uL (1100-4500); Lymphocytes Percent Auto 21.9 % (25-40); Mean Corpuscular HGB Conc 33.5 % (30-36); Mean Corpuscular Hemoglobin 31.3 PG (26-34); Mean Corpuscular Volume 93.3 fL (80-100); Monocytes Absolute Auto 400 /uL (0-900); Monocytes Percent Auto 6.6 % (3-14); Neutrophils Absolute Auto 3700 /uL (1500-7000); Neutrophils Percent Auto 69.4 % (50-75); Platelet Count 147 X10^3/uL (150-400); Red Blood Cell Count 4.54 X10^6/uL (4.0-5.2); Red Cell Distribution Width 13.5 % (11.6-14.8); White Blood Cell Count 5.4 X10^3/uL (4.5-11.0)
[2022-12-30 11:11] LABS: BUN Creatinine Ratio 25.3 (6-22); Blood Urea Nitrogen 22 mg/dL (7-17); Calcium 8.8 mg/dL (8.4-10.2); Carbon Dioxide 34 mmol/L (22-32); Chloride 97 mmol/L (98-107); Estimated Glomerular Filt Rate > 60 mL/min (>60); Glucose 131 mg/dL (80-110); HEMOLYSIS < 15 (0-50); Potassium 4.4 mmol/L (3.4-5.1); Sodium 135 mmol/L (137-145)
== END ==
PROVIDERS: Family Provider Student in an Organized Health Care Education/Training Program; PCP Pediatrics; Referring Provider Internal Medicine Cardiovascular Disease; Visit Provider Internal Medicine Cardiovascular Disease
DX: I48.0 Paroxysmal atrial fibrillation (principal)
CPT/HCPCS: 36415; 80048; 85025

== ENCOUNTER 2023-02-17 13:38 | Emergency (ER) | payer OTHER, SELFPAY ==
[2022-11-24 14:06] VITALS: BMI 24.5
[2023-02-17 13:43] VITALS: BP 148/102; PULSE 71; RESP 18; TEMP 36.6; O2SAT 96; BMI 23.8
--- NOTE | 2023-02-17 13:49 | DI.RAD.S_ITS ---
PROCEDURE: XR HIP W PEL IF DONE RT 2V INDICATIONS: hip pain, hx of replacement TECHNIQUE: AP pelvis and lateral view of the right hip acquired. COMPARISON: [facility], CR, XR HIP W PEL IF DONE RT 2V, 04/09/2022, 10:59. [facility], CR, XR HIP W PEL IF DONE RT 2V, 04/09/2022, 9:24. FINDINGS: Bones: Patient is status post right hip arthroplasty, with hardware components in expected positions. The hip joint appears congruent. The visualized bony structures appear intact. Moderate degenerative changes of the left hip are again seen. Degenerative changes of the visualized lower lumbar spine and pubic symphysis. Soft tissues: Overlying postoperative changes are noted. No suspicious soft tissue densities. IMPRESSION: Stable appearance of the right hip arthroplasty. Dictated by: Radames Plascencia M.D. on 02/17/2023 at 14:47 Approved by: Radames Plascencia M.D. on 02/17/2023 at 14:48
--- NOTE | 2023-02-17 14:18 | PC.NURSE ---
Patient reports increase activity over the last few days. States pain in buttocks on right side, pain shooting down thigh. Jackson stiff this morning, but stiffness and pain getting worse throughout the day. INR level high this morning. No obvious bruising but states feels swollen
--- NOTE | 2023-02-17 14:40 | ED_ITS ---
HPI - Extremity Injury (Lower) <Jessica Gonzalez PA-C - Last Filed: 02/17/23 15:19> General Chief Complaint: Extremity Injury, Lower Stated Complaint: rt hip pain Time Seen by Provider: 02/17/23 14:10 Source: patient and family Mode of arrival: Wheelchair History of Present Illness HPI Narrative: Is a 77-year-old woman with a history of right hip replacement who presents with concern for some right buttock tightness and aching. Patient states that she feels she may have pulled a muscle or done something to her muscle. She is been a lot more active this past weekend since Friday as they were having some window washing done and they also moves and things around in the house and she was helping to move furniture. She does not specifically were member doing anything that caused pain or specific discomfort in her hip or her back over the weekend but does feel she may have overdone it. She describes the pain as aching and tight and occasionally it is a lot worse with certain movements. She says it is in her right buttock low down in the middle. She does endorse chronic low back problems in her lumbar spine with some disc compression for which she sees a spine doctor. She denies any new numbness or tingling in her right leg, any weakness or any other symptoms. She does state that after she took a 1000 mg of Tylenol earlier today and has been moving around some she feels like her pain has improved a lot she felt when she woke up this morning it was hard to move her leg because it was painful in her buttock. Related Data Home Medications Medication Instructions Recorded Confirmed calcium carbonate 1,000 mg-vitamin 1,000 mg PO DAILY 12/20/17 08/06/22 D3 20 mcg (800 unit) tablet flecainide 100 mg tablet 150 mg PO BID 12/20/17 08/06/22 multivitamin 1 cap PO QAM 12/20/17 08/06/22 omega 1-rmu-wnc-fish oil 1,000 mg 1,000 mg PO BID 12/20/17 08/06/22 (120 mg-180 mg) capsule (Fish Oil) vitamin B complex 1 cap PO DAILY 12/20/17 08/06/22 melatonin 5 mg tablet 5 mg PO BEDTIME ##0 10/31/21 08/06/22 valsartan 40 mg tablet 40 mg PO BEDTIME 10/31/21 08/06/22 Previous Rx's Medication Instructions Recorded acetaminophen 325 mg tablet 650 mg PO Q6HR #60 tabs 04/10/22 atenolol 50 mg tablet 50 mg PO BID #180 tabs 09/05/22 atorvastatin 10 mg tablet 10 mg PO DAILY #90 tabs 09/05/22 hydrochlorothiazide 25 mg tablet 25 mg PO QDAY #90 tabs 09/05/22 warfarin 2 mg tablet See Rx Instructions PO DAILY #90 09/13/22 tabs Allergies Allergy/AdvReac Type Severity Reaction Status Date / Time vancomycin [VANCOMYCIN] Allergy Mild HIVES Verified 02/17/23 13:43 levofloxacin [From LEVAQUIN] Allergy Unknown weakness, Verified 02/17/23 13:43 tearing in achilles Review of Systems <Jessica Gonzalez PA-C - Last Filed: 02/17/23 15:19> Review of Systems Narrative: See HPI Patient History <Jessica Gonzalez PA-C - Last Filed: 02/17/23 15:19> Medical History Anesthesia complication Anticoagulated on warfarin Arthritis Atrial fibrillation COVID-19 (04/09/21) Easy bruisability Former smoker History of Mohs micrographic surgery for skin cancer (~07/2021) HTN (hypertension) Hyperlipidemia Hypothyroidism Pacemaker Surgical History History of hysterectomy (1975) History of knee replacement History of lobectomy of thyroid (10/31/21) History of surgery (1975) History of surgery (~1997) Hx of oophorectomy (2003) S/P ablation of atrial fibrillation Family History Mother Congestive heart failure Multiple myeloma Father Pulmonary interstitial fibrosis Daughter Multiple sclerosis Social History household members: spouse Smoking Status: Former smoker alcohol intake: current Smoking Status: Former smoker alcohol intake frequency: holidays/special occasions only Substance Use Type: does not use Exam <Jessica Gonzalez PA-C - Last Filed: 02/17/23 15:19> Narrative Exam Narrative: GENERAL: 77 year old patient appears stated age. Well-developed patient, in mild distress. HEAD: Atraumatic. Normocephalic. EYES: Pupils equal round and reactive. Extraocular motions intact. No scleral icterus. No injection or drainage. ENT: Nose without bleeding, purulent drainage. Throat without erythema, tonsillar hypertrophy or exudate. Airway patent. NECK: Trachea midline. Non tender CARDIOVASCULAR: Regular rate and rhythm without murmurs, gallops, or rubs. RESPIRATORY: Clear to auscultation. Breath sounds equal bilaterally. No wheezes, rales, or rhonchi. GASTROINTESTINAL: Abdomen soft, non-tender, nondistended. EXTREMITIES: Patient has some mild tenderness of the right lumbar paraspinal region, she is more tender over the right low buttock midline at the crease of the thigh. She has reduced strength and range of motion with flexion at the hip which she says is a little bit worse than baseline but otherwise strength is intact with flexion and extension at the hip and knee. She does have slightly increased buttock pain with flexion of the hip. There is no bony tenderness of the greater trochanter. No edema or joint tenderness. BACK: Otherwise Nontender without deformity or crepitance. No flank tenderness. NEURO: AOx3. SKIN: No rash or erythema of visible areas Initial Vital Signs Initial Vital Signs: Vital Signs Temperature 98 F 02/17/23 13:43 Pulse Rate 71 02/17/23 13:43 Respiratory Rate 18 02/17/23 13:43 Blood Pressure 148/102 H 02/17/23 13:43 Pulse Oximetry 96 02/17/23 13:43 Oxygen Delivery Method Room Air 02/17/23 13:43 <Jayesh Hernandez DO - Last Filed: 02/17/23 19:00> Initial Vital Signs Initial Vital Signs: Vital Signs Temperature 98 F 02/17/23 13:43 Pulse Rate 71 02/17/23 13:43 Respiratory Rate 18 02/17/23 13:43 Blood Pressure 148/102 H 02/17/23 13:43 Pulse Oximetry 96 02/17/23 13:43 Oxygen Delivery Method Room Air 02/17/23 13:43 Course <Jessica Gonzalez PA-C - Last Filed: 02/17/23 15:19> Orders Ordered: ED Orders 02/17/23 13:49 XR hip w pel if done RT 2V Stat Vital Signs Vital signs: Vital Signs - 8 hr 02/17/23 13:43 Temperature 98 F Pulse Rate 71 Respiratory Rate 18 Blood Pressure 148/102 H Pulse Oximetry 96 Oxygen Delivery Method Room Air <Jayesh Hernandez DO - Last Filed: 02/17/23 19:00> Orders Ordered: ED Orders 02/17/23 13:49 XR hip w pel if done RT 2V Stat Vital Signs Vital signs: Vital Signs - 8 hr 02/17/23 13:43 Temperature 98 F Pulse Rate 71 Respiratory Rate 18 Blood Pressure 148/102 H Pulse Oximetry 96 Oxygen Delivery Method Room Air MDM - Extremity Injury (Lower) <Jessica Gonzalez PA-C - Last Filed: 02/17/23 15:19> Differential Diagnosis Differential diagnosis: Likely other (Muscle strain, sprain, sciatica, nerve compression, less likely periprosthetic fracture) Medical Records Attestation: I reviewed the patient's medical records. Imaging Data Extremity x-ray #1: My Impression: I agree with Radiology interpretation Radiologist's Impression: [address] [address] XRay Report Signed Patient: Fay Rodríguez MR#: [id number] : 1945 Acct:[id number] Age/Sex: 77 / F Date of Service: 02/17/23 Loc: ED Accession Number: [id number] ?? Procedure: XR hip w pel if done RT 2V Ordering Provider: Jayesh Hernandez D.O. PROCEDURE:? XR HIP W PEL IF DONE RT 2V ? INDICATIONS:? hip pain, hx of replacement ? TECHNIQUE:? AP pelvis and lateral view of the right hip acquired.? ? COMPARISON:? [facility], CR, XR HIP W PEL IF DONE RT 2V, 04/09/2022, 10:59.? [facility], CR, XR HIP W PEL IF DONE RT 2V, 04/09/2022, 9:24. ? FINDINGS:? ? Bones:? Patient is status post right hip arthroplasty, with hardware components in expected positions.? The hip joint appears congruent.? The visualized bony structures appear intact.? Moderate degenerative changes of the left hip are again seen.? Degenerative changes of the visualized lower lumbar spine and pubic symphysis.? ? Soft tissues:? Overlying postoperative changes are noted.? No suspicious soft tissue densities.? ? ? IMPRESSION:? Stable appearance of the right hip arthroplasty. ? ? ? Dictated by: Radames Plascencia M.D. on 02/17/2023 at 14:47 ? ? Approved by: Radames Plascencia M.D. on 02/17/2023 at 14:48?? Treatment and disposition Shared decision making:: Shared decision-making was used to determine the patien t's plan of care and evaluation in the emergency department today and plan for outpatient follow-up. 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 History and exam today are less suspicious for a periprosthetic fracture or bony injury, were consistent with a muscle injury although sciatic nerve compression is considered she does not have any new numbness or tingling in the right buttock or leg and her tenderness seems to be point specific in the low right buttock. Discussed options with the patient, she actually is feeling a lot better after a 1000 mg of Tylenol earlier today and doing some gentle movement and activity. Encouraged her to continue with Tylenol, consider trying heat and or ice alternating, also consider continue with gentle stretching and movements as tolerated, rest, consider trying diclofenac gel. We also discussed muscle relaxers however given the patient's age think this is not ideal and she has had improvement in her symptoms now with just Tylenol and gentle stretching. X-ray obtained today which does not show any notable soft tissue findings or any changes associated with patient's prosthesis. Patient will follow up with her ortho provider and PCP, return to ER if symptoms are worsening. Return precautions provided, follow-up plan discussed, all questions answered. Discharge Plan Departure Patient Disposition: Home Clinical Impression: Pain in right buttock, Muscle strain Activity Restrictions/Additional Instructions: *You have been diagnosed with [muscle strain] *What to do: *Please continue to take your regular medications as directed. [ ] New medication prescriptions sent to your pharmacy: [ ] [ ] New medication written as a paper prescription [X ] No new medications given *Please follow up with your primary care provider in 2-3 days, call for an appointment. Let them know you were seen in the Emergency Department and that we ask that you be seen in follow up. We will electronically transmit a record of today's note if your PCP is in our system. We talked about options for possible medication but after discussion agree that continuing with acetaminophen makes the most sense, you can try gentle stretching as it seems like this has been helpful for you so far today, you can also try heat or heat alternating with ice. You may want to also consider diclofenac gel which she can get [id number]. If your pain is getting a lot worse certainly reasonable to come back to the ER, if it is not improving at all with the above treatments I would encourage you to get into see your ortho provider or spine provider. Hopefully this resolves for you soon and your feeling better. *If you do not have a primary care provider please contact the [facility] Resource line at [phone]. They will ask some questions about your medical history and help get you set up with a doctor in the community. *Return to Emergency Department if you should have any new, worsening or concerning symptoms, such as [fever greater than 101 F, shaking chills, worsening pain, persistent vomiting or other bothersome symptoms] Prescriptions: No Action atenolol 50 mg tablet 50 mg PO BID Qty: 180 3RF atorvastatin 10 mg tablet 10 mg PO DAILY Qty: 90 3RF hydrochlorothiazide 25 mg tablet 25 mg PO QDAY Qty: 90 3RF warfarin 2 mg tablet See Rx Instructions PO DAILY Qty: 90 1RF Rx Instructions: orally daily; Take 4mg every Sun, and Th, take 1/2 tab or 2mg all oth er days. omega 9-yrq-xbz-fish oil [Fish Oil] 1,000 mg (120 mg-180 mg) Capsule 1,000 mg PO BID Patient Comments: pt states she takes 4 per day flecainide 100 mg Tablet 150 mg PO BID Patient Comments: 100mg in AM and 150mg PM vitamin B complex Capsule 1 cap PO DAILY calcium carbonate-vitamin D3 1,000 mg(2,500 mg)-800 unit Tablet 1,000 mg PO DAILY multivitamin Capsule 1 cap PO QAM valsartan 40 mg tablet 40 mg PO BEDTIME melatonin 5 mg Tablet 5 mg PO BEDTIME Qty: 0 acetaminophen 325 mg Tablet 650 mg PO Q6HR Qty: 60 0RF Referrals: Kelton George MD [Primary Care Provider] - Stand Alone Forms: Patient Portal/API <Jayesh Hernandez DO - Last Filed: 02/17/23 19:00> [facility] Sourav Attestation: I was immediately available in the department for consultation. Documentation has been reviewed. I agree with assessment and plan.
== END 2023-02-17 15:20 | disposition home or self-care (01) ==
PROVIDERS: Emergency Provider Student in an Organized Health Care Education/Training Program; Family Provider Student in an Organized Health Care Education/Training Program; PCP Student in an Organized Health Care Education/Training Program
DX: S76.311A Strain of muscle, fascia and tendon of the posterior muscle group at thigh level, right thigh, initial encounter (principal); X50.9XXA Other and unspecified overexertion or strenuous movements or postures, initial encounter; Y93.E9 Activity, other interior property and clothing maintenance; Y92.009 Unspecified place in unspecified non-institutional (private) residence as the place of occurrence of the external cause
CPT/HCPCS: 73502; 99281; 99283

== ENCOUNTER → 2023-07-04 14:37 | Outpatient (CLI) | payer OTHER, SELFPAY ==
[2022-11-24 14:06] VITALS: BMI 24.5
[2023-07-04 17:20] LABS: Prothrombin Time 67.2 SECONDS (9.4-12.5)
[2023-07-04 17:46] LABS: INR 5.7 (0.9-1.3)
== END ==
PROVIDERS: Family Provider Student in an Organized Health Care Education/Training Program; PCP Internal Medicine; Referring Provider Internal Medicine; Visit Provider Internal Medicine
DX: I82.409 Acute embolism and thrombosis of unspecified deep veins of unspecified lower extremity (principal)
CPT/HCPCS: 36415; 85610

== ENCOUNTER → 2023-07-07 09:11 | Outpatient (CLI) | payer OTHER, SELFPAY ==
[2022-11-24 14:06] VITALS: BMI 24.5
--- NOTE | 2023-07-07 09:12 | DI.RAD.S_ITS ---
PROCEDURE: XR LUMBAR SPINE MIN 4V INDICATIONS: BACK PAIN TECHNIQUE: 5 views of the lumbar spine were acquired, including bilateral oblique views. COMPARISON: [facility], , L-SPINE 2-3 VIEWS, 08/27/2007, 13:45. FINDINGS: Bones: 5 nonrib-bearing vertebrae are present. Mild dextrocurvature of the lumbar spine. Mild retrolisthesis of L1 on L2 and L2 on L3. Trace anterolisthesis of L4 on L5. There is multilevel facet arthropathy, worse at L4-5 and L5-S1. Mild multilevel disc height loss with degenerative endplate changes and spurring is present. Diffusely decreased osseous mineralization. No vertebral body compression fractures. No suspicious bony lesions. Partially visualized right hip arthroplasty. Soft tissues: Overlying bowel gas pattern is normal. No suspicious soft tissue calcifications. Oblique images: No pars defects. IMPRESSION: Multilevel degenerative changes of the lumbar spine with diffusely decreased osseous mineralization. Dictated by: Radames Plascencia M.D. on 07/07/2023 at 11:27 Approved by: Radames Plascencia M.D. on 07/07/2023 at 11:29
== END ==
PROVIDERS: Family Provider Student in an Organized Health Care Education/Training Program; PCP Family Medicine; Referring Provider Physical Medicine & Rehabilitation; Visit Provider Physical Medicine & Rehabilitation
DX: M47.26 Other spondylosis with radiculopathy, lumbar region (principal); M47.27 Other spondylosis with radiculopathy, lumbosacral region; M48.061 Spinal stenosis, lumbar region without neurogenic claudication; M25.551 Pain in right hip; M54.9 Dorsalgia, unspecified; I48.91 Unspecified atrial fibrillation; Z79.01 Long term (current) use of anticoagulants; Z96.641 Presence of right artificial hip joint; Z95.0 Presence of cardiac pacemaker
CPT/HCPCS: 72110; 99214

== ENCOUNTER → 2023-07-25 11:16 | Outpatient (CLI) | payer OTHER, SELFPAY ==
[2022-11-24 14:06] VITALS: BMI 24.5
[2023-07-25 13:01] LABS: Prothrombin Time 35.4 SECONDS (9.4-12.5)
== END ==
PROVIDERS: Family Provider Student in an Organized Health Care Education/Training Program; PCP Family Medicine; Referring Provider Family Medicine; Visit Provider Family Medicine
DX: I82.409 Acute embolism and thrombosis of unspecified deep veins of unspecified lower extremity (principal)
CPT/HCPCS: 36415; 85610

== ENCOUNTER → 2023-09-10 10:09 | Outpatient (CLI) | payer OTHER, SELFPAY ==
[2022-11-24 14:06] VITALS: BMI 24.5
--- NOTE | 2023-09-11 00:14 | DI.NM.S_ITS ---
DATE OF SERVICE: 09/10/2023 PROCEDURE PERFORMED: Pharmacologic vasodilator stress and rest myocardial perfusion imaging with gating to assess ejection fraction and regional wall motion. ORDERING PROVIDER: Dr. Ervin Street. INDICATIONS: The patient is an 78-year-old female with a recent history of prolonged chest discomfort with subsequent dyspnea. CARDIAC STRESS: Per protocol, 0.4 mg of regadenoson was infused with a normal hemodynamic response. She developed mild dyspnea but no chest discomfort or other anginal symptoms. She reported the sensation of palpitations although without any observed ectopy. Her resting ECG showed sinus rhythm with normal ST segments. There were no significant ST-segment shifts or ectopy with stress. Per protocol, 26.0 millicuries of technetium-99m Myoview was injected and she was imaged 15 minutes later using a gated SPECT acquisition protocol. Earlier in the day while at rest, she was injected with 12.1 millicuries of technetium-99m Myoview and was imaged 15 minutes later, again using a gated SPECT acquisition protocol. FINDINGS: 1. Raw data. There is fair myocardial tracer uptake with mild breast shadows noted. The lung/heart ratio is normal at 0.23 with a normal TID ratio of 0.97. 2. Quantitated gated SPECT: Post-stress ejection fraction is estimated at 69% without any focal wall motion abnormality and specifically the anterior septum has brisk contractility. The resting ejection fraction is also 69% with a resting end-diastolic volume at the upper limits of normal at 118 mL. 3. Myocardial perfusion imaging: The post-stress supine images show a mild defect in the mid anterior septum, sparing the apex, in a pattern consistent with breast attenuation artifact. Unfortunately, the patient was unable to lie prone to assess for this. However, the resting images show an identical perfusion pattern without any improvement in the defect. IMPRESSION: 1. Probable normal myocardial perfusion study for ischemia. 2. Mild fixed mid anteroseptal defect that most likely reflects breast attenuation artifact. While a previous nontransmural infarction cannot be entirely excluded, the absence of any wall motion abnormality would mitigate against this. There is no evidence for any myocardial ischemia. 3. Normal left ventricular systolic function without any focal wall motion abnormality. Resting end-diastolic volumes are at the upper limits of normal. 4. No angina or ECG evidence of ischemia with pharmacologic vasodilator stress. She remained in sinus rhythm throughout. Fay Rodríguez - RS/fn/MT doc#: [id number]/job#: [id number] dd: 09/10/2023 16:34:00 dt: 09/11/2023 00:03:00 DICTATING /COPIES TO: Ervin Street MD COPIES MNE: LONNY;
== END ==
LOC: NUCM 10:10
PROVIDERS: Family Provider Student in an Organized Health Care Education/Training Program; PCP Family Medicine; Referring Provider Specialist; Visit Provider Specialist
DX: R07.2 Precordial pain (principal); R06.00 Dyspnea, unspecified
CPT/HCPCS: 78452; 93017; A9502; J2785

== ENCOUNTER → 2023-09-17 15:35 | Outpatient (CLI) | payer OTHER, SELFPAY ==
[2022-11-24 14:06] VITALS: BMI 24.5
[2023-09-17 19:10] LABS: Influenza A - CEPHEID Flu A NEGATIVE (NEGATIVE); Influenza B - CEPHEID Flu B NEGATIVE (NEGATIVE); Respiratory Syncytial Virus POSITIVE (Negative)
[2023-09-17 19:18] LABS: COVID-19 CEPHEID 4-PLEX PCR Negative (Negative)
== END ==
PROVIDERS: Family Provider Student in an Organized Health Care Education/Training Program; PCP Family Medicine; Visit Provider Nurse Practitioner Family
DX: R05.1 Acute cough (principal)
CPT/HCPCS: 0241U

== ENCOUNTER → 2023-09-29 09:10 | Outpatient (CLI) | payer OTHER, SELFPAY ==
[2022-11-24 14:06] VITALS: BMI 24.5
--- NOTE | 2023-09-29 09:11 | DI.ECHO.S_ITS ---
[facility]---------+ [facility] +---------+ : : [address] : : : : [id number] : : : : Phone: [phone]+ Echocardiogram Report + + :Name: ISAEL GAYLE Study Date: 09/29/2023 Height: 72 in : :[facility] ReadingLocation: Weight: 178 lb : : Gender: Female BSA: 2.0 m2 : :: 1945 Age: 78 yrs BP: 160/86 mmHg: :Reason For Study: Tricuspid Valve - Regurgitation : : Performed By: Deisy Bowman : :Referring: FARHAD GIBSON : + + Interpretation Summary Left ventricular systolic function remains normal with an estimated ejection fraction of 55 to 60% without any focal wall motion abnormality. Left ventricular volumes are borderline increased but similar to the previous exam. Diastolic function is somewhat challenging to assess but there is some evidence for increased filling pressures but similar to the previous exam. There has been no significant change since the previous study. The right ventricle appears normal and unchanged. Right ventricular systolic pressure is estimated at 47 mmHg with a CVP of 8 mmHg, and possibly mildly higher compared to the previous exam. There is severe left atrial enlargement and normal right atrial size, the latter measuring slightly smaller compared to the previous study. There is mild to moderate mitral regurgitation and moderate tricuspid regurgitation, the former appearing slightly less prominent compared to the previous study. There is no other significant valvular abnormality. There continues to be a small loculated pericardial effusion adjacent to the right atrium that appears unchanged. Procedure: A two-dimensional transthoracic echocardiogram with color flow and Doppler was performed. The study quality was technically adequate. Comparison is made with the echocardiogram of 01-10-23. The patient was in sinus rhythm with heart rates between 60-65 bpm during the exam. Left Ventricle: The left ventricle is borderline dilated. The estimated left ventricular end diastolic volume is 79 ml. This is similar to the previous exam compared to the previous study. There is normal left ventricular wall thickness. Left ventricular systolic function appears normal without focal wall motion abnormalities. The ejection fraction is estimated to be 55-60%. This is unchanged compared to the previous study. Diastolic parameters suggest a restrictive filling pattern consistent with probable significantly elevated filling pressures. This is unchanged compared to the previous study. Right Ventricle: The right ventricle grossly appears normal in size with probable normal systolic function. There is a pacemaker lead in the right ventricle. This is unchanged compared to the previous study. Atria: The left atrium is severely dilated. Right atrial size is normal. The right atrium has mildly decreased in size since the prior echo exam. The interatrial septum is not well visualized. Mitral Valve: The mitral valve leaflets appear mildly thickened, but open well. There is mild to moderate mitral regurgitation. This is slightly less prominent compared to the previous study. Aortic Valve: The aortic valve is trileaflet. The aortic valve is slightly calcified. The aortic valve opens well. There is no aortic valve stenosis. There is trace aortic regurgitation. Tricuspid Valve: The tricuspid valve leaflets are thin and pliable. There is moderate tricuspid regurgitation. This is unchanged compared to the previous study. The right ventricular systolic pressure is estimated to be at least 47 mmHg based on an estimated right atrial pressure of 8 mm Hg. This is possibly slightly higher compared to the previous study. Pulmonic Valve: The pulmonic valve is not well visualized. The pulmonic valve is not well seen, but is grossly normal. There is trace pulmonic regurgitation. Great Vessels: The aortic root is normal size. The ascending aorta is normal in size. The aortic arch is normal in size. The IVC is dilated (diameter is greater than 2.1 cm) yet it collapses greater than 50% with a sniff. This suggests a right atrial pressure of 8 mm Hg. Pericardium/ Pleura There is a trace loculated pericardial effusion. This is unchanged compared to the previous study. There is no pleural effusion. MMode/2D Measurements & Calculations LVIDd: 5.9 cm LVOT diam: 2.1 cm LVIDs: 4.1 cm Ao root diam: 3.5 cm FS: 29.9 % asc Aorta Diam: 3.3 cm EPSS: 0.68 cm Ao Arch Diam (Prox Trans): 2.2 cm IVSd: 0.99 cm LVPWd: 0.57 cm LV oh. diameter/BSA (cm/m^2): 2.9 LV sys. diameter/BSA (cm/m^2): 2.0 LA A2 area: 36.8 cm2 RA long axis: 5.4 cm LA A4 area: 37.1 cm2 RA area: 17.0 cm2 LA length (vol): 6.7 cm RA vol: 45.8 ml LA vol: 172.1 ml RA : 22.6 ml/m2 LA vol index: 84.9 ml/m2 IVC diam: 2.2 cm RVD1 (basal): 2.7 cm Doppler Measurements & Calculations Ao V2 max: 108.1 cm/sec LVOT Max Aamir: 74.1 cm/sec Ao V2 mean: 78.0 cm/sec LV V1 max P.2 mmHg Ao max P.7 mmHg LV V1 VTI: 18.1 cm Ao mean P.7 mmHg ISH(I,D): 2.2 cm2 Ao V2 VTI: 29.4 cm ISH(V,D): 2.5 cm2 sev ratio: 0.62 ISH indexed to BSA (cm^2/m^2): 1.1 MV E max aamir: 85.7 cm/sec TR max aamir: 311.9 cm/sec MV A max aamir: 39.7 cm/sec TR max P.9 mmHg MV E/A: 2.2 PA V2 max: 65.3 cm/sec Med Peak E' Aamir: 4.6 cm/sec PA V2 mean: 45.5 cm/sec E/E' med: 18.5 PA mean P.94 mmHg Lat Peak E' Aamir: 6.7 cm/sec PA pr(Accel): 29.3 mmHg E/E' lat: 12.9 E/e' average: 15.7 MV dec time: 0.13 sec SV(LVOT): 65.4 ml Reading Physician:12:56 PM
== END ==
LOC: ECHO 09:10
PROVIDERS: Family Provider Student in an Organized Health Care Education/Training Program; PCP Family Medicine; Referring Provider Specialist; Visit Provider Specialist
DX: I08.1 Rheumatic disorders of both mitral and tricuspid valves (principal)
CPT/HCPCS: 93306

== ENCOUNTER → 2023-11-17 10:07 | Outpatient (CLI) | payer OTHER, SELFPAY ==
[2022-11-24 14:06] VITALS: BMI 24.5
--- NOTE | 2023-11-17 10:08 | DI.RAD.S_ITS ---
PROCEDURE: FL BARIUM SWALLOW W SPEECH INDICATIONS: Swallowing concerns COMPARISON: None. TECHNIQUE: Examination was conducted in conjunction with speech pathology per standard protocol. In the lateral projection, filming was performed of the patient swallowing. AP projection filming may also be performed with patient swallowing. COMPARISON: FINDINGS: Function: The oral preparatory phase appears normal, with proper containment. The subsequent oral propulsive phase, pharyngeal phase, and esophageal phase of swallowing also appear normal with all proffered substances. No laryngotracheal penetration or aspiration. No pathologic vallecular pooling. Morphology: No cricopharyngeal bar is identified. No cervical esophageal webs. No Zenker's diverticulum. No strictures. IMPRESSION: No definite laryngotracheal penetration or aspiration. Please see a detailed description of the findings on the report by the speech pathologist. Dictated by: Thelma Corbin M.D. on 11/17/2023 at 11:28 Approved by: Thelma Corbin M.D. on 11/17/2023 at 11:28
--- NOTE | 2023-11-17 14:43 | ST.SWALLOW ---
Visit Care Team Role Provider Type Melanie Esparza DO Attending Provider Physician Family Provider Primary Care Provider Referring Provider Specialty: Family Practice Address: [address] [place] [address], [address], [place], [address] Email: [email or web address] Modified Barium Swallow Study [employer] Modified Barium Swallow Study Start: 11/17/23 13:54 Freq: Status: Active Protocol: Document 11/17/23 14:15 LNK (Rec: 11/17/23 14:43 LNK [id number]) Modified Barium Swallow Study Total Time Visit Start Time 10:30 Visit Stop Time 11:00 Total Visit Minutes 30 Referral Referring Physician Melanie Esparza MD Reason for Referral dysphagia Setting Setting Outpatient Care Patient Information Identification Type Name,Date of Patient History Pt was seen for a Modified Barium Swallow Study at the referral of Dr. Esparza. Pt had a swallow screen with results indicating a need for MBS to r/o aspiration/ dysphagia. Pt reported that frequently (i .e., weekly) she will cough/ choke while drinking a liquid or swallowing saliva. She denies swallow difficulty with foods and/or medications. Subjective Observations Pt was seated in the fluoroscopy chair with directions and procedures described for her. She indicated she understood and agreed to proceed. Patient Positioning Position View Lat-A/P Imaging Lateral View Textures Administered Trials Presented Thin Liquid via Spoon (IDDSI 0 ),Thin Liquid via Cup (IDDSI 0 ),Extremely Thick Liquid via Spoon (IDDSI 4),Regular (IDDSI 7) Barium Tablet Yes The IDDSI Framework Protocol: IDDSI.1 Oral Impairment Source: The Modified Barium Swallow Impairment Profile (MBSImP??) Lip Closure No labial escape Tongue Control During Bolus Hold Cohesive bolus between tongue to palatal seal Bolus Preparation/Mastication Timely & efficient chewing & mashing Bolus Transport/Lingual Motion Brisk tongue motion Oral Residue Complete oral clearance Initiation of Pharyngeal Swallow Bolus head at pyriforms Additional Oral Impairment Observations OME and DKS were observed to be WNL. Mastication observed with rotary chew pattern. Good bolus formation, control and AP transition. Oral phase WNL Pharyngeal Impairment Source: The Modified Barium Swallow Impairment Profile (MBSImP??) Soft Palate Elevation No bolus between soft palate & pharyngeal wall Laryngeal Elevation Comp.sup.move.thyroid cart.w/ comp.approx.arytenoids to epiglot petiole Anterior Hyoid Excursion Complete anterior movement Epiglottic Movement Complete inversion Laryngeal Vestibular Closure Complete; no air/contrast in laryngeal vestibule Pharyngeal Stripping Wave Present - complete Pharyngoesophageal Segment Opening Complete distention & complete duration; no obstruction of flow Tongue Base Retraction Trace column of contrast/air betwn tongue base & post. pharyngeal wall Pharyngeal Residue Complete pharyngeal clearance Additional Pharyngeal Impairment Slight reduction in tongue Observations base retraction strength Hyolaryngeal elevation and epiglottic inversion WNL No laryngeal penetration ( PAS1) No tracheal aspiration Pharyngeal phase WNL A/P View Textures Administered Trials Presented Thin Liquid via Spoon (IDDSI 0 ) The IDDSI Framework Protocol: IDDSI.1 A/P View Observations Pharyngeal Contraction Complete Esophageal Clearance Upright Position Complete clearance; esophageal coating Vocal Fold Function Good Esophageal Function WFL Additional A-P Observations Esophageal phase WNL Clinical Impressions Dysphagia Type WNL Findings Pt reports coughing with thin liquids and/or her saliva on a weekly basis. Her reflexive cough is strong and protective. Recommendations were discussed to increase awareness/ mindfulness of swallowing and to reduce distractions, talking while eating, etc. Overall pt's swallowing is WNL . Patient Appropriate for Therapy No Recommendations
--- NOTE | 2023-11-17 15:21 | ST.SWALLOW ---
Addendum entered and electronically signed by Alexandrea Marley 11/17/23 15:25: Pharyngeal phase summary correction: Pharyngeal phase is not WNL but presents with overall weakness and laryngeal penetration increasing aspiration risk. Original Note: Visit Care Team Role Provider Type Melanie Esparza DO Attending Provider Physician Family Provider Primary Care Provider Referring Provider Specialty: [facility] Practice Address: [address] [place] [address], [address], [facility] Email: [email or web address] Modified Barium Swallow Study [employer] Modified Barium Swallow Study Start: 11/17/23 13:54 Freq: Status: Active Protocol: Document 11/17/23 14:15 LNK (Rec: 11/17/23 14:43 LNK [id number]) Modified Barium Swallow Study Total Time Visit Start Time 10:30 Visit Stop Time 11:00 Total Visit Minutes 30 Referral Referring Physician Melanie Esparza MD Reason for Referral dysphagia Setting Setting Outpatient Care Patient Information Identification Type Name,Date of Patient History Pt was seen for a Modified Barium Swallow Study at the referral of Dr. Esparza. Pt had a swallow screen with results indicating a need for MBS to r/o aspiration/ dysphagia. Pt reported that frequently (i .e., weekly) she will cough/ choke while drinking a liquid or swallowing saliva. She denies swallow difficulty with foods and/or medications. Subjective Observations Pt was seated in the fluoroscopy chair with directions and procedures described for her. She indicated she understood and agreed to proceed. Patient Positioning Position View Lat-A/P Imaging Lateral View Textures Administered Trials Presented Thin Liquid via Spoon (IDDSI 0 ),Thin Liquid via Cup (IDDSI 0 ),Extremely Thick Liquid via Spoon (IDDSI 4),Regular (IDDSI 7) Barium Tablet Yes The IDDSI Framework Protocol: IDDSI.1 Oral Impairment Source: The Modified Barium Swallow Impairment Profile (MBSImP??) Lip Closure No labial escape Tongue Control During Bolus Hold Cohesive bolus between tongue to palatal seal Bolus Preparation/Mastication Timely & efficient chewing & mashing Bolus Transport/Lingual Motion Brisk tongue motion Oral Residue Complete oral clearance Initiation of Pharyngeal Swallow Bolus head in valleculae Additional Oral Impairment Observations OME and DKS were observed to be WNL. Mastication observed with rotary chew pattern. Good bolus formation, control and AP transition. Delayed onset of swallow response Oral phase WFL Pharyngeal Impairment Source: The Modified Barium Swallow Impairment Profile (MBSImP??) Soft Palate Elevation No bolus between soft palate & pharyngeal wall Laryngeal Elevation Part.sup.move.thyroid cart/ part.approx.arytenoids to epiglot.petiole Anterior Hyoid Excursion Partial anterior movement Epiglottic Movement Complete inversion Laryngeal Vestibular Closure Incomplete; narrow column air/ contrast in laryngeal vestibule Pharyngeal Stripping Wave Present - diminished Pharyngoesophageal Segment Opening Complete distention & complete duration; no obstruction of flow Tongue Base Retraction Wide column of contrast/air betwn tongue base & post. pharyngeal wall Pharyngeal Residue Collection of residue within/ on pharyngeal structures Location Diffuse (>3 areas) Additional Pharyngeal Impairment Reduction in tongue base Observations retraction strength Hyolaryngeal elevation and epiglottic inversion reduced Pharyngeal stripping reduced Laryngeal penetration (PAS2) with multiple swallows No tracheal aspiration Pharyngeal phase WNL A/P View Textures Administered Trials Presented Thin Liquid via Spoon (IDDSI 0 ) The IDDSI Framework Protocol: IDDSI.1 A/P View Observations Pharyngeal Contraction Complete Esophageal Clearance Upright Position Complete clearance; esophageal coating Vocal Fold Function Good Esophageal Function WFL Additional A-P Observations Esophageal phase WNL Clinical Impressions Dysphagia Type WNL,Pharyngeal Findings Pt reports coughing with thin liquids and/or her saliva on a weekly basis. Laryngeal penetration observed with sequential swallows Recommendations for referral to ST for dysphagia therapy and base of tongue exercises Increase awareness/ mindfulness of swallowing and to reduce distractions, talking while eating, etc. Rehabilitation Potential Excellent Patient Appropriate for Therapy Yes Recommendations Diet Comments No diet change recommended at this time Treatment Plan Therapy Recommendations Outpatient Speech Therapy,Base of Tongue Exercises
== END ==
PROVIDERS: Family Provider Family Medicine; PCP Family Medicine; Referring Provider Family Medicine; Visit Provider Family Medicine
DX: R13.10 Dysphagia, unspecified (principal)
CPT/HCPCS: 74230; 92610

== ENCOUNTER 2023-11-25 13:59 | Outpatient (CLI) | payer OTHER, SELFPAY ==
[2022-11-24 14:06] VITALS: BMI 24.5
[2023-11-25] VITALS (8 sets, daily range): BP systolic 113–167; BP diastolic 56–78; PULSE 60–79; RESP 12–20; TEMP 36.7; O2SAT 96–100
--- NOTE | 2023-11-25 14:30 | DI.RAD.S_ITS ---
PROCEDURE: PAIN L/S TRANSFORAM INJECT TATINAA COMPARISON: None. TECHNIQUE: Fluoroscopic guidance utilized for a bilateral transforaminal epidural steroid injection at L4-5. COMPARISON: None. FINDINGS: Fluoroscopic images submitted for a L4-5 epidural steroid injection. Please see operative note for further discussion. IMPRESSION: Fluoroscopic guidance. Dictated by: Luis Godoy M.D. on 11/25/2023 at 16:37 Approved by: Luis Godoy M.D. on 11/25/2023 at 16:37
[2023-11-25] MEDS: MIDAZOLAM 2 MG/2 ML VIAL IV (14:53)
[2023-11-25] MEDS: BETAMETHASONE 30 MG/5 ML MDV 12 MG INJ (15:00)
[2023-11-25] MEDS: BUPIVACAINE 0.25% (PF) VIAL 2 ML INJ (15:00)
[2023-11-25] MEDS: iopamidoL 15 ML VIAL 3 ML INJ (15:00)
[2023-11-25] MEDS: DEXAMETHASONE 10 MG/ML VIAL 20 MG INJ (15:01)
--- NOTE | 2023-11-25 15:13 | P.PCN_ITS ---
Date/Time/Diagnoses Date of procedure: 11/25/23 Time of procedure: 15:13 Pre-procedure diagnosis: 1. FORAMINAL STENOSIS WITH LE SYMPTOMS Post-procedure diagnosis: same Procedure Notes Procedure: 1. FLUOROSCOPICALLY GUIDED CONTRAST CONTROLLED TRANSFORAMINAL EPIDURAL STEROID INJECTION - RIGHT L4/5 TFESI Indications: Fay is referred by Dr. Esparza for treatment of Foraminal Stenosis with Right LE Symptoms Physician: Ervin Mckee Total Fluoroscopy time (seconds): 14 Total sedation minutes: 15 Complications: none Procedure in detail & Post-procedure care: FINDINGS Foraminal Nerve Root Compression secondary to disc disease and facet hypertrophy DESCRIPTION OF PROCEDURE Following review of allergy and review of potential side effects and complications, including, but not necessarily limited to, infection, allergic reaction, local tissue breakdown, stroke, temporary or permanent nerve injury, paralysis, and possible , the patient indicated that the patient understood and agreed to proceed. An informed consent document was signed by the patient, witnessed by a nurse, and placed in the patient's chart. Additionally, other treatment options including medications, modalities, and physical therapy were reviewed with the patient. After review of previous anaesthesic history and IV conscious sedation the patient was deemed safe to proceed with today?s procedure with IV conscious sedation as ASA class II designation. Safety time-out was performed to confirm patient ID, procedure to be performed and site of procedure. IV sedation was accomplished with a combination of 2mg of Versed was administered by the RN after DO order, titrated to patient comfort during the course of the procedure while the patient remained responsive to all verbal commands In the prone position following sterile prep and drape of the lumbar region, the right L4/5 posterior neuroforamen was identified fluoroscopically. The skin was anesthetized via a 25-gauge 1.5-inch needle with 1% lidocaine solution. At this point, a 25-gauge 3.5-inch spinal needle was atraumatically introduced and advanced under fluoroscopic guidance through the posterior right L4/5 neuroforamen to approximately the anterior aspect of the canal. Depth was confirmed on lateral view. Following negative aspiration, injection of approximately 1.5cc of Isovue 200 under live fluoroscopy in the AP view confirmed excellent flow along the nerve root, into the epidural space without vascular or intrathecal uptake observed Radiological data, including multiple fluoroscopic views of the lumbosacral s pine, reveal a spinal needle at the right L4/5 posterior neuroforamen. Subsequent views show flow of contrast material flowing superiorly and inferiorly along the nerve root confirming epidural flow. Subsequently, a test dose of 1.5 cc of 1% lidocaine solution was administered and patient was observed for two minutes for signs or symptoms of complications, including abdominal pain, shortness of breath, bilateral upper or lower extremity weakness, nausea and vomiting, prior to steroid injection. At this point, a total of 2cc or 10mg of dexamethasone and 6mg of betamethasone was injected without incident. The procedure was not tolerated well and thus the left sided injection was aborted, the right was completed without signs or symptoms of complications prior to transfer to the recovery area continued monitoring without incident. The patient was then transferred to the recovery area where they were observed for an appropriate time after the injection. The patient reported a VAS score of 7 prior to the procedure and a post- procedure VAS of 5. POST OP INSTRUCTIONS The patient was provided a Pain Log to continue to record their response to the target-specific procedure prior to follow-up visit with their referring physician. Additionally, specific post-injection care instructions and a contact number to our office were provided if concerns arise regarding possible complications associated with the procedure are suspected.
== END 2023-11-25 15:35 | disposition home or self-care (01) ==
PROVIDERS: Family Provider Family Medicine; PCP Family Medicine; Referring Provider Physical Medicine & Rehabilitation; Visit Provider Physical Medicine & Rehabilitation
DX: M48.061 Spinal stenosis, lumbar region without neurogenic claudication (principal); M51.16 Intervertebral disc disorders with radiculopathy, lumbar region; M47.26 Other spondylosis with radiculopathy, lumbar region
CPT/HCPCS: 64483; 99152; J0702; J1100; J2250; J3490

== ENCOUNTER → 2023-12-19 07:41 | Outpatient (CLI) | payer OTHER, SELFPAY ==
[2022-11-24 14:06] VITALS: BMI 24.5
--- NOTE | 2023-12-19 07:42 | DI.MG.S_ITS ---
BILATERAL DIGITAL SCREENING MAMMOGRAM 3D/2D WITH CAD: 12/19/2023 CLINICAL: Routine screening. Family history of breast cancer. Comparison is made to exams dated: 12/17/2022 mammogram, 12/10/2021 mammogram, and 12/08/2020 mammogram - [facility]. Both breasts are heterogeneously dense, which may obscure small masses (category c / 51-75% glandular tissue). Current study was also evaluated with a Computer Aided Detection (CAD) system. There are benign vascular calcifications in both breasts. No significant masses, calcifications, or other findings are seen in either breast. There has been no significant interval change. IMPRESSION: BENIGN There is no mammographic evidence of malignancy. A 1 year screening mammogram is recommended. Based on the Tyrer Cuzick model (a risk assessment model) the patient's lifetime risk is 4.3% and her 10 year risk is 0.0%. According to the ACR, ACS, and NCCN guidelines, an annual breast MRI exam along with mammogram is recommended if the patient's lifetime risk is 20% or greater. This exam was interpreted at Station ID: [id number]. NOTE: For mammograms, a report in lay terms will be sent to the patient. Approximately 15% of breast malignancies will not be visualized mammographically. In the management of a palpable breast mass, a negative mammogram must not discourage biopsy of a clinically suspicious lesion. Electronically Signed By: Nicholas amos/derrek:12/19/2023 11:56:48 letter sent: Normal Exam ACR BI-RADS Category 2: Benign Finding(s) [id number]
== END ==
PROVIDERS: Family Provider Family Medicine; PCP Family Medicine; Referring Provider Family Medicine; Visit Provider Family Medicine
DX: Z12.31 Encounter for screening mammogram for malignant neoplasm of breast (principal); Z80.3 Family history of malignant neoplasm of breast; R92.333 Mammographic heterogeneous density, bilateral breasts
CPT/HCPCS: 77063; 77067

== ENCOUNTER → 2024-03-31 09:15 | Outpatient (CLI) | payer OTHER, SELFPAY ==
[2022-11-24 14:06] VITALS: BMI 24.5
[2024-03-31 10:49] LABS: Alanine Aminotransferase 22 IU/L (<35); Albumin 3.6 g/dL (3.5-5.0); Albumin Globulin Ratio 1.4 (1.0-2.8); Alkaline Phosphatase 70 U/L (38-126); Aspartate Aminotransferase 35 IU/L (14-36); BUN Creatinine Ratio 34.7 (6-22); Bilirubin Total 1.2 mg/dL (0.2-1.3); Blood Urea Nitrogen 26 mg/dL (7-17); Calcium 9.1 mg/dL (8.4-10.2); Carbon Dioxide 30 mmol/L (22-32); Chloride 102 mmol/L (98-107); Estimated Glomerular Filt Rate > 60 mL/min (>60); Globulin 2.6 g/dL (1.7-4.1); Glucose 91 mg/dL (80-110); HEMOLYSIS < 15 (0-50); Potassium 4.5 mmol/L (3.4-5.1); Sodium 136 mmol/L (137-145); Total Protein 6.2 g/dL (6.3-8.2)
[2024-03-31 14:13] LABS: Free T3, Triiodothyronine Free 3.59 pg/mL (2.77-5.27)
[2024-03-31 14:27] LABS: TSH w/ Reflex to FT4 4.06 uIU/mL (0.47-4.68)
== END ==
PROVIDERS: Family Provider Family Medicine; PCP Family Medicine; Referring Provider Family Medicine; Visit Provider Family Medicine
DX: M54.16 Radiculopathy, lumbar region (principal); E78.5 Hyperlipidemia, unspecified; I10 Essential (primary) hypertension; R79.9 Abnormal finding of blood chemistry, unspecified; R79.89 Other specified abnormal findings of blood chemistry; E89.0 Postprocedural hypothyroidism; E04.1 Nontoxic single thyroid nodule
CPT/HCPCS: 36415; 80053; 84443; 84481

== ENCOUNTER → 2024-06-01 07:32 | Outpatient (CLI) | payer OTHER, SELFPAY ==
[2022-11-24 14:06] VITALS: BMI 24.5
[2024-06-01 09:33] LABS: Alanine Aminotransferase 18 IU/L (<35); Albumin 3.7 g/dL (3.5-5.0); Albumin Globulin Ratio 1.5 (1.0-2.8); Alkaline Phosphatase 61 U/L (38-126); Aspartate Aminotransferase 31 IU/L (14-36); BUN Creatinine Ratio 31.2 (6-22); Blood Urea Nitrogen 24 mg/dL (7-17); Calcium 9.3 mg/dL (8.4-10.2); Carbon Dioxide 32 mmol/L (22-32); Chloride 102 mmol/L (98-107); Cholesterol 130 mg/dL (140-199); Estimated Glomerular Filt Rate > 60 mL/min (>60); Globulin 2.4 g/dL (1.7-4.1); Glucose 84 mg/dL (80-110); HDL Cholesterol 66 mg/dL (40-60); HEMOLYSIS < 15 (0-50); LDL Cholesterol Calculated 52 mg/dL (<100); Magnesium 1.9 mg/dL (1.6-2.3); Potassium 4.6 mmol/L (3.4-5.1); Sodium 138 mmol/L (137-145); Total Protein 6.1 g/dL (6.3-8.2); Triglycerides 61 mg/dL (35-150)
[2024-06-01 10:04] LABS: Thyroid Stimulating Hormone 6.36 uIU/mL (0.47-4.68)
== END ==
PROVIDERS: Family Provider Family Medicine; PCP Family Medicine; Referring Provider Specialist; Visit Provider Specialist
DX: I10 Essential (primary) hypertension (principal); E78.00 Pure hypercholesterolemia, unspecified; I48.0 Paroxysmal atrial fibrillation
CPT/HCPCS: 36415; 80053; 80061; 83735; 84443

== ENCOUNTER → 2024-11-27 09:10 | Outpatient (CLI) | payer OTHER, SELFPAY ==
[2022-11-24 14:06] VITALS: BMI 24.5
[2024-11-27 09:41] LABS: Add Manual Diff / Slide Review NO; Basophils Absolute Auto 0 /uL (0-100); Basophils Percent Auto 0.6 % (0-2); Eosinophils Absolute Auto 100 /uL (0-450); Eosinophils Percent Auto 1.3 % (2-4); Lymphocytes Absolute Auto 1200 /uL (1100-4500); Lymphocytes Percent Auto 21.1 % (25-40); Mean Corpuscular HGB Conc 33.2 % (30-36); Mean Corpuscular Volume 93.4 fL (80-100); Monocytes Absolute Auto 500 /uL (0-900); Monocytes Percent Auto 9.5 % (3-14); Neutrophils Absolute Auto 3800 /uL (1500-7000); Neutrophils Percent Auto 67.5 % (50-75); Platelet Count 137 X10^3/uL (150-400); Red Blood Cell Count 4.18 X10^6/uL (4.0-5.2); Red Cell Distribution Width 13.4 % (11.6-14.8); White Blood Cell Count 5.6 X10^3/uL (4.5-11.0)
[2024-11-27 09:49] LABS: INR 2.8 (0.9-1.3); Prothrombin Time 31.1 SECONDS (9.4-12.5)
[2024-11-27 10:06] LABS: BUN Creatinine Ratio 28.8 (6-22); Blood Urea Nitrogen 21 mg/dL (7-17); Carbon Dioxide 29 mmol/L (22-32); Chloride 100 mmol/L (98-107); Estimated Glomerular Filt Rate > 60 mL/min (>60); Glucose 124 mg/dL (70-99); HEMOLYSIS < 15 (0-50); Potassium 4.5 mmol/L (3.4-5.1); Sodium 138 mmol/L (137-145)
== END ==
PROVIDERS: Family Provider Family Medicine; PCP Family Medicine; Referring Provider Nurse Practitioner Family; Visit Provider Nurse Practitioner Family
DX: I48.0 Paroxysmal atrial fibrillation (principal)
CPT/HCPCS: 36415; 80048; 85025; 85610

== ENCOUNTER → 2025-01-01 12:55 | Outpatient (CLI) | payer OTHER, SELFPAY ==
[2022-11-24 14:06] VITALS: BMI 24.5
--- NOTE | 2025-01-01 12:56 | DI.MG.S_ITS ---
MM screening mammo BI: 01/01/2025. BI-RADS: 2 CLINICAL: 79-year old female for bilateral screening mammogram. Tyrer-Cuzick lifetime risk of 3.7%. Current reported family history of breast cancer: maternal grandmother and daughter. History of ovarian cancer in one first-degree relative. The patient had a prior left breast biopsy. PRIOR EXAMS: 12/19/2023, 12/17/2022, 12/10/2021, 12/08/2020, 12/06/2019, 09/22/2018, 06/23/2017, 06/10/2016, 05/10/2015. MAMMOGRAPHY TECHNIQUE: 2D and 3D (tomosynthesis) digital mammographic views obtained, with additional images as needed for full coverage. Current study was also evaluated with a Computer Aided Detection (CAD) system. DENSITY D. The breasts are extremely dense, which lowers the sensitivity of mammography. MAMMOGRAPHY FINDINGS Bilateral: Typically-benign vascular calcifications noted. No significant change from comparison. IMPRESSION: * No evidence of malignancy with benign findings. RECOMMENDATIONS Bilateral * Annual screening mammography. OVERALL ASSESSMENT CATEGORY BI-RADS-2: Benign. The [employer] recommends annual screening mammography beginning at age 40 for women with average risk of breast cancer. ELECTRONICALLY SIGNED: Maria Elena Reese M.D. on 01/07/2025 at 06:38:26 PM PT Interpreting Station ID: [id number]
== END ==
LOC: MAMMO 12:55
PROVIDERS: Family Provider Family Medicine; PCP Family Medicine; Referring Provider Family Medicine; Visit Provider Family Medicine
DX: Z12.31 Encounter for screening mammogram for malignant neoplasm of breast (principal); R92.343 Mammographic extreme density, bilateral breasts; Z80.3 Family history of malignant neoplasm of breast; Z80.41 Family history of malignant neoplasm of ovary
CPT/HCPCS: 77063; 77067

== ENCOUNTER → 2025-02-03 09:38 | Outpatient (CLI) | payer OTHER, SELFPAY ==
[2022-11-24 14:06] VITALS: BMI 24.5
--- NOTE | 2025-02-03 09:59 | DI.ECHO.S_ITS ---
[facility] : : [address] : : [place] : : [id number] : : Phone: [phone] Echocardiogram Report + + :Name: ISAEL GAYLE Study Date: 02/03/2025 Height: 71.5 in: :[facility] ReadingLocation: Weight: 173 lb : : Gender: Female BSA: 2.0 m2 : :: 1945 Age: 79 yrs BP: 124/77 mmHg: :Reason For Study: NONRHEUMATIC TRICUSPID VALVE : :Ordering Physician: ARTHUR : :FARHAD Performed By: Nisha Chopra : :Referring: FARHAD GIBSON : + + Interpretation Summary Left ventricular systolic function remains normal with an estimated ejection fraction of 55 to 60% with borderline increased volumes that are unchanged from the previous exam. Diastolic function remains challenging to assess with continued evidence for possible increased filling pressures but possibly slightly improved compared to the previous exam. The right ventricle is borderline enlarged, perhaps slightly larger compared to the previous study, with normal systolic function that is unchanged. Right ventricular systolic pressure is estimated at 44 mmHg with a CVP of 8 mmHg and is unchanged from the previous exam. There is severe left atrial enlargement but smaller compared to the previous study. Right atrial size is borderline increased and slightly larger compared to the previous exam. There is moderate mitral regurgitation and mild pulmonic regurgitation that are both slightly more prominent compared to the previous study. There is moderate tricuspid regurgitation that remains unchanged. There continues to be a small localized pericardial effusion adjacent to the right atrium that appears unchanged. Procedure: A two-dimensional transthoracic echocardiogram with color flow and Doppler was performed. The study quality was technically adequate. Comparison is made with the echocardiogram of 09/29/2023. The patient was in sinus bradycardia with heart rates between 58-65 bpm during the exam. Left Ventricle: Left ventricular size is at the upper limits of normal. The estimated left ventricular end diastolic volume is 84 mL compared to the previous 79 ml. Proximal septal thickening is noted. The ejection fraction is estimated to be 55-60%. Left ventricular systolic function appears normal without focal wall motion abnormalities. This is unchanged compared to the previous study. Grade III diastolic dysfunction with elevated left atrial pressure. The E/A ratio remains elevated at 2.3, compared to 2.2 previously, possibly reflecting increased filling pressures versus reduced atrial contraction, but likely unchanged from the previous study. The E/E' ratios are borderline elevated but slightly lower compared to the previous exam. Otherwise, there has been no significant change. Right Ventricle: There is a pacemaker lead in the right ventricle. The right ventricle is at the upper limits of normal in size. This is perhaps slightly progressive compared to the previous study. The right ventricular systolic function is normal. This is unchanged compared to the previous study. Atria: The left atrium is severely dilated. The left atrium has significantly decreased in size since the prior echo exam. The right atrium is borderline dilated. The right atrium has mildly increased in size since the prior echo exam. There is no Doppler evidence for an interatrial shunt. Mitral Valve: The mitral valve leaflets appear moderately thickened. There is slight calcification extending into the subvalvular apparatus. There is moderate mitral regurgitation. This is slightly more prominent compared to the previous study. Aortic Valve: The aortic valve is trileaflet. The aortic valve is slightly calcified. The aortic valve opens well. There is no aortic valve stenosis. There is trace aortic regurgitation. This is unchanged compared to the previous study. Tricuspid Valve: The tricuspid valve leaflets are thin and pliable. There is moderate tricuspid regurgitation. The right ventricular systolic pressure is estimated to be at least 44 mmHg based on an estimated right atrial pressure of 8 mm Hg. This is unchanged compared to the previous study. Pulmonic Valve: The pulmonic valve is not well seen, but is grossly normal. There is mild pulmonic regurgitation. This is slightly more prominent compared to the previous study. Great Vessels: The aortic root is normal size. The dimensions of the ascending aorta are normal. The IVC is dilated (diameter is greater than 2.1 cm) yet it collapses greater than 50% with a sniff. This suggests a right atrial pressure of 8 mm Hg. Pericardium/ Pleura There is a small-pericardial effusion near the right atrium that appears unchanged from a previous exam. There is no pleural effusion. MMode/2D Measurements & Calculations LVIDd: 5.3 cm LVOT diam: 2.0 cm LVIDs: 4.0 cm Ao root diam: 3.5 cm FS: 24.6 % asc Aorta Diam: 3.3 cm IVSd: 0.99 cm Ao Arch Diam (Prox Trans): 2.4 cm LVPWd: 0.86 cm LV oh. diameter/BSA (cm/m^2): 2.7 LV sys. diameter/BSA (cm/m^2): 2.0 LA A2 area: 34.5 cm2 RA long axis: 5.2 cm LA A4 area: 22.1 cm2 RA area: 18.7 cm2 LA length (vol): 5.5 cm RA vol: 56.7 ml LA vol: 117.5 ml RA : 28.4 ml/m2 LA vol index: 58.9 ml/m2 IVC diam: 2.6 cm RVD1 (basal): 4.3 cm RVD2 (mid): 2.8 cm TAPSE: 2.2 cm Doppler Measurements & Calculations Ao V2 max: 129.9 cm/sec LVOT Max Aamir: 89.7 cm/sec Ao V2 mean: 84.8 cm/sec LV V1 max P.2 mmHg Ao max P.8 mmHg LV V1 VTI: 21.1 cm Ao mean P.5 mmHg ISH(I,D): 2.4 cm2 Ao V2 VTI: 28.4 cm ISH(V,D): 2.3 cm2 sev ratio: 0.74 ISH indexed to BSA (cm^2/m^2): 1.2 AI P1/2t: 639.6 msec AI dec slope: 162.5 cm/sec2 MV E max aamir: 86.8 cm/sec TR max aamir: 298.4 cm/sec MV A max aamir: 38.3 cm/sec TR max P.6 mmHg MV E/A: 2.3 PA V2 max: 91.5 cm/sec Med Peak E' Aamir: 5.4 cm/sec PA V2 mean: 60.3 cm/sec E/E' med: 16.1 PA mean P.6 mmHg Lat Peak E' Aamir: 8.1 cm/sec PA pr(Accel): 46.5 mmHg E/E' lat: 10.7 E/e' average: 13.4 MV dec time: 0.18 sec MR ERO: 0.09 cm2 MR PISA: 1.2 cm2 SV(LVOT): 69.4 ml MR flow rate: 46.5 cm3/sec MR PISA radius: 0.44 cm Reading Physician:09:23 AM
[2025-02-03 10:49] LABS: Hematocrit 41.0 % (36-46); Hemoglobin 13.6 g/dL (12.0-16.0); Mean Corpuscular HGB Conc 33.1 % (30-36); Mean Corpuscular Hemoglobin 30.4 PG (26-34); Mean Corpuscular Volume 91.7 fL (80-100); Platelet Count 141 X10^3/uL (150-400)
[2025-02-03 11:06] LABS: Alanine Aminotransferase 19 IU/L (<35); Albumin 4.1 g/dL (3.5-5.0); Albumin Globulin Ratio 1.6 (1.0-2.8); Alkaline Phosphatase 76 U/L (38-126); Blood Urea Nitrogen 22 mg/dL (7-17); Calcium 9.3 mg/dL (8.4-10.2); Carbon Dioxide 28 mmol/L (22-32); Chloride 102 mmol/L (98-107); Estimated Glomerular Filt Rate > 60 mL/min (>60); Globulin 2.6 g/dL (1.7-4.1); Glucose 87 mg/dL (70-99); HEMOLYSIS < 15 (0-50); Magnesium 1.9 mg/dL (1.6-2.3); Potassium 4.5 mmol/L (3.4-5.1); Sodium 137 mmol/L (137-145); Total Protein 6.7 g/dL (6.3-8.2)
[2025-02-03 11:34] LABS: Thyroid Stimulating Hormone 0.303 uIU/mL (0.47-4.68)
[2025-02-07 10:09] LABS: Cholesterol, Total 144 mg/dL (100-199); HDL-Particle (Total) 33.8 umol/L (>=30.5); LDL Particle 514 nmol/L (<1000); LDL-Cholsterol 56 mg/dL (0-99); Small LDL- Particle <90 nmol/L (<=527); Triglycerides 56 mg/dL (0-149)
== END ==
PROVIDERS: Family Provider Family Medicine; PCP Family Medicine; Referring Provider Specialist; Visit Provider Specialist
DX: I08.1 Rheumatic disorders of both mitral and tricuspid valves (principal); I31.39 Other pericardial effusion (noninflammatory); I27.20 Pulmonary hypertension, unspecified; I48.0 Paroxysmal atrial fibrillation; E78.00 Pure hypercholesterolemia, unspecified
CPT/HCPCS: 36415; 80053; 80061; 83704; 83735; 84443; 85027; 93306